=== PATIENT | female | born 1950 | race Caucasian/White ===

== ENCOUNTER 2016-11-24 21:59 | Inpatient (IN) | payer OTHER ==
[~2016-11-24] VITALS: Ht 152.4 cm; Wt 181.0 kg
[~2016-11-24 21:59] MED LIST: ALDACTONE25 MG PO; CALCIUM 500 + D1 TA1 PO; CALCIUM 500 + D1 TA2 PO; CATAPRES0.1 MG PO; COLACE100 M1 PO; COREG12.5 MG PO; IPRATROPIUM BROM3 M1 IH; IRON325 M2 PO; LASIX40 MG PO; LEVAQUIN500 MG IV; LIPITOR10 MG PO; LOVENOX40 MG/0.1 SUBQ; MAG-OX 400400 MG PO; MILK OF MA400 MG/5 M PO; NORCO 5/325 MG1 TAB PO; NORVASC10 MG PO; ONDANSETRON8 M1 PO; POLY VITAMIN PO; PRAVACHOL40 MG PO; PROAIR HFA0.09 MG/Ac IH; REGLAN10 MG PO; ROBITUSSIN PEA PO; ROCEPHIN1 G1 IV; SALT PO; SENOKOT8.6 MG PO; THERAGRAN1 TA2 PO; TYLENOL160 MG/5 M PO; VITAMIN C500 M8 PO; VITAMIN D PO; ZESTRIL20 MG PO; ZINC SULFATE220 M1 PO; ZOFRAN4 M1 PO; ZOLOFT25 MG PO; [UNRECOGNIZED DRUG - OTHER] IV
--- NOTE | 2016-11-24 21:59 | NUR ---
Patient was BIBA for resp distress and taken to bed 03 via gurney per EMS. Patient arrived on CPAP.
--- NOTE | 2016-11-24 21:59 | NUR ---
RT at bedside.
[2016-11-24 22:07] VITALS: BP 167/58
--- NOTE | 2016-11-24 22:07 | NUR ---
PT BIB BY EMS ON CPAP IB RESP DISTRESS PLACED ON VISION BIPAP 12\5 RR 12 FIO2 45 ALARMS ARE ON AND FUNCTIONAL APNEA SET 20 SECONDS PT IN HF ALERT WEARING F\F MASK SIZE LG BIPAP PLUGGED INTO RED OUTLET HHN WILL BE ORDERED Addendum: 11/24/16 at 2320 by Kenyatta Manrique RT GEL PLACED UNDER MASK
--- NOTE | 2016-11-24 22:14 | NUR ---
Dr. Rivera evaluating patient at bedside.
[2016-11-24] MEDS ORDERED: methylPREDNISolone SS 125 MG/2 ML VIAL IVP ONE (22:20)
[2016-11-24] MEDS ORDERED: IPRATROPIUM 0.02% 0.5 MG/2.5 ML NEBU INH ONE (22:20)
[2016-11-24] MEDS ORDERED: ALBUTEROL 0.083% 2.5 MG/3 ML NEBU INH ONE (22:20)
[2016-11-24] MEDS ORDERED: ARTIFICIAL TEA1 EACH OP (22:24)
[2016-11-24] MEDS ORDERED: COZAAR100 MG PO (22:24)
[2016-11-24] MEDS ORDERED: BENGAY GREASELE1 CRE TP (22:24)
--- NOTE | 2016-11-24 22:30 | NUR ---
BIBA C/O SOB, N/V, WHEEZING THROUGHOUT, ALBUTEROL AND ATROVENT WAS GIVEN ENROUTE, AND PUT ON CPAP DENIES N/V/D; SKIN IS PINK/WARM/DRY; AAOX4. HR EVEN AND REGULAR; PT DENIES ANY FEVER, AT THIS TIME; PATIENT STATES PAIN OF 0/10 AT THIS TIME; VSS; PATIENT POSITIONED FOR COMFORT; HOB ELEVATED; BEDRAILS UP X2; BED DOWN. ER MD MADE AWARE OF PT STATUS.
--- NOTE | 2016-11-24 22:30 | NUR ---
XRAY at bedside.
--- NOTE | 2016-11-24 22:33 | NUR ---
LAB at bedside.
--- NOTE | 2016-11-24 23:20 | NUR ---
ABG RESULTS REPORTED TO DR YU
--- NOTE | 2016-11-24 23:29 | NUR ---
PER LAB, TROPONIN IS 1.492. I made this known to Dr. Rivera.
[2016-11-24] MEDS ORDERED: ASPIRIN 81 MG TAB.CHEW PO ONE (23:35)
[2016-11-24] MEDS ORDERED: NITROGLYCERIN 2% 1 GM PKT TP ONE (23:35)
[2016-11-24] MEDS ORDERED: LEVOFLOXACIN 500 MG/D5W PREMIX 100 ML IV ONE (23:35)
--- NOTE | 2016-11-24 23:39 | NUR ---
BIPAP CHECK BS DIMINISHED GEL UNDER MASK DECREASE FIO2 TO 35
--- NOTE | 2016-11-25 01:29 | NUR ---
REC'D PT ON VISION BIPAP SETTING 07/30 RR 12 FIO2 35% PT IS WEARING LARGE FACE MASK WITH FAMILY MEMBER AT BEDSIDE
--- NOTE | 2016-11-25 02:17 | NUR ---
Patient being taken to TELE 112B via [facility] philip/RN.
--- NOTE | 2016-11-25 02:27 | NUR ---
pt moved to room 112b as per dr. carter can be on venti mask at 35% and bipap prn for now
--- NOTE | 2016-11-25 02:30 | NUR ---
Patient will be admitted to care of DR MCLEAN. Admited to TELE. Will go to room 112b. Belongings list completed. Report to joseph hendricks.
--- NOTE | 2016-11-25 02:36 | NUR ---
RECEIVED PT. TOMY NELSON AWAKE AND ALERT.ABLE TO VERBALIZE NEEDS WELL IN FRENCH. WITH VENTRI MASK AT 35% AND 02 SAT OF 96 %. HR AT 82 AND BLOOD PRESSURE 110/50. MORBIDLY OBESE FEMALE WITH SKIN INTACT. ABLE TO MOVE ALL EXTREMITIES. PT. ORIENTED TO CALL LIGHT USE FOR ANY HELP SHE MAY NEED OR IF IN PAIN. ORIENTED X 4. CLEAR SPEECH. SKIN INTACT. ABLE TO FOLLOW COMMANDS AND ABLE TO TURN SELF . DX. OF ACUTE CORONARY SYNDROME, PNA AND RESPIRATORY FAILURE WITH BIPAP PRN ORDER. CARE PLANS FOR THE NIGHT DISCUSSED WITH HER. USE OF PHONE AND RAPID RESPONSE USE EXPLAINED TO PT. SANDRA MONITORING.
--- NOTE | 2016-11-25 02:38 | NUR ---
BIPAP STBY ON 35% VENTURI MASK HR 83 SAO2 95% RR 20 B/S DIMINISHED
[2016-11-25 03:24] VITALS: BP 110/60
[2016-11-25 04:04] VITALS: BP 110/55
--- NOTE | 2016-11-25 06:34 | NUR ---
SLEPT WELL THIS SHIFT. NO FURTHER COMPLAINT OF SOB. WITH VM AT 35 %. AFEBRILE AND 02 SAT AT 96%. ENCOURAGED NOT TO TAKE IT OUT FOR A LONG TIME. PT. HAS TENDENCY TO TAKE OUT VM. TELEMETRY MONITORING. NO COMPLAINTS DONE.
--- NOTE | 2016-11-25 07:30 | NUR ---
RECEIVED REPORT FROM NIGHT NURSE. PT AOX4, RESTING IN HIGH FOWLERS IN BED. PT ON VENTURI MASK. PT DENIES ACUTE DISTRESS, SOB OR CHEST PAIN. MORBID OBESITY, BLE EDEMA NOTED. SAFETY MEASURES ENSURED. CALL LIGHT WITHIN REACH. PLAN OF CARE DISCUSSED WITH PATIENT. PT VERBALIZES UNDERSTANDING.
[2016-11-25 08:00] VITALS: BP 129/53
[2016-11-25] MEDS ORDERED: ACETAMINOPHEN 650 MG/20.3 ML UDC PO PRN (09:10)
[2016-11-25] MEDS ORDERED: HYDROcodone/APAP 5/325 MG 1 TAB TAB PO PRN (09:10)
[2016-11-25] MEDS: NACL 0.9% 1,000 ML IV SCH ×2 (09:50→19:25)
--- NOTE | 2016-11-25 10:28 | NUR ---
CHECK ON PT AND CHANGED O2 FROM VENTI MASK AT 35% TO NC AT 3L
[2016-11-25] MEDS ORDERED: ALBUTEROL SULFATE/IPRATROPIU 3 ML SOL IH SCH (11:00)
[2016-11-25 12:00] VITALS: BP 134/63
--- NOTE | 2016-11-25 12:00 | NUR ---
PT EATING WELL IN HIGH FOWLERS. PT'S SON AT BEDSIDE. DISCUSSED PLAN OF CARE, PT AND SON VERBALIZES UNDERSTANDING. NO S/S OF DISTRESS. SAFETY MEASURES ENSURED. CALL LIGHT WITHIN REACH
[2016-11-25] MEDS: LEVOFLOXACIN 750 MG/D5W PREMIX 150 ML IV SCH (13:49)
--- NOTE | 2016-11-25 13:55 | NUR ---
MEDICATION ADMINISTERED WITH EDUCATION, PT TOLERATED WELL. PT RESTING COMFORTABLY. SAFETY MEASURES ENSURED.
--- NOTE | 2016-11-25 13:55 | NUR ---
DR LUI IN TO SEE PT. ASSISTED WITH PERICARE AND ADLS. NOTED SMALL AMOUNT OF SOFT, BROWN STOOL. PT TOLERATED WELL. NO S/S OF DISTRESS. SAFETY MEASURES ENSURED.
[2016-11-25 16:00] VITALS: BP 147/67
[2016-11-25] MEDS: ISOSORBIDE DINITRATE 20 MG TAB PO SCH (16:32)
--- NOTE | 2016-11-25 16:40 | NUR ---
MEDICATION ADMINISTERED WITH EDUCATION, PT TOLERATED WELL. STRAIGHT CATH TO OBTAIN URINE SAMPLE COMPLETED WITH STERILE TECHNIQUE. PT TOLERATED WELL. PT RESTING COMFORTABLY IN HIGH FOWLERS. NO S/S OF DISTRESS. SAFETY MEASURES ENSURED.
--- NOTE | 2016-11-25 19:30 | NUR ---
CONDITION STABLE, ENDORSED PLAN OF CARE TO VEHICLE ASSEMBLY INSPECTOR RN.
[2016-11-25] MEDS: ALBUTEROL SULFATE/IPRATROPIU 3 ML SOL IH SCH (19:31)
--- NOTE | 2016-11-25 19:31 | NUR ---
RECD. RESTING IN BED, AWAKE, A/OX3, OBESE, RESPIRATION EVEN AND UNLABORED. IV OF NS AT 100 ML/HR INFUSING, LEFT FOREARM G 20. ABLE TO VERBALIZED NEEDS BUT VERY SOFT SPEAKING. ON 02 AT 2 LITERS VIA N/C, O2 SAT -96% ON CONTINUOUS PULSE OX MONITORING. DIMINISHED LUNG SOUNDS ON BILATERAL AUSCULTATION. HOB ELEVATED 40 DEGREES. WITH UNPRODUCTIVE COUGHING NOTED. CLAIMED SOMETIMES WITH WHITE PHLEGM. PLAN OF CARE FOR THE SHIFT DISCUSSED. VERBALIZED UNDERSTANDING. DENIES PAIN 0/10.
--- NOTE | 2016-11-25 19:55 | NUR ---
TROPONIN TRENDING DOWN - FROM O.569 TO 0.318, WILL INFORM MD.
[2016-11-25 20:00] VITALS: BP 146/63
--- NOTE | 2016-11-25 20:00 | NUR ---
Patient's Plan of Care was discussed and reviewed with REEL FED PRINTER: MONIQUE Carter
[2016-11-25] MEDS: ATORVASTATIN 20 MG TAB PO SCH (20:24)
[2016-11-25] MEDS: METOPROLOL 25 MG TAB PO SCH (20:24)
[2016-11-25] MEDS: ENOXAPARIN 100 MG/ML SYR SUBQ SCH (20:33)
--- NOTE | 2016-11-25 20:35 | NUR ---
DUE PO MEDICATIONS GIVEN, TOLERATED WELL.
[2016-11-25] MEDS ORDERED: ENOXAPARIN 30 MG/0.3 ML SYR SUBQ SCH ×2 (21:00)
[2016-11-25] MEDS ORDERED: LEVOFLOXACIN 500 MG/D5W PREMIX 100 ML IV SCH (21:00)
--- NOTE | 2016-11-25 22:00 | NUR ---
SPOKE WITH DR. MCLEAN INFORMED NEW RESULT FOR TROPONIN, 0.318. INQUIRED IF DR. LUI ORDERED MEDS, INFORMED LOVENOX WAS ORDERED AND GIVEN.
[2016-11-26] VITALS: BP 145/67
--- NOTE | 2016-11-26 | NUR ---
SLEEPING COMFORTABLY IN BED.
[2016-11-26] MEDS: ALBUTEROL SULFATE/IPRATROPIU 3 ML SOL IH SCH ×4 (01:32→20:14)
[2016-11-26 04:00] VITALS: BP 150/73
--- NOTE | 2016-11-26 04:00 | NUR ---
O 2 SAT REMAINED 0N 95 -96% LEVEL, NO SOB NOTED.
[2016-11-26] MEDS: NACL 0.9% 1,000 ML IV SCH ×2 (05:25→15:29)
[2016-11-26] MEDS ORDERED: ACETAMINOPHEN 325 MG TAB PO PRN (06:35)
[2016-11-26] MEDS: PANTOPRAZOLE 40 MG TABEC PO SCH (06:43)
--- NOTE | 2016-11-26 07:20 | NUR ---
CONDITION REMAIN STABLE. ENDORSED TO COURT UREÑA FOR CONTINUITY OF CARE.
--- NOTE | 2016-11-26 07:25 | NUR ---
RECEIVED REPORT FROM FILAMENT WOUND PARTS FABRICATOR RN. PT IS SLEEPING, NO S/S OF ACUTE CARDIAC/RESPIRATORY DISTRESS OR DISCOMFORT. SAFETY MEASURES IN PLACE, CALL LIGHT WITHIN REACH. WILL CONTINUE PLAN OF CARE AND CONTINUE TO MONITOR.
--- NOTE | 2016-11-26 07:39 | NUR ---
PATIENT HAS BEEN SCREENED AND CATEGORIZED HIGH NUTRITION RISK. PATIENT WILL BE SEEN WITHIN 1-2 DAYS OF ADMISSION. 11/25/16-11/26/[address]
[2016-11-26 08:00] VITALS: BP 138/78
[2016-11-26] MEDS ORDERED: LOSARTAN POTASSIUM PO SCH (09:00)
[2016-11-26] MEDS ORDERED: LOSARTAN 50 MG TAB PO SCH (09:00)
[2016-11-26] MEDS: METOPROLOL 25 MG TAB PO SCH (09:00)
[2016-11-26] MEDS: MAGNESIUM OXIDE 400 MG TAB PO SCH (09:16)
[2016-11-26] MEDS: ISOSORBIDE DINITRATE 20 MG TAB PO SCH ×3 (09:16→16:37)
[2016-11-26] MEDS: SERTRALINE 50 MG TAB PO SCH (09:16)
[2016-11-26] MEDS: DOCUSATE SODIUM 100 MG GELCAP PO SCH (09:17)
[2016-11-26] MEDS: ASPIRIN 325 MG TAB PO SCH (09:18)
[2016-11-26] MEDS: LOSARTAN 25 MG TAB PO SCH (09:18)
[2016-11-26] MEDS: ENOXAPARIN 100 MG/ML SYR SUBQ SCH ×2 (09:27→20:43)
--- NOTE | 2016-11-26 10:30 | NUR ---
PT TOLERATED AM MEDS WELL. NO S/S OF ACUTE DISTRESS OR DISCOMFORT. CALL LIGHT WITHIN REACH, WILL CONTINUE TO MONITOR.
[2016-11-26 12:00] VITALS: BP 123/61
[2016-11-26] MEDS: LEVOFLOXACIN 750 MG/D5W PREMIX 150 ML IV SCH (13:00)
--- NOTE | 2016-11-26 13:31 | NUR ---
PT EATING LUNCH. IV INFILTRATED, WILL ATTEMPT TO INSERT A NEW IV AFTER PT IS FINISHED EATING LUNCH. NO S/S OF ACUTE DISTRESS OR DISCOMFORT. CALL LIGHT WITHIN REACH, WILL CONTINUE TO MONITOR.
--- NOTE | 2016-11-26 15:49 | NUR ---
PT IS RESTING, CALM, COOPERATIVE. NO S/S OF ACUTE DISTRESS OR DISCOMFORT. CALL LIGHT WITHIN REACH, WILL CONTINUE TO MONITOR.
[2016-11-26 16:00] VITALS: BP 134/60
--- NOTE | 2016-11-26 17:00 | NUR ---
PT IS AWAKE, RESTING. FAMILY AT BEDSIDE. NO S/S OF ACUTE DISTRESS OR DISCOMFORT. CALL LIGHT WITHIN REACH, WILL CONTINUE TO MONITOR.
--- NOTE | 2016-11-26 19:14 | NUR ---
ENDORSED REPORT TO ELEVATOR ERECTOR HELPER RN. NO S/S OF ACUTE DISTRESS OR DISCOMFORT. PT IN STABLE CONDITION.
--- NOTE | 2016-11-26 19:26 | NUR ---
RECEIVED FROM AM RN IN BED SLEEPING. CALL LIGHT WITH IN REACH AT ALL TIMES. MORBIDLY OBESE FEMALE , NO SOB AT THIS TIME. NO RESTLESSNESS. USES CALL LIGHT FOR HELP. TELEMETRY MONITORING. DX. OF ACS, PNA AND RESPIRATORY FAILURE. AFEBRILE.
[2016-11-26 19:28] VITALS: BP 136/78
--- NOTE | 2016-11-26 19:40 | NUR ---
IVF SITE INFILTRATED. DISCONTINUED. TIP INTACT. NEW IVF LINE INSERTED TO RIGHT FOREARM #22. TOLERATED WELL. GOOD BLOOD RETURN.
[2016-11-26] MEDS: ATORVASTATIN 20 MG TAB PO SCH (20:38)
[2016-11-26] MEDS: METOPROLOL 50 MG TAB PO SCH (20:39)
[2016-11-26] MEDS ORDERED: METOPROLOL 50 MG TAB PO SCH (21:00)
[2016-11-27 00:11] VITALS: BP 149/77
--- NOTE | 2016-11-27 00:38 | NUR ---
SLEEPING. PT. TURNED AND CHECKED EVERY 2 HOURS. ABLE TO USE CALL LIGHT FOR HELP. ORIENTED X 4. CLEAR SPEECH. TELEMETRY MONITORING.
[2016-11-27] MEDS: NACL 0.9% 1,000 ML IV SCH ×2 (01:28→05:08)
[2016-11-27] MEDS: ALBUTEROL SULFATE/IPRATROPIU 3 ML SOL IH SCH ×3 (01:43→12:55)
--- NOTE | 2016-11-27 02:20 | NUR ---
PT. WOKE UP AND REQUESTED TO HAVE BEDDINGS CHANGED RT URINATED. KEPT DRY AND CLEAN. ABLE TO USE CALL LIGHT FOR HELP. DENIES ANY PAIN. 02 STA AT 98 %. SLEPT BACK. TELEMETRY MONITORING. ABLE TO VERBALIZE NEEDS WELL.
[2016-11-27 04:00] VITALS: BP 152/71
--- NOTE | 2016-11-27 04:00 | NUR ---
AWAKE AT THIS TIME . PT. PRAYING AND DOING ROSARY. ABLE TO VERBALIZE NEEDS WELL. USES CALL LIGHT FOR HELP. NO SOB NOTED. NO COMPLAINTS DONE . TELEMETRY MONITORING.
[2016-11-27] MEDS: PANTOPRAZOLE 40 MG TABEC PO SCH (05:10)
--- NOTE | 2016-11-27 06:16 | NUR ---
AWAKE AT THIS TIME. AM PERSONAL HYGIENE RENDERED BY CNAS. NO COMPLAINTS DONE. ABLE TO VERBALIZE NEEDS WELL.
--- NOTE | 2016-11-27 07:45 | NUR ---
RECEIVED PT SLEEPING COMFORTABLY IN BED WITH O2 AT 2L/NC. O2 SAT 93-96%. PT EASILY ROUSABLE AND VOICED NO C/O PAIN OR ANY OTHER DISCOMFORT AT THIS TIME. SHIFT ASSESSMENT DONE AND CHARTED. PLAN OF CARE, MEDS,TREATMENTS AND SAFETY DISCUSSED WITH PT AND PT VERBALIZED UNDERSTANDING. WILL CONTINUE TO MONITOR PT. WILL CONTINUE TO MONITOR PT.
[2016-11-27 08:00] VITALS: BP 133/77
[2016-11-27] MEDS: SERTRALINE 50 MG TAB PO SCH (08:30)
[2016-11-27] MEDS: ASPIRIN 325 MG TAB PO SCH (08:30)
[2016-11-27] MEDS: MAGNESIUM OXIDE 400 MG TAB PO SCH (08:31)
[2016-11-27] MEDS: ISOSORBIDE DINITRATE 20 MG TAB PO SCH ×3 (08:31→17:59)
[2016-11-27] MEDS: LOSARTAN 25 MG TAB PO SCH (08:31)
[2016-11-27] MEDS: DOCUSATE SODIUM 100 MG GELCAP PO SCH (08:32)
[2016-11-27] MEDS: METOPROLOL 50 MG TAB PO SCH (08:33)
[2016-11-27] MEDS: ENOXAPARIN 100 MG/ML SYR SUBQ SCH (09:05)
[2016-11-27] MEDS ORDERED: CLOPIDOGREL 75 MG TAB PO SCH (10:00)
--- NOTE | 2016-11-27 11:41 | NUR ---
SS NOTE: PER MARLIN FROM [facility] ([phone]), PT CAN GO TO ROOM 9A ANYTIME UNDER DR. MCLEAN. NIMO MAGDALENO.
[2016-11-27 12:00] VITALS: BP 129/75
[2016-11-27] MEDS ORDERED: LEVAQUIN750 MG PO (12:35)
[2016-11-27] MEDS ORDERED: SODIUM CHLORID IV (12:37)
--- NOTE | 2016-11-27 13:39 | NUR ---
CALL PLACED TO [facility] [phone] AND SPOKE WITH HERI AND SCHEDULED BARIATRIC GURNEY TRANSPORT WITH 5:30 BRAKE SHOE REBUILDER. AT THIS TIME AWAITING CALL FROM [facility] NORBERTO DENNIS FOR AUTHORIZATION NUMBER.
[2016-11-27] MEDS: LEVOFLOXACIN 750 MG/D5W PREMIX 150 ML IV SCH (15:22)
[2016-11-27 16:00] VITALS: BP 114/43
--- NOTE | 2016-11-27 16:55 | NUR ---
REPORT GIVEN TO YOBANI PIERCE OF [facility] BY PHONE.
--- NOTE | 2016-11-27 18:30 | NUR ---
PT TOOK DIET AND FLUIDS WELL. PT ON ROOM AIR AND NO C/O SOB MADE BY PT. PT O2 SAT FLUCTUATING FROM THE 80S TO HIGH 90S. WILL CONTINUE TO MONITOR PT.
--- NOTE | 2016-11-27 18:55 | NUR ---
PT DISCHARGED TO [facility]IA [facility] IN A STABLE CONDITION. TELE BOX REMOVED AND RETURNED TO HUNTING AND FISHING GUIDE. ALL PT'S BELONGINGS SENT WITH PT.
[2016-11-28] MEDS ORDERED: CLOPIDOGREL 75 MG TAB PO SCH (09:00)
--- NOTE | 2016-11-28 10:38 | NUR ---
RECEIVED CALL FROM SONNY THORNTON AT [facility] WITH AUTH# [id number] FOR BARIATRIC GURNEY TRANSPORT FOR PT YESTERDAY TO [facility]. CALLED [facility] [phone] AND SPOKE WITH DON AND PROVIDED HER WITH THE AUTH#.
== END 2016-11-27 18:55 | DRG 871 ==
LOC: MED 21:59 → MTU 23:47
PROVIDERS: ADMIT Family Medicine; ATTEND Family Medicine
PROC: 5A09457 Assistance with Respiratory Ventilation, 24-96 Consecutive Hours, Continuous Positive Airway Pressure (ICD-10-PCS; principal; 2016-11-24)
DX: A41.9 Sepsis, unspecified organism (principal); J18.9 Pneumonia, unspecified organism; J96.00 Acute respiratory failure, unspecified whether with hypoxia or hypercapnia; I21.4 Non-ST elevation (NSTEMI) myocardial infarction; E87.1 Hypo-osmolality and hyponatremia; Z68.45 Body mass index [BMI] 70 or greater, adult; I50.42 Chronic combined systolic (congestive) and diastolic (congestive) heart failure; J44.1 Chronic obstructive pulmonary disease with (acute) exacerbation; J44.0 Chronic obstructive pulmonary disease with (acute) lower respiratory infection; E66.01 Morbid (severe) obesity due to excess calories; M06.9 Rheumatoid arthritis, unspecified; K21.9 Gastro-esophageal reflux disease without esophagitis; E78.5 Hyperlipidemia, unspecified; G14 Postpolio syndrome; I11.0 Hypertensive heart disease with heart failure; K76.0 Fatty (change of) liver, not elsewhere classified; R74.0 Nonspecific elevation of levels of transaminase and lactic acid dehydrogenase [LDH]; Y95 Nosocomial condition; Z88.0 Allergy status to penicillin; Z91.013 Allergy to seafood; Z79.899 Other long term (current) drug therapy; Z90.710 Acquired absence of both cervix and uterus; Z85.42 Personal history of malignant neoplasm of other parts of uterus; Z90.49 Acquired absence of other specified parts of digestive tract; Z74.01 Bed confinement status; Z28.21 Immunization not carried out because of patient refusal

== ENCOUNTER 2017-05-25 12:08 | Inpatient (IN) | payer OTHER ==
[~2017-05-25] VITALS: Ht 165.1 cm; Wt 138.3 kg
[~2017-05-25 12:08] MED LIST changes: +ACET-8386 PO; +ACET650S53 PO; -ALDACTONE25 MG PO; +AMLO10TA PO; +ATOR10TA PO; +CALC-105 PO; +CALC-232 PO; -CALCIUM 500 + D1 TA1 PO; -CALCIUM 500 + D1 TA2 PO; -CATAPRES0.1 MG PO; +CEFT1PDS43 IV; +CHOL400T7 PO; +CLON0.1T42 PO; -COLACE100 M1 PO; -COREG12.5 MG PO; +DEXT1DRO4 OP; +DOCU-299 PO; +FERR-142 PO; +IPRA3AMP IH; -IPRATROPIUM BROM3 M1 IH; -IRON325 M2 PO; -LASIX40 MG PO; -LEVAQUIN500 MG IV; +LEVO750T2 PO; -LIPITOR10 MG PO; +LISI-420 PO; +LOSA100T1 PO; -LOVENOX40 MG/0.1 SUBQ; -MAG-OX 400400 MG PO; +MAGN400T11 PO; +MENT1CRE TP; +METO-460 PO; -MILK OF MA400 MG/5 M PO; -NORCO 5/325 MG1 TAB PO; -NORVASC10 MG PO; +ONDA4TAB PO; -ONDANSETRON8 M1 PO; -POLY VITAMIN PO; -PRAVACHOL40 MG PO; -PROAIR HFA0.09 MG/Ac IH; -REGLAN10 MG PO; -ROBITUSSIN PEA PO; -ROCEPHIN1 G1 IV; +SAL1 PO; -SALT PO; +SENN-73 PO; -SENOKOT8.6 MG PO; +SERT25TA PO; -THERAGRAN1 TA2 PO; -TYLENOL160 MG/5 M PO; -VITAMIN C500 M8 PO; -VITAMIN D PO; -ZESTRIL20 MG PO; -ZINC SULFATE220 M1 PO; -ZOFRAN4 M1 PO; -ZOLOFT25 MG PO; +[UNRECOGNIZED DRUG - CODE] IV; -[UNRECOGNIZED DRUG - OTHER] IV
--- NOTE | 2017-05-25 12:08 | NUR ---
PT BIBA TO BED 4
[2017-05-25 12:10] VITALS: BP 153/70
[2017-05-25] MEDS ORDERED: methylPREDNISolone SS 125 MG/2 ML VIAL IVP ONE (12:20)
[2017-05-25] MEDS ORDERED: ALBUTEROL 0.083% 2.5 MG/3 ML NEBU INH ONE (12:20)
[2017-05-25] MEDS ORDERED: ONDANSETRON 4 MG/2 ML VIAL IVP ONE (12:20)
[2017-05-25] MEDS ORDERED: NACL 0.9% 500 ML IV ONE (12:20)
[2017-05-25] MEDS ORDERED: IPRATROPIUM 0.02% 0.5 MG/2.5 ML NEBU INH ONE (12:20)
--- NOTE | 2017-05-25 12:31 | NUR ---
BROUGHT IN BY [facility] WITH A CHIEF COMPLIANT OF REPEATED N/V X 3 DAYS---DENIES ABDOMINAL PAIN DENIES DIARRHEA/LOOSE STOOLS
[2017-05-25 12:50] LABS: HEMATOCRIT 35.2 % (36-48); HEMOGLOBIN 11.6 g/dL (12.0-16.0); MEAN CORPUSCULAR HEMOGLOBIN 30 pg (27-31); MEAN CORPUSCULAR HGB CONC 33 g/dL (33-37); MEAN CORPUSCULAR VOLUME 90 fL (80-94); PLATELET COUNT (AUTO) 221 K/uL (140-450); RED BLOOD CELL COUNT(AUTO) 3.89 MIL/uL (4.20-5.40); RED CELL DISTRIBUTION WIDTH 13.1 % (11.6-13.7); WHITE BLOOD COUNT (AUTO) 11.1 K/uL (4.8-10.8)
--- NOTE | 2017-05-25 12:50 | NUR ---
X-Ray at bedside.
[2017-05-25 12:56] LABS: PROTHROMBIN TIME 10.9 secs (10.8-13.4)
[2017-05-25 13:03] LABS: ANION GAP 8.3 (8-16); CARBON DIOXIDE 30.4 mmol/L (21-32); CREATININE 0.6 mg/dL (0.6-1.3); POTASSIUM 4.7 mmol/L (3.5-5.1); TOTAL BILIRUBIN 0.8 mg/dL (0.0-1.0)
[2017-05-25 13:04] LABS: LYMPHOCYTES % (MANUAL) 10 % (20-46); MONOCYTES % (MANUAL) 4 % (5-12)
[2017-05-25] MEDS ORDERED: LEVOFLOXACIN 500 MG/D5W PREMIX 100 ML IV ONE ×2 (13:10→15:15)
[2017-05-25] MEDS ORDERED: AZITHROMYCIN 500 MG in DEXTROSE 5% 250 ML IV ONE (13:10)
[2017-05-25 13:11] LABS: LIPASE 57 U/L (73-393)
--- NOTE | 2017-05-25 13:18 | NUR ---
PT PLACED ON JOSEPH BIPAP SETTINGS 12\6 RR 12 FIO2 60% ALARMS ON AND FUNCTIONING PROPERLY AMBU BAG AT SIDE OF BIPAP AND BIPAP IS PLUGGED INTO RED OUTLET, B\S ARE WHEEZING BILATERALLY, PT WEARING LARGE FACE MASK WITH PROTETIC GEL IN PLACE PT IS AWAKE AND ALERT
[2017-05-25] MEDS ORDERED: AZITHROMYCIN 500 MG INJ VIAL IV ONE (13:35)
--- NOTE | 2017-05-25 13:45 | NUR ---
# 16 FR Ortega catheter with ml utilizing sterile technique. Immediate return of ml urine noted. Bedside drainage bag placed below level of bladder. Urine sample collected and sent to lab. Pt tolerated procedure .
--- NOTE | 2017-05-25 13:55 | NUR ---
REPOSITIONED UP ON LESLIE
--- NOTE | 2017-05-25 14:09 | NUR ---
REPORT GIVEN TO ASHLEE YUN ICU---
[2017-05-25 14:20] LABS: APPEARANCE,URINE HAZY (CLEAR); BILIRUBIN,URINE NEGATIVE (NEGATIVE); BLOOD, URINE 3+ (NEGATIVE); COLOR,URINE YELLOW (YELLOW); LEUKOCYTE ESTERASE ,URINE 2+ (NEGATIVE); NITRITE, URINE POSITIVE (NEGATIVE); UGLUCOSE NEGATIVE (NEGATIVE)
--- NOTE | 2017-05-25 14:25 | NUR ---
PATIENT TRANSFERRED TO ICU-1 REMOVED FROM BIPAP TO MASK PLACED ON SUPPLEMENTAL OXYGEN VIA E-TANK AT 3 LP NC SATURATION 96% HR 83 RR 20 TOLERATED TRANSFER WELL WITHOUT ADVERSE REACTIONS NOTED NO PULMONARY DISTRESS NOTED AT THE END OF TRANSFER PATIENT ALSO DENIES SOB LEFT OFF BIPAP TO MASK AT THIS TIME MINING CONSULTANT TO MONITOR Marco A [facility] RCP AND ABNER ATTENDING
[2017-05-25 14:35] LABS: RBC,URINE 20-50 /HPF (0-5); WBC,URINE 80-100 /HPF (0-5)
--- NOTE | 2017-05-25 14:40 | NUR ---
ADMITTED PT FROM ER PER MARVIN. PT IS AWAKE, AAO X 4, ABLE TO MAKE NEEDS KNOWN AND ABLE TO FOLLOW COMMANDS. LEFT HAND PERIPHERAL IV PATENT AND INTACT. ROCHA CATH IN PLACE DRAINING LIGHT EDWARD URINE IN MODERATE AMOUNT. SKIN IS INTACT WITH DISCOLORATION NOTED TO LLE. SKIN WARM TO TOUCH WNL. ON O2 AT 3 LPM/NC. ON AND OFF NON-PRODUCTIVE COUGH NOTED. NO SOB NOTED. ORIENTED TO ROOM, TV, CALL LIGHT AND BED. MADE COMFORTABLE IN BED. CALL LIGHT WITHIN REACH. WILL CONTINUE TO MONITOR PT.
[2017-05-25 14:42] VITALS: BP 138/73
--- NOTE | 2017-05-25 15:00 | NUR ---
DR. MCLEAN IN AND SEEN PT. WILL FOLLOW UP WITH NEW ORDERS. PT COMPLAINED OF CHEST PAIN AFTER COUGHING. DR. MCLEAN MADE AWARE. NO ORDERS MADE.
--- NOTE | 2017-05-25 15:10 | NUR ---
REASSESSED PT'S PAIN. PT VERBALIZED PAIN IS GETTING BETTER, 3/10.
[2017-05-25] MEDS ORDERED: HYDROcodone/APAP 5/325 MG 1 TAB TAB PO PRN (15:15)
[2017-05-25] MEDS ORDERED: ONDANSETRON 4 MG TAB PO PRN (15:15)
[2017-05-25] MEDS ORDERED: MORPHINE SULFATE 2 MG/ML SYR IVP PRN (15:15)
--- NOTE | 2017-05-25 15:15 | NUR ---
FAMILY AT BEDSIDE. UPDATED OF PT'S STATUS. DR. MCLEAN DISCUSSED PT'S PLAN OF CARE WITH FAMILY.
[2017-05-25 16:00] VITALS: BP 157/76
[2017-05-25] MEDS: POTASSIUM CHL 20 MEQ/NACL 0.9% 1,000 ML IV SCH (16:38)
--- NOTE | 2017-05-25 16:40 | NUR ---
DR. BARRIGA IN AND SEEN PT. WILL FOLLOW UP WITH ORDERS.
[2017-05-25 18:00] VITALS: BP 138/68
--- NOTE | 2017-05-25 18:00 | NUR ---
DUPLICATE ORDER OF LEVAQUIN DISCONTINUED. MEDICATION NOT ADMINISTERED BECAUSE PT WAS ALREADY GIVEN AT THE ER.
--- NOTE | 2017-05-25 18:10 | NUR ---
PAGED DR. FREITAS REGARDING FUROSEMIDE IV ORDERED EARLIER BY DR. BARRIGA.
--- NOTE | 2017-05-25 18:30 | NUR ---
DR. FREITAS CALLED BACK. OK TO GIVE 9 PM DOSE OF FUROSEMIDE EARLY.
[2017-05-25] MEDS: FUROSEMIDE 20 MG/2 ML VIAL IVP SCH ×2 (18:44→21:00)
--- NOTE | 2017-05-25 19:25 | NUR ---
REPORT GIVEN TO TEMPLATE CUTTER NURSES FOR CONTINUITY OF CARE. PT IS IN STABLE CONDITION.
--- NOTE | 2017-05-25 19:30 | NUR ---
REPORT RECEIVED FROM COURT BHAGAT. PT IS A&OX4. FOLLOWS COMMANDS WELL. NOTED WITH HEARING IMPAIRMENT. WEARS GLASSES. LEFT WRIST PERIPHERAL IV #22 INTACT AND PATENT WITH NO S/SX OF INFILTRATION OR PHLEBITIS NOTED. PT IS LEFT HANDED AND BILATERAL DEICER REPAIRER ELECTRIC EQUAL. BILATERAL LUNGS SOUNDS DIMINISHED WITH CRACKLES IN THE LEFT LOWER LOBE AUSCULTATED. ON SUPPLEMENTAL O2 VIA NC @3L/MIN. PER MORNING SHIFT NURSE REPORT, PT WAS SUCCESSFULLY WEANED OFF FROM BIPAP. PT DENIES ANY DIFFICULTY OF BREATHING AT THIS TIME. BOWEL SOUNDS HEARD FROM ALL 4 QUADRANTS. ROCHA CATHETER NOTED DRAINING CLEAR YELLOW URINE VIA GRAVITY. PT SEVERELY WEAK TO THE LOWER EXTREMITIES. PT STATED SHE IS NON-AMBULATORY. PT DENIES PAIN OR DISCOMFORT AT THIS TIME. PER MORNING NURSE, THE LASIX WAS GIVEN EARLIER FOR [address] MCLEAN MADE AWARE. WILL NOT ADMINISTER 2100 SCHEDULED LASIX. CALL LIGHT IN REACH AND BED IS AT THE LOWEST POSITION. WILL CONTINUE TO MONITOR.
--- NOTE | 2017-05-25 19:50 | NUR ---
SON AT BED SIDE AT THIS TIME. CHECKING WITH INVENTORY AND ADMISSION PAPERS.
[2017-05-25 20:00] VITALS: BP 137/83
[2017-05-25] MEDS: ATORVASTATIN 20 MG TAB PO SCH (20:35)
[2017-05-25] MEDS: cloNIDine 0.1 MG TAB PO SCH (20:36)
--- NOTE | 2017-05-25 20:58 | NUR ---
PT TOLERATED ALL MEDS WELL. PT DENIES PAIN OR DISCOMFORT. ALL SAFETY PRECAUTIONS IN PLACE. WILL CONTINUE TO MONITOR.
--- NOTE | 2017-05-25 21:04 | NUR ---
2100 SCHEDULED LASIX NOT ADMINISTERED BECAUSE MORNING SHIFT ADMINISTERED IT EARLY AT [address] FREITAS'S ORDER.
--- NOTE | 2017-05-25 21:06 | NUR ---
EARLY LASIX ADMINSITRATION BY MORNING SHIFT NURSE- / FORTINO WAS MADE AWARE AND GAVE AN ORDER TO GIVE IT EARLY. NOT DR. MCLEAN.
[2017-05-25 22:00] VITALS: BP 134/57
[2017-05-25] MEDS: ALBUTEROL SULFATE/IPRATROPIU 3 ML SOL IH PRN (22:05)
--- NOTE | 2017-05-25 22:25 | NUR ---
PT AWAKE AND WATCHING TV AT THIS TIME. DENIES ANY PAIN DISCOMFORT. NO ACUTE DISTRESS NOTED. CALL LIGHT IN REACH AND BED IS KEPT TO THE LOWEST POSITION. WILL CONTINUE TO MONITOR.
[2017-05-26] VITALS (8 sets, daily range): BP systolic 124–159; BP diastolic 58–78
[2017-05-26] MEDS: POTASSIUM CHL 20 MEQ/NACL 0.9% 1,000 ML IV SCH ×2 (01:15→11:15)
--- NOTE | 2017-05-26 02:04 | NUR ---
PT IS ASLEEP AT THIS TIME. NO S/SX OF ACUTE DISTRESS NOTED. FLACC=0. CALL LIGHT IN REACH AND BED IS AT THE LOWEST. WILL CONTINUE TO MONITOR
--- NOTE | 2017-05-26 03:53 | NUR ---
PT AWAKE AT THIS TIME. DENIES ANY PAIN OR DISCOMFORT. NO ACUTE DISTRESS NOTED. CONTINUING WITH CARDIAC MONITORING. IVF INFUSING ORDERED WITH NO S/SX OF INFILTRATION OR PHLEBITIS. CALL LIGHT WITHIN REACH. BED KEPT AT THE LOWEST POSITION. WILL CONTINUE TO MONITOR.
[2017-05-26] MEDS: ACETAMINOPHEN 650 MG/20.3 ML UDC PO PRN (04:22)
--- NOTE | 2017-05-26 04:26 | NUR ---
PT C/O PAIN (HEADACHE)11/02 TYLENOL FOR PAIN GIVEN ORDERED
--- NOTE | 2017-05-26 05:22 | NUR ---
PAIN SAID NO MORE HEADACHE PAIN LEVEL 0/10.
[2017-05-26 05:25] LABS: HEMATOCRIT 35.4 % (36-48); HEMOGLOBIN 11.6 g/dL (12.0-16.0); MEAN CORPUSCULAR HEMOGLOBIN 30 pg (27-31); MEAN CORPUSCULAR HGB CONC 33 g/dL (33-37); MEAN CORPUSCULAR VOLUME 90 fL (80-94); PLATELET COUNT (AUTO) 233 K/uL (140-450); RED BLOOD CELL COUNT(AUTO) 3.91 MIL/uL (4.20-5.40); RED CELL DISTRIBUTION WIDTH 12.9 % (11.6-13.7)
[2017-05-26 05:33] LABS: ANION GAP 10.4 (8-16); CARBON DIOXIDE 30.5 mmol/L (21-32); CREATININE 0.6 mg/dL (0.6-1.3); POTASSIUM 4.9 mmol/L (3.5-5.1)
[2017-05-26 05:35] LABS: EOSINOPHILS % (MANUAL) 0 % (0-4); LYMPHOCYTES % (MANUAL) 4 % (20-46); MONOCYTES % (MANUAL) 0 % (5-12)
--- NOTE | 2017-05-26 05:45 | NUR ---
PT AWAKE AND PROVIDED AM CARE. PT NEEDED MAXIMUM ASSISTANCE WITH ADLS. TOLERATED WELL. DENIES PAIN OR DISCOMFORT. NO ACUTE DISTRESS NOTED. CALL LIGHT IN REACH AND BED KEPT AT THE LOWEST POSITION. WILL CONTINUE TO MONITOR.
--- NOTE | 2017-05-26 07:12 | NUR ---
REPORT GIVEN TO MORNING RN FOR CONTINUITY OF CARE. PT IS STABLE AND NO S/SX OF ACUTE DISTRESS. CALL LIGHT WITHIN REACH AND BED KEPT AT THE LOWEST POSITION.
--- NOTE | 2017-05-26 07:15 | NUR ---
RECEIVED REPORT FROM NIGHT NURSES FOR CONTINUITY OF CARE. PT IS AWAKE, AAO X 4. WATCHING TV AT THIS TIME. INTERMITTENT, NON-PRODUCTIVE COUGH NOTED. LUNGS SOUND CLEAR. PT IS ON O2 3 LPM/NC, O2 SAT 97%. NSR ON MONITOR. PERIPHERAL IV TO LEFT WRIST PATENT AND INTACT, FLOWING ORDERED IV FLUID. ROCHA CATH DRAINING URINE TO GRAVITY DRAINAGE BAG. NO PAIN OR DISCOMFORT AT THIS TIME. NO SIGNS OF SOB OR ACUTE DISTRESS AT THIS TIME. BED IN LOWEST POSITION AND CALL LIGHT WITHIN REACH. WILL CONTINUE TO MONITOR.
[2017-05-26] MEDS: ALBUTEROL SULFATE/IPRATROPIU 3 ML SOL IH PRN ×2 (07:26→16:53)
--- NOTE | 2017-05-26 07:26 | NUR ---
AWAKE AND ALERT RESPONSIVE TO SUPERINTENDENT JOB PATIENT C/O OF SOB AND NASAL DRYNESS ASSESSMENT DONE HHN PRN THERAPY GIVEN AT THIS TIME TOLERATED WELL WITHOUT ADVERSE REACTIONS ENCOURAGED DEEP BREATHING AND COUGH DURING THERAPY STRONG NPC POST HHN THERAPY ADDED HUMIDIFIER JOSEPH RESPIRONICS V60 BIPAP IN ROOM
--- NOTE | 2017-05-26 07:39 | NUR ---
RECEIVED A CALL FROM SON, IRINA, SPOKE WITH HIM AND GAVE UPDATE ABOUT PT'S CONDITION.
[2017-05-26] MEDS: cloNIDine 0.1 MG TAB PO SCH ×2 (08:32→20:21)
[2017-05-26] MEDS: SERTRALINE 50 MG TAB PO SCH (08:32)
[2017-05-26] MEDS: DOCUSATE SODIUM 100 MG GELCAP PO SCH (08:33)
[2017-05-26] MEDS: MAGNESIUM OXIDE 400 MG TAB PO SCH (08:33)
[2017-05-26] MEDS: amLODIPine 5 MG TAB PO SCH (08:34)
[2017-05-26] MEDS: FUROSEMIDE 20 MG/2 ML VIAL IVP SCH ×2 (08:35→20:20)
[2017-05-26] MEDS: ENOXAPARIN 40 MG/0.4 ML SYR SUBQ SCH (08:38)
[2017-05-26] MEDS: LEVOFLOXACIN 750 MG/D5W PREMIX 150 ML IV SCH (08:39)
--- NOTE | 2017-05-26 09:00 | NUR ---
ADMINISTERED MORNING MEDICATIONS. PT TOLERATED WELL. NO SIGNS OF ACUTE DISTRESS NOTED AT THIS TIME. NEEDS WELL ATTENDED. WILL CONTINUE TO MONITOR.
--- NOTE | 2017-05-26 09:56 | NUR ---
DR. MCLEAN CAME IN TO SEE AND EXAMINE PT. WILL FOLLOW UP WITH NEW ORDERS.
--- NOTE | 2017-05-26 10:00 | NUR ---
DR. MCLEAN MADE AWARE THAT SODIUM LEVEL IS 128 AND POTASSIUM LEVEL IS 4.9. NO NEW ORDER AT THIS TIME. PT IS STABLE. WILL CONTINUE TO MONITOR.
[2017-05-26] MEDS ORDERED: PNEUMOCOCCAL VACCINE 23 MCG/0.5 ML VIAL IMVAC SCH (10:20)
--- NOTE | 2017-05-26 10:29 | NUR ---
DR. MCLEAN ORDERED TRANSFER TO TELE. CHARGE NURSE MADE AWARE. WEAVER TIRE CORD MADE AWARE. TELE CHARGE NURSE MADE AWARE. WILL WAIT FOR AVAILABLE BED.
--- NOTE | 2017-05-26 10:31 | NUR ---
PT MADE AWARE OF TRANSFER TO TELE ORDER. PT AGREES TO TRANSFER.
--- NOTE | 2017-05-26 11:55 | NUR ---
PT'S SON, IRINA, AT [facility]. MADE SON AWARE OF PT'S TRANSFER ORDER TO TELE.
--- NOTE | 2017-05-26 12:05 | NUR ---
DR. BARRIGA CAME IN TO SEE AND EXAMINE PT. WILL FOLLOW UP WITH NEW ORDERS.
[2017-05-26] MEDS: guaiFENesin/CODEINE 100/10MG 5 ML UDC PO PRN ×2 (13:06→20:43)
--- NOTE | 2017-05-26 14:00 | NUR ---
GAVE REPORT TO COURT BUENROSTRO, AT TELEMETRY.
--- NOTE | 2017-05-26 14:25 | NUR ---
PT ON UNIT FROM ICU. NO S/S OF ACUTE DISTRESS. PT DENIES PAIN. IV SITE PATENT AND INTACT. ON 3L NC. ROCHA CATHETER PATENT. PT ORIENTED TO ROOM. CALL LIGHT WITHIN REACH. SAFETY MEASURES ENSURED. WILL CONTINUE TO MONITOR.
--- NOTE | 2017-05-26 14:30 | NUR ---
PT TRANSFERRED TO ROOM 111B AT TELEMETRY UNIT. NO SOB OR ACUTE DISTRESS NOTED DURING THE TRANSFER. PT TOLERATED WELL. NO COMPLAINT OF PAIN OR DISCOMFORT AT THIS TIME.
[2017-05-26] MEDS ORDERED: AZITHROMYCIN 500 MG in DEXTROSE 5% 250 ML IV SCH (15:00)
--- NOTE | 2017-05-26 16:15 | NUR ---
PT RESTING IN BED. NO S/S OF ACUTE DISTRESS. PT DENIES PAIN. CALL LIGHT WITHIN REACH. WILL CONTINUE TO MONITOR.
--- NOTE | 2017-05-26 19:06 | NUR ---
ENDORSED PLAN OF CARE TO NIGHT RN. PT REMAINS STABLE.
--- NOTE | 2017-05-26 19:30 | NUR ---
RECEIVED REPORT FROM DAY RN AT BEDSIDE, PATIENT IS AAOX4 ON O2 AT 3L VIA NASAL CANNULA. NO SOB OR SIGN OF DISTRESS AT THIS TIME. PATIENT HAS IV TO LEFT THUMB PATENT AND INTACT. SKIN INTACT WITH BLE DISCOLORATION. PATIENT DENIES PAIN AT THIS TIME. DISCUSSED PLAN OF CARE WITH PATIENT, PATIENT VERBALIZED UNDERSTANDING. CALL LIGHT WITHIN REACH. WILL CONTINUE TO MONITOR
--- NOTE | 2017-05-26 20:00 | NUR ---
PATIENT ACCIDENTALLY DISLODGED IV, NEW IV INSERTED TO RIGHT FOREARM. PATIENT TOLERATED WELL.
[2017-05-26] MEDS: ATORVASTATIN 20 MG TAB PO SCH (20:20)
--- NOTE | 2017-05-26 20:26 | NUR ---
PM MEDS ADMINISTERED, PATIENT TOLERATED WELL, NO SOB OR SIGN OF DISTRESS. PATIENT UP WATCHING TV, CALL LIGHT WITHIN REACH. WILL CONTINUE TO MONITOR.
--- NOTE | 2017-05-26 22:30 | NUR ---
PATIENT RESTING IN BED, NO DISTRESS, WILL CONTINUE TO MONITOR
--- NOTE | 2017-05-26 23:08 | NUR ---
ENDORSED PATIENT TO SENIOR STRATEGY MANAGER NATHALY, PATIENT IN STABLE CONDITION
--- NOTE | 2017-05-26 23:08 | NUR ---
PATIENT IS CURRENTLY SITTING UP IN BED AWAKE HARD OF HEARING HAS HUMIDIFIED OXYGEN AT 3L VIA NASAL CANNULA NO SOB OR RESP DISTRESS NOTED. IV ACCESS TO RT FOREARM CURRENTLY PATENT.PATIENT DENIES ANY PAIN.BOTH LOWER EXTREMITIES WITH DISCOLORATION NOTED.ROCHA CATHETER TO GRAVITY YELLOW COLOR URINE NOTED TO DRAINAGE BAG.NEEDS MET WILL CONTINUE TO MONITOR.CALL LIGHT WITHIN REACH.
--- NOTE | 2017-05-27 00:15 | NUR ---
PATIENT ASSISTED TO TURN PATIENT NO VERY COMPLAINT SO PILLOWS PLACED UNDER HER LEGS AND USED FOR OFFLOADING PATIENT EDUCATED ON THE IMPORTANCE TO TURN AND REPOSITION TO PREVENT SKIN BREAKDOWN.PATIENT VERBALIZES UNDERSTANDING.CALL LIGHT WITHIN REACH.
--- NOTE | 2017-05-27 00:20 | NUR ---
PATIENT WANTS ME TO CHECK HER IV ACCESS SO I FLUSHED HER IV SALINE LOCK WITH 10ML OF NORMAL SALINE AND ITS FLUSHING WELL WITH NO RESISTANCE AND GOOD BLOOD RETURN NOTED. THEN I SECURED IT WITH A JACKLYN BADGE AND SECURED IT WITH PAPER TAPE. PATIENT WANTS TO SLEEP PATIENT WAS SITUATED PILLOW PLACED UNDERNEATH BOTH HER LEGS AND KEPT COMFORTABLE.WILL CONTINUE TO MONITOR.CALL LIGHT WITHIN REACH.
[2017-05-27 01:24] VITALS: BP 155/74
--- NOTE | 2017-05-27 01:34 | NUR ---
PATIENT IS RESTING IN BED AT THIS TIME NO PAIN OR DISCOMFORT NOTED.
--- NOTE | 2017-05-27 03:05 | NUR ---
PATIENT CURRENTLY SLEEPING IN BED AT THIS TIME WILL CONTINUE TO MONITOR.CALL LIGHT WITHIN REACH.
[2017-05-27] MEDS: ACETAMINOPHEN 650 MG/20.3 ML UDC PO PRN (03:35)
[2017-05-27] MEDS: guaiFENesin/CODEINE 100/10MG 5 ML UDC PO PRN ×2 (03:36→21:01)
--- NOTE | 2017-05-27 04:10 | NUR ---
OFFLOADING DONE WITH PILLOWS FOR THE PATIENT.NEEDS MET WILL CONTINUE TO MONITOR.
[2017-05-27 04:14] VITALS: BP 157/67
--- NOTE | 2017-05-27 04:18 | NUR ---
Pool BAY HAS BEEN PAGED TO NOTIFY HIM OF PATIENTS ELEVATED BLOOD PRESSURE.WILL WAIT FOR HIS CALL BACK.
--- NOTE | 2017-05-27 04:21 | NUR ---
MD MCLEAN,TONNY CALLED BACK AND HE WAS INFORMED THAT PATIENT B/P IS HIGHER THAN LAST TIME CURRENTLY AT 157/67 HR 85 INFORMED THAT PATIENT IS NOT COMPLAINING OF ANY DISTRESS OR CHEST PAIN.MD MCLEAN IS ALSO AWARE THAT PATIENT ALREADY HAS AN ORDER FOR CLONIDINE PO BID.MD MCLEAN IS AWARE OF ELEVATED B/P AND NO NEW ORDER GIVEN.MD MCLEAN WAS ALSO INFORMED THAT PATIENT HAS A ROCHA CATHETER AND MD MCLEAN SAID HE WANTS TO KEEP THE ROCHA CATHETER IN PLACE FOR STRICT I&O. GAVE ORDER FOR ROCHA CATHETER FOR THE PURPOSE OF STRICT INTAKE AND OUTPUT.
[2017-05-27 05:57] LABS: HEMATOCRIT 35.6 % (36-48); HEMOGLOBIN 11.8 g/dL (12.0-16.0); MEAN CORPUSCULAR HEMOGLOBIN 30 pg (27-31); MEAN CORPUSCULAR HGB CONC 33 g/dL (33-37); MEAN CORPUSCULAR VOLUME 91 fL (80-94); PLATELET COUNT (AUTO) 290 K/uL (140-450); RED BLOOD CELL COUNT(AUTO) 3.93 MIL/uL (4.20-5.40); RED CELL DISTRIBUTION WIDTH 12.9 % (11.6-13.7); WHITE BLOOD COUNT (AUTO) 12.8 K/uL (4.8-10.8)
[2017-05-27 06:26] LABS: ANION GAP 7.9 (8-16); CARBON DIOXIDE 33.6 mmol/L (21-32); CREATININE 0.6 mg/dL (0.6-1.3); POTASSIUM 4.5 mmol/L (3.5-5.1)
[2017-05-27 07:03] LABS: EOSINOPHILS % (MANUAL) 3 % (0-4); LYMPHOCYTES % (MANUAL) 17 % (20-46); MONOCYTES % (MANUAL) 6 % (5-12)
--- NOTE | 2017-05-27 07:29 | NUR ---
RECEIVED PT IN BED. AWAKE. ALERT ORIENTEDX4. NO SOB NOTED ON 02 AT 3LPM NC. DENIES ANY PAIN OR DISCOMFORT AT THIS TIME. POSITIVE BOWEL SOUNDS NOTED ON FOUR QUADRANTS. PT ON ROCHA CATHETER DRAINING CLEAR YELLOW URINE. PT BEDBOUND. SAFETY PRECAUTION IN PLACE. CALL LIGHT WITHIN REACH.
--- NOTE | 2017-05-27 07:31 | NUR ---
REPORT ENDORSED TO COURT CHRISTIE AT BEDSIDE PATIENT STABLE MD MCLEAN INFORMED OF PATIENTS LOW SODIUM TODAY BEING 127 NO NEW ORDER GIVEN BY .COURT CHRISTIE WILL RESUME CARE.
[2017-05-27 08:00] VITALS: BP 165/72
--- NOTE | 2017-05-27 08:46 | NUR ---
PATIENT HAS BEEN SCREENED AND CATEGORIZED HIGH NUTRITION RISK. PATIENT WILL BE SEEN WITHIN 1-2 DAYS OF ADMISSION. 05/26/17-05/27/[address]
[2017-05-27] MEDS: DOCUSATE SODIUM 100 MG GELCAP PO SCH (08:59)
[2017-05-27] MEDS: ENOXAPARIN 40 MG/0.4 ML SYR SUBQ SCH (08:59)
[2017-05-27] MEDS: cloNIDine 0.1 MG TAB PO SCH ×2 (09:00→20:55)
[2017-05-27] MEDS: amLODIPine 5 MG TAB PO SCH (09:00)
[2017-05-27] MEDS: SERTRALINE 50 MG TAB PO SCH (09:01)
[2017-05-27] MEDS: LEVOFLOXACIN 750 MG/D5W PREMIX 150 ML IV SCH (09:01)
[2017-05-27] MEDS: FUROSEMIDE 20 MG/2 ML VIAL IVP SCH (09:01)
[2017-05-27] MEDS: MAGNESIUM OXIDE 400 MG TAB PO SCH (09:01)
--- NOTE | 2017-05-27 11:48 | NUR ---
PT AWAKE AT THIS TIME, WATCHING TV. NO SOB NOTED. ON O2 AT 3LPM VIA NC. DENIES ANY PAIN OR DISCOMFORT AT THIS TIME. VITAL SIGNS STABLE.
[2017-05-27 12:00] VITALS: BP 138/59
--- NOTE | 2017-05-27 12:37 | NUR ---
DR. BARRIGA CAME TO SEE PT WITH ORDERS MADE AND CARRIED OUT.
[2017-05-27] MEDS ORDERED: NACL 3% 250 ML IV SCH (13:00)
--- NOTE | 2017-05-27 13:42 | NUR ---
CALLED DR. MCLEAN REGARDING PT COMPLAIN OF NOT HAVING BOWEL MOVEMENT FOR 4DAYS AND HAVING SOME GAS PAIN. WITH ORDER MADE TORB AND CARRIED OUT.
--- NOTE | 2017-05-27 13:46 | NUR ---
CALLED PHARMACY TO FOLLOW UP WITH NACL 3%, SPOKE WITH LYUDMILA, AWAITING MED TO BE SENT.
[2017-05-27] MEDS: MAGNESIUM HYDROXIDE 2400 MG/30 ML UDC PO PRN (13:55)
--- NOTE | 2017-05-27 14:38 | NUR ---
05/27/17 RD INITIAL ASSESSMENT COMPLETED PLEASE REFER TO NUTRITION ASSESSMENT UNDER CARE ACTIVITY FOR ESTIMATED NUTRITIONAL NEEDS. 1. CONTINUE MECHANICAL SOFT DIET 2. PROVIDE NUTRITION THERAPY EDUCATION NEEDED 3. ENCOURAGE INCREASED PO INTAKE TO T[place]ERANCE 4. RD TO FOLLOW UP WITHIN 2-3 DAYS; HIGH RISK LISSY [address] RD
--- NOTE | 2017-05-27 15:24 | NUR ---
PT TRIED TO DO BOWEL MOVEMENT BUT INEFFECTIVE. PT VERBALIZED THAT SHE CAN'T STRAIN BUT SHE CAN FEEL IT CLOSE TO COMING OUT. CHECKED PT NO BOWEL MOVEMENT MADE. CALLED DR. MCLEAN, MADE AWARE AND GOT AN ORDER FOR FLEET ENEMAX1.
[2017-05-27] MEDS ORDERED: SODIUM PHOSPHATE 118 ML ENEM RC SCH (15:30)
[2017-05-27 16:00] VITALS: BP 132/62
--- NOTE | 2017-05-27 16:32 | NUR ---
FLEET ENEMA EFFECTIVE. PT WAS ABLE TO PASS FORMED SOLID BOWEL MOVEMENT, DARK BROWN IN COLOR, OF MODERATE AMOUNT. GOOD SERGIO SKIN CARE RENDERED. PT KEPT CLEAN AND DRY.
--- NOTE | 2017-05-27 19:15 | NUR ---
PT KEPT CLEAN,DRY AND COMFORTABLE, NEEDS ATTENDED. ENDORSED TO NEXT SHIFT ON STABLE CONDITION. NO SOB NOTED. DENIES ANY PAIN OR DISCOMFORT NOTED AT THIS TIME. FOR CONTINUITY OF CARE.
--- NOTE | 2017-05-27 19:30 | NUR ---
'RECEIVED FROM AM RN IN BED AWAKE AND ALERT. LEGALLY DEAF. SON AT BEDSIDE AND PT. USES HANDS TO POINT OUT NEEDS. PT. DX. OF PNA. WITH 02 AT 3LPM/NC AND O2 SAT AT 95. CARE PLANS DISCUSSED WITH HER FOR THE NIGHT AND CALL LIGHT WITH IN REACH AT ALL TIMES. AFEBRILE. IVF SITE TO #24 HEPLOCKED. TELEMETRY MONITORING. MORBIDLY OBESE FEMALE. WITH ROCHA CATHETER IN PLACE AND DRAINING WELL WITH YELLOW URINE.
[2017-05-27 20:22] VITALS: BP 142/67
[2017-05-27] MEDS: ATORVASTATIN 20 MG TAB PO SCH (20:56)
[2017-05-28] MEDS: ALBUTEROL SULFATE/IPRATROPIU 3 ML SOL IH PRN ×2 (00:48→20:38)
[2017-05-28 01:48] VITALS: BP 133/70
--- NOTE | 2017-05-28 02:18 | NUR ---
SLEEPING IN AND OUT. STATES THAT SHE IS A LIGHT SLEEPER. PROVIDED BY RESPIRATORY THERAPIST WITH BREATHING TREATMENT EARLIER REQUESTED. WILL MONITOR FOR FURTHER SOB. PT. TOOK OUT HER 02 EARLIER PER RT. ADVISED NOT TO TAKE IT OUT BY RESPIRATORY THERAPIST..
--- NOTE | 2017-05-28 03:57 | NUR ---
SLEEPING . NO RESTLESSNESS. 02 AT 3 LPM/NC. CALL LIGHT BESIDE HER IN BED.
[2017-05-28 04:00] VITALS: BP 141/67
[2017-05-28 06:03] LABS: HEMATOCRIT 35.1 % (36-48); HEMOGLOBIN 11.6 g/dL (12.0-16.0); MEAN CORPUSCULAR HEMOGLOBIN 30 pg (27-31); MEAN CORPUSCULAR HGB CONC 33 g/dL (33-37); MEAN CORPUSCULAR VOLUME 91 fL (80-94); PLATELET COUNT (AUTO) 286 K/uL (140-450); RED BLOOD CELL COUNT(AUTO) 3.88 MIL/uL (4.20-5.40); RED CELL DISTRIBUTION WIDTH 12.9 % (11.6-13.7); WHITE BLOOD COUNT (AUTO) 10.7 K/uL (4.8-10.8)
[2017-05-28 06:19] LABS: CREATININE 0.6 mg/dL (0.6-1.3)
[2017-05-28 06:29] LABS: ANION GAP 7.9 (8-16); CARBON DIOXIDE 32.8 mmol/L (21-32); POTASSIUM 4.7 mmol/L (3.5-5.1)
--- NOTE | 2017-05-28 06:41 | NUR ---
CALLED Saurabh BAY RE: PT'S SODIUM LEVEL OF 124 FROM 127 YESTERDAY. "I WILL SEE HER THIS MORNING" PT. SLEEPING AT THIS TIME. TELEMETRY MONITORING. NO SOB.
[2017-05-28 06:54] LABS: EOSINOPHILS % (MANUAL) 4 % (0-4); LYMPHOCYTES % (MANUAL) 8 % (20-46); MONOCYTES % (MANUAL) 9 % (5-12)
--- NOTE | 2017-05-28 07:28 | NUR ---
RECEIVED PT IN BED. AWAKE, ALERT ORIENTEDX4. NO SOB NOTED. ON O2 AT 3LPM NC. DENIES ANY PAIN OR DISCOMFORT AT THIS TIME. POSITIVE BOWEL SOUNDS NOTED ON FOUR QUADRANTS. PT BEDBOUND. SAFETY PRECAUTION IN PLACE. CALL LIGHT WITHIN REACH.
[2017-05-28 07:55] VITALS: BP 164/80
--- NOTE | 2017-05-28 08:00 | NUR ---
DR. MCLEAN CAME TO SEE PT. AWARE OF LATEST LABS, AND NA. 124.
[2017-05-28] MEDS: LEVOFLOXACIN 750 MG/D5W PREMIX 150 ML IV SCH (08:57)
[2017-05-28] MEDS: MAGNESIUM OXIDE 400 MG TAB PO SCH (08:58)
[2017-05-28] MEDS: amLODIPine 5 MG TAB PO SCH (08:58)
[2017-05-28] MEDS: DOCUSATE SODIUM 100 MG GELCAP PO SCH (08:58)
[2017-05-28] MEDS: SERTRALINE 50 MG TAB PO SCH (08:58)
[2017-05-28] MEDS: FUROSEMIDE 20 MG/2 ML VIAL IVP SCH (08:59)
[2017-05-28] MEDS: cloNIDine 0.1 MG TAB PO SCH ×2 (08:59→21:05)
[2017-05-28] MEDS: ENOXAPARIN 40 MG/0.4 ML SYR SUBQ SCH (09:06)
[2017-05-28 12:00] VITALS: BP 138/69
--- NOTE | 2017-05-28 14:09 | NUR ---
PT AWAKE. IN BED. NO SOB NOTED. DENIES ANY PAIN OR DISCOMFORT AT THIS TIME. NEEDS ATTENDED. GOOD SKIN CARE PROVIDED.
[2017-05-28 16:00] VITALS: BP 157/75
--- NOTE | 2017-05-28 19:25 | NUR ---
PT KEPT CLEAN, DRY, AND COMFORTABLE, NEEDS ATTENDED, NO SOB NOTED. DENIES ANY PAIN OF DISCOMFORT AT THIS TIME. PT ON STABLE CONDITION. ENDORSED TO NEXT SHIFT ON STABLE CONDITION FOR CONTINUITY OF CARE.
--- NOTE | 2017-05-28 19:30 | NUR ---
RECEIVED FROM AM RN IN BED WATCHING TV. SON AT BEDSIDE VISITING. NO SOB. CALL LIGHT WITH IN REACH. AFEBRILE. CARE PLANS FOR THE NIGHT DISCUSSED WITH THEM. PT. IS HARD OF HEARING. ABLE TO VERBALIZE SIMPLE NEEDS. PT. CARE TRANSFERRED TO MEDICAL SURGICAL .
[2017-05-28] MEDS: ACETAMINOPHEN 650 MG/20.3 ML UDC PO PRN (19:40)
[2017-05-28 20:02] VITALS: BP 149/72
[2017-05-28] MEDS: ATORVASTATIN 20 MG TAB PO SCH (21:04)
--- NOTE | 2017-05-28 22:00 | NUR ---
PT. STILL AWAKE AT THIS TIME. WATCHING TV. CALL LIGHT WITH IN REACH. NO SOB. ON BREATHING TREATMENTS THERAPY. MEDICATED WITH TYLENOL FOR COMPLAINT OF HEADACHE EARLIER. ENCOURAGED TO CALL FOR ANY HELP SHE MAY NEED. PILLOW SUPPORT TO PRESSURE AREAS.
[2017-05-29 00:33] VITALS: BP 144/60
--- NOTE | 2017-05-29 01:48 | NUR ---
SLEEPING AT THIS TIME.
[2017-05-29] MEDS: MAGNESIUM HYDROXIDE 2400 MG/30 ML UDC PO PRN (03:16)
--- NOTE | 2017-05-29 03:24 | NUR ---
AWAKE AND REQUESTED MOM . PT. TRYING TO GO BM. TURNED TO SIDE AT THIS TIME. PILLOW SUPPORT TO PRESSURE AREAS. MEDICATED REQUESTED.
[2017-05-29 06:23] LABS: ANION GAP 7.4 (8-16); CARBON DIOXIDE 36.2 mmol/L (21-32); CREATININE 0.5 mg/dL (0.6-1.3); POTASSIUM 4.6 mmol/L (3.5-5.1)
--- NOTE | 2017-05-29 07:10 | NUR ---
RECEIVED BEDSIDE REPORT FROM PROGRAMMER NUMERICAL CONTROL RN. PT AWAKE AND ALERT, NO SIGNS OF ACUTE DISTRESS. BOWEL SOUNDS ACTIVE IN ALL [address] PT BEDBOUND. PT ON OXYGEN 3L NC. SKIN INTACT. PATIENT DENIES PAIN AT THIS TIME. RE-ORIENTED TO HOSPITAL AND TO UNIT, PT VERBALIZES UNDERSTANDING. BED IN LOW POSITION WITH BILATERAL HALF SIDE RAILS UP, CALL LIGHT WITHIN REACH. WILL CONTINUE TO MONITOR.
[2017-05-29 08:00] VITALS: BP 154/80
[2017-05-29] MEDS: ENOXAPARIN 40 MG/0.4 ML SYR SUBQ SCH (08:55)
[2017-05-29] MEDS: LEVOFLOXACIN 750 MG/D5W PREMIX 150 ML IV SCH (08:57)
--- NOTE | 2017-05-29 09:00 | NUR ---
RECEIVED DISCHARGE ORDER FROM DR MCLEAN TO TRANSFER TO [facility]. NOTED, WILL CARRY OUT.
[2017-05-29] MEDS: MAGNESIUM OXIDE 400 MG TAB PO SCH (09:03)
[2017-05-29] MEDS: cloNIDine 0.1 MG TAB PO SCH (09:07)
[2017-05-29] MEDS: DOCUSATE SODIUM 100 MG GELCAP PO SCH (09:08)
[2017-05-29] MEDS: amLODIPine 5 MG TAB PO SCH (09:08)
[2017-05-29] MEDS: SERTRALINE 50 MG TAB PO SCH (09:08)
--- NOTE | 2017-05-29 09:15 | NUR ---
SPOKE WITH PATIENT AND SON REGARDING DISCHARGE ORDER, WILL KEEP UPDATED WITH PATIENT TRANSFER WHEN INFORMATION BECOMES AVAILABLE. PT AND SON VERBALIZED UNDERSTANDING.
[2017-05-29] MEDS: FUROSEMIDE 20 MG/2 ML VIAL IVP SCH (09:19)
--- NOTE | 2017-05-29 10:40 | NUR ---
SPOKE WITH RUBI IN CASE MANAGEMENT. SHE WILL CALL TO ARRANGE FOR TRANSFER BACK TO [facility].
--- NOTE | 2017-05-29 11:28 | NUR ---
PT RESTING COMFORTABLY IN BED, NO SIGNS OF ACUTE DISTRESS. PT SON AT BEDSIDE. PATIENT DENIES PAIN. BED IN LOW POSITION WITH BILATERAL HALF SIDE RAILS UP, CALL LIGHT WITHIN REACH. WILL CONTINUE TO MONITOR.
--- NOTE | 2017-05-29 11:47 | NUR ---
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 05/29/17 1030 MET TODAY WITH SON KAM AND PT REGARDING MD HAS WRITTEN DISCHARGE BACK TO [facility] TODAY. KAM STATED THAT PT HAS BEEN A RESIDENT AT [facility] FOR PAST 5 YEARS AND BOTH AGREE TO TRANSFER TODAY.
--- NOTE | 2017-05-29 12:06 | NUR ---
TOMY ISAAC AT [facility] [phone] PT MAY RETURN TO ROOM 9A. CLINICAL INFORMATION FAXED TO [phone]. CALLED [facility] AND SPOKE WITH HERI AND SET UP [facility] WITH A 1730 UM SPECIALIST TIME. [facility] [phone]. REQUESTED AUTHORIZATION FROM [facility] AND WAITING FOR CALL BACK WITH AUTH#.
--- NOTE | 2017-05-29 14:15 | NUR ---
RECEIVED ORDER TO REMOVE ROCHA FROM DR MCLEAN, NOTED, WILL CARRY OUT.
--- NOTE | 2017-05-29 14:38 | NUR ---
REMOVED ROCHA, PT TOLERATED WELL. WILL CONTINUE TO MONITOR.
[2017-05-29 16:00] VITALS: BP 143/68
--- NOTE | 2017-05-29 16:03 | NUR ---
1500 CALLED SONNY AT [facility] TO REQUEST AUTH FOR [facility] SONNY PROVIDED AUTH#[id number]. CALLED HERI AT [facility] AND PROVIDED HER WITH THE AUTH #.
[2017-05-29] MEDS ORDERED: LEVO750T2 PO (17:02)
--- NOTE | 2017-05-29 18:16 | NUR ---
PT AWAKE AND ALERT, EDUCATED PATIENT ON DISCHARGE INSTRUCTIONS INCLUDING CONTINUATION OF MEDICATIONS AND NEW PRESCRIPTION, RESUMING LIGHT ACTIVITY, SIGNS AND SYMPTOMS OF INFECTION AND WORSENING CONDITION AND FOLLOW UP CARE AT [facility], PATIENT VERBALIZED UNDERSTANDING. CUT OFF WRIST BANDS AND REMOVED IV. TRANSPORT BY TO [facility] TO ROOM 9A. KAUSHIK HUMPHREY WAS SPOKEN TO REGARDING TRANSFER.
== END 2017-05-29 18:12 | disposition home or self-care (01) | DRG 871 ==
LOC: MED 12:08 → MIC 14:54 → MTU 05-26 14:30
PROVIDERS: ADMIT Family Medicine; ATTEND Family Medicine
PROC: 5A09357 Assistance with Respiratory Ventilation, Less than 24 Consecutive Hours, Continuous Positive Airway Pressure (ICD-10-PCS; principal; 2017-05-25)
PROC: 3E0234Z Introduction of Serum, Toxoid and Vaccine into Muscle, Percutaneous Approach (ICD-10-PCS; 2017-05-26)
DX: A41.9 Sepsis, unspecified organism (principal); J96.01 Acute respiratory failure with hypoxia; I50.33 Acute on chronic diastolic (congestive) heart failure; J18.9 Pneumonia, unspecified organism; I11.0 Hypertensive heart disease with heart failure; K75.9 Inflammatory liver disease, unspecified; Z68.43 Body mass index [BMI] 50.0-59.9, adult; J44.0 Chronic obstructive pulmonary disease with (acute) lower respiratory infection; E87.1 Hypo-osmolality and hyponatremia; N39.0 Urinary tract infection, site not specified; J40 Bronchitis, not specified as acute or chronic; E66.01 Morbid (severe) obesity due to excess calories; K21.9 Gastro-esophageal reflux disease without esophagitis; D64.9 Anemia, unspecified; M06.9 Rheumatoid arthritis, unspecified; R74.0 Nonspecific elevation of levels of transaminase and lactic acid dehydrogenase [LDH]; R49.0 Dysphonia; B96.20 Unspecified Escherichia coli [E. coli] as the cause of diseases classified elsewhere; G14 Postpolio syndrome; Z23 Encounter for immunization; Z88.0 Allergy status to penicillin; Z91.013 Allergy to seafood; Z90.49 Acquired absence of other specified parts of digestive tract; Z90.710 Acquired absence of both cervix and uterus; Z85.42 Personal history of malignant neoplasm of other parts of uterus; Z74.01 Bed confinement status
CPT/HCPCS: 36415; 36600; 51702; 71010; 80048; 80053; 81001; 82550; 82553; 82803; 83605; 83690; 83874; 83880; 84484; 85025; 85610; 85730; 87040; 87077; 87081; 87086; 87186; 90732; 93005; 94640; 94761; 96361; 96365; 96375; 99291; J0456; J1650; J1940; J1956; J2405; J2930; J3490; J7030; J7060; J7613; J7620; J7644; Q0092

== ENCOUNTER 2017-07-05 09:06 | Inpatient (IN) | payer OTHER ==
[~2017-07-05] VITALS: Ht 152.4 cm; Wt 128.8 kg
[2017-07-05 09:06] VITALS: BP 135/76
[~2017-07-05 09:06] MED LIST changes: -CALC-105 PO; -CALC-232 PO; -CEFT1PDS43 IV; -CHOL400T7 PO; -DEXT1DRO4 OP; -FERR-142 PO; -LISI-420 PO; -LOSA100T1 PO; -MENT1CRE TP; -METO-460 PO; -SAL1 PO; -[UNRECOGNIZED DRUG - CODE] IV
--- NOTE | 2017-07-05 09:06 | NUR ---
PT BIBA TO BED 2.
--- NOTE | 2017-07-05 09:07 | NUR ---
67F BIBA FROM [facility] C/O SHORTNESS OF BREATH WITH EPIGASTRIC PAIN X 0600 TODAY. HX: HEART FAILURE, HTN, COPD, HYPERLIPIDEMIA, PNA, ANEMIA, HYPONATREMIA, POLIOMYELITIS, , DRY EYE SYNDROME OF BL [place], ATHEROSCLEROTIC HEART DISEASE, GERD, VENTRAL HERNIA , UTI, OSTEOARTHRITIS.DENIES N/V/D; SKIN IS PINK/WARM/DRY; AAOX4 PT CAN'T AMB; LUNGS CLEAR BL; PT DENIES ANY FEVER, CP, SOB, OR COUGH AT THIS TIME; PATIENT STATES PAIN OF 0/10 AT THIS TIME; PATIENT POSITIONED FOR COMFORT; HOB ELEVATED; BEDRAILS UP X2; BED DOWN. ER MADE AWARE OF PT STATUS. Addendum: 07/05/17 at 1120 by MED1 ABRSION WOUND TO ABD & SKIN TEAR R BACK THIGH
[2017-07-05] MEDS ORDERED: ALBUTEROL SULFATE/IPRATROPIU 3 ML SOL IH ONE (09:15)
--- NOTE | 2017-07-05 09:15 | NUR ---
Patient being evaluated by Dr Castaneda at bedside.
--- NOTE | 2017-07-05 09:16 | NUR ---
EKG AT BEDSIDE.
--- NOTE | 2017-07-05 09:17 | NUR ---
X RAY AT BEDSIDE.
--- NOTE | 2017-07-05 09:28 | NUR ---
PER RT; OXIGEN MASK 6L/M; PULSE OX 95% AT THIS TIME.
--- NOTE | 2017-07-05 09:34 | NUR ---
RT AT BEDSIDE FOR BREATHING TREATMENT
[2017-07-05] MEDS ORDERED: FUROSEMIDE 40 MG/4 ML VIAL IVP ONE (09:40)
--- NOTE | 2017-07-05 09:47 | NUR ---
LAB AT BEDSIDE.
--- NOTE | 2017-07-05 09:57 | NUR ---
POST HHN PLACED PT ON 2LPM NC PER DR PEREZ RN AWARE
--- NOTE | 2017-07-05 09:58 | NUR ---
NC 2 L/M AT THIS TIME; PULSE OX 93%
[2017-07-05] MEDS ORDERED: LOSA100T1 PO (10:05)
[2017-07-05] MEDS ORDERED: CEPH250C16 PO (10:05)
[2017-07-05] MEDS ORDERED: ARTOP OP (10:05)
[2017-07-05] MEDS ORDERED: CALC-105 PO (10:05)
[2017-07-05] MEDS ORDERED: ASPI81CT89 PO (10:05)
[2017-07-05] MEDS ORDERED: MULT-2410 PO (10:05)
[2017-07-05] MEDS ORDERED: NITR100C7 PO (10:05)
[2017-07-05] MEDS ORDERED: METO25TE2 PO (10:05)
[2017-07-05] MEDS ORDERED: FERR325E14 PO (10:05)
[2017-07-05] MEDS ORDERED: CRAN425C8 PO (10:05)
[2017-07-05] MEDS ORDERED: IPRA3AMP IH (10:05)
--- NOTE | 2017-07-05 10:10 | NUR ---
SPOKE WITH NURSE LINDSEY AT [facility], PT NO LONGER USING NORCO, ZOFRAN AND ZOLOFT LISTED IN MEDICATION LIST. RECONCILLED MEDICATIONS IN RECORD.
--- NOTE | 2017-07-05 10:14 | NUR ---
PT URENATED 2 TIMES ON DIAPER.
[2017-07-05 10:39] LABS: ANION GAP 9.3 (8-16); CREATININE 0.7 mg/dL (0.6-1.3); POTASSIUM 4.3 mmol/L (3.5-5.1)
[2017-07-05 10:45] LABS: ALBUMIN 3.3 g/dL (3.4-5.0); PROTHROMBIN TIME 10.3 secs (10.8-13.4); TOTAL BILIRUBIN 0.5 mg/dL (0.0-1.0)
--- NOTE | 2017-07-05 10:48 | NUR ---
ESPINOZA CUEVA , SENT URINE SPECIMEN TO LAB. Addendum: 07/05/17 at 1048 by MED1 BM 1 TIMEOsito LUNDBERG.
[2017-07-05 10:49] LABS: HEMATOCRIT 38.8 % (36-48); HEMOGLOBIN 12.8 g/dL (12.0-16.0); MEAN CORPUSCULAR HEMOGLOBIN 30 pg (27-31); MEAN CORPUSCULAR HGB CONC 33 g/dL (33-37); MEAN CORPUSCULAR VOLUME 92 fL (80-94); PLATELET COUNT (AUTO) 182 K/uL (140-450); RED CELL DISTRIBUTION WIDTH 13.3 % (11.6-13.7); WHITE BLOOD COUNT (AUTO) 17.4 K/uL (4.8-10.8)
--- NOTE | 2017-07-05 10:51 | NUR ---
Patient DENIES PAIN. PT appears to be resting comfortably in bed. BP 146/73, P 94,PULSE OX 92% R 21/MIN.WILL CONTINUE TO MONITOR.
[2017-07-05 10:53] LABS: EOSINOPHILS % (MANUAL) 6 % (0-4); LYMPHOCYTES % (MANUAL) 10 % (20-46); MONOCYTES % (MANUAL) 4 % (5-12)
[2017-07-05] MEDS ORDERED: methylPREDNISolone SS 125 MG in WATER STERILE 2 ML IV ONE (10:55)
--- NOTE | 2017-07-05 11:23 | NUR ---
BM1, URENATED 1 Addendum: 07/05/17 at 1230 by [email or web address] WATERY STOOL GREENISH.
[2017-07-05 11:26] LABS: BILIRUBIN,URINE NEGATIVE (NEGATIVE); BLOOD, URINE TRACE-L (NEGATIVE); COLOR,URINE YELLOW (YELLOW); LEUKOCYTE ESTERASE ,URINE 1+ (NEGATIVE); NITRITE, URINE NEGATIVE (NEGATIVE); UGLUCOSE NEGATIVE (NEGATIVE)
--- NOTE | 2017-07-05 11:26 | NUR ---
LAB AT BEDSIDE.
[2017-07-05] MEDS ORDERED: LEVOFLOXACIN 750 MG/D5W PREMIX 150 ML IV ONE (11:35)
[2017-07-05 12:12] LABS: RBC,URINE 0-5 (RARE) /HPF (0-5)
[2017-07-05 12:14] LABS: WBC,URINE 0-5 (RARE) /HPF (0-5)
[2017-07-05 12:17] LABS: APPEARANCE,URINE SLIGHTLY HAZY (CLEAR)
--- NOTE | 2017-07-05 12:34 | NUR ---
Patient will be admitted to care of DR MCLEAN. Admited to MS. Will go to room 118. Belongings list completed. Report to COURT MARKS.
--- NOTE | 2017-07-05 12:50 | NUR ---
# 16 FR Ortega catheter with10 ml utilizing sterile technique. Immediate return of 50 ml urine noted. Bedside drainage bag placed below level of bladder. Urine sample collected and sent to lab. Pt tolerated procedure WELL.
[2017-07-05 13:15] VITALS: BP 142/71
--- NOTE | 2017-07-05 13:15 | NUR ---
RECEIVED PT ON UNIT VIA GURNEY, PT IS A/OX4, WHEELCHAIR BOUND, PT IS O2 3L NC, PT HAS IV ON THE LEFT UPPER ARM, PATIENT HAS ABRASION ON ABDOMEN, ROCHA CATHETER IN PLACE 300ML OF CLEAR YELLOW URINE OUTPUT AT THIS TIME, NO S/S OF RESPIRATORY DISTRESS OR DISCOMFORT NOTED, DISCUSSED PLAN OF CARE WITH PT, PT VERBALIZED UNDERSTANDING, ORIENTED PT TO ROOM, SAFETY/FALL PRECAUTIONS ARE IN PLACE, CALL LIGHT IS WITHIN REACH, WILL CONTINUE TO MONITOR.
[2017-07-05] MEDS ORDERED: MORPHINE SULFATE 4 MG/ML SYR IVP PRN (13:55)
[2017-07-05] MEDS: NACL 0.9% 500 ML IV SCH ×2 (14:13→21:04)
--- NOTE | 2017-07-05 15:44 | NUR ---
CALLED DR. MCLEAN, LET HIM KNOW THE PATIENT'S LACTIC ACID IS 2.6. PER DR. MCLEAN ORDER LEVAQUIN 500MG, IV DAILY.
--- NOTE | 2017-07-05 15:51 | NUR ---
pt very dry unable to produce sputum at this time cup left at bedside rn aware
[2017-07-05 16:00] VITALS: BP 154/66
--- NOTE | 2017-07-05 19:30 | NUR ---
ENDORSED PT TO GUN SYNCHRONIZER NURSE FOR CONTINUITY OF CARE, PT STABLE AT THIS TIME.
--- NOTE | 2017-07-05 19:31 | NUR ---
RECEIVED REPORT FROM AM NURSE. PT IS AWAKE, ALERT AND ORIENTED X4. NO SIGNS OF ACUTE DISTRESS NOTED. SKIN COLOR APPROPRIATE TO ETHNICITY, SKIN TEMP WARM TO TOUCH DENIES ANY PAIN AT THIS TIME. RESPIRATIONS EVEN AND UNLABORED. BOWEL SOUNDS ACTIVE ON ALL FOUR QUADRANTS. IV ACCESS IS INTACT, PATENT AND ASYMPTOMATIC. PLAN OF CARE DISCUSSED, PT VERBALIZED UNDERSTANDING. BED IN LOW POSITION, BILATERAL HALF SIDE RAILS UP, CALL LIGHT WITHIN REACH, WILL CONTINUE TO MONITOR.
[2017-07-05 20:00] VITALS: BP 141/67
--- NOTE | 2017-07-05 20:17 | NUR ---
PT UNABLE TO PRODUCE SPUTUM FOR SPECIMEN COLLECTION.
[2017-07-05] MEDS: NITROFURANTOIN 100 MG CAP PO SCH (20:41)
[2017-07-05] MEDS: FAMOTIDINE 20 MG TAB PO SCH (20:41)
[2017-07-05] MEDS: cloNIDine 0.1 MG TAB PO SCH (20:41)
[2017-07-05] MEDS: ACETAMINOPHEN 325 MG TAB PO PRN (20:42)
[2017-07-05] MEDS: metroNIDAZOLE 500 MG TAB PO SCH (20:46)
[2017-07-06] VITALS: BP 133/67
--- NOTE | 2017-07-06 01:04 | NUR ---
PT IS SLEEPING, EASY TO AROUSE. ON O2 2L NC. BED IN LOW POSITION, BILATERAL HALF SIDE RAILS UP, CALL LIGHT WITHIN REACH, WILL CONTINUE TO MONITOR.
[2017-07-06 04:00] VITALS: BP 153/73
[2017-07-06] MEDS: NACL 0.9% 500 ML IV SCH ×3 (04:13→17:54)
[2017-07-06] MEDS: ENOXAPARIN 40 MG/0.4 ML SYR SUBQ SCH (05:26)
[2017-07-06] MEDS: metroNIDAZOLE 500 MG TAB PO SCH ×3 (05:36→20:20)
[2017-07-06 06:00] LABS: HEMATOCRIT 36.2 % (36-48); HEMOGLOBIN 11.8 g/dL (12.0-16.0); MEAN CORPUSCULAR HEMOGLOBIN 30 pg (27-31); MEAN CORPUSCULAR HGB CONC 33 g/dL (33-37); MEAN CORPUSCULAR VOLUME 92 fL (80-94); PLATELET COUNT (AUTO) 202 K/uL (140-450); RED BLOOD CELL COUNT(AUTO) 3.94 MIL/uL (4.20-5.40); RED CELL DISTRIBUTION WIDTH 13.3 % (11.6-13.7); WHITE BLOOD COUNT (AUTO) 9.1 K/uL (4.8-10.8)
[2017-07-06 06:21] LABS: ALBUMIN 2.9 g/dL (3.4-5.0); ANION GAP 7.9 (8-16); CARBON DIOXIDE 31.4 mmol/L (21-32); CREATININE 0.5 mg/dL (0.6-1.3); POTASSIUM 4.3 mmol/L (3.5-5.1); TOTAL BILIRUBIN 0.4 mg/dL (0.0-1.0)
[2017-07-06 06:40] LABS: EOSINOPHILS % (MANUAL) 1 % (0-4); LYMPHOCYTES % (MANUAL) 3 % (20-46); MONOCYTES % (MANUAL) 1 % (5-12)
--- NOTE | 2017-07-06 07:00 | NUR ---
RECEIVED ENDORSEMENT FROM BAG SHOP WORKER NURSE. PATIENT IS STABLE, RESPIRATION IS EVEN, UNLABOR. SKIN DRY AND WARM TO THE TOUCH. CALL LIGHT WITHIN REACH. WILL CONTINUE TO MONITOR
--- NOTE | 2017-07-06 07:04 | NUR ---
PATIENT HAS BEEN SCREENED AND CATEGORIZED HIGH NUTRITION RISK. PATIENT WILL BE SEEN WITHIN 1-2 DAYS OF ADMISSION. 07/06/17-07/07/17 MELISSA SHIELDS MS, RDN
--- NOTE | 2017-07-06 07:19 | NUR ---
ENDORSED PT TO AM NURSE FOR CONTINUITY OF CARE. PT IN STABLE CONDITION.
[2017-07-06 08:00] VITALS: BP 135/74
--- NOTE | 2017-07-06 08:00 | NUR ---
PATIENT AWAKE, ALERT, ORIENTED X4. PUPILS EQUAL, REACTIVE TO LIGHT. RESPIRATION IS EVEN, LUNGS SOUND CLEAR THROUGHOUT. CARDIAC S1, S2 PRESENT. BOWEL SOUNDS ACTIVE 4 QUADRANTS. SKIN INTACT. IV 24G ON LEFT UPPER ARM WITH NS @ 70ML/HR, INTACT AND PATENT. ROCHA IS IN PLACED. PATIENT HAS NO COMPLAIN OF PAIN AT THIS TIME. CALL LIGHT WITHIN REACH. WILL CONTINUE TO MONITOR
[2017-07-06] MEDS: METOPROLOL SUCCINATE 50 MG TABER PO SCH (09:03)
[2017-07-06] MEDS: NITROFURANTOIN 100 MG CAP PO SCH ×2 (09:03→20:20)
[2017-07-06] MEDS: cloNIDine 0.1 MG TAB PO SCH ×2 (09:04→20:22)
[2017-07-06] MEDS: MAGNESIUM OXIDE 400 MG TAB PO SCH (09:04)
[2017-07-06] MEDS: FAMOTIDINE 20 MG TAB PO SCH ×2 (09:04→20:22)
[2017-07-06] MEDS: ACETAMINOPHEN 325 MG TAB PO PRN ×2 (09:12→21:48)
--- NOTE | 2017-07-06 09:30 | NUR ---
MD IS AT BEDSIDE, MADE AWARE OF HER DIARRHEA EPISODES. PATIENT IS STABLE. CALL LIGHT WITHIN REACH. WILL CONTINUE TO MONITOR
[2017-07-06] MEDS ORDERED: HYDRAGUARD CREAM TP PRN (11:55)
[2017-07-06] MEDS ORDERED: LEVOFLOXACIN 500 MG/D5W PREMIX 100 ML IV SCH (12:00)
--- NOTE | 2017-07-06 12:23 | NUR ---
SKIN TEAR WAS NOTED ON RIGHT POSTERIOR THIGH. PICTURE TAKEN, SKIN REDNESS AND DRYNESS ON THE INNER THIGHS AND GLUTEAL FOLD. TEGADERM WAS APPLIED TO THE SKIN TEAR AREA. HYDROGUARD APPLIED TO THE INNER THIGH AND BUTTOCK. PATIENT TOLERATED WELL. PATIENT SAT UP INTO POSITION FOR LUNCH. WILL CONTINUE TO MONITOR.
--- NOTE | 2017-07-06 12:30 | NUR ---
PATIENT IS SITTING UP EATING LUNCH. NO DISTRESS NOTED. NO COMPLAIN OF PAIN AT THIS TIME. ANTIBIOTIC WAS GIVEN. CALL LIGHT WITHIN REACH. WILL CONTINUE TO MONITOR.
--- NOTE | 2017-07-06 14:10 | NUR ---
PATIENT IS AWAKE, ALERT. PATIENT IS STABLE, NO DISTRESS NOTED. RESPIRATION IS EVEN, UNLABOR. NO COMPLAIN OF PAIN AT THIS TIME. CALL LIGHT WITHIN REACH. WILL CONTINUE TO MONITOR
[2017-07-06 16:00] VITALS: BP 136/63
--- NOTE | 2017-07-06 16:14 | NUR ---
PATIENT IS AWAKE, ALERT, NO DISTRESS NOTED. RESPIRATION IS EVEN, UNLABOR. CALL LIGHT WITHIN REACH. WILL CONTINUE TO MONITOR
--- NOTE | 2017-07-06 18:04 | NUR ---
PATIENT IS SITTING ON BED EATING DINNER. PATIENT IS STABLE, NO DISTRESS NOTED. RESPIRATION IS EVEN, UNLABOR. NO COMPLAIN OF PAIN AT THIS TIME. NEW IVF WAS HUNG. IV INTACT, PATENT. CALL LIGHT WITHIN REACH. WILL CONTINUE TO MONITOR
--- NOTE | 2017-07-06 19:25 | NUR ---
ENDORSEMENT GIVEN TO STORE RECEIVER NURSE. PATIENT IS STABLE, NO DISTRESS NOTED.
--- NOTE | 2017-07-06 19:26 | NUR ---
PATIENT REPORT RECEIVED FROM MORNING NURSE AT BEDSIDE. PATIENT IS AWAKE, ALERT AND ORIENTED. NO SIGNS AND SYMPTOMS OF DISTRESS NOTED. NO COMPLAINTS OF PAIN AT THIS TIME. PATIENT IS ON O2 2L VIA NC. ROCHA CATHETER IS IN PLACE. IV SITE NOTED ON LEFT UPPER ARM. BED IN LOWEST POSITION, SIDE RAILS UP AND CALL LIGHT WITHIN REACH. WILL CONTINUE TO MONITOR.
--- NOTE | 2017-07-06 22:00 | NUR ---
CHECKED ON PATIENT. PATIENT IS AWAKE, ALERT AND ORIENTED. RESTING COMFORTABLY IN BED READING A BOOK. NO SIGNS AND SYMPTOMS OF DISTRESS NOTED. NO COMPLAINTS OF PAIN AT THIS TIME. BED IN LOWEST POSITION, SIDE RAILS UP AND CALL LIGHT WITHIN REACH. WILL CONTINUE TO MONITOR.
[2017-07-07] MEDS: NACL 0.9% 500 ML IV SCH ×2 (01:30→08:46)
--- NOTE | 2017-07-07 02:04 | NUR ---
CHECKED ON PATIENT. PATIENT IS ASLEEP. NO SIGNS AND SYMPTOMS OF DISTRESS NOTED. BREATHING EVEN AND UNLABORED. BED IN LOWEST POSITION, SIDE RAILS UP AND CALL LIGHT WITHIN REACH. WILL CONTINUE TO MONITOR.
[2017-07-07 04:00] VITALS: BP 134/58
--- NOTE | 2017-07-07 04:00 | NUR ---
CHECKED ON PATIENT. PATIENT IS ASLEEP. NO SIGNS AND SYMPTOMS OF DISTRESS NOTED. BED IN LOWEST POSITION, SIDE RAILS UP AND CALL LIGHT WITHIN REACH.
[2017-07-07] MEDS: metroNIDAZOLE 500 MG TAB PO SCH (05:21)
[2017-07-07] MEDS: ENOXAPARIN 40 MG/0.4 ML SYR SUBQ SCH (05:27)
--- NOTE | 2017-07-07 07:06 | NUR ---
PATIENT REPORT GIVEN TO MORNING NURSE. PATIENT IS IN STABLE CONDITION.
--- NOTE | 2017-07-07 07:07 | NUR ---
ENDORSEMENT RECEIVED FROM CLINICAL RESEARCH TECHNICIAN NURSES. PATIENT IS STABLE. RESPIRATION IS EVEN, UNLABOR. SKIN DRY AND WARM TO THE TOUCH. CALL LIGHT WITHIN REACH. WILL CONTINUE TO MONITOR.
--- NOTE | 2017-07-07 08:00 | NUR ---
PATIENT IS AWAKE, ALERT, ORIENTED X 4. PUPILS EQUAL REACTIVE TO LIGHT. RESPIRATION EVEN, LUNGS SOUND CLEAR THROUGHOUT. CARDIAC WTIH S1, S2 PRESENT. BOWEL SOUNDS ACTIVE ALL 4 QUADRANTS, NO DIARRHEA NOTED SINCE THE DAY BEFORE YESTERDAY. SMALL SKIN TEAR ON THE RIGHT THIGH, SKIN OTHERWISE INTACT, DRY AND WARM TO THE TOUCH. IV 24G ON LEFT UPPER ARM WITH NS @ 70 ML/HR, INTACT AND PATENT. PATIENT COMPLAINS OF HEADACHE, MED WILL BE GIVE PER ORDER. ROCHA IS IN PLACED, DRAINING. CALL LIGHT WITHIN REACH. WILL CONTINUE TO MONITOR.
[2017-07-07] MEDS: NITROFURANTOIN 100 MG CAP PO SCH ×2 (09:00→21:46)
[2017-07-07] MEDS: cloNIDine 0.1 MG TAB PO SCH ×2 (09:01→23:43)
[2017-07-07] MEDS: FAMOTIDINE 20 MG TAB PO SCH ×2 (09:02→21:46)
[2017-07-07] MEDS: METOPROLOL SUCCINATE 50 MG TABER PO SCH (09:03)
[2017-07-07] MEDS: MAGNESIUM OXIDE 400 MG TAB PO SCH (09:03)
[2017-07-07] MEDS: ACETAMINOPHEN 325 MG TAB PO PRN (09:17)
[2017-07-07] MEDS: ONDANSETRON 4 MG/2 ML VIAL IVP PRN ×2 (09:50→15:37)
--- NOTE | 2017-07-07 09:50 | NUR ---
PATIENT VOMITED AROUND 200 ML, NO MEDICATION PIECES OR BLOOD WERE SEEN. VS TAKEN 155/60, 84, 95% 2 L VIA NC, 20 RR. REASSESSMENT WAS DONE. ZOFRAN WILL BE GIVEN PER ORDER. PATIENT IS STABLE AT THIS TIME. CALL LIGHT WITHIN REACH. FAMILY AT BEDSIDE. WILL CONTINUE TO MONITOR
--- NOTE | 2017-07-07 10:50 | NUR ---
PT NOW DENIES NAUSEA, NO FURTHER VOMITING, STATES HEADACHE HAS IMPROVED, RESP EVEN UNLABORED ON 2L NC, RESTING QUIETLY WATCHING TV WITH SON AT BEDSIDE, NO IMMEDIATE NEEDS VOICED AT THIS TIME, WILL CONTINUE TO MONITOR.
--- NOTE | 2017-07-07 11:00 | NUR ---
ROCHA WAS REMOVED. URINE 600ML IN THE BAG, CLEAR, STRAW COLOR. SERGIO CARE WAS GIVEN. PATIENT TOLERATED WELL. CALL LIGHT WITHIN REACH. WILL CONTINUE TO MONITOR.
--- NOTE | 2017-07-07 11:05 | NUR ---
07/07/17 RD INITIAL ASSESSMENT COMPLETED PLEASE REFER TO NUTRITION ASSESSMENT UNDER CARE ACTIVITY FOR ESTIMATED NUTRITIONAL NEEDS. RD RECOMMENDATIONS: 1. CONTINUE CARDIAC DIET MEDICALLY APPROPRIATE. -NOTE PT PO INTAKE IS CURRENTLY MEETING 100% OF ESTIMATED KCAL AND PROTEIN. 2. RD WILL F/U 3-5 DAYS; MODERATE RISK. ANTOINE BARBOZA, RD
[2017-07-07 12:00] VITALS: BP 134/68
[2017-07-07] MEDS ORDERED: FUROSEMIDE 20 MG/2 ML VIAL IVP SCH (12:37)
--- NOTE | 2017-07-07 12:50 | NUR ---
CALLED AND TALKED TO REGARDING CXR RESULT, AND PATIENT'S CURRENT CONDITION. NEW ORDERS WERE PUT IN. WILL CALL MD BACK AND FOLLOW UP AFTER 2 HOURS
--- NOTE | 2017-07-07 15:00 | NUR ---
CALLED AND GAVE UPDATE ON PATIENT'S CURRENT CONDITION. VS TAKEN 148/68, 87, 24, 95% 2L NC, 97.7. CONTINUE WITH THE DISCHARGE PLAN Addendum: 07/07/17 at 1532 by Thea Banerjee RN DR MCLEAN NOTIFIED WITH PATIENTS CONDITION. RESPIRATION UNLABOR, EVEN. DENIED PAIN, PATIENT VOIDING AFTER ROCHA DISCONTINUED. OK BY DR MCLEAN TO TRANSFER BACK TO [facility].
--- NOTE | 2017-07-07 15:10 | NUR ---
CALLED AND GAVE REPORT TO HELLEN AT [facility].
--- NOTE | 2017-07-07 15:25 | NUR ---
PATIENT HAD ANOTHER EMESIS EPISODE, COMPLAINED OF ABDOMINAL PAIN. DR. MCLEAN WAS NOTIFIED. DISCHARGE PLAN IS CANCELLED. NEW ORDERS WERE PUT IN. PATIENT IS STABLE AT THIS TIME. WILL GIVE ZOFRAN AND PAIN MED PER ORDER. PLAN DISCUSSED WITH THE PATIENT. PATIENT AGREED WITH THE PLAN.
--- NOTE | 2017-07-07 15:27 | NUR ---
HOLD DISCHARGE FOR TODAY PER DR MCLEAN AND PLACE THE TRANSPORT [facility] WILL CALL MD AWARE.
[2017-07-07] MEDS ORDERED: MORPHINE SULFATE 4 MG/ML SYR IVP PRN (15:35)
[2017-07-07 16:00] VITALS: BP 131/54
[2017-07-07] MEDS ORDERED: LEVOFLOXACIN 500 MG/D5W PREMIX 100 ML IV SCH (17:00)
--- NOTE | 2017-07-07 17:13 | NUR ---
PT HAD 3 MORE EPISODES OF VOMITING, NON BLOODY CLEAR FOAM/MUCOUS EMESIS, DR MCLEAN CALLED TO NOTIFY, NEW ORDER FOR CBC, CMP AND LIPASE AND KUB OBTAINED.
[2017-07-07 17:54] LABS: HEMOGLOBIN 12.6 g/dL (12.0-16.0); MEAN CORPUSCULAR HEMOGLOBIN 30 pg (27-31); MEAN CORPUSCULAR HGB CONC 33 g/dL (33-37); MEAN CORPUSCULAR VOLUME 91 fL (80-94); PLATELET COUNT (AUTO) 199 K/uL (140-450); RED BLOOD CELL COUNT(AUTO) 4.16 MIL/uL (4.20-5.40); RED CELL DISTRIBUTION WIDTH 13.2 % (11.6-13.7); WHITE BLOOD COUNT (AUTO) 16.4 K/uL (4.8-10.8)
[2017-07-07 18:03] LABS: ALBUMIN 3.1 g/dL (3.4-5.0); ANION GAP 11.6 (8-16); CARBON DIOXIDE 31.4 mmol/L (21-32); CREATININE 0.7 mg/dL (0.6-1.3); TOTAL BILIRUBIN 0.6 mg/dL (0.0-1.0)
[2017-07-07 18:17] LABS: LYMPHOCYTES % (MANUAL) 6 % (20-46); METAMYELOCYTES % 1 % (0-0); MONOCYTES % (MANUAL) 1 % (5-12); PROMYELOCYTES % 1 % (0-0)
--- NOTE | 2017-07-07 18:37 | NUR ---
PATIENT HAD ANOTHER EMESIS EPISODE. RESPIRATION EVEN, UNLABOR. AIR ROUTE CONTROLLER AT BEDSIDE. WILL NOTIFY DR. MCLEAN ONCE RESULT AVAILABLE.
--- NOTE | 2017-07-07 19:29 | NUR ---
ENDORSEMENT GIVEN TO SHADOWGRAPH OPERATOR NURSE. PATIENT IS STABLE AT THIS TIME, NO DISTRESS NOTED.
--- NOTE | 2017-07-07 19:30 | NUR ---
RECEIVED PT IN STABLE CONDITION FROM AM NURSE . PT IS ON O22L/NC. LUNG SOUNDS DIMINISHED. ON MED SURG. AWAKE,ALERT AND ORIENTED X4. WITH LT EAR NIKOLAI. HAS HEARING AID. SHE REMOVED AND PUT ON THE CONTAINER. HL ON THE LT UPPER ARM #24. CLEAR AND PATENT. STILL WITH SLIGHT NAUSEA. BUT TOLERATING WITH NO MEDICATION. ON BEDREST DUE TO GENERAL WEAKNESS. INCONTINENT . NEED FREQUENT ROUNDS. PLAN OF CARE DISCUSSED AND VERBALIZED UNDERSTANDING. BED ON LOW POSITION, CALL LIGHT PLACED WITHIN EASY REACH. WILL CONTINUE TO MONITOR.
--- NOTE | 2017-07-07 19:39 | NUR ---
PAGED DR. MCLEAN FOR PT HAS SOB EVEN WITH O22L/NC. ALSO WITH ELEVATED LIPASE . ABLE TO TALKED TO HIM . MADE AWARE WITH ORDERS.
[2017-07-07] MEDS ORDERED: ALBUTEROL SULFATE/IPRATROPIU 3 ML SOL IH PRN (19:40)
[2017-07-07] MEDS ORDERED: ALBUTEROL SULFATE/IPRATROPIU 3 ML SOL IH ONE (19:54)
--- NOTE | 2017-07-07 20:10 | NUR ---
WENT WITH PT TO CT DEPT ON O2 2L/NC AND TELE MONITOR BY BED FOR CT ABDOMEN /PELVIS WITHOUT CONTRAST .
--- NOTE | 2017-07-07 20:45 | NUR ---
BACK FROM DT DEPT. PT IN STABLE CONDITION. WILL FOLLOW UP RESULT OF DT.
[2017-07-07 21:00] VITALS: BP 116/47
--- NOTE | 2017-07-07 21:45 | NUR ---
PT IS STABLE O2 SAT 0N 3L/NC 95%. NO DISTRESS NOTED.
--- NOTE | 2017-07-07 22:09 | NUR ---
PAGED DR. MCLEAN FOR RESULT OF CT ABDOMEN /PELVIS. MADE AWARE WITH NO NEW ORDER MADE. WILL CONTINUE TO MONITOR PT.
--- NOTE | 2017-07-07 22:54 | NUR ---
MADE ROUNDS. PT IS ASLEEP. NO ACUTE RESPIRATORY DISTRESS NOTED. WILL CONTINUE TO MONITOR.
[2017-07-07 23:40] VITALS: BP 143/77
[2017-07-08] MEDS: ALBUTEROL SULFATE/IPRATROPIU 3 ML SOL IH SCH ×4 (00:49→19:09)
[2017-07-08] MEDS: ONDANSETRON 4 MG/2 ML VIAL IVP PRN ×2 (03:05→17:38)
--- NOTE | 2017-07-08 03:05 | NUR ---
PT AWAKE, VOMITED @ 50ML CLEAR LIQUIDS. MEDICATED WITH ZOFRAN IV ORDERED. WILL CONTINUE TO MONITOR.
[2017-07-08 03:45] VITALS: BP 139/77
[2017-07-08 06:23] LABS: HEMATOCRIT 35.7 % (36-48); HEMOGLOBIN 11.8 g/dL (12.0-16.0); MEAN CORPUSCULAR HEMOGLOBIN 30 pg (27-31); MEAN CORPUSCULAR HGB CONC 33 g/dL (33-37); MEAN CORPUSCULAR VOLUME 92 fL (80-94); PLATELET COUNT (AUTO) 162 K/uL (140-450); RED BLOOD CELL COUNT(AUTO) 3.89 MIL/uL (4.20-5.40); RED CELL DISTRIBUTION WIDTH 13.2 % (11.6-13.7); WHITE BLOOD COUNT (AUTO) 22.5 K/uL (4.8-10.8)
[2017-07-08] MEDS ORDERED: DEXT 5% / NACL 0.9% 500 ML IV SCH (06:40)
[2017-07-08 06:41] LABS: ALBUMIN 2.9 g/dL (3.4-5.0); ANION GAP 13.8 (8-16); CARBON DIOXIDE 30.9 mmol/L (21-32); CREATININE 0.7 mg/dL (0.6-1.3); POTASSIUM 3.7 mmol/L (3.5-5.1); TOTAL BILIRUBIN 0.6 mg/dL (0.0-1.0)
[2017-07-08 06:55] LABS: LYMPHOCYTES % (MANUAL) 7 % (20-46); MONOCYTES % (MANUAL) 5 % (5-12)
[2017-07-08 07:09] LABS: MAGNESIUM 1.6 mg/dL (1.8-2.4); PHOSPHORUS 4.1 mg/dL (2.5-4.9)
--- NOTE | 2017-07-08 07:20 | NUR ---
ENDORSED PT IN STABLE CONDITION TO AM NURSE.
--- NOTE | 2017-07-08 07:21 | NUR ---
PATIENT SITTING IN BED WITH BREAKFAST TRAY IN FRONT. IN STABLE CONDITION, NO DISTRESS NOTED. RESPIRATIONS EVEN, ON 3L VIA NC WITH HUMIDIFIER WITH 02 SATS AT 93-96%. AAOX4, CALM, COOPERATIVE, SKIN COLOR APPROPRIATE TO ETHNICITY, WARM TO TOUCH. SKIN IS INTACT. LUNGS ARE CTA ON ALL LOBES WITH DIMINISHED LUNG SOUNDS. IV IS PATENT, INTACT, AND INFUSING WITH IVF PER ORDERS. PATIENT REPORTS HAVE VOMITX1 DURING QUALITY ASSURANCE MANAGER, DENIES ANY NAUSEA/VOMITING THIS MORNING. PLAN OF CARE REVIEWED WITH PATIENT. PATIENT VERBALIZED UNDERSTANDING. SAFETY MEASURES IN PLACE, CALL LIGHT WITHIN REACH, FALL PREVENTIONS IN PLACE PER PROTOCOL. WILL CONTINUE TO MONITOR.
[2017-07-08] MEDS: DEXT 5% /NACL 0.9% 1,000 ML IV SCH ×2 (07:44→22:02)
[2017-07-08] MEDS: METOPROLOL SUCCINATE 50 MG TABER PO SCH (09:29)
[2017-07-08] MEDS: MAGNESIUM OXIDE 400 MG TAB PO SCH (09:29)
[2017-07-08] MEDS: NITROFURANTOIN 100 MG CAP PO SCH ×2 (09:29→20:30)
[2017-07-08] MEDS: cloNIDine 0.1 MG TAB PO SCH ×2 (09:29→20:30)
[2017-07-08] MEDS: FAMOTIDINE 20 MG TAB PO SCH ×2 (09:30→20:29)
--- NOTE | 2017-07-08 09:50 | NUR ---
PATIENT SITTING IN BED WATCHING TV. NO DISTRESS NOTED. RESPIRATIONS EVEN, UNLABORED, ON O2 3L/MIN WITH HUMIDIFIER WITH O2 SAT AT 94%. DENIES ANY PAIN AT THIS TIME. MEDICATIONS DUE GIVEN. IV IS INTACT, AND INFUSING. SAFETY MEASURES IN PLACE, CALL LIGHT WITHIN REACH. WILL CONTINUE TO MONITOR.
--- NOTE | 2017-07-08 11:50 | NUR ---
PATIENT SITTING IN BED. NO DISTRESS NOTED. HELPED PATIENT MOVE UP IN BED PER PATIENT REQUEST. PATIENT REPORTS FEELING MORE COMFORTABLE AFTER REPOSITIONING. DENIES ANY PAIN AT THIS TIME. WILL CONTINUE TO MONITOR.
[2017-07-08 12:00] VITALS: BP 132/56
--- NOTE | 2017-07-08 15:00 | NUR ---
PATIENT COMPLAINTS OF PAIN ON LEFT UPPER CHEST IV SITE. IV SITE REMOVED WITH MINIMAL BLOOD AND LUMEN COMPLETELY INTACT. NEW IV STARTED ON RIGHT UPPER ARM 22G. IVF CONNECTED AND INFUSING PER MD ORDERS. SAFETY MEASURES IN PLACE, CARL LIGHT WITHIN REACH. WILL CONTINUE TO MONITOR.
[2017-07-08 16:00] VITALS: BP 101/53
[2017-07-08] MEDS: LEVOFLOXACIN 250 MG/D5 PREMIX 50 ML IV SCH (17:39)
--- NOTE | 2017-07-08 17:47 | NUR ---
PATIENT SITTING IN BED COMPLAINTS OF NAUSEA AND VOMIT X1. MEDICATED WITH ZOFRAN PER ORDERS. DENIES ANY PAIN AT THIS TIME. ANTIBIOTIC MEDICATION VIA IVPB GIVEN. SAFETY MEASURES IN PLACE, CALL LIGHT WITHIN REACH. WILL CONTINUE TO MONITOR.
--- NOTE | 2017-07-08 18:30 | NUR ---
PATIENT SITTING IN BED WATCHING TV. NO DISTRESS NOTED. DENIES ANY PAIN. REPORTS ZOFRAN EFFECTIVE FOR THE NAUSEA/VOMITING EPISODE SHE HAD A WHILE AGO. SAFETY MEASURES IN PLACE, CALL LIGHT WITHIN REACH. WILL CONTINUE TO MONITOR.
--- NOTE | 2017-07-08 19:33 | NUR ---
GAVE REPORT TO 911 EMERGENCY DISPATCHER NURSE FOR CONTINUITY OF CARE. PATIENT IN STABLE CONDITION.
--- NOTE | 2017-07-08 19:34 | NUR ---
RECEIVED REPORT FROM AM NURSE. PT RESTING IN BED IN HIGH [place]UR[place]O'S, AOX4, BEDBOUND, UNABLE TO AMBULATE, PT MUMBLES AND SOFT-SPOKEN WITH DIFFICULTY AT HEARING, ABLE TO VERBALIZE NEEDS. LEAD ELECTRICIAN IN PLACE. PT DENIES CHEST PAIN, SOB OR S/S OF ACUTE DISTRESS. SPO2 96% AT 3L HUMIDIFIED O2 NC, RR 22, PT DENIES SOB, JUST RECEIVED BREATHING TX. SCDs IN PLACE. IV ACCESS ASYMPTOMATIC, PATENT AND INTACT. IVF INFUSING WELL. DISCUSSED AND REVIEWED PLAN OF CARE WITH PT. PT VERBALIZED UNDERSTANDING. ALL NEEDS MET. SAFETY MEASURES ENSURED. CALL LIGHT WITHIN REACH. WILL CONTINUE TO MONITOR.
[2017-07-08 20:00] VITALS: BP 138/43
--- NOTE | 2017-07-08 20:40 | NUR ---
ADMINISTERED DUE MEDICATIONS WITH EDUCATION. PT VERBALIZED UNDERSTANDING, ABLE TO TOLERATE MEDS WELL. PT INCONTINENT IN URINE, PT CLEANED AND CHANGED, PT TURNED AND REPOSITIONED WITH AUTOMOTIVE TIRE TECHNICIAN, PT TOLERATED WELL. ALL NEEDS MET. IVF INFUSING WELL. SAFETY MEASURES ENSURED. CALL LIGHT WITHIN REACH. WILL CONTINUE TO MONITOR.
[2017-07-09] VITALS: BP 131/67
--- NOTE | 2017-07-09 00:08 | NUR ---
PT SLEEPING COMFORTABLY, AROUSABLE TO NAME, NO S/S OF ACUTE DISTRESS. SPO2 99% AT 3L HUMIDIFIED O2 NC, RR 22 EVEN AND UNLABORED AT BASELINE. PT REFUSED TO TURN AND REPOSITION DESPITE EDUCATION, STATED THAT "NO, I SLEEP SITTING UP." PT IS CLEAN AND DRY. ALL NEEDS MET. IVF INFUSING WELL. SAFETY MEASURES ENSURED. CALL LIGHT WITHIN REACH. WILL CONTINUE TO MONITOR.
[2017-07-09] MEDS: ALBUTEROL SULFATE/IPRATROPIU 3 ML SOL IH SCH ×4 (01:00→19:10)
--- NOTE | 2017-07-09 03:45 | NUR ---
ASSISTED PT TO USE BEDPAN. PT INSISTED ON LAYING FLAT TO HER RIGHT SIDE WHILE ON THE BEDPAN, REFUSED TO SIT ON THE BEDPAN IN H[place]S. PT INSISTED ON BEARING DOWN TO HAVE BM DESPITE EDUCATION. SPO2 96% AT 3L HUMIDIFIED O2 NC, RR 20 EVEN AND UNLABORED, WILL CONTINUE TO MONITOR.
[2017-07-09 04:00] VITALS: BP 130/52
--- NOTE | 2017-07-09 04:05 | NUR ---
PT HAD ONE LARGE SOLID BM. PT CLEANED AND SERGIO CARE PERFORMED, PT TURNED AND REPOSITIONED, ABLE TO TOLERATED PROCEDURE. PT ASSISTED BACK TO HIGH MURILLO'S, SPO2 88% AT 3L HUMIDIFIED O2 NC, RR 28 EVEN AND MODERATELY LABORED. O2 INCREASED TO 7L MOMENTARILY, SPO2 94%. NOTIFIED RT FOR PRN BREATHING TX.
[2017-07-09 06:09] LABS: HEMATOCRIT 35.9 % (36-48); HEMOGLOBIN 11.8 g/dL (12.0-16.0); MEAN CORPUSCULAR HEMOGLOBIN 31 pg (27-31); MEAN CORPUSCULAR HGB CONC 33 g/dL (33-37); MEAN CORPUSCULAR VOLUME 93 fL (80-94); PLATELET COUNT (AUTO) 183 K/uL (140-450); RED BLOOD CELL COUNT(AUTO) 3.87 MIL/uL (4.20-5.40); RED CELL DISTRIBUTION WIDTH 13.5 % (11.6-13.7)
[2017-07-09 06:44] LABS: ALBUMIN 2.6 g/dL (3.4-5.0); ANION GAP 9.3 (8-16); CARBON DIOXIDE 33.2 mmol/L (21-32); CREATININE 0.6 mg/dL (0.6-1.3); POTASSIUM 3.5 mmol/L (3.5-5.1); TOTAL BILIRUBIN 0.6 mg/dL (0.0-1.0)
[2017-07-09 07:09] LABS: EOSINOPHILS % (MANUAL) 4 % (0-4); LYMPHOCYTES % (MANUAL) 6 % (20-46); MONOCYTES % (MANUAL) 2 % (5-12)
--- NOTE | 2017-07-09 07:15 | NUR ---
ENDORSED PLAN OF CARE TO AM NURSE. CONDITION STABLE.
--- NOTE | 2017-07-09 07:30 | NUR ---
RECEIVED PT AAOX4. NO SOB NOTED. NO C/O PAIN AT THIS TIME. IV TO LT UPPER ARM PATENT AND INTACT. CHEST, DIMINISHED AIR ENTRY TO THE BASES, 2-3 LITERS PER OXYGEN VIA NASAL CANNULA. ABDOMEN SOFT, BOWEL SOUNDS PRESENT. WILL REPOSITION PT EVERY 2 HRS. INSTRUCTED PT TO CALL FOR ASSISTANCE, CALL LIGHT WITHIN REACH. PT VERBALIZED UNDERSTANDING.
--- NOTE | 2017-07-09 07:41 | NUR ---
DECREASED FIO2 TO 2L N/C POST HHN SPO2 99
--- NOTE | 2017-07-09 07:42 | NUR ---
PT UNABLE TO PRODUCE SPUTUM AT THIS TIME
[2017-07-09 08:00] VITALS: BP 124/46
[2017-07-09] MEDS: METOPROLOL SUCCINATE 50 MG TABER PO SCH (10:27)
[2017-07-09] MEDS: MAGNESIUM OXIDE 400 MG TAB PO SCH (10:27)
[2017-07-09] MEDS: cloNIDine 0.1 MG TAB PO SCH ×2 (10:28→20:23)
[2017-07-09] MEDS: FAMOTIDINE 20 MG TAB PO SCH ×2 (10:28→20:24)
[2017-07-09] MEDS: NITROFURANTOIN 100 MG CAP PO SCH ×2 (10:29→20:24)
--- NOTE | 2017-07-09 11:00 | NUR ---
LAB CALLED THE SPUTUM SPECIMEN WAS CONTAMINATED. PT MADE AWARE THAT SPUTUM NEED TO BE RECOLLECTED. SPUTUM CUP AT THE BEDSIDE. PT VERBALIZED UNDERSTANDING.
[2017-07-09 12:00] VITALS: BP 111/44
[2017-07-09] MEDS: DEXT 5% /NACL 0.9% 1,000 ML IV SCH (14:54)
[2017-07-09 16:00] VITALS: BP 136/61
[2017-07-09] MEDS: LEVOFLOXACIN 250 MG/D5 PREMIX 50 ML IV SCH (17:25)
--- NOTE | 2017-07-09 19:00 | NUR ---
PT AWAKE, WATCHING TV. NO SOB NOTED. NO COMPLAINTS MADE. WILL ENDORSE TO NEXT SHIFT NURSE FOR CONTINUITY OF CARE.
--- NOTE | 2017-07-09 19:16 | NUR ---
SPUTUM CUP LEFT A BEDSIDE AND INSTRUCTED PATIENT WHEN SHE COUGHS UOP ANY SPUTUM TO SPIT INTO CUP, THEN CALL THE NURSE OR RESPIRATORY
--- NOTE | 2017-07-09 19:20 | NUR ---
RECEIVED REPORT FROM DAY RN. PATIENT RESTING IN BED, NO S/S OF DISTRESS NOTED, RESPIRATION EVEN AND UNLABORED, ON O2 NC 3L HUMIDIFIED. IV PATENT AND INTACT, INFUSING D5NS AT 70ML/HR. RT IS AT THE BEDSIDE, WILL GIVE BREATHING TREATMENT. CALL LIGHT WITHIN REACH, SAFETY MEASURE ENSURED, WILL CONTINUE TO MONITOR.
[2017-07-09 20:00] VITALS: BP 145/65
--- NOTE | 2017-07-09 20:28 | NUR ---
DUE MEDICATION GIVEN, PATIENT TOLERATED WELL, NO S/S OF DISTRESS NOTED, WILL CONTINUE TO MONITOR.
[2017-07-09] MEDS: ACETAMINOPHEN 325 MG TAB PO PRN (21:44)
--- NOTE | 2017-07-09 21:56 | NUR ---
SPUTUM COLLECTED IN CUP AND DELIVERED TO LAB
[2017-07-09] MEDS ORDERED: LEVOFLOXACIN 250 MG/D5 PREMIX 50 ML IV SCH (22:40)
--- NOTE | 2017-07-09 22:45 | NUR ---
DR. MONTES CAME AND EXAMINED THE PATIENT AT THE BEDSIDE. NEW ORDER RECEIVED AND WILL CARRY OUT.
--- NOTE | 2017-07-09 23:40 | NUR ---
PATIENT IS INCONTINENT. INFORMED DR. MONTES, RECEIVED ORDER OF COLLECTING URINE THROUGH STRAIGHT CATHETER. ORDER NOTED AND WILL CARRY OUT.
[2017-07-09 23:55] LABS: APPEARANCE,URINE CLEAR (CLEAR); BILIRUBIN,URINE NEGATIVE (NEGATIVE); BLOOD, URINE TRACE-L (NEGATIVE); COLOR,URINE YELLOW (YELLOW); LEUKOCYTE ESTERASE ,URINE NEGATIVE (NEGATIVE); NITRITE, URINE NEGATIVE (NEGATIVE); UGLUCOSE NEGATIVE (NEGATIVE)
[2017-07-10] VITALS: BP 120/61
--- NOTE | 2017-07-10 00:05 | NUR ---
URINE COLLECTED, PATIENT TOLERATED WELL, WILL SEND SPECIMEN TO THE LAB.
[2017-07-10 00:06] LABS: RBC,URINE 0-5 (RARE) /HPF (0-5); WBC,URINE 0-5 (RARE) /HPF (0-5)
[2017-07-10] MEDS: ALBUTEROL SULFATE/IPRATROPIU 3 ML SOL IH SCH ×4 (00:51→19:04)
[2017-07-10] MEDS ORDERED: CLINDAMYCIN 900 MG/6 ML VIAL IV ONE (02:13)
--- NOTE | 2017-07-10 02:37 | NUR ---
PATIENT IS SLEEPING AT THIS TIME, NO S/S OF DISTRESS NOTED, RESPIRATION EVEN AND UNLABORED, CALL LIGHT WITHIN REACH, SAFETY MEASURE ENSURED, WILL CONTINUE TO MONITOR.
[2017-07-10] MEDS: DEXT 5% /NACL 0.9% 1,000 ML IV SCH (02:38)
[2017-07-10 04:00] VITALS: BP 152/70
[2017-07-10] MEDS: CLINDAMYCIN 900 MG in DEXTROSE 5% 100 ML IV SCH ×3 (05:27→22:09)
--- NOTE | 2017-07-10 05:36 | NUR ---
DUE MEDICATION CLEOCIN IVP STARTED, PATIENT TOLERATED WELL. NO S/S OF DISTRESS NOTED, CALL LIGHT WITHIN REACH, SAFETY MEASURE ENSURED, WILL CONTINUE TO MONITOR.
[2017-07-10 06:35] LABS: HEMOGLOBIN 11.4 g/dL (12.0-16.0); MEAN CORPUSCULAR HEMOGLOBIN 31 pg (27-31); MEAN CORPUSCULAR HGB CONC 34 g/dL (33-37); MEAN CORPUSCULAR VOLUME 92 fL (80-94); PLATELET COUNT (AUTO) 188 K/uL (140-450); RED CELL DISTRIBUTION WIDTH 13.4 % (11.6-13.7); WHITE BLOOD COUNT (AUTO) 15.4 K/uL (4.8-10.8)
[2017-07-10 07:00] LABS: ALBUMIN 2.3 g/dL (3.4-5.0); ANION GAP 7.8 (8-16); CARBON DIOXIDE 31.7 mmol/L (21-32); CREATININE 0.6 mg/dL (0.6-1.3); POTASSIUM 3.5 mmol/L (3.5-5.1); TOTAL BILIRUBIN 0.9 mg/dL (0.0-1.0)
--- NOTE | 2017-07-10 07:35 | NUR ---
ENDORSED PLAN OF CARE TO DAY COURT LEROY, PATIENT IS IN STABLE CONDITION, NO S/S OF DISTRESS NOTED.
--- NOTE | 2017-07-10 07:36 | NUR ---
RECEIVED REPORT FROM RADIO JOURNALIST NURSE PEGGY AT BEDSIDE FOR CONTINUITY OF CARE. PT IS AWAKE AND ORIENTED. INTRODUCED SELF AND UPDATED BOARD. PT IS ON O2 VIA NC 2L. O2 SAT 94%. NO SOB, RESPIRATORY DISTRESS NOTED. SHUTTLE PREPARATION SUPERVISOR AT BEDSIDE. APPLIANCE ADJUSTER DELIVERED BREAKFAST TRAY CLEAR LIQUID DIET. PT IS SITTING UP IN BED EATING BREAKFAST. NO COMPLAINTS AT THIS TIME. WILL CONTINUE TO MONITOR.
[2017-07-10 08:00] VITALS: BP 152/63
[2017-07-10 08:59] LABS: EOSINOPHILS % (MANUAL) 3 % (0-4); LYMPHOCYTES % (MANUAL) 5 % (20-46); MONOCYTES % (MANUAL) 2 % (5-12)
[2017-07-10] MEDS: MAGNESIUM OXIDE 400 MG TAB PO SCH (09:09)
[2017-07-10] MEDS: FAMOTIDINE 20 MG TAB PO SCH ×2 (09:09→21:22)
[2017-07-10] MEDS: cloNIDine 0.1 MG TAB PO SCH ×2 (09:10→21:24)
[2017-07-10] MEDS: METOPROLOL SUCCINATE 50 MG TABER PO SCH (09:10)
[2017-07-10] MEDS: POTASSIUM CHL 20MEQ/D5-NS 1,000 ML IV SCH ×2 (09:11→21:23)
[2017-07-10 12:00] VITALS: BP 142/68
--- NOTE | 2017-07-10 12:05 | NUR ---
REPOSITIONED PT IN BED WITH BRICK OFFBEARER. PULLED UP IN SITTING POSITION. PT IS EATING LUNCH TRAY MECHANICAL SOFT DIET NOW. INFORMED PT THAT NEW SPUTUM CULTURE MUST BE OBTAINED AGAIN. PT STATED SHE HAS NO COUGH OR SPUTUM RIGHT NOW. WILL TRY AFTER LUNCH TODAY. PT HAS NO COMPLAINTS AT THIS TIME. NO SIGNS OF RESPIRATORY DISTRESS. WILL CONTINUE TO MONITOR.
[2017-07-10 16:00] VITALS: BP 137/67
--- NOTE | 2017-07-10 17:00 | NUR ---
PT STATED SHE DID NOT WANT TO WEAR NC. STATED SHE DOES NOT USE OXYGEN AT HOME. REMOVED NC. O2 SAT AT ROOM AIR 95%. NO SIGNS OF RESPIRATORY DISTRESS. PT HAS NO COMPLAINTS AT THIS TIME WILL CONTINUE TO MONITOR.
--- NOTE | 2017-07-10 19:29 | NUR ---
ENDORSED PT TO HOT CELL TECHNICIAN NURSE MONIQUE AT BEDSIDE FOR CONTINUITY OF CARE. PT IN STABLE CONDITION.
--- NOTE | 2017-07-10 19:30 | NUR ---
RECD. RESTING IN BED, AWAKE, A/OX3, OBESE. RESPIRATION EVEN AND UNLABORED, OFF 02 CANNULA, 02 SAT - 94%. ON D5NS +20 MEQ KCL AT 70 ML/HR, LEFT FOREARM G24, IV INFILTRATED, STOPPED AT THIS TIME, WILL FIND NEW IV LINE. ON BILATERAL LEG SEQUENTIALS. CALL LIGHT IN REACH. SAFETY MEASURES ENFORCE. PLAN OF CARE FOR THE SHIFT DISCUSSED. VERBALIZED UNDERSTANDING. DENIES PAIN 0/10.
--- NOTE | 2017-07-10 19:35 | NUR ---
Patient's Plan of Care was discussed and reviewed with PRODUCTION LINE OPERATOR: MONIQUE WAY
[2017-07-10 20:00] VITALS: BP 146/60
[2017-07-10] MEDS ORDERED: LEVOFLOXACIN 250 MG/D5 PREMIX 50 ML IV SCH (21:00)
[2017-07-10] MEDS ORDERED: LEVOFLOXACIN 750 MG/D5W PREMIX 150 ML IV SCH (21:00)
--- NOTE | 2017-07-10 21:15 | NUR ---
DR. MONTES CAME AND CHECKED PATIENT, WILL FOLLOW UP FOR ANY NEW ORDERS.
--- NOTE | 2017-07-10 21:30 | NUR ---
NEW IV LINE INSERTED BY CHARGE NURSE JOE AT THE RIGHT FOREARM G 22.
[2017-07-11] VITALS: BP 142/73
[2017-07-11] MEDS: ALBUTEROL SULFATE/IPRATROPIU 3 ML SOL IH SCH ×4 (01:00→19:28)
[2017-07-11] MEDS: cloNIDine 0.1 MG TAB PO SCH (01:49)
[2017-07-11 04:00] VITALS: BP 148/71
[2017-07-11] MEDS: CLINDAMYCIN 900 MG in DEXTROSE 5% 100 ML IV SCH ×2 (05:32→12:38)
[2017-07-11 06:15] LABS: HEMATOCRIT 31.2 % (36-48); HEMOGLOBIN 10.2 g/dL (12.0-16.0); MEAN CORPUSCULAR HEMOGLOBIN 30 pg (27-31); MEAN CORPUSCULAR HGB CONC 33 g/dL (33-37); MEAN CORPUSCULAR VOLUME 92 fL (80-94); PLATELET COUNT (AUTO) 180 K/uL (140-450); RED BLOOD CELL COUNT(AUTO) 3.39 MIL/uL (4.20-5.40); RED CELL DISTRIBUTION WIDTH 13.1 % (11.6-13.7); WHITE BLOOD COUNT (AUTO) 5.7 K/uL (4.8-10.8)
[2017-07-11 06:34] LABS: ALBUMIN 2.1 g/dL (3.4-5.0); ANION GAP 6.6 (8-16); CARBON DIOXIDE 34.2 mmol/L (21-32); CREATININE 0.6 mg/dL (0.6-1.3); POTASSIUM 3.8 mmol/L (3.5-5.1); TOTAL BILIRUBIN 0.4 mg/dL (0.0-1.0)
[2017-07-11 06:43] LABS: EOSINOPHILS % (MANUAL) 13 % (0-4); LYMPHOCYTES % (MANUAL) 15 % (20-46); MONOCYTES % (MANUAL) 6 % (5-12)
--- NOTE | 2017-07-11 07:25 | NUR ---
RECEIVED REPORT FROM NIGHT NURSE AT PT BEDSIDE. PATIENT RESTING IN BED. AWAKE AND ALERT. FOLLOWS COMMANDS. ON O2 2L NC. PATIENT ON BEDREST. IV SITE PATENT AND INTACT. CALL LIGHT WITHIN REACH.
[2017-07-11 08:00] VITALS: BP 152/81
--- NOTE | 2017-07-11 08:00 | NUR ---
RECEIVED REPORT FROM CHARGE NURSE JOE, PT STABLE NO DISTRESS NOTED, WILL BE PICKED UP BY AMBULANCE TO TRANSFER TO [facility]. CALL LIGHT WITHIN REACH, WILL CONTINUE TO MONITOR. Addendum: 07/11/17 at 2110 by Miriam Josue RN WRONG TIME
[2017-07-11] MEDS: MAGNESIUM OXIDE 400 MG TAB PO SCH (08:20)
[2017-07-11] MEDS: FAMOTIDINE 20 MG TAB PO SCH (08:20)
[2017-07-11] MEDS: METOPROLOL SUCCINATE 50 MG TABER PO SCH (09:00)
[2017-07-11] MEDS: POTASSIUM CHL 20MEQ/D5-NS 1,000 ML IV SCH (11:41)
[2017-07-11 12:00] VITALS: BP 156/71
--- NOTE | 2017-07-11 12:20 | NUR ---
PATIENT RESTING IN BED, TOLERATED PO LUNCH. PATIENT ASSISTED IN CHANGING OF POSITIONS Q2H. DENIES DISCOMFORT. ALL NEEDS MET.
--- NOTE | 2017-07-11 15:04 | NUR ---
1400 CALLED [facility] AND SET UP BARIATRIC GURNEY TRANSPORT WITH O2 WITH [facility] AND PICKUP TIME WILL BE 7 PM FOR PT TO RETURN TO [facility] TO ROOM 9A. 1500 SPOKE WITH SONNY AT [facility] AND RECEIVED AUTH# [id number] FOR [facility]. CALLED [place] [phone] AND PROVIDED SHEILA WITH AUTH #.
[2017-07-11 16:00] VITALS: BP 128/75
--- NOTE | 2017-07-11 18:40 | NUR ---
REPORT CALLED TO MELISSA REGALADO TO COURT CISNEROS FOR TRANSFER. PATIENT AND SON IRINA IN AGREEMENT. AWAITING [facility]. EXPECTED TIME 1899.
--- NOTE | 2017-07-11 19:40 | NUR ---
ENDORSED PLAN OF CARE TO COURT DIAZ. NO S/S OF ACUTE DISTRESS NOTED. RT AT BEDSIDE.
[2017-07-11 20:00] VITALS: BP 145/72
--- NOTE | 2017-07-11 20:00 | NUR ---
RECEIVED REPORT FROM CHARGE NURSE JOE, PT STABLE NO DISTRESS NOTED, WILL BE PICKED UP BY AMBULANCE TO TRANSFER TO [facility]. CALL LIGHT WITHIN REACH, WILL CONTINUE TO MONITOR.
[2017-07-11] MEDS: ACETAMINOPHEN 325 MG TAB PO PRN (20:20)
--- NOTE | 2017-07-11 21:10 | NUR ---
PT PICKED UP BY TO TRANSFER TO [facility], PT STABLE NO DISTRESS NOTED. WRIST BAND TAKEN OFF, PLUMBING FOREMAN TAKEN OFF.
== END 2017-07-11 21:15 | disposition home or self-care (01) | DRG 871 ==
LOC: MED 09:06 → MTU 12:51
PROVIDERS: ADMIT Family Medicine; ATTEND Family Medicine
DX: A41.9 Sepsis, unspecified organism (principal); J96.01 Acute respiratory failure with hypoxia; J69.0 Pneumonitis due to inhalation of food and vomit; E87.1 Hypo-osmolality and hyponatremia; N39.0 Urinary tract infection, site not specified; Z68.43 Body mass index [BMI] 50.0-59.9, adult; K52.9 Noninfective gastroenteritis and colitis, unspecified; J44.9 Chronic obstructive pulmonary disease, unspecified; R74.0 Nonspecific elevation of levels of transaminase and lactic acid dehydrogenase [LDH]; D64.9 Anemia, unspecified; G14 Postpolio syndrome; I11.0 Hypertensive heart disease with heart failure; I50.9 Heart failure, unspecified; E78.5 Hyperlipidemia, unspecified; R74.8 Abnormal levels of other serum enzymes; B96.20 Unspecified Escherichia coli [E. coli] as the cause of diseases classified elsewhere; F44.4 Conversion disorder with motor symptom or deficit; R32 Unspecified urinary incontinence; K21.9 Gastro-esophageal reflux disease without esophagitis; E66.01 Morbid (severe) obesity due to excess calories; Z77.22 Contact with and (suspected) exposure to environmental tobacco smoke (acute) (chronic); Z88.0 Allergy status to penicillin; Z91.013 Allergy to seafood; Z87.440 Personal history of urinary (tract) infections; Z85.42 Personal history of malignant neoplasm of other parts of uterus; Z90.710 Acquired absence of both cervix and uterus; Z90.49 Acquired absence of other specified parts of digestive tract; I25.2 Old myocardial infarction
CPT/HCPCS: 36415; 36600; 71010; 74000; 80053; 81001; 82803; 83605; 83690; 83735; 83880; 84100; 84484; 85025; 85610; 85730; 87040; 87081; 87086; 87205; 89220; 93005; 94640; 96374; 96375; 99285; C1758; J1650; J1940; J1956; J2270; J2405; J2930; J3490; J7030; J7042; J7060; J7620; Q0092

== ENCOUNTER 2017-11-28 09:02 | Inpatient (IN) | payer OTHER ==
[~2017-11-28] VITALS: Ht 160 cm; Wt 144.2 kg
[2017-11-28 09:02] VITALS: BP 162/84
[~2017-11-28 09:02] MED LIST changes: -ACET-8386 PO; +ARTOP OP; +ASPI81CT89 PO; +CALC-105 PO; +CEPH250C16 PO; +CRAN425C8 PO; +FERR325E14 PO; -LEVO750T2 PO; +LOSA100T1 PO; +METO25TE2 PO; +MULT-2410 PO; +NITR100C7 PO; -ONDA4TAB PO; -SERT25TA PO
--- NOTE | 2017-11-28 09:06 | NUR ---
RT ARRIVED TO PUT PT ON BIPAP
--- NOTE | 2017-11-28 09:06 | NUR ---
PATIENT PRESENTS TO ED BY AMBULANCE WITH SOB. PT GIVEN ALBUTEROL AND ATROVENT NEBN TX EN ROUTE TO ED . PT. DENIES N/V/D; SKIN IS PINK/WARM/DRY; AAOX4; LUNGS DIMINSEHD BILATERAL; HR EVEN AND REGULAR; LUNG, SOB, OR COUGH AT THIS TIME; PATIENT STATES PAIN OF 0/10 AT THIS TIME; VSS; PATIENT POSITIONED FOR COMFORT; HOB ELEVATED; BEDRAILS UP X2; BED DOWN. ER MD MADE AWARE OF PT STATUS.
[2017-11-28] MEDS ORDERED: CAPTOPRIL 12.5 MG TAB PO ONE (09:20)
[2017-11-28] MEDS ORDERED: methylPREDNISolone SS 125 MG/2 ML VIAL IVP ONE (09:20)
[2017-11-28] MEDS ORDERED: FUROSEMIDE 100 MG/10 ML VIAL IVP ONE (09:20)
[2017-11-28] MEDS ORDERED: NITROGLYCERIN 2% 1 GM PKT TP ONE (09:20)
[2017-11-28] MEDS ORDERED: ACET-2619 PO (09:28)
[2017-11-28] MEDS ORDERED: VITD1000 PO (09:28)
[2017-11-28] MEDS ORDERED: TRAM50TA1 PO (09:28)
[2017-11-28] MEDS ORDERED: MAG355OR2 PO (09:28)
[2017-11-28] MEDS ORDERED: FAMO-90 PO (09:28)
[2017-11-28] MEDS ORDERED: MYCC TP (09:28)
[2017-11-28] MEDS ORDERED: SAL1 PO (09:28)
--- NOTE | 2017-11-28 09:30 | NUR ---
XRAY AT BEDSIDE
--- NOTE | 2017-11-28 09:33 | NUR ---
PLACED PT ON BIPAP SEE NPPV NOTES FOR SETTINGS AND VITALS. SO FAR PT IS HARRIS BIPAP WELL. WILL CONT TO MONITOR PT.
[2017-11-28] MEDS ORDERED: ALBUTEROL SULFATE/IPRATROPIU 3 ML SOL IH ONE (10:00)
--- NOTE | 2017-11-28 10:10 | NUR ---
# 16 FR Ortega catheter with ml utilizing sterile technique. Immediate return of ml urine noted. Bedside drainage bag placed below level of bladder. Urine sample collected and sent to lab. Pt tolerated procedure . Addendum: 11/28/17 at 1036 by Mentis TechnologyJoe Son called for update on mothers condition, confirmed pt's stability and will come to visit her in the ER.
[2017-11-28 10:32] LABS: ALBUMIN 2.9 g/dL (3.4-5.0); ANION GAP 6.3 (8-16); CARBON DIOXIDE 33.4 mmol/L (21-32); CREATININE 0.5 mg/dL (0.6-1.3); POTASSIUM 4.7 mmol/L (3.5-5.1); TOTAL BILIRUBIN 0.4 mg/dL (0.0-1.0)
[2017-11-28 10:33] LABS: BASOPHILS % (AUTO) 0.4 % (0.0-2.0); EOSINOPHILS # (AUTO) 0.2 K/uL (0-0.4); EOSINOPHILS % (AUTO) 4.4 % (0.0-4.0); HEMATOCRIT 35.6 % (36-48); HEMOGLOBIN 11.6 g/dL (12.0-16.0); LYMPHOCYTES # (AUTO) 0.8 K/uL (2.5-16.5); LYMPHOCYTES % (AUTO) 13.7 % (20.5-51.1); MEAN CORPUSCULAR HEMOGLOBIN 28 pg (27-31); MEAN CORPUSCULAR HGB CONC 33 g/dL (33-37); MEAN CORPUSCULAR VOLUME 84.8 fL (80-94); MONOCYTES # (AUTO) 0.3 K/uL (0.8-1.0); NEUTROPHILS # (AUTO) 4.1 K/uL (1.8-7.7); NEUTROPHILS % (AUTO) 75.5 % (42.2-75.2); PLATELET COUNT (AUTO) 217 K/uL (140-450); RED CELL DISTRIBUTION WIDTH 15.1 % (11.6-13.7); WHITE BLOOD COUNT (AUTO) 5.5 K/uL (4.8-10.8)
[2017-11-28 10:44] LABS: PROTHROMBIN TIME 11.5 secs (10.8-13.4)
--- NOTE | 2017-11-28 10:46 | NUR ---
crtical lab received, sodium @ 120 , Dr Valenzuela informed, no orders received.
--- NOTE | 2017-11-28 10:47 | NUR ---
Pt's BP 133/49, pt denies any sob or dizziness. Dr Valenzuela informed, noordesr received. Ortega cath draining.
[2017-11-28] MEDS ORDERED: ALBUTEROL 0.083% 2.5 MG/3 ML NEBU IH PRN (11:20)
[2017-11-28] MEDS ORDERED: ONDANSETRON 4 MG/2 ML VIAL IVP PRN (11:20)
[2017-11-28 11:51] LABS: APPEARANCE,URINE HAZY (CLEAR); BILIRUBIN,URINE NEGATIVE (NEGATIVE); BLOOD, URINE 1+ (NEGATIVE); COLOR,URINE YELLOW (YELLOW); LEUKOCYTE ESTERASE ,URINE 1+ (NEGATIVE); NITRITE, URINE NEGATIVE (NEGATIVE); PH,URINE 6.5 (5.0-9.0); UGLUCOSE NEGATIVE (NEGATIVE)
[2017-11-28 12:30] VITALS: BP 118/97
--- NOTE | 2017-11-28 12:30 | NUR ---
PATIENT WAS TRANSFERRED FROM ER IN [facility]. REPORT WAS GIVEN AT BEDSIDE. TIERCE FILLER WAS PLACED. PATIENT IS AWAKE, ALERT. RESPIRATION EVEN, UNLABOR ON 4L NC. SKIN DRY AND WARM. IV PATENT AND INTACT. ROCHA DRAINING WELL. VS IS STABLE. MRSA IS SWABBED. DENIED PAIN, SOB AT THIS TIME. PLAN OF CARE WAS DISCUSSED WITH PATIENT. PATIENT WAS ORIENTED TO ROOM, STAFF, AND CALL LIGHT. BED AT LOW POSITION, HOB ELEVATED, SIDE RAILS UP. CALL LIGHT WITHIN REACH. FAMILY AT BEDSIDE
[2017-11-28 12:34] LABS: RBC,URINE 0-5 (RARE) /HPF (0-5)
[2017-11-28 12:35] LABS: WBC,URINE 80-100 /HPF (0-5)
--- NOTE | 2017-11-28 12:46 | NUR ---
pt transfreerd to room 108B with lunch stable upon transfer
[2017-11-28] MEDS: IPRATROPIUM 0.02% 0.5 MG/2.5 ML NEBU IH SCH ×2 (13:46→18:51)
[2017-11-28] MEDS: ALBUTEROL 0.083% 2.5 MG/3 ML NEBU IH SCH ×2 (13:46→18:51)
--- NOTE | 2017-11-28 15:00 | NUR ---
DR. PRADO WAS MADE AWARE OF NA 129, AND REDNESS UNDERNEATH ABDOMINAL FOLD. ADVISED TO CONTINUE TO MONITOR, PATIENT WILL BE SEEN LATER
[2017-11-28 16:00] VITALS: BP 130/86
--- NOTE | 2017-11-28 16:00 | NUR ---
PATIENT AWAKE, ALERT. RESPIRATION EVEN, UNLABOR ON 4L NC. DENIED PAIN, SOB AT THIS TIME. NO DISTRESS NOTED. CALL LIGHT WITHIN REACH. FAMILY AT BEDSIDE
[2017-11-28 18:26] LABS: CREATINE KINASE MB 0.4 ng/mL (0-3.6)
--- NOTE | 2017-11-28 18:28 | NUR ---
PATIENT AWAKE, ALERT. RESPIRATION EVEN, UNLABOR ON 4L NC. IV PATENT AND INTACT. NO DISTRESS NOTED AT THIS TIME. INTER-DRY IS PLACED ON ABDOMINAL FOLD. FAMILY AT BEDSIDE. CALL LIGHT WITHIN REACH
--- NOTE | 2017-11-28 19:19 | NUR ---
ENDORSEMENT GIVEN TO THE SECURITY THREAT ANALYST NURSE. PATIENT IS STABLE AT THIS TIME
--- NOTE | 2017-11-28 19:21 | NUR ---
RECEIVED REPORT FROM DAY RN. PT RESTING IN BED. AAOX4. NO S/S OF ACUTE DISTRESS. PT DENIES PAIN. IV SITE PATENT AND INTACT. ON O2 4L NC. CALL LIGHT WITHIN REACH. SAFETY MEASURES ENSURED. WILL CONTINUE TO MONITOR.
[2017-11-28] MEDS: cloNIDine 0.1 MG TAB PO SCH (20:57)
[2017-11-28 21:31] VITALS: BP 171/65
[2017-11-28] MEDS ORDERED: BENZONATATE 100 MG CAPLF PO PRN (21:40)
[2017-11-29] VITALS: BP 146/80
--- NOTE | 2017-11-29 | NUR ---
PT SLEEPING IN BED. NO S/S OF ACUTE DISTRESS. CALL LIGHT WITHIN REACH. SAFETY MEASURES ENSURED. WILL CONTINUE TO MONITOR.
[2017-11-29] MEDS: IPRATROPIUM 0.02% 0.5 MG/2.5 ML NEBU IH SCH ×4 (00:26→19:10)
[2017-11-29] MEDS: ALBUTEROL 0.083% 2.5 MG/3 ML NEBU IH SCH ×4 (00:26→19:07)
--- NOTE | 2017-11-29 03:22 | NUR ---
PT SLEEPING IN BED. NO S/S OF ACUTE DISTRESS. CALL LIGHT WITHIN REACH. SAFETY MEASURES ENSURED. WILL CONTINUE TO MONITOR.
[2017-11-29] MEDS: ACETAMINOPHEN 325 MG TAB PO PRN ×2 (03:50→20:10)
[2017-11-29 04:00] VITALS: BP 155/96
[2017-11-29 06:46] LABS: HEMOGLOBIN 12.5 g/dL (12.0-16.0)
[2017-11-29 06:49] LABS: MEAN CORPUSCULAR HEMOGLOBIN 28 pg (27-31); MEAN CORPUSCULAR HGB CONC 33 g/dL (33-37); MEAN CORPUSCULAR VOLUME 85.1 fL (80-94); PLATELET COUNT (AUTO) 257 K/uL (140-450); RED BLOOD CELL COUNT(AUTO) 4.46 MIL/uL (4.20-5.40); RED CELL DISTRIBUTION WIDTH 15.3 % (11.6-13.7); WHITE BLOOD COUNT (AUTO) 6.8 K/uL (4.8-10.8)
--- NOTE | 2017-11-29 07:14 | NUR ---
ENDORSED PLAN OF CARE TO NIGHT RN. PT STABLE.
--- NOTE | 2017-11-29 07:30 | NUR ---
ENDORSEMENT RECEIVED FROM EXCHANGE OPERATOR NURSE. PATIENT IS AWAKE, ALERT. RESPIRATION EVEN, UNLABOR ON 4L NC. SKIN DRY AND WARM. IV PATENT AND INTACT. VS IS STABLE. DENIED PAIN, SOB AT THIS TIME. PLAN OF CARE WAS DISCUSSED WITH PATIENT. BED AT LOW POSITION, HOB ELEVATED. CALL LIGHT WITHIN REACH
[2017-11-29 08:00] VITALS: BP 147/69
[2017-11-29] MEDS: ATORVASTATIN 20 MG TAB PO SCH (09:01)
[2017-11-29] MEDS: amLODIPine 5 MG TAB PO SCH (09:02)
[2017-11-29] MEDS: cloNIDine 0.1 MG TAB PO SCH ×2 (09:02→20:10)
[2017-11-29] MEDS: ASPIRIN 81 MG TAB.CHEW PO SCH (09:02)
[2017-11-29] MEDS: ENOXAPARIN 40 MG/0.4 ML SYR SUBQ SCH (09:08)
[2017-11-29 09:29] LABS: LYMPHOCYTES % (MANUAL) 5 % (20-46); MONOCYTES % (MANUAL) 2 % (5-12)
--- NOTE | 2017-11-29 10:20 | NUR ---
PATIENT HAS BEEN SCREENED AND CATEGORIZED HIGH NUTRITION RISK. PATIENT WILL BE SEEN WITHIN 1-2 DAYS OF ADMISSION. 11/29/17 - 11/30/[address]
[2017-11-29] MEDS ORDERED: LEVOFLOXACIN 250 MG TAB PO SCH (10:49)
[2017-11-29 11:00] LABS: ANION GAP 16.9 (8-16); CARBON DIOXIDE 28.9 mmol/L (21-32); CREATININE 0.7 mg/dL (0.6-1.3); POTASSIUM 4.8 mmol/L (3.5-5.1)
[2017-11-29 12:00] VITALS: BP 149/60
--- NOTE | 2017-11-29 12:31 | NUR ---
PATIENT AWAKE, ALERT, EATING LUNCH. RESPIRATION EVEN, UNLABOR ON 4L NC. DENIED PAIN, SOB AT THIS TIME. VS IS STABLE. CALL LIGHT WITHIN REACH
[2017-11-29 12:43] LABS: CREATINE KINASE MB 0.5 ng/mL (0-3.6)
[2017-11-29 16:00] VITALS: BP 135/45
--- NOTE | 2017-11-29 16:24 | NUR ---
PATIENT AWAKE, ALERT. RESPIRATION EVEN, UNLABOR ON 2L NC. DENIED PAIN, SOB AT THIS TIME. NO DISTRESS NOTED. ROCHA DRAINING WELL. CALL LIGHT WITHIN REACH
--- NOTE | 2017-11-29 18:10 | NUR ---
PATIENT AWAKE, ALERT. RESPIRATION EVEN, UNLABOR ON 2L NC. IV PATENT AND INTACT. URINE WAS COLLECTED PER ORDER. NO DISTRESS NOTED AT THIS TIME. CALL LIGHT WITHIN REACH
--- NOTE | 2017-11-29 19:31 | NUR ---
ENDORSEMENT GIVEN TO THE COMMUNITY DEVELOPMENT SPECIALIST NURSE. PATIENT IS STABLE AT THIS TIME
--- NOTE | 2017-11-29 19:35 | NUR ---
RECEIVED REPORT FROM DAY SHIFT RN, PATIENT RESTING IN BED, RESPIRATION EVEN AND UNLABORED, ON NC 2L. NO S/S OF DISTRESS NOTED. ROCHA CATHETER IN PLACE, DRAINING URINE BY GRAVITY. PLAN OF CARE DISCUSSED, PATIENT VERBALIZED UNDERSTANDING. CALL LIGHT WITHIN REACH, SAFETY MEASURE ENSURED, WILL CONTINUE TO MONITOR.
[2017-11-29 19:45] VITALS: BP 143/49
--- NOTE | 2017-11-29 20:12 | NUR ---
DUE MEDICATION GIVEN, PATIENT TOLERATED WELL. NO S/S OF DISTRESS NOTED, WILL CONTINUE TO MONITOR.
--- NOTE | 2017-11-29 20:30 | NUR ---
PATIENT ASKED FOR TYLENOL BECAUSE OF HEADACHE. UPON ASSESSMENT, PAIN LEVEL 3/10. TYLENOL GIVEN ORDERED. WILL CONTINUE TO MONITOR.
--- NOTE | 2017-11-29 22:40 | NUR ---
PATIENT IS SLEEPING, NO S/S OF DISTRESS NOTED, RESPIRATION EVEN AND UNLABORED, ON NC 2L. CALL LIGHT WITHIN REACH, SAFETY MEASURE ENSURED, WILL CONTINUE TO MONITOR.
[2017-11-30] VITALS: BP 138/61
--- NOTE | 2017-11-30 00:37 | NUR ---
VITAL SIGNS STABLE, NO S/S OF DISTRESS NOTED, RESPIRATION EVEN AND UNLABORED, ON NC 2L. CALL LIGHT WITHIN REACH, SAFETY MEASURE ENSURED, WILL CONTINUE TO MONITOR.
[2017-11-30] MEDS: IPRATROPIUM 0.02% 0.5 MG/2.5 ML NEBU IH SCH ×4 (01:00→19:04)
[2017-11-30] MEDS: ALBUTEROL 0.083% 2.5 MG/3 ML NEBU IH SCH ×4 (01:00→19:05)
[2017-11-30] MEDS: NACL 0.9% 1,000 ML IV SCH ×2 (01:00→10:42)
--- NOTE | 2017-11-30 02:38 | NUR ---
PATIENT IS SLEEPING, NO S/S OF DISTRESS NOTED, RESPIRATION EVEN AND UNLABORED, ON NC 2L. CALL LIGHT WITHIN REACH, SAFETY MEASURE ENSURED, WILL CONTINUE TO MONITOR.
[2017-11-30 04:00] VITALS: BP 151/51
[2017-11-30] MEDS: ACETAMINOPHEN 325 MG TAB PO PRN ×2 (04:46→20:45)
--- NOTE | 2017-11-30 04:46 | NUR ---
PATIENT ASKED FOR TYLENOL BECAUSE OF HEADACHE. UPON ASSESSMENT, PAIN LEVEL 3/10. TYLENOL GIVEN ORDERED. WILL CONTINUE TO MONITOR.
--- NOTE | 2017-11-30 06:09 | NUR ---
PATIENT IS SLEEPING, RESPIRATION EVEN AND UNLABORED, CALL LIGHT WITHIN REACH, SAFETY MEASURE ENSURED, WILL CONTINUE TO MONITOR.
--- NOTE | 2017-11-30 07:09 | NUR ---
Patient's Plan of Care was discussed and reviewed with GRAPHIC COORDINATOR: Blaine GODINEZ
--- NOTE | 2017-11-30 07:09 | NUR ---
ASSUMED CONTINUITY OF CARE. NO SIGNS AND SYMPTOMS OF ACUTE DISTRESS NOTED. INITIAL ASSESSMENT DONE. KEEP COMFORTABLE ON BED. EXPLAINED DIAGNOSIS, PLAN OF CARE, PAIN MANAGEMENT TEACHING, USE OF CALL LIGHT/BED/TV/BATHROOM. VERBALIZED UNDERSTANDING. FALL PRECAUTION APPLIED. CALL LIGHT WITHIN REACH.
--- NOTE | 2017-11-30 07:09 | NUR ---
ENDORSED PLAN OF CARE TO DAY SHIFT RN, PATIENT IS IN STABLE CONDITION.
[2017-11-30 07:21] LABS: BASOPHILS % (AUTO) 0.2 % (0.0-2.0); EOSINOPHILS # (AUTO) 0.1 K/uL (0-0.4); EOSINOPHILS % (AUTO) 2.7 % (0.0-4.0); HEMATOCRIT 34.6 % (36-48); HEMOGLOBIN 11.3 g/dL (12.0-16.0); LYMPHOCYTES # (AUTO) 0.9 K/uL (2.5-16.5); LYMPHOCYTES % (AUTO) 16.7 % (20.5-51.1); MEAN CORPUSCULAR HEMOGLOBIN 28 pg (27-31); MEAN CORPUSCULAR HGB CONC 33 g/dL (33-37); MEAN CORPUSCULAR VOLUME 85.4 fL (80-94); MONOCYTES # (AUTO) 0.4 K/uL (0.8-1.0); NEUTROPHILS # (AUTO) 4.1 K/uL (1.8-7.7); NEUTROPHILS % (AUTO) 72.4 % (42.2-75.2); PLATELET COUNT (AUTO) 232 K/uL (140-450); RED BLOOD CELL COUNT(AUTO) 4.05 MIL/uL (4.20-5.40); RED CELL DISTRIBUTION WIDTH 15.8 % (11.6-13.7); WHITE BLOOD COUNT (AUTO) 5.6 K/uL (4.8-10.8)
--- NOTE | 2017-11-30 07:22 | NUR ---
ASSESSED PT FOR 0700 HHN TX. PATIENT APPEARS COMFORTABLE WITH NO RESPIRATORY DISTRESS WHEN ENTERED ROOM. SPO2 92% ON 2L/M VIA NASAL CANNULA. HEART RATE 85. RR 20. B/S: DIMINISHED BILATERALLY IN THE UPPER AND LOWER LOBES PRE AND POST TX. PT TOLERATED HHN TX WELL OF ALBUTEROL/ATROVENT. PT STATES NO COUGH AT THIS TIME OR SOB. WILL CONTINUE TO MONITOR.
[2017-11-30 07:37] LABS: ANION GAP 9.1 (8-16); CARBON DIOXIDE 34.7 mmol/L (21-32); CREATININE 0.5 mg/dL (0.6-1.3); POTASSIUM 4.8 mmol/L (3.5-5.1)
[2017-11-30 08:00] VITALS: BP 141/56
[2017-11-30] MEDS: LEVOFLOXACIN 250 MG TAB PO SCH (08:34)
[2017-11-30] MEDS: cloNIDine 0.1 MG TAB PO SCH ×2 (08:34→20:53)
[2017-11-30] MEDS: amLODIPine 5 MG TAB PO SCH (08:34)
[2017-11-30] MEDS: ENOXAPARIN 40 MG/0.4 ML SYR SUBQ SCH (08:36)
[2017-11-30] MEDS: ASPIRIN 81 MG TAB.CHEW PO SCH (08:37)
[2017-11-30] MEDS: ATORVASTATIN 20 MG TAB PO SCH (08:38)
--- NOTE | 2017-11-30 09:08 | NUR ---
DM MEDINA, REVIEWED PT. CHART. WILL CHECK FOR ORDERS LATER.
--- NOTE | 2017-11-30 10:34 | NUR ---
11/30/17 RD INITIAL ASSESSMENT COMPLETED PLEASE REFER TO NUTRITION ASSESSMENT UNDER CARE ACTIVITY FOR ESTIMATED NUTRITIONAL NEEDS. RD RECOMMENDATIONS: 1. CONTINUE ON CARDIAC DIET TOLERATED. 2. CONSULT RDN PRN. 3. RD WILL F/U 3-5 DAYS; MODERATE RISK. MELISSA SHIELDS MS, RDN
[2017-11-30 12:00] VITALS: BP 146/57
[2017-11-30 16:00] VITALS: BP 143/56
[2017-11-30 16:21] LABS: ANION GAP 7.8 (8-16); CARBON DIOXIDE 37.2 mmol/L (21-32); CREATININE 0.6 mg/dL (0.6-1.3)
--- NOTE | 2017-11-30 19:21 | NUR ---
BEDSIDE REPORT GIVEN TO CORKY SMITH. IVF INFUSING WELL. IN STABLE CONDITION.
--- NOTE | 2017-11-30 19:22 | NUR ---
RECEIVED REPORT FROM DAY SHIFT, PT IS A/OX4, ON 2L O2 VIA NASAL CANNULA. PT HAS 22G TO RIGHT FOREARM. PT IS ON BEDREST, SKIN IS INTACT. UPDATED BOARD. VITAL SIGNS WITHIN NORMAL LIMITS. PT IN STABLE CONDITION, NO SIGNS OF DISTRESS NOTED. BED IN LOWEST POSITION, CALL LIGHT WITHIN REACH. WILL CONTINUE TO MONITOR.
--- NOTE | 2017-11-30 19:45 | NUR ---
PT C/O SKIN IRRITATION IN HER THIGHS RELATED TO MOISTURE. WILL PUT STANDARD ORDER FOR Z-GUARD.
[2017-11-30 20:00] VITALS: BP 143/57
[2017-11-30] MEDS: Z-GUARD PASTE TP SCH (20:45)
--- NOTE | 2017-11-30 20:55 | NUR ---
ADMINISTERED SCHEDULED MEDICATIONS, PT TOLERATED WELL. PT IN STABLE CONDITION, NO SIGNS OF DISTRESS NOTED. BED IN LOWEST POSITION, CALL LIGHT WITHIN REACH. WILL CONTINUE TO MONITOR.
[2017-12-01] VITALS (7 sets, daily range): BP systolic 135–149; BP diastolic 52–70
--- NOTE | 2017-12-01 | NUR ---
VITAL SIGNS WITHIN NORMAL LIMITS. PT IN STABLE CONDITION, NO SIGNS OF DISTRESS NOTED. BED IN LOWEST POSITION, CALL LIGHT WITHIN REACH. WILL CONTINUE TO MONITOR.
--- NOTE | 2017-12-01 00:10 | NUR ---
PATIENT STATED SHE DOES NOT NEED TO BE ON BIPAP WHEN ASKED TO PUT ON. PT IS COMFORTABLE WITH NO SIGNS OF RESPIRATORY DISTRESS SAO2 94% ON 2LPM VIA NASAL CANNULA. HEART RATE 71, RR 20, B/S DIMINISHED BILATERALLY
[2017-12-01] MEDS: IPRATROPIUM 0.02% 0.5 MG/2.5 ML NEBU IH SCH ×4 (00:14→18:44)
[2017-12-01] MEDS: ALBUTEROL 0.083% 2.5 MG/3 ML NEBU IH SCH ×4 (00:14→18:44)
--- NOTE | 2017-12-01 04:00 | NUR ---
VITAL SIGNS WITHIN NORMAL LIMITS. PT IN STABLE CONDITION, NO SIGNS OF DISTRESS NOTED. BED IN LOWEST POSITION, CALL LIGHT WITHIN REACH. WILL CONTINUE TO MONITOR.
[2017-12-01] MEDS: ACETAMINOPHEN 325 MG TAB PO PRN ×2 (04:30→18:44)
--- NOTE | 2017-12-01 04:30 | NUR ---
PT C/O MILD 3/10 HEADACHE. MEDICATED WITH TYLENOL, PT TOLERATED WELL.
--- NOTE | 2017-12-01 07:18 | NUR ---
ENDORSED PT TO DAY SHIFT NURSE FOR CONTINUITY OF CARE. PT IN STABLE CONDITION.
--- NOTE | 2017-12-01 07:19 | NUR ---
RECEIVED REPORT FROM ASSURANCE SENIOR NURSE. PATIENT SITTING IN BED WATCHING TV. NO DISTRESS NOTED. DENIES ANY PAIN AT THIS TIME. RESPIRATIONS EVEN, UNLABORED, ON O2 2L/MIN VIA NC. AAOX4, CALM, COOPERATIVE, SKIN COLOR APPROPRIATE TO ETHNICITY, WARM TO TOUCH. SKIN IS INTACT. IV SITE INTACT, PATENT, AND INFUSING IVF PER ORDERS. ABDOMEN SOFT, MORBIDLY OBESE. LUNGS CTA ON ALL LOBES. ROCHA CATHETER IN PLACE DRAINING CLEAR, YELLOW URINE. REVIEWED PLAN OF CARE WITH PATIENT. PATIENT VERBALIZED UNDERSTANDING. SAFETY MEASURES IN PLACE, FALL PREVENTIONS IN PLACE, CALL LIGHT WITHIN REACH. WILL CONTINUE TO MONITOR.
[2017-12-01 07:49] LABS: BASOPHILS % (AUTO) 0.4 % (0.0-2.0); EOSINOPHILS # (AUTO) 0.5 K/uL (0-0.4); EOSINOPHILS % (AUTO) 11.2 % (0.0-4.0); HEMATOCRIT 35.4 % (36-48); HEMOGLOBIN 11.5 g/dL (12.0-16.0); LYMPHOCYTES # (AUTO) 0.6 K/uL (2.5-16.5); LYMPHOCYTES % (AUTO) 13.6 % (20.5-51.1); MEAN CORPUSCULAR HEMOGLOBIN 28 pg (27-31); MEAN CORPUSCULAR HGB CONC 33 g/dL (33-37); MEAN CORPUSCULAR VOLUME 86.1 fL (80-94); MONOCYTES # (AUTO) 0.4 K/uL (0.8-1.0); MONOCYTES % (AUTO) 7.8 % (1.7-9.3); NEUTROPHILS # (AUTO) 3.1 K/uL (1.8-7.7); PLATELET COUNT (AUTO) 221 K/uL (140-450); RED BLOOD CELL COUNT(AUTO) 4.12 MIL/uL (4.20-5.40); RED CELL DISTRIBUTION WIDTH 15.6 % (11.6-13.7); WHITE BLOOD COUNT (AUTO) 4.7 K/uL (4.8-10.8)
--- NOTE | 2017-12-01 07:50 | NUR ---
COMPLETED HHN TX WITH NO ADVERSE EFFECTS OR RESPIRATORY DISTRESS. B/S ARE DIMINISHED BILATERALLY PRE AND POST TX. PT APPEARS COMFORTABLE ON 2L/M VIA NASAL CANNULA SPO2 IS 94% AND NO SOB SEEN.
[2017-12-01 08:11] LABS: ANION GAP 8.5 (8-16); CARBON DIOXIDE 36.1 mmol/L (21-32); CREATININE 0.5 mg/dL (0.6-1.3); POTASSIUM 4.6 mmol/L (3.5-5.1)
[2017-12-01] MEDS: ENOXAPARIN 40 MG/0.4 ML SYR SUBQ SCH (09:10)
[2017-12-01] MEDS: Z-GUARD PASTE TP SCH ×2 (09:11→21:12)
[2017-12-01] MEDS: ASPIRIN 81 MG TAB.CHEW PO SCH (09:18)
[2017-12-01] MEDS: amLODIPine 5 MG TAB PO SCH (09:18)
[2017-12-01] MEDS: LEVOFLOXACIN 250 MG TAB PO SCH (09:18)
[2017-12-01] MEDS: cloNIDine 0.1 MG TAB PO SCH ×2 (09:18→21:00)
[2017-12-01] MEDS: ATORVASTATIN 20 MG TAB PO SCH (09:19)
--- NOTE | 2017-12-01 09:25 | NUR ---
PATIENT SITTING IN BED TALKING WITH FAMILY MEMBERS AT BEDSIDE. NO DISTRESS NOTED. DENIES ANY PAIN AT THIS TIME. SCHEDULED MEDICATIONS DUE GIVEN. SAFETY MEASURES IN PLACE, CALL LIGHT WITHIN REACH. WILL CONTINUE TO MONITOR.
[2017-12-01] MEDS ORDERED: LEVO250T2 PO (10:12)
[2017-12-01] MEDS ORDERED: BENZ100C6 PO (10:12)
--- NOTE | 2017-12-01 11:30 | NUR ---
PATIENT SITTING IN BED TALKING WITH SON AT BEDSIDE. NO DISTRESS NOTED. DENIES ANY PAIN AT THIS TIME. RESPIRATIONS EVEN, UNLABORED, ON O2 2L/MIN VIA NC WITH O2 SAT AT 94%. SAFETY MEASURES IN PLACE, CALL LIGHT WITHIN REACH. WILL CONTINUE TO MONITOR.
[2017-12-01] MEDS: NACL 0.9% 1,000 ML IV SCH (12:15)
--- NOTE | 2017-12-01 12:47 | NUR ---
Social Service Note: I faxed patient's clinical information to Carrol Ibarra .
--- NOTE | 2017-12-01 12:48 | NUR ---
CALLED [facility] AND SPOKE WITH GENIE-SOIL CONSERVATION AIDE NURSE, STATED THAT PT CAN GO TO ROOM 9-A AFTER 3PM TODAY. SET UP TRANSPORTATION WITH [facility] ([facility]), SPOKE WITH SHEILA, PROVIDED PT'S INSURANCE BUT PT'S TRANSPORTATION WAS PLACED ON "WILL CALL" UNTIL WE CAN GET [facility] AUTHORIZATION FOR TRANSPORT. LEFT A VOICEMAIL MESSAGE TO [facility] DIRECTOR OF STUDENT LIFE, AWAITING FOR CALL BACK.
--- NOTE | 2017-12-01 13:13 | NUR ---
PATIENT SITTING IN BED WITH LUNCH TRAY IN FRONT. NO DISTRESS NOTED. DENIES ANY PAIN. SAFETY MEASURES IN PLACE, CALL LIGHT WITHIN REACH. WILL CONTINUE TO MONITOR.
--- NOTE | 2017-12-01 13:40 | NUR ---
ASSISTED PATIENT ON BEDPAN, CLEANING, AND REPOSITIONING. SAFETY MEASURES IN PLACE, CALL LIGHT WITHIN REACH. WILL CONTINUE TO MONITOR.
--- NOTE | 2017-12-01 15:30 | NUR ---
LEFT A MESSAGE AGAIN TO [facility] NOR[facility]ERT[facility] CENTENO REGARDING THE TRANSPORT AUTHORIZATION THAT [facility] ASKED FOR, STILL WAITING FOR CALL BACK. SPOKE WITH TIRE RETREADER BALDEMAR AND SUGGESTED TO CALL [facility] AGAIN AND TELL THEM THAT OUR OWN ROBOTICS ENGINEER WILL PROVIDE THEM THE AUTHORIZATION TOMORROW. SHEILA FROM [facility] STATED IT WILL BE HOSPITAL PAY IN CASE THEY ARE NOT ABLE TO GET THE [facility] AUTH FOR TRANSPORT. PT WILL BE PICKED UP TONIGHT AT 10 PM VIA BARIATRIC BED AND WITH OXYGEN. NOTIFIED NURSE AMELIA AT [facility] REGARDING THE PT'S STRATEGIC PARTNERSHIP REPRESENTATIVE TIME AND STATED IT IS OKAY TO SEND THE PT THERE THAT LATE. SANDRO-COURT ASSIGNED MADE AWARE.
--- NOTE | 2017-12-01 15:50 | NUR ---
PATIENT SITTING IN BED WORKING ON CROSSWORD PUZZLES. NO DISTRESS NOTED. DENIES ANY PAIN. SAFETY MEASURES IN PLACE, CALL LIGHT WITHIN REACH. WILL CONTINUE TO MONITOR.
--- NOTE | 2017-12-01 18:00 | NUR ---
CALLED [facility] REGALAD[facility] AND GAVE REPORT TO STAN CISNEROS REGARDING PATIENT'S TRANSFER LATER TONIGHT AROUND 2200 BY [facility]. ANSWERED ALL OF AMELIA'S QUESTIONS AND AMELIA VERBALIZED COMPLETE UNDERSTANDING. PROVIDED DISCHARGE INSTRUCTIONS TO PATIENT IN PREFERRED LANGUAGE OF GREENLANDIC, FOLLOW-UP VISITS WITH MD, NEW/CHANGED MEDICATIONS REGIMEN, DIET REGIMEN, AND DISEASE PROCESS/MANAGEMENT OF BRONCHITIS. ANSWERED ALL OF PATIENT'S QUESTIONS REGARDING TRANSFER. PATIENT VERBALIZED COMPLETE UNDERSTANDING. WILL CONTINUE TO MONITOR.
--- NOTE | 2017-12-01 19:20 | NUR ---
GAVE REPORT TO PUNCHER AND FASTENER NURSE FOR CONTINUITY OF CARE. PATIENT IN STABLE CONDITION.
--- NOTE | 2017-12-01 19:21 | NUR ---
RECEIVED REPORT FROM DAYSWAFT NURSE AT BEDSIDE. PT AWAKE AOX4. NO S/S OF DISTRESS. PT ON 2L NC. NO SOB.NO S/S OF DISTRESS. IV LINE NOTED RAC. BED LOWERED CALL LIGHT WITHIN REACH WILL CONTINUE TO MONITOR.
--- NOTE | 2017-12-01 21:14 | NUR ---
HELD CLONIDINE BECAUSE DIASTOLIC BLOOD PRESSURE IS LOW AND PT WILL NOT BE HERE TO BE MONITORED/REASSESSED. PT IS SCHEDULED TO LEAVE HOSPITAL AT 22:00.
--- NOTE | 2017-12-01 22:01 | NUR ---
[facility]SPORTER[facility] PICKED UP PT. IV, ROCHA CATHETER, ARMBANDS, AND TELE MONITOR WERE REMOVED FROM PT. PT WAS CHANGED INTO AN ORANGE GOWN. IV CATHETER WAS INTACT. PT VITAL SIGNS WNL.PT TRANSFERRED BY 5 PEOPLE, FROM BED TO [facility] USING A SLIDING SHEET PROVIDED BY TRANSPORTERS. PT LEFT UNIT IN STABLE CONDITION.
--- NOTE | 2017-12-02 10:08 | NUR ---
CM NOTE PER [facility] RAPHAEL PH# [phone], FOR [facility] AUTH# [id number]. I GAVE THE AUTHORIZATION NUMBER TO HERI OF [facility] PH# [phone].
== END 2017-12-01 22:01 | DRG 291 ==
LOC: MED 09:02 → MTU 11:21
PROVIDERS: ADMIT Internal Medicine; ATTEND Internal Medicine
PROC: 5A09357 Assistance with Respiratory Ventilation, Less than 24 Consecutive Hours, Continuous Positive Airway Pressure (ICD-10-PCS; principal; 2017-11-28)
DX: I11.0 Hypertensive heart disease with heart failure (principal); J96.22 Acute and chronic respiratory failure with hypercapnia; R65.10 Systemic inflammatory response syndrome (SIRS) of non-infectious origin without acute organ dysfunction; E87.1 Hypo-osmolality and hyponatremia; J44.0 Chronic obstructive pulmonary disease with (acute) lower respiratory infection; E66.01 Morbid (severe) obesity due to excess calories; J44.1 Chronic obstructive pulmonary disease with (acute) exacerbation; N39.0 Urinary tract infection, site not specified; Z68.43 Body mass index [BMI] 50.0-59.9, adult; K21.9 Gastro-esophageal reflux disease without esophagitis; E78.5 Hyperlipidemia, unspecified; I25.10 Atherosclerotic heart disease of native coronary artery without angina pectoris; M06.9 Rheumatoid arthritis, unspecified; I50.33 Acute on chronic diastolic (congestive) heart failure; J20.9 Acute bronchitis, unspecified; Z88.2 Allergy status to sulfonamides; Z88.0 Allergy status to penicillin; Z91.013 Allergy to seafood; Z79.899 Other long term (current) drug therapy; Z85.42 Personal history of malignant neoplasm of other parts of uterus; I25.2 Old myocardial infarction; Z90.49 Acquired absence of other specified parts of digestive tract; Z90.710 Acquired absence of both cervix and uterus; Z86.12 Personal history of poliomyelitis; Z87.01 Personal history of pneumonia (recurrent); Z83.3 Family history of diabetes mellitus; Z82.49 Family history of ischemic heart disease and other diseases of the circulatory system; Z82.61 Family history of arthritis; Z84.1 Family history of disorders of kidney and ureter
CPT/HCPCS: 36415; 36600; 71045; 80048; 80053; 81001; 82533; 82550; 82553; 82803; 83735; 83880; 83930; 83935; 84300; 84443; 84484; 84550; 85025; 85379; 85610; 85730; 87081; 87086; 93005; 94640; J1650; J1940; J1956; J2930; J7030; J7613; J7620; J7644; Q0092

== ENCOUNTER 2017-12-24 17:04 | Inpatient (IN) | payer OTHER ==
[~2017-12-24] VITALS: Ht 167.6 cm; Wt 147.6 kg
[2017-12-24 17:00] VITALS: BP 144/70
[~2017-12-24 17:04] MED LIST changes: +ACET-2619 PO; +BENZ100C6 PO; -CEPH250C16 PO; -CLON0.1T42 PO; +FAMO-90 PO; +LEVO250T2 PO; -LOSA100T1 PO; +MAG355OR2 PO; -MAGN400T11 PO; -METO25TE2 PO; +MYCC TP; -NITR100C7 PO; +SAL1 PO; +TRAM50TA1 PO; +VITD1000 PO
[2017-12-24 17:05] VITALS: BP 144/70
[2017-12-24] MEDS ORDERED: ALBUTEROL SULFATE/IPRATROPIU 3 ML SOL IH ONE ×2 (17:05)
--- NOTE | 2017-12-24 17:10 | NUR ---
PATIENT BIBA FOR DIFFICULTY BREATHING FROM [facility]. PATIENT ON BIPAP MACHINE. SKIN IS PINK/WARM/DRY; AAOX4 UNABLE TO AMBULATE; LUNG SOUNDS DIMINISHED IN LOWER LOBES; HR EVEN AND REGULAR; NO SIGNS FEVER; PATIENT STATES PAIN OF 5/10 AT THIS TIME; PATIENT POSITIONED FOR COMFORT; HOB ELEVATED; BEDRAILS UP X2; BED DOWN. ER MD MADE AWARE OF PT STATUS.
[2017-12-24] MEDS ORDERED: MAGN500T24 PO (17:19)
[2017-12-24] MEDS ORDERED: BENZ-196 PO (17:19)
[2017-12-24] MEDS ORDERED: CLON0.1T42 PO (17:19)
[2017-12-24] MEDS ORDERED: METO25TA PO (17:19)
[2017-12-24] MEDS ORDERED: VITD1000 PO (17:19)
--- NOTE | 2017-12-24 17:22 | NUR ---
ABG REPORTED TO DR BENNETT FIO2 DECREASED TO 40
[2017-12-24] MEDS ORDERED: methylPREDNISolone SS 125 MG in WATER STERILE 2 ML IV ONE (18:20)
[2017-12-24] MEDS ORDERED: LEVOFLOXACIN 750 MG/D5W PREMIX 150 ML IV ONE (18:20)
[2017-12-24 18:28] LABS: BASOPHILS % (AUTO) 0.1 % (0.0-2.0); EOSINOPHILS # (AUTO) 0.4 K/uL (0-0.4); EOSINOPHILS % (AUTO) 6.5 % (0.0-4.0); HEMATOCRIT 34.6 % (36-48); HEMOGLOBIN 11.1 g/dL (12.0-16.0); LYMPHOCYTES # (AUTO) 0.3 K/uL (2.5-16.5); LYMPHOCYTES % (AUTO) 4.8 % (20.5-51.1); MEAN CORPUSCULAR HEMOGLOBIN 28 pg (27-31); MEAN CORPUSCULAR HGB CONC 32 g/dL (33-37); MEAN CORPUSCULAR VOLUME 85.6 fL (80-94); MONOCYTES # (AUTO) 0.3 K/uL (0.8-1.0); MONOCYTES % (AUTO) 4.3 % (1.7-9.3); NEUTROPHILS # (AUTO) 5.5 K/uL (1.8-7.7); NEUTROPHILS % (AUTO) 84.3 % (42.2-75.2); PLATELET COUNT (AUTO) 225 K/uL (140-450); RED BLOOD CELL COUNT(AUTO) 4.05 MIL/uL (4.20-5.40); RED CELL DISTRIBUTION WIDTH 16.1 % (11.6-13.7); WHITE BLOOD COUNT (AUTO) 6.6 K/uL (4.8-10.8)
[2017-12-24 18:38] LABS: ANION GAP 7.1 (8-16); CARBON DIOXIDE 33.4 mmol/L (21-32); CREATININE 0.7 mg/dL (0.6-1.3)
[2017-12-24] MEDS ORDERED: methylPREDNISolone SS 125 MG/2 ML VIAL ONE (18:38)
[2017-12-24 18:39] LABS: PROTHROMBIN TIME 11.2 secs (10.8-13.4)
[2017-12-24 18:40] LABS: POTASSIUM 5.5 mmol/L (3.5-5.1)
[2017-12-24 18:44] LABS: ALBUMIN 3.1 g/dL (3.4-5.0); TOTAL BILIRUBIN 0.4 mg/dL (0.0-1.0)
[2017-12-24 19:02] LABS: APPEARANCE,URINE HAZY (CLEAR); BILIRUBIN,URINE NEGATIVE (NEGATIVE); BLOOD, URINE 1+ (NEGATIVE); COLOR,URINE YELLOW (YELLOW); LEUKOCYTE ESTERASE ,URINE NEGATIVE (NEGATIVE); NITRITE, URINE NEGATIVE (NEGATIVE); PH,URINE 5.5 (5.0-9.0); UGLUCOSE NEGATIVE (NEGATIVE)
[2017-12-24 19:12] LABS: MAGNESIUM 2.4 mg/dL (1.8-2.4)
--- NOTE | 2017-12-24 19:15 | NUR ---
RECEIVED REPORT FROM AM NURSE. PT RESTING IN BED, SPO2 94% ON BIPAP, RR 26, PT DENIES SOB AT THIS TIME. ALL NEEDS MET.
[2017-12-24 19:27] LABS: RBC,URINE 20-50 /HPF (0-5); WBC,URINE 0-5 (RARE) /HPF (0-5)
--- NOTE | 2017-12-24 20:20 | NUR ---
RECEIVED PT FROM [facility] ER NURSE VIA MARVIN MOONEY RELATIVE AT BED SIDE HELPING TO GIVE INFORMATION TO ADMIT . PT MORBID OBESITY ON BIPAP 07/30 RATE 14 FIO2 40 % RESP THERAPY BAKARI AT BD SIDE 02 SAT 95 % ON TELEMETRY JUNCTIONAL REDNESS ON RT SIDE OF CHST AND RT BUTTOCK , AND SMALL FISSURA OPEN WOUND PT IS ;ORIENTED TO THE FLOOR CALL LIGHT WITHIN REACH MRSA NARES PROTOCOL DONE AND SENT TO LAB
--- NOTE | 2017-12-24 20:23 | NUR ---
Patient will be admitted to care of [facility]. Admited to TELE. Will go to room 118. Belongings list completed. Report to COURT CISNEROS AT BEDSIDE.
--- NOTE | 2017-12-24 20:30 | NUR ---
TRASPORTED TO 118 WITH CASIE YUN
[2017-12-24 20:45] VITALS: BP 134/60
[2017-12-24] MEDS ORDERED: POTASSIUM CHL 20 MEQ/NACL 0.9% 1,000 ML IV SCH (22:20)
--- NOTE | 2017-12-24 22:20 | NUR ---
DR MCLEAN GIVE ORDER TO FOLLOW
[2017-12-24] MEDS ORDERED: cefTRIAXone 1,000 MG VIAL ONE (23:28)
[2017-12-25] VITALS (12 sets, daily range): BP systolic 0–160; BP diastolic 0–78
--- NOTE | 2017-12-25 | NUR ---
PT REPOSITIONED ON TELEMETRY SR NOT SOB NOTED PT WANTS BIPAP OFF RT
--- NOTE | 2017-12-25 00:01 | NUR ---
CALL TO 108 BECAUSE PT WANTS THE BIPAP OFF.PT LOOK OK, NO SOB NOTED, PLACED PT ON NASAL CANNULA 4L, PT SAT 96%
[2017-12-25] MEDS ORDERED: IPRATROPIUM 0.02% 0.5 MG/2.5 ML NEBU INH SCH (01:00)
[2017-12-25] MEDS: MILD SOAP AND WATER TP SCH ×2 (01:00→13:00)
[2017-12-25] MEDS: NACL 0.9% IRR 250 ML BOTTLE IR SCH ×2 (01:00→13:00)
--- NOTE | 2017-12-25 02:00 | NUR ---
PT SLEEPING WELL NOT SOB NOTED ON NASAL CANULA 4 LTS 02 94% PT HAS HX COPOD REMAIN STABLE AAT THIS TIME, ON TELEMETRY SR
--- NOTE | 2017-12-25 04:00 | NUR ---
SPONGE BATH GIVEN LINEN CHANGED REPOSITIONED PT ON SHALLOW BREATHING LABORED 02 SAT 94% RESP THERAPY IS HERE ASSISTING THE PT O;N NC 4 LTS,PT ON TELEMETRY SR
[2017-12-25] MEDS: ALBUTEROL SULFATE/IPRATROPIU 3 ML SOL IH PRN ×3 (05:10→19:20)
[2017-12-25] MEDS ORDERED: NON ADHERENT DRESSING TP PRN (05:35)
--- NOTE | 2017-12-25 06:00 | NUR ---
RESP THERAPY IS HERE AT BED SIDE GIVEN BREATHING TX PT ON TELE SR ON NC 4 LTS REPOSITIONED, PT ON TELE SR
--- NOTE | 2017-12-25 06:30 | NUR ---
PT ON BIPAP RESP THERAPY AT BED SIDE
[2017-12-25 06:51] LABS: HEMATOCRIT 35.3 % (36-48); HEMOGLOBIN 11.3 g/dL (12.0-16.0); MEAN CORPUSCULAR HEMOGLOBIN 28 pg (27-31); MEAN CORPUSCULAR HGB CONC 32 g/dL (33-37); MEAN CORPUSCULAR VOLUME 86.1 fL (80-94); PLATELET COUNT (AUTO) 223 K/uL (140-450); RED BLOOD CELL COUNT(AUTO) 4.09 MIL/uL (4.20-5.40); RED CELL DISTRIBUTION WIDTH 16.1 % (11.6-13.7); WHITE BLOOD COUNT (AUTO) 6.3 K/uL (4.8-10.8)
[2017-12-25 07:03] LABS: ANION GAP 10.8 (8-16); CARBON DIOXIDE 30.7 mmol/L (21-32); CREATININE 0.7 mg/dL (0.6-1.3)
[2017-12-25 07:12] LABS: POTASSIUM 6.5 mmol/L (3.5-5.1)
--- NOTE | 2017-12-25 07:20 | NUR ---
PATIENT IS SLEEPING. PATIENT IS ON BIPAP O2SAT AT 91%. CONTINUOUS O2SAT IN PLACE. PROJECT ASSOCIATE IN PLACE. STOPPED THE POTASSIUM INFUSION D/T CRITICAL K OF 6.5 . DOCTOR NOTIFIED, CHANGES IN ORDER IN PLACE. IV ON R UPPER CHEST 18 G. IV IS CLEAN, DRY AND INTACT. NOW ON SALINE LOCK. R SIDE AUXILLARY REDNESS, +2 PITTING EDEMA, DISCOLORATION ON BLE. RT BUTTOCKS SMALL OPEN WOUND COVERED. PATIENT IS NON AMBULATORY D/T POST POLIO. FALL RISK. CONTACT PRECAUTIONS IN PLACE FOR MRSA. ROCHA IS IN PLACE. BED IN LOW POSITION. CALL LIGHT WITHIN REACH. WILL CONTINUE TO MONITOR THE PATIENT.
[2017-12-25 07:27] LABS: LYMPHOCYTES % (MANUAL) 4 % (20-46); MONOCYTES % (MANUAL) 2 % (5-12)
[2017-12-25] MEDS ORDERED: SODIUM POLYSTYRENE 15 GM/60 ML UDBTL PO SCH (08:00)
--- NOTE | 2017-12-25 08:08 | NUR ---
CHART REVIEWED PER [facility]ITER[facility]
--- NOTE | 2017-12-25 08:49 | NUR ---
PATIENT HAS BEEN SCREENED AND CATEGORIZED HIGH NUTRITION RISK. PATIENT WILL BE SEEN WITHIN 1-2 DAYS OF ADMISSION. 12/25/17 12/26/[address]
[2017-12-25] MEDS: ENOXAPARIN 40 MG/0.4 ML SYR SUBQ SCH (08:57)
[2017-12-25] MEDS ORDERED: MAGNESIUM OXIDE PO SCH (09:00)
[2017-12-25] MEDS: cloNIDine 0.1 MG TAB PO SCH ×2 (09:11→21:20)
[2017-12-25] MEDS: FAMOTIDINE 20 MG TAB PO SCH ×2 (09:12→21:21)
[2017-12-25] MEDS: METOPROLOL 25 MG TAB PO SCH (09:12)
[2017-12-25] MEDS: DOCUSATE SODIUM 100 MG GELCAP PO SCH (09:12)
[2017-12-25] MEDS: amLODIPine 5 MG TAB PO SCH (09:12)
[2017-12-25] MEDS: MULTIVITAMIN 1 TAB PO SCH (09:12)
--- NOTE | 2017-12-25 09:13 | NUR ---
PATIENT IS AWAKE, ALERT AND ORIENTEDX4. ADMINISTERED MORNING MEDS. PATIENT TOLERATED WELL. NO COMPLAINTS AT THIS TIME. TURNED AND REPOSITIONED THE PATIENT. FAMILY AT BEDSIDE HELPING WITH CARE. WILL CONTINUE TO MONITOR THE PATIENT. RT AND STUDENT NURSE FEEDING PATIENT AT BEDSIDE.
--- NOTE | 2017-12-25 10:11 | NUR ---
AWAKE AND ALERT GOOD CHEST RISE ULTRASOUND PROCEDURE IN PROGRESS
--- NOTE | 2017-12-25 11:00 | NUR ---
PATIENT TURNED WITH RADIO EQUIPMENT REPAIRER. BIPAP IN PLACE. NO SIGNS OF RESP DISTRESS. NO COMPLAINTS AT THIS TIME. BED IN LOW POSITION, CALL LIGHT WITHIN REACH.
[2017-12-25 11:42] LABS: ANION GAP 8.4 (8-16); CARBON DIOXIDE 33.5 mmol/L (21-32); CREATININE 0.8 mg/dL (0.6-1.3)
[2017-12-25 11:48] LABS: POTASSIUM 5.9 mmol/L (3.5-5.1)
--- NOTE | 2017-12-25 13:00 | NUR ---
CLEANED R BUTTOCKS PRESSURE WOUND WITH NS AND MILD SOAP, THERE WAS MINIMAL SEROSANGUINEOUS DRAINAGE. . CHANGED DRESSED. PATIENT TOLERATED WELL.
--- NOTE | 2017-12-25 14:17 | NUR ---
AWAKE AND ALERT NO EVIDENCE OF SOB NOTED BREATH SOUNDS DIMINISHED BILATERAL WITH GOOD CHEST RISE
--- NOTE | 2017-12-25 14:59 | NUR ---
12/25/17 RD INITIAL ASSESSMENT COMPLETED PLEASE REFER TO NUTRITION ASSESSMENT UNDER CARE ACTIVITY FOR ESTIMATED NUTRITIONAL NEEDS. 1.CONTINUE MECHANICALLY SOFT DIET TOLERATED 2.RECOMMEND 2GM NA DIET 3.PROVIDE CARDIAC NUTRITION EDUCATION 4.RD TO FOLLOW-UP 2-3 DAYS, HIGH RISK DON HUERTA, [place]
--- NOTE | 2017-12-25 15:00 | NUR ---
PATIENT HAS NO COMPLAINTS AT THIS TIME. NO SIGNS OF RESP DISTRESS ON BIPAP. FAMILY AT BEDSIDE. WILL CONTINUE TO MONITOR THE PATIENT.
--- NOTE | 2017-12-25 17:00 | NUR ---
PER AUTOMATIC SPREADER OPERATOR PATIENT WILL NOT FIT IN CT SCANNER. CALLED DR JOHAN DR GAS MASK ASSEMBLER, AND HE SAID OK TO DO V/Q SCAN TO RULE OUT PE.
--- NOTE | 2017-12-25 18:08 | NUR ---
AWAKE AND ALERT TOLERATING BIPAP TO MASK WELL NO ADVERSE REACTIONS NOTED GOOD CHEST RISE NO PRN THERAPY GIVEN AT THIS TIME [employer] TO ENDORSE TO NOC SHIFT
[2017-12-25] MEDS: LEVOFLOXACIN 500 MG/D5W PREMIX 100 ML IV SCH (18:25)
--- NOTE | 2017-12-25 18:30 | NUR ---
ADMINISTERED MEDS. IV IS CLEAN, DRY AND INTACT. PATIENT TOLERATING WELL. NO COMPLAINTS AT THIS TIME. SON AT BEDSIDE. WILL CONTINUE TO MONITOR THE PATIENT.
--- NOTE | 2017-12-25 19:10 | NUR ---
GAVE BEDSIDE REPORT TO GRADUATE INTERNSHIP NURSE. PATIENT IS IN STABLE CONDITION. V/Q SCAN WILL LET AMELIA KNOW IF IT CAN BE DONE D/T PROBLEMS WITH WEIGHT.
--- NOTE | 2017-12-25 19:15 | NUR ---
RECEIVED PT FROM SUSAN RN PT AA0X4 BEDBOUN, IV TKO ON LEFT AC INFUSING WELL ON BIPAP NOT RESP DISTRESS, ON TELEMETRY SR PT REPOSITIONED ROCHA CATH DRAINING WELL YELLOW URINE, INITIAL ASSESSMENT DONE
--- NOTE | 2017-12-25 19:30 | NUR ---
PT WANTS THE BOPAP OFF AND PLACED IN OXIMIZER, , SHE TOLD ME THAT SHES TIRED OF USING THE BIPAP MASK.PLASED PT ON OXIMIZER 5L AND SAT 92%
[2017-12-25] MEDS: ATORVASTATIN 20 MG TAB PO SCH (21:21)
--- NOTE | 2017-12-25 21:54 | NUR ---
DENISE CRAIG IS HERE AND EXPLAIN THE OVERWEIGHT OF THE PT TO HAVE THE V/Q IN THIS HOSPITAL . DR PRADO WILL BE NOTIFY THAT [employer] CAN COME TO DO THE V/Q TO THIS HOSPITAL
--- NOTE | 2017-12-25 21:55 | NUR ---
DR PRADO WAS INFORMED ABOUT THE ORDER OF NUCLEAR MEDICINE V/Q TEST HE SAID THEY CAN TAKEN IT IN THE MORNING
--- NOTE | 2017-12-25 22:00 | NUR ---
PT ON CLOSE MONITORING RESP THERAPY ASSISTING PT ON 0XIMIZER, NOT DISTRESS NOTED ON TELMETRY SR
[2017-12-26] VITALS: BP 148/70
--- NOTE | 2017-12-26 | NUR ---
PT SLEEPING V 02 SAT 93% ON TELEMETRY SR REPOSITIONED NOT DISTRESS NOTED
[2017-12-26] MEDS: MILD SOAP AND WATER TP SCH ×2 (01:04→13:54)
[2017-12-26] MEDS: NACL 0.9% IRR 250 ML BOTTLE IR SCH ×2 (01:04→13:54)
--- NOTE | 2017-12-26 01:08 | NUR ---
PT COMPLAIN THAT CANT SLEEP, AND I WENT TO PLACED HER IN BIPAP, BUT PT REFUSED BIPAP, SHE WANTS TYLENOL, RN NOTIFIED
[2017-12-26] MEDS: ACETAMINOPHEN 325 MG TAB PO PRN ×3 (01:15→20:39)
--- NOTE | 2017-12-26 02:30 | NUR ---
PT SLEEPING WELL NOT SIGNS OF PAIN NOTED ON TELEMETRY SR ON OXIMIZER 5 LTS NOT DISTRESS NOTED
[2017-12-26 04:00] VITALS: BP 159/62
--- NOTE | 2017-12-26 05:23 | NUR ---
SPONGE BATH GIVEN LINEN CHANGED REPOSITIONED ROCHA CATH DRAINING WELL YELLOW URINE ON TELMETRY SR
[2017-12-26 06:09] LABS: BASOPHILS % (AUTO) 0.1 % (0.0-2.0); HEMATOCRIT 34.8 % (36-48); HEMOGLOBIN 11.1 g/dL (12.0-16.0); LYMPHOCYTES # (AUTO) 0.4 K/uL (2.5-16.5); LYMPHOCYTES % (AUTO) 6.2 % (20.5-51.1); MEAN CORPUSCULAR HEMOGLOBIN 27 pg (27-31); MEAN CORPUSCULAR HGB CONC 32 g/dL (33-37); MEAN CORPUSCULAR VOLUME 85.1 fL (80-94); MONOCYTES # (AUTO) 0.5 K/uL (0.8-1.0); MONOCYTES % (AUTO) 7.8 % (1.7-9.3); NEUTROPHILS # (AUTO) 5.3 K/uL (1.8-7.7); NEUTROPHILS % (AUTO) 85.9 % (42.2-75.2); PLATELET COUNT (AUTO) 286 K/uL (140-450); RED BLOOD CELL COUNT(AUTO) 4.09 MIL/uL (4.20-5.40); RED CELL DISTRIBUTION WIDTH 16.2 % (11.6-13.7); WHITE BLOOD COUNT (AUTO) 6.2 K/uL (4.8-10.8)
[2017-12-26 06:14] LABS: ALBUMIN 3.3 g/dL (3.4-5.0); ANION GAP 9.5 (8-16); CARBON DIOXIDE 34.6 mmol/L (21-32); CREATININE 0.7 mg/dL (0.6-1.3); POTASSIUM 5.1 mmol/L (3.5-5.1); TOTAL BILIRUBIN 0.3 mg/dL (0.0-1.0)
--- NOTE | 2017-12-26 06:31 | NUR ---
PT RESTING ON BED NOT DISTRESS NO;KRISSY O;N O;HARPREET 5 LTS ON TELEMETRY SR PT HAS BEEN REPOSITIONED Q2H
--- NOTE | 2017-12-26 07:24 | NUR ---
DR MCLEAN WAS NOTIFY PT OVERWEIGHT TO HAVE A PROBLEM TO HAVE THE V/Q IN THIS HOSPITAL AND RADIOLOGIST TECH WILL ARRANGE TO HAVE THE [employer] TO COME TO THE HOSPITAL TO DO THE V/Q
--- NOTE | 2017-12-26 07:45 | NUR ---
REPORT RECEIVED FROM ORACLE WMS CONSULTANT. PT IN STABLE CONDITION. ARM BAND IN PLACE. BED LOCKED AND IN LOW POSITION. CALL PALM WITHIN REACH. WILL CONTINUE TO MONITOR.
--- NOTE | 2017-12-26 08:00 | NUR ---
BED BATH GIVEN WITH PERICARE AND LINEN CHANGE. PT TOLERATED WELL. PT IN STABLE CONDITION AND VS WITHIN NORMAL LIMITS. PT AGREES TO USING OXIMIZER DURING MEALS AND BIPAP REST OF THE TIME. BED LOCKED AND IN LOW POSITION. CALL PALM WITHIN REACH. WILL CONTINUE TO MONITOR. Addendum: 12/26/17 at 0915 by Young Clifford RN WOUND CARE COMPLETED.
--- NOTE | 2017-12-26 08:01 | NUR ---
ASSESSED PATIENT. ENTERED ROOM AND PATIENT WAS ON 8L/M OXIMIZER FIO2 64% AND SPO2 92. PATIENT WAS TACHYPNEIC AND HAD LABORED BREATHING. ADVISED PATIENT THAT SHE NEEDED TO GO ONE THE BIPAP BUT SHE REFUSED SEVERAL TIMES. WOUND CARE NURSE ADVISED PATIENT THAT SHE NEEDS TO BE MOVED AND CLEANED SO SHE WILL NEED FURTHER ASSISTANCE TO BREATHE. PATIENT AGREED TO GO ON BIPAP DURING CLEANING AND WOUND CARE. BREAKFAST CAME AND PLACED PATIENT BACK ON OXIMIZER BUT ADVISED THAT SHE WILL NEED BIPAP AFTER BREAKFAST TO ASSIST WITH WORK OF BREATHING.
--- NOTE | 2017-12-26 08:30 | NUR ---
AM ASSESSMENT COMPLETE. AM MEDS GIVEN. PT TOLERATED WELL. PT IN STABLE CONDITION AND VS WITHIN NORMAL LIMITS. BED LOCKED IN LOW POSITION. CALL PALM WITHIN REACH. WILL CONTINUE TO MONITOR. Addendum: 12/26/17 at 0937 by Young Clifford RN INTERDRY CLOTH ADMINISTERED.
[2017-12-26] MEDS ORDERED: Z-GUARD PASTE TP PRN (08:35)
[2017-12-26] MEDS: DOCUSATE SODIUM 100 MG GELCAP PO SCH (08:42)
[2017-12-26] MEDS: FAMOTIDINE 20 MG TAB PO SCH ×2 (08:43→20:43)
[2017-12-26] MEDS: amLODIPine 5 MG TAB PO SCH (08:43)
[2017-12-26] MEDS: MULTIVITAMIN 1 TAB PO SCH (08:44)
[2017-12-26] MEDS: METOPROLOL 25 MG TAB PO SCH (08:44)
[2017-12-26] MEDS: cloNIDine 0.1 MG TAB PO SCH ×2 (08:44→20:40)
[2017-12-26] MEDS: ENOXAPARIN 40 MG/0.4 ML SYR SUBQ SCH (08:49)
[2017-12-26] MEDS ORDERED: INTERDRY CLOTH TP PRN (08:50)
--- NOTE | 2017-12-26 08:50 | NUR ---
WOUND CARE EVALUATION NOTES: REASON FOR EVALUATION: RIGHT BUTTOCK OPEN WOUND SKIN ASSESSMENT DONE WITH PRIMARY RN WITH RT STAND BY ON THIS 67 Y/O FEMALE PATIENT [facility] TO [facility], WITH INITIAL DIAGNOSIS OF SOB AND COUGH. PAST MEDICAL HISTORY INCLUDE COPD, ASTHMA, HTN, HLD, GERD, POST-POLIO SYNDROME AND MORBID OBESITY. ALL ABOVE INFORMATION WAS OBTAINED FROM THE ADMISSION H&P. LABS ARE WBC 6.2, H/H 11.1/34.8, GLUCOSE 116, ALBUMIN 3.3. PATIENT IS AWAKE WHEN TOUCHED. SKIN WARM TO TOUCH, THICKENED TOENAILS, BLE +1 EDEMA, NO HAIR GROWTH AND BILATERAL PEDAL PULSES PRESENT. ROCHA CATHETER PATENT AND YELLOW COLORED URINE IN MODERATE AMOUNT. LBM X1 DURING ASSESSMENT. PLAN OF CARE AND PRESSURE PREVENTIVE MEASURES DISCUSSED WITH PT AND PRIMARY NURSE. PT EYES OPEN, WITH BIPAP UNABLE TO VERBALIZE UNDERSTANDING. WILL REINFORCE TEACHING. PRIMARY RN NOTIFY DURING ASSESSMENT SMALL AMOUNT CLEAR FLUIDS DRAINAGE FROM LEFT EAR. PT. IS [place] TO BILATERAL EARS. CLARIFICATION: RIGHT BUTTOCK NO PRESSURE ULCER INJURY NOTICE. RIGHT BUTTOCK INCONTINENT ASSOCIATE DERMATITIS SLIMLINE SHAPE WITH MULTIPLE SMALL EROSIONS. INTEGUMENTARY: -LEFT LATERAL BREAST ERYTHEMA, SKIN INTACT. -R/L UNDER BREASTS AND ABDOMINAL FOLDS MOIST, SKIN INTACT -RIGHT BUTTOCK INCONTINENT ASSOCIATE DERMATITIS SLIMLINE SHAPE WITH MULTIPLE SMALL EROSIONS, LENGTH OF WOUND SHAPE 4CM, AREA MOIST, NO ODOR, SERGIO-WOUND SKIN INTACT. RECOMMENDATIONS: -CLEANSE RIGHT BUTTOCK WITH SOAP AND WATER, PAT DRY, APPLY Z-GUARD BID WC AND COVER WITH FORM DRESSING -APPLY INTER DRY CLOTH TO UNDER BREASTS AND ABDOMINAL FOLDS CHANGE Q7 DAYS AND PRN IF SOILING -TURN AND REPOSITION PATIENT Q2H -ASSESS AND MONITOR SKIN CONDITION DURING POSITION CHANGE, PLEASE PAY ATTENTION TO RIGHT BUTTOCKS -OFFLOAD BILATERAL HEELS BY PLACING PILLOWS UNDER CALVES AT ALL TIMES, UNLESS OTHERWISE CONTRAINDICATED -PRESSURE REDISTRIBUTION SURFACE THERAPY COMORBIDITIES RELATED TO SKIN BREAKS: -MORBID OBESITY -LIMITED OF MOBILITY -RESPIRATORY DESATURATION. WITH OXYMIZER O2. -HOB ELEVATED THE MAJORITY OF THE DAY FOR MEDICAL CONDITION RECOMMENDATIONS DISCUSSED WITH PRIMARY RN WILL FOLLOW UP PATIENT Q 7 -10 DAYS AND PRN. PLEASE CONTACT WOUND CARE NURSE FOR ANY QUESTION OR CHANGES IN WOUND CONDITION
[2017-12-26] MEDS ORDERED: INTERDRY CLOTH TP SCH (09:00)
[2017-12-26 09:25] VITALS: BP 153/93
--- NOTE | 2017-12-26 09:57 | NUR ---
PLACED BACK ON BIPAP.
[2017-12-26 12:00] VITALS: BP 146/52
[2017-12-26] MEDS: Z-GUARD PASTE TP SCH (13:00)
--- NOTE | 2017-12-26 13:07 | NUR ---
ASSESSED PATIENT. PATIENT WAS PLACED ON OXIMIZER AT 8L/M TO EAT LUNCH AND HAS REMAINED ON IT WITH NO SHORTNESS OF BREATH. PATIENT IS SITTING HIGH FOWLERS, SPO2 96 AND PATIENT STATES AND APPEARS COMFORTABLE.
--- NOTE | 2017-12-26 13:50 | NUR ---
PATIENT COMPLAINED OF HEADACHE, AND REQUESTED TYLENOL. MED WAS GIVEN PER ORDER. PRIMARY NURSE TSAR WAS INFORMED.
--- NOTE | 2017-12-26 14:46 | NUR ---
PT SLEEPING AND IN STABLE CONDITION. BED LOCKED AND IN LOW POSITION. CALL PALM WITHIN REACH. WILL CONTINUE TO MONITOR.
[2017-12-26 16:00] VITALS: BP 122/56
[2017-12-26] MEDS: ALBUTEROL SULFATE/IPRATROPIU 3 ML SOL IH PRN (17:37)
--- NOTE | 2017-12-26 17:42 | NUR ---
ASSESSED PATIENT. STATED THAT SHE FELT SOB. SPO2 95. FOUND PATIENT ON 15L/M OXIMIZER. PLACED PATIENT BACK ONTO BIPAP, SECURED NOSE STRIP. GAVE TX INLINE. POST TX, SPO2 100. PATIENT APPEARED COMFORTABLE POST TX. WILL CONTINUE TO MONITOR.
[2017-12-26] MEDS: LEVOFLOXACIN 500 MG/D5W PREMIX 100 ML IV SCH (18:14)
--- NOTE | 2017-12-26 19:37 | NUR ---
REPORT GIVEN TO NIGHT NURSE AT BEDSIDE. PT IN STABLE CONDITION.
--- NOTE | 2017-12-26 19:38 | NUR ---
RECEIVED PT FROM MERARY RN PT IS AAOX4 ON OXYMIZER 5 LTS ;BEDBOUND PT MORBID OBESITY LABORED BREATHING SHALLOW RESPIRATION, IV ON LEFT AC INFUSING WELL TKO, HL ON RT UPPER CHEST PATENT, ROCHA CATH DRAINING WELL YELLOW URINE INITIAL ASSESSMENT DONE
[2017-12-26 20:00] VITALS: BP 144/47
[2017-12-26] MEDS: ATORVASTATIN 20 MG TAB PO SCH (20:43)
--- NOTE | 2017-12-26 22:00 | NUR ---
PT REPOSITIONED Q2H NOT DISTRESS NOTED PT WATCHING TV ON TELEMETRY SR
[2017-12-27] VITALS (7 sets, daily range): BP systolic 131–164; BP diastolic 53–69
--- NOTE | 2017-12-27 00:07 | NUR ---
AFTER PAIN MEDIC GIVEN PT RESTING WELL AND RESP THERAPY WAS CALLED BECAUSE PT WANT THE BIPAP N;;OT RESP DISTRESS NOTED
[2017-12-27] MEDS: MILD SOAP AND WATER TP SCH ×2 (01:37→13:32)
[2017-12-27] MEDS: Z-GUARD PASTE TP SCH ×2 (01:37→13:32)
[2017-12-27] MEDS: NACL 0.9% IRR 250 ML BOTTLE IR SCH ×2 (01:37→13:31)
--- NOTE | 2017-12-27 04:00 | NUR ---
PT HAS BEEN MONITORING CLOSE ON BIPAP RESP THERAPY AT BED SIDE ASSISTING THE PT REPOSITIONED Q2H NOT DISTRESS NOTED
--- NOTE | 2017-12-27 05:24 | NUR ---
SPONGE BATH GIVEN LINEN CHANGED ON TELEMETRY SR GETTING SLEEP
[2017-12-27 06:25] LABS: ANION GAP 8.3 (8-16); CREATININE 0.6 mg/dL (0.6-1.3); POTASSIUM 5.3 mmol/L (3.5-5.1)
--- NOTE | 2017-12-27 06:30 | NUR ---
RESP THERAPY ALREADY ASSIST THE PT AND NOW PT IS ON OXYMIZER 6 LTS ANDO2 SAT 95%, ON TELEMETRY SR
[2017-12-27] MEDS: ALBUTEROL SULFATE/IPRATROPIU 3 ML SOL IH PRN ×2 (07:25→11:59)
--- NOTE | 2017-12-27 07:59 | NUR ---
REPORT RECEIVED FROM NIGHT NURSE AT BEDSIDE. PT AWAKE, SITTING UP IN BED ABOUT TO HAVE BREAKFAST. OXIMIZER RUNNING AT 10L. BED LOCKED IN LOW POSITION. CALL PALM WITHIN REACH. ARMBAND IN PLACE. WILL CONTINUE TO MONITOR.
[2017-12-27] MEDS: DOCUSATE SODIUM 100 MG GELCAP PO SCH (08:31)
[2017-12-27] MEDS: amLODIPine 5 MG TAB PO SCH (08:31)
[2017-12-27] MEDS: FAMOTIDINE 20 MG TAB PO SCH ×2 (08:32→20:20)
[2017-12-27] MEDS: cloNIDine 0.1 MG TAB PO SCH ×3 (08:32→21:50)
[2017-12-27] MEDS: MULTIVITAMIN 1 TAB PO SCH (08:32)
[2017-12-27] MEDS: METOPROLOL 25 MG TAB PO SCH (08:32)
[2017-12-27] MEDS: ACETAMINOPHEN 325 MG TAB PO PRN ×2 (08:33→20:26)
[2017-12-27] MEDS: ENOXAPARIN 40 MG/0.4 ML SYR SUBQ SCH (08:36)
--- NOTE | 2017-12-27 08:37 | NUR ---
NON-ADMIN DOCUMENTED FOR DUONEB FROM 3 DAYS AGO 12/24/2017.
--- NOTE | 2017-12-27 10:31 | NUR ---
AM MEDS GIVEN. PT TOLERATED WELL. REPOSITION PT HIGHER UP IN BED. PT SITTING UP. AWAKE ALERT AND ORIENTED. SON AT BEDSIDE. OXIMIZER IN PLACE. BED LOCKED IN LOW POSITION. CALL PALM WITHIN REACH. WILL CONTINUE TO MONITOR.
--- NOTE | 2017-12-27 11:30 | NUR ---
PT PLACED ON BIPAP FROM OXYMIZER, BED BATH GIVEN, PERICARE DONE, LINEN AND GOWN CHANGED, WOUND CARE DONE, INTER DRY REAPPLIED TO SKIN FOLDS, PT HARRIS WELL.
--- NOTE | 2017-12-27 13:30 | NUR ---
REVIEWED OXYGEN STATUS WITH DR SUNSHINE FREITAS MD DECREASED SUPPLEMENTAL OXYGEN VIA NC TO 3 LPM NEW ORDER ESTEFANY DELANEY/SCARLETT NOTIFIED
--- NOTE | 2017-12-27 13:34 | NUR ---
DR FREITAS (PULMONOLOGY) TO BEDSIDE FOR EVAL, DECREASE O2 VIA OXYMIZER TO KEEP O2SAT BETWEEN 88-90 TO LOWER CO2 LEVEL PER DR FREITAS, RT CALLED FOR DR FREITAS.
--- NOTE | 2017-12-27 16:08 | NUR ---
PT PLACED ON BIPAP 12/5 R 14 FIO2 40%. PT WAS COMPLAINING THAT SHE WAS HAVING DIFFICULTY BREATHING. PT WAS TACHYPNEIC AND WOB WAS INCREASED. PT TOLERATING BIPAP WELL AT THIS TIME. WILL CONTINUE TO MONITOR.
[2017-12-27] MEDS: LEVOFLOXACIN 500 MG/D5W PREMIX 100 ML IV SCH (17:37)
--- NOTE | 2017-12-27 18:00 | NUR ---
PT SITTING UP IN BED. PT STATES PAIN WITH ROCHA. ROCHA ASSESSED AND REPOSITIONED. PT STATED THERE WAS NO LONGER PAIN. CLEANED THE PT. NEW CHUCKS PLACED. PT NOT IN ACUTE DISTRESS. CALL PALM WITHIN REACH. WILL CONTINUE TO MONITOR.
[2017-12-27] MEDS: NACL 0.9% 1,000 ML IV SCH (19:00)
--- NOTE | 2017-12-27 19:36 | NUR ---
REPORT GIVEN TO NIGHT NURSE. PT IN STABLE CONDITION.
--- NOTE | 2017-12-27 19:37 | NUR ---
RECEIVED REPORT FROM DAY SHIFT NURSE AT BEDSIDE FOR CONTINUITY OF CARE. PT IS AWAKE AAOX4. PT IV IS NOTED LAC 20G TKO. NO S/S OF DISTRESS. NO SOB PT IS ON OXIMIZER 4L. NO PAIN NOTED AT THIS TIME. IV LINE NOTED LAC 20G TKO. BED LOWERED CALL LIGHT WITHIN REACH WILL CONTINUE TO MONITOR.
[2017-12-27] MEDS: ATORVASTATIN 20 MG TAB PO SCH (20:20)
[2017-12-27] MEDS: APIXABAN 2.5 MG TAB PO SCH (21:33)
--- NOTE | 2017-12-27 22:28 | NUR ---
PT IS RESTING AND AWAKE SHE IS ON BIPAP FOR THE NIGHT AND SHE IS WATCHING TV. WILL CONTINUE TO MONITOR.
--- NOTE | 2017-12-27 23:08 | NUR ---
BIPAP CHECK DONE. PT TOLERATING BIPAP WELL. ALARMS ON AND AUDIBLE. CONTINUOUS PULSE OX ON AND FUNCTIONING. CONT PULSE OX ALARMS ON AND AUDIBLE. PROTECTIVE SKIN GEL IN PLACE. NO REDNESS NOTED. NO DISTRESS NOTED AT THIS TIME. WILL CONTINUE TO MONITOR.
[2017-12-28] VITALS (14 sets, daily range): BP systolic 99–168; BP diastolic 48–113
--- NOTE | 2017-12-28 02:06 | NUR ---
PT IS SLEEPING. NO SOB. NO S/S OF DISTRESS. WILL CONTINUE TO MONITOR. ON BIPAP.
[2017-12-28] MEDS: MILD SOAP AND WATER TP SCH ×2 (02:30→13:30)
[2017-12-28] MEDS: Z-GUARD PASTE TP SCH ×2 (02:30→13:30)
[2017-12-28] MEDS: NACL 0.9% IRR 250 ML BOTTLE IR SCH ×2 (02:30→13:30)
[2017-12-28] MEDS: ACETAMINOPHEN 325 MG TAB PO PRN ×2 (04:29→20:33)
--- NOTE | 2017-12-28 05:40 | NUR ---
PATIENTS FIO2 INCREASED TO 60% FIO2 ON BIPAP BECAUSE PATIENT SATURATION WAS DECREASING AND PATIENT WAS HAVING DIFFICULTY BREATHING. PATIENT SATURATION IMPROVED AND PATIENT WAS STABLE AT THIS TIME NO SHORTNESS OF BREATH.
--- NOTE | 2017-12-28 06:04 | NUR ---
SPOKE TO DR MCLEAN. SUGGESTED ABG'S. ORDERED ABG'S. PAGED DR. FREITAS. RT IS AWARE OF ORDERED ABG'S STAT.
[2017-12-28 06:57] LABS: ANION GAP 6.1 (8-16); CARBON DIOXIDE 35.8 mmol/L (21-32); CREATININE 0.5 mg/dL (0.6-1.3); POTASSIUM 4.9 mmol/L (3.5-5.1)
--- NOTE | 2017-12-28 07:02 | NUR ---
RCV'D PT ON BIPAP WITH SETTINGS /,RATE 14 FIO2 60%. PT IS IRRITABLE. BIPAP IS CONNECTED TO RED OUTLET. ALARMS ARE FUNCTIONING. AMBU BAG AT BEDSIDE. ABG DONE WITH NO INCIDENT AND RESULTS GIVEN TO COURT BUENROSTRO. DECREASED FIO2 TO 40% RN AWARE. AND PER RN NO CHANGE IN ORDERS PER DR MCLEAN AFTER RESULTS. WILL CONTINUE TO MONITOR.
--- NOTE | 2017-12-28 07:25 | NUR ---
GAVE REPORT TO DAY SHIFT NURSE AT BEDSIDE FOR CONTINUITY OF CARE.
--- NOTE | 2017-12-28 07:30 | NUR ---
RECEIVED PT AWAKE, ON BIPAP WITH O2 SATS BETWEEN 90-91%. PT AAOX4. IV TO LT HAND PATENT AND INTACT. CHEST, DIMINISHED AIR ENTRY TO THE BASES. ABDOMEN LARGE BUT SOFT. WITH ROCHA CATHETER DRAINING SMALL AMOUNTS OF CLEAR URINE. INSTRUCTED PT TO CALL FOR ASSISTANCE, CALL LIGHT WITHIN REACH, PT VERBALIZED UNDERSTANDING.
--- NOTE | 2017-12-28 08:00 | NUR ---
PT CALLING FOR BREAKFAST AND WANTS TO GET OFF BIPAP. PT ALREADY SATING ON 77%-84% ON BIPAP AND IS SHORT OF BREATH. SPOKE WITH RESPIRATORY THERAPIST CLAY TO HELP REASSESS PT. PT CONTINUES TO DESAT TO 70% WITH BIPAP ON. PAGED DR. MCLEAN, NEW ORDERS GIVEN. SPOKE WITH PT REGARDING POSSIBLE INTUBATION AND STATED SHE IS OKAY. CALLED MELISSA REGALADO TO GET PT'S SON CONTACT NUMBER. RT IS CALLING DR. FREITAS TO UPDATE WITH PT'S STATUS AND RELAY THE ABG RESULTS.
[2017-12-28] MEDS ORDERED: methylPREDNISolone SS 40 MG/ML VIAL IVP SCH (08:11)
--- NOTE | 2017-12-28 08:30 | NUR ---
PT IS TRANSFERRED TO ICU ROOM #[address] FREITAS AND DR. MCLEAN AT THE BEDSIDE. DR. MCLEAN WERE ABLE TO CONTACT PT'S SON IRINA FOR UPDATE OF PT'S STATUS. REPORT GIVEN TO AMBER-BODY WELDER AT THE BEDSIDE.
--- NOTE | 2017-12-28 08:44 | NUR ---
TRANSFERRED IN FROM TELE THIS 67 YR. OLD FEMALE PER BED ACCPD. BY TELE NURSES AND RT DUE TO POOR ABG RESULTS AND POSSIBLE INTUBATION. PT IS AWAKE AND ALERT. HARD OF HEARING. ON BIPAP. IV NS @ LT FA G 24 ANGIO. VERY POSITIONAL. FC INTACT AND PATENT. C/O FEELING SCARED. REASSURED. POSSIBLE INTUBATION EXPLAINED TO PT. DR. MCLEAN AT BEDSIDE. SPOKE TO PT'S SON IRINA RE: PT'S CONDITION. DR. MCLEAN AWARE OF NEED FOR BETTER IV ACCESS. PLACED ON CAARDIAC MONITOR. IN SR WITHOUT ECTOPICS.
--- NOTE | 2017-12-28 08:45 | NUR ---
LUNGS DIMINISHED BILATERALLY. HOB ELEVATED.
--- NOTE | 2017-12-28 08:51 | NUR ---
MOVED PT FROM MST TO ICU WITH HELP OF RN DOT AND ALUMINUM SHINGLE ROOFER. CHANGED BIPAP SETTINGS TO 14/8 RATE OF 16 FIO2 30% I TIME 0.[address] FREITAS AWARE OF CHANGES AND AGREES. DR FREITAS AND DR MCLEAN AT BEDSIDE. PER DR FREITAS REPEAT ABG IN ONE HOUR @ 1000. BIPAP IS CONNECTED TO RED OUTLET ALARMS ARE FUNCTIONING.AMBU BAG AT BEDSIDE. WILL CONTINUE TO MONITOR.
[2017-12-28] MEDS: cloNIDine 0.1 MG TAB PO SCH ×2 (09:00→20:19)
[2017-12-28] MEDS: DOCUSATE SODIUM 100 MG GELCAP PO SCH (09:00)
[2017-12-28] MEDS: MULTIVITAMIN 1 TAB PO SCH (09:00)
--- NOTE | 2017-12-28 09:00 | NUR ---
C/O FEELING COLD. WARM BLANKETS APPLIED. DR. FREITAS HERE TO SEE AND EXAMINE PT. WILL HOLD OFF INTUBATION FOR NOW.
--- NOTE | 2017-12-28 09:08 | NUR ---
REPORT GIVEN TO KHUSHBOO YUN. FOR CONTINUITY OF CARE
--- NOTE | 2017-12-28 09:21 | NUR ---
INCREASED FIO2 TO 40% RN AWARE AND DR CHANGE AWARE.
--- NOTE | 2017-12-28 10:19 | NUR ---
RT AT BEDSIDE FOR ABG.
--- NOTE | 2017-12-28 10:41 | NUR ---
ABG DONE WITH NO INCIDENT. PAGED DR FREITAS. WAITING FOR CALL BACK. COURT FELDER AWARE OF RESULTS. WILL PAGE DR FREITAS AGAIN. Addendum: 12/28/17 at 1049 by Isamar Knox RT DECREASED FIO2 TO 35%
--- NOTE | 2017-12-28 10:45 | NUR ---
RD CAME TO SEE PT FOR TUBE FEEDING RECOMMENDATIONS. FIBER SOURCE HN 1.2 CARL START 25 ML / HR, INCREASE BY 10 ML Q6H UNTIL GOAL OF 55ML/HR MET. 100 ML H20 FLUSH Q6H
--- NOTE | 2017-12-28 10:48 | NUR ---
TALKED TO DR FREITAS. PER DR HERRERA SETTINGS SAME.
--- NOTE | 2017-12-28 11:37 | NUR ---
DR. VALENCIA EVALUATED PT IN CASE PT NEEDS A CENTRAL LINE PLACEMENT.
--- NOTE | 2017-12-28 11:44 | NUR ---
SONIRINA, AT BEDSIDE. IRINA IS ALSO POINT OF CONTACT.
[2017-12-28] MEDS: amLODIPine 5 MG TAB PO SCH (13:38)
[2017-12-28] MEDS: METOPROLOL 25 MG TAB PO SCH (13:38)
[2017-12-28] MEDS: APIXABAN 2.5 MG TAB PO SCH ×3 (13:39→21:55)
--- NOTE | 2017-12-28 13:40 | NUR ---
RT CAME TO REMOVE BIPAP FROM PT SO SHE CAN EAT LUNCH. PT CURRENTLY EATING WITH FAMILY AT BEDSIDE. ON 2L OXIMIZER- SP02 90%
--- NOTE | 2017-12-28 13:44 | NUR ---
PT IS OFF BIPAP TO EAT PER DR MCLEAN. PT ON 2 L OXIMIZER SPO2 IS 88-92. NO DISTRESS NOTED. WILL CONTINUE TO MONITOR.
[2017-12-28] MEDS: methylPREDNISolone SS 40 MG/ML VIAL IVP SCH ×2 (13:47→20:19)
--- NOTE | 2017-12-28 13:50 | NUR ---
P.T. NOTES RECEIVED P.T. EVAL ORDER WHEN PATIENT WAS IN MST; TRANSFERRED TO ICU, WILL AWAIT NEW P.T. EVAL ORDER WHEN APPROPRIATE.
--- NOTE | 2017-12-28 14:00 | NUR ---
PT ATE 3/4 OF PEANUT BUTTER AND JELLY SANDWICH, 1/2 CUP OF DECAF COFFEE. BIPAP PUT BACK ON AFTER LUNCH
--- NOTE | 2017-12-28 14:45 | NUR ---
LEFT UPPER ARM 22G IV PLACED.
--- NOTE | 2017-12-28 15:01 | NUR ---
12/28/17 RD FOLLOW UP COMPLETED PLEASE REFER TO NUTRITION PROGRESS NOTE UNDER CARE ACTIVITY FOR ESTIMATED NUTRITION NEEDS. RD RECOMMENDATIONS: 1.CONTINUE 2 GM NA DIET MEDICALLY APPROPRIATE. -NOTE PT IS EATING FAIRLY WITH INCONSISTENT PO INTAKE (35-70%). 2. RD WILL F/U 3-5 DAYS; MODERATE RISK. ANTOINE BARBOZA, RD
--- NOTE | 2017-12-28 16:09 | NUR ---
PT TOLERATING WELL. FAMILY AT BEDSIDE. NO DISTRESS NOTED. WILL CONTINUE TO MONITOR.
--- NOTE | 2017-12-28 16:59 | NUR ---
PT HAS RESTED MOST OF THE DAY. SHE IS A&0X4. BED IN LOWEST POSITION, HOB ELEVATED, CALL LIGHT WITHIN REACH, BED LOCK AND ALARM ON. ALL ALARMS CHECKED.
--- NOTE | 2017-12-28 17:37 | NUR ---
PT OFF BIPAP TO EAT. PT ON 3 L OXIMIZER. SPO2 90%. NO DISTRESS NOTED. RN AT BEDSIDE.
[2017-12-28] MEDS: LEVOFLOXACIN 500 MG/D5W PREMIX 100 ML IV SCH (19:23)
--- NOTE | 2017-12-28 19:30 | NUR ---
RECEIVED REPORT FROM DAY SHIFT RN. NO ACUTE DISTRESS. WILL CONTINUE TO MONITOR.
--- NOTE | 2017-12-28 19:45 | NUR ---
PT AAOX3, WATCHING TELEVISION; FOLLOWING COMMANDS. ILIAMNA. PT CURRENTLY ON OXYMYZER TOLERATING, NO S/S OF RESPIRATORY DISTRESS. DIMINISHED BREATH SOUNDS NOTED. PT NSR TRACE EDEMA NOTED. ABD SOFT NON DISTENDED; OBESE. F/C DRAINING CLEAR YELLOW. PT TURNING SIDE TO SIDE WITH ASSIST. IVF RUNNING INTO L UPPER ARM PIV. NO OTHER S/S OF ACUTE DISTRESS NOTED. WILL CONTINUE TO OBSERVE.
[2017-12-28] MEDS: ATORVASTATIN 20 MG TAB PO SCH (20:19)
[2017-12-28] MEDS: FAMOTIDINE 20 MG/2 ML VIAL IVP SCH (20:19)
--- NOTE | 2017-12-28 21:55 | NUR ---
JUAN ANTONIO GIVEN; BULK FOLDER HAD TO FIND MED @ [facility].
[2017-12-28] MEDS: ALBUTEROL SULFATE/IPRATROPIU 3 ML SOL IH PRN (21:56)
--- NOTE | 2017-12-28 22:30 | NUR ---
FAMILY CALLED; SPOKE WITH SON IRINA. UPDATED FAMILY ABOUT MOTHERS STATUS. NO ACUTE DISTRESS NOTED. WILL CONTINUE TO OBSERVE.
[2017-12-29] VITALS (23 sets, daily range): BP systolic 120–173; BP diastolic 41–79
--- NOTE | 2017-12-29 00:30 | NUR ---
PT INSTRUCTED TO BREATH WITH BIPAP; RT @ BEDSIDE. WILL CONTINUE TO OBSERVE.
[2017-12-29] MEDS: MILD SOAP AND WATER TP SCH ×2 (01:00→12:37)
[2017-12-29] MEDS: NACL 0.9% IRR 250 ML BOTTLE IR SCH ×2 (01:00→12:37)
[2017-12-29] MEDS: Z-GUARD PASTE TP SCH ×2 (01:00→12:37)
--- NOTE | 2017-12-29 04:00 | NUR ---
AM CARE DONE. PT BATHED, REPOSITIONED. WILL CONTINUE TO OBSERVE.
[2017-12-29] MEDS: methylPREDNISolone SS 40 MG/ML VIAL IVP SCH ×3 (05:00→20:59)
[2017-12-29 05:41] LABS: BASOPHILS % (AUTO) 0.1 % (0.0-2.0); EOSINOPHILS % (AUTO) 0.1 % (0.0-4.0); HEMATOCRIT 34.8 % (36-48); LYMPHOCYTES # (AUTO) 0.2 K/uL (2.5-16.5); LYMPHOCYTES % (AUTO) 6.7 % (20.5-51.1); MEAN CORPUSCULAR HEMOGLOBIN 27 pg (27-31); MEAN CORPUSCULAR HGB CONC 32 g/dL (33-37); MEAN CORPUSCULAR VOLUME 85.7 fL (80-94); MONOCYTES % (AUTO) 1.7 % (1.7-9.3); NEUTROPHILS # (AUTO) 2.5 K/uL (1.8-7.7); NEUTROPHILS % (AUTO) 91.4 % (42.2-75.2); PLATELET COUNT (AUTO) 168 K/uL (140-450); RED BLOOD CELL COUNT(AUTO) 4.06 MIL/uL (4.20-5.40); RED CELL DISTRIBUTION WIDTH 15.6 % (11.6-13.7); WHITE BLOOD COUNT (AUTO) 2.7 K/uL (4.8-10.8)
--- NOTE | 2017-12-29 06:15 | NUR ---
PT AWAKE WATCHING TELEVISION. DENIES PAIN @ THIS TIME. WILL CONTINUE TO OBSERVE.
[2017-12-29 06:24] LABS: ALBUMIN 2.7 g/dL (3.4-5.0); CREATININE 0.4 mg/dL (0.6-1.3); TOTAL BILIRUBIN 0.4 mg/dL (0.0-1.0)
[2017-12-29] MEDS: NACL 0.9% 1,000 ML IV SCH ×2 (06:28→16:10)
--- NOTE | 2017-12-29 07:27 | NUR ---
RECEIVED REPORT FROM NIGHT RN. PT IS AWAKE ON BIPAP. PT IS ON BIPAP. PT HAS A ROCHA WITH CLEAR YELLOW URINE IN DRAINAGE BAG. PT IS ABLE TO MOVE UPPER EXTREMITIES. PT'S LUNGS ARE CLEAR BILATERALLY. S1S2 PRESENT. PT'S BOWEL SOUNDS ARE PRESENT IN ALL 4 QUADRANTS. PT DENIES ALL PAIN. PT HAS 1 UPPER LEFT ARM 22 PAULINA IV RUNNING NS 60ML/HR. PT'S BED IS IN LOWEST POSITION, WITH HOB ELEVATED 45 DEG. PT'S CALL LIGHT IS WITHIN REACH AND LOCKED. WILL CLOSELY MONITOR.
--- NOTE | 2017-12-29 07:27 | NUR ---
REPORT GIVEN TO DAY NURSE KHUSHBOO. POC UPDATED NO ACUTE DISTRESS NOTED
--- NOTE | 2017-12-29 07:37 | NUR ---
RECEIVED PT ON BIPAP 14/8 R 16 AND FIO2 50%. FIO2 TITRATED TO 35% SPO2 REMAINS AT 93%. BIPAP ALARMS ARE ON AND FUNCTIONING. PROTECTA GEL PLACED UNDER MASK FOR SKIN PROTECTION. PT IS AWAKE AND ALERT. PT TOLERATING BIPAP WELL. WILL CONTINUE TO MONITOR.
--- NOTE | 2017-12-29 07:47 | NUR ---
PT TAKEN OFF OF BIPAP TO EAT AND PLACED ON 3L OXYMIZER SPO2 90% AT THIS TIME. NURSE IS BEDSIDE. WILL CONTINUE TO MONITOR.
--- NOTE | 2017-12-29 08:10 | NUR ---
DR. MCLEAN CAME TO SEE PT, AT BEDSIDE. RECEIVED ORDERS.
[2017-12-29] MEDS: FAMOTIDINE 20 MG/2 ML VIAL IVP SCH ×2 (08:45→21:00)
[2017-12-29] MEDS: amLODIPine 5 MG TAB PO SCH (08:53)
[2017-12-29] MEDS: cloNIDine 0.1 MG TAB PO SCH ×3 (08:53→21:02)
[2017-12-29] MEDS: MULTIVITAMIN 1 TAB PO SCH (08:54)
[2017-12-29] MEDS: DOCUSATE SODIUM 100 MG GELCAP PO SCH (08:54)
[2017-12-29] MEDS: METOPROLOL 25 MG TAB PO SCH (08:55)
[2017-12-29] MEDS: APIXABAN 2.5 MG TAB PO SCH ×2 (08:57→21:00)
--- NOTE | 2017-12-29 10:00 | NUR ---
PT PLACED BACK ON BIPAP DUE TO SOB. PT PLACED ON 08/04, R16, FIO2 30%. SPO2 92%. PT IS TOLERATING BIPAP SETTINGS WELL. FAMILY IS BEDSIDE.
--- NOTE | 2017-12-29 11:05 | NUR ---
PT TAKEN OFF OF BIPAP PLACED ON 3L OXYMIZER. PT NOT SOB AT THIS TIME WILL CONTINUE TO MONITOR.
--- NOTE | 2017-12-29 11:15 | NUR ---
SON AT BEDSIDE.
--- NOTE | 2017-12-29 12:15 | NUR ---
BACK ON BIPAP.
--- NOTE | 2017-12-29 12:15 | NUR ---
PT PLACED BACK ON BIPAP FOR SOB. BIPAP ALARMS ON AND FUNCTIONING. WILL CONTINUE TO MONITOR.
--- NOTE | 2017-12-29 12:57 | NUR ---
OFF BIPAP, WITH FAMILY AT BEDSIDE
--- NOTE | 2017-12-29 14:01 | NUR ---
PLACED BACK ON BIPAP FOR SOB. FAMILY MEMBER STILL AT BEDSIDE.
--- NOTE | 2017-12-29 16:36 | NUR ---
PTS FAMILY AT BEDSIDE, PT ON BIPAP. PT DENIES ALL PAIN. BED IN LOWEST POSITION, LOCK AND ALARM ON. CALL LIGHT WITHIN REACH
--- NOTE | 2017-12-29 17:07 | NUR ---
PT REMAINS ON BIPAP AT THIS TIME 08/04, R16, FIO2 30%. PT REMAINS TACHYPNEIC AT THIS TIME. PROTECTA GEL REMAINS UNDER MASK. BIPAP ALARMS REMAIN ON AND FUNCTIONING. PT IS AWAKE AND ALERT.
--- NOTE | 2017-12-29 17:15 | NUR ---
PT IS OFF BIPAP, EATING DINNER. FAMILY CAME TO SEE PT.
--- NOTE | 2017-12-29 17:32 | NUR ---
PT TAKEN OFF OF BIPAP AT THIS TIME TO EAT. PT PLACED ON 3L OXYMIZER SPO2 91%. FAMILY IS BEDSIDE. PT NOT IN RESPIRATORY DISTRESS AT THIS TIME.
--- NOTE | 2017-12-29 17:47 | NUR ---
SECOND DRESSING CHANGE AND BED BATH. SKIN ON BOTTOM IS SORE AND OPEN. DRESSINGS CHANGED AND DRY. ROCHA CATHETER CARE COMPLETED.
[2017-12-29] MEDS: LEVOFLOXACIN 500 MG/D5W PREMIX 100 ML IV SCH (17:53)
--- NOTE | 2017-12-29 19:14 | NUR ---
GAVE REPORT TO NIGHT RN, FOR CONTINUATION OF CARE.
--- NOTE | 2017-12-29 19:15 | NUR ---
RECEIVED PATIENT ON BED WITH HOB ELEVATED TO 30 DEGREE, AWAKE, ALERT AND ORIENTED BUT HARD OF HEARING; MOVES LIMBS FREELY.VENTILATING ON 3 LITERS 02/OXYMIZER. CARDIACSCOPE SHOWS ON SINUS RHYTHM WITH OCCASIONAL PAC'S HR 77/MIN. COMMENCING ON IVF NORMAL SALINE AT 60 ML/HR VIA G 22 ON RIGHT ARM; PATENT AND INTACT.
[2017-12-29] MEDS ORDERED: APIXABAN 2.5 MG TAB PO SCH (21:00)
--- NOTE | 2017-12-29 21:00 | NUR ---
ABLE TO SWALLOW HER ORAL MEDICATION.
[2017-12-29] MEDS: ATORVASTATIN 20 MG TAB PO SCH (21:01)
--- NOTE | 2017-12-29 21:05 | NUR ---
COMPLAINED OF HEADACHE; MEDICATED WITH TYLENOL TABS; ABLE TO REST AND SLEEP THEREAFTER.
[2017-12-29] MEDS: ACETAMINOPHEN 325 MG TAB PO PRN (21:06)
--- NOTE | 2017-12-29 21:30 | NUR ---
TURNED AND REPOSITIONED PATIENT.
[2017-12-30] VITALS (16 sets, daily range): BP systolic 102–177; BP diastolic 32–118
[2017-12-30] MEDS ORDERED: cefTRIAXone 500 MG VIAL ONE (01:12)
[2017-12-30] MEDS: NACL 0.9% 1,000 ML IV SCH ×2 (01:25→08:25)
[2017-12-30] MEDS: MILD SOAP AND WATER TP SCH ×2 (03:30→13:31)
[2017-12-30] MEDS: Z-GUARD PASTE TP SCH ×2 (03:30→13:31)
[2017-12-30] MEDS: NACL 0.9% IRR 250 ML BOTTLE IR SCH ×2 (03:30→13:30)
--- NOTE | 2017-12-30 04:00 | NUR ---
REFUSED MORNING BED BATH; PREFERS TO SLEEP AT THIS TIME.
[2017-12-30] MEDS: methylPREDNISolone SS 40 MG/ML VIAL IVP SCH ×2 (05:59→13:30)
[2017-12-30 06:25] LABS: ANION GAP 7.1 (8-16); CREATININE 0.5 mg/dL (0.6-1.3); POTASSIUM 4.4 mmol/L (3.5-5.1)
[2017-12-30 06:28] LABS: CARBON DIOXIDE 40.3 mmol/L (21-32)
--- NOTE | 2017-12-30 06:45 | NUR ---
SEEN AND EXAMINED BY DR. MCLEAN;UPDATED ON PATIENT'S LATEST MEDICAL CONDITION, NO NEW ORDER MADE.
--- NOTE | 2017-12-30 07:21 | NUR ---
RECEIVED REPORT FROM CRUSHER OPERATOR RN FOR CONTINUITY OF CARE. PATIENT IS AAOX4, ABLE TO MAKE NEEDS KNOWN AND FOLLOWS SIMPLE COMMANDS. SKIN IS WARM AND DRY, NOT INTACT, SHE HAS DRESSING TO RIGHT BUTTOCKS, DRESSING IS CLEAN AND DRY. SHE IS ON BIPAP, SETTINGS IS 14/8, RATE 16, FIO2 30%. BREATHING IS UNLABORED AND EVEN. SR ON MONITOR, CAP REFILL LESS THAN 3 SECS. PATIENT HAS IV SITE TO LEFT UPPER ARM 22 GAUGE, ASYMPTOMATIC, PATENT AND INTACT. PATIENT HAS A ROCHA CATHETER IN PLACE TO YELLOW URINE. HOB IS 30 DEGREES IN LOW POSITION, CALL LIGHT IS WITHIN REACH, NO SIGNS OF DISTRESS NOTED AT THIS TIME. WILL CONTINUE TO MONITOR.
--- NOTE | 2017-12-30 07:30 | NUR ---
ENDORSED TO AM SHIFT COURT PURVIS FOR CONTINUITY OF CARE.
--- NOTE | 2017-12-30 07:52 | NUR ---
RCV'D PT ON BIPAP WITH CHARTED SETTINGS. PT IS AWAKE AND ALERT. TOLERATING BIPAP WELL. NO SOB OR DISTRESS NOTED. BIPAP IS CONNECTED TO RED OUTLET. ALARMS ARE AUDIBLE. WILL CONTINUE TO MONITOR.
--- NOTE | 2017-12-30 08:05 | NUR ---
PT OFF BIPAP TO EAT. PT ON 3 L OXIMIZER. NO DISTRESS NOTED. WILL CONTINUE TO MONITOR.
--- NOTE | 2017-12-30 08:09 | NUR ---
PROVIDED PATIENT WITH BREAKFAST TRAY, SHE IS ON NASAL OXYIMIZER, NO SIGNS OF DISTRESS AT THIS TIME. WILL CONTINUE TO MONITOR
[2017-12-30] MEDS: METOPROLOL 25 MG TAB PO SCH (08:27)
[2017-12-30] MEDS: DOCUSATE SODIUM 100 MG GELCAP PO SCH (08:27)
[2017-12-30] MEDS: MULTIVITAMIN 1 TAB PO SCH (08:27)
[2017-12-30] MEDS ORDERED: amLODIPine 5 MG TAB PO SCH (09:00)
[2017-12-30] MEDS: FAMOTIDINE 20 MG/2 ML VIAL IVP SCH (09:00)
[2017-12-30] MEDS: APIXABAN 2.5 MG TAB PO SCH (09:59)
--- NOTE | 2017-12-30 10:56 | NUR ---
PATIENT OBSERVED WATCHING TV, NO SIGNS OF DISTRESS NOTED. WILL CONTINUE TO MONITOR
--- NOTE | 2017-12-30 12:13 | NUR ---
PT IS STILL OFF BIPAP AND WANTS TO KEEP OFF IT TILL DR FREITAS COMES. NO SOB OR DISTRESS NOTED. SPO2 96%. PT IS AWAKE AND ALERT. WILL CONTINUE TO MONITOR.
--- NOTE | 2017-12-30 13:43 | NUR ---
BIPAP BACK ON BIPAP.
[2017-12-30] MEDS ORDERED: PROBIOTIC SCREEN 1 EA MISC MC PRN (13:55)
--- NOTE | 2017-12-30 14:01 | NUR ---
FAMILY AT BEDSIDE, UPDATED ON PATIENT CONDITION, EDUCATED ON MEDICATIONS AND ABGS. PATIENT IS IN NO DISTRESS AT THIS TIME.
--- NOTE | 2017-12-30 14:18 | NUR ---
PT OFF BIPAP PER HER REQUEST. FAMILY AT BEDSIDE. NO DISTRESS NOTED. RN AWARE. WILL CONTINUE TO MONITOR.
[2017-12-30] MEDS: ACETAMINOPHEN 325 MG TAB PO PRN (15:56)
--- NOTE | 2017-12-30 16:11 | NUR ---
PT PLACED ON BIPAP WITH PROTECTA PLACED UNDER MASK. BIPAP ALARMS ON AND FUNCTIONING. SCARLETT JOE MADE AWARE.
--- NOTE | 2017-12-30 16:11 | NUR ---
Social Service Note: Per Michelle from [facility] , patient has been accepted and may go to ICU 1 at [facility], brick picker time 6, # for report , COURT Monique made aware.
--- NOTE | 2017-12-30 16:15 | NUR ---
PT ON BIPAP WITH SAME SETTINGS. WILL CONTINUE TO MONITOR.
--- NOTE | 2017-12-30 17:27 | NUR ---
PT OFF BIPAP TO EAT. ON 2 L OXIMIZER SPO2 95%. WILL CONTINUE TO MONITOR.
--- NOTE | 2017-12-30 17:31 | NUR ---
REPORT GIVEN TO NEWRY PRODUCTION OPERATOR FOR CONTINUITY OF CARE. PATIENT PRESENTS NO SIGNS OF DISTRESS AT THIS TIME. SHE IS PREPARED FOR DISCHARGE TO [facility].
[2017-12-30] MEDS: LEVOFLOXACIN 500 MG/D5W PREMIX 100 ML IV SCH (18:52)
--- NOTE | 2017-12-30 19:09 | NUR ---
ENDORSED CONTINUITY OF CARE TO OUTSIDE UPHOLSTERER RN, PATIENT PRESENTS NO SIGNS OF DISTRESS AT THIS TIME.
--- NOTE | 2017-12-30 19:50 | NUR ---
DISCHARGE TO [facility] VIA [facility].
[2017-12-31] MEDS ORDERED: LACTOBACILLUS RHAMNOSUS GG 1 EACH CAP PO SCH (09:00)
== END 2017-12-30 19:50 | DRG 193 ==
LOC: MED 17:04 → MTU 19:51 → MIC 12-28 09:02
PROVIDERS: ADMIT Family Medicine; ATTEND Family Medicine
PROC: 5A09457 Assistance with Respiratory Ventilation, 24-96 Consecutive Hours, Continuous Positive Airway Pressure (ICD-10-PCS; principal; 2017-12-24)
PROC: 5A09357 Assistance with Respiratory Ventilation, Less than 24 Consecutive Hours, Continuous Positive Airway Pressure (ICD-10-PCS; 2017-12-28)
PROC: 5A09357 Assistance with Respiratory Ventilation, Less than 24 Consecutive Hours, Continuous Positive Airway Pressure (ICD-10-PCS; 2017-12-29)
PROC: 5A09357 Assistance with Respiratory Ventilation, Less than 24 Consecutive Hours, Continuous Positive Airway Pressure (ICD-10-PCS; 2017-12-30)
DX: J18.1 Lobar pneumonia, unspecified organism (principal); J96.21 Acute and chronic respiratory failure with hypoxia; I26.99 Other pulmonary embolism without acute cor pulmonale; J96.22 Acute and chronic respiratory failure with hypercapnia; E87.1 Hypo-osmolality and hyponatremia; Z68.42 Body mass index [BMI] 45.0-49.9, adult; J44.0 Chronic obstructive pulmonary disease with (acute) lower respiratory infection; E66.2 Morbid (severe) obesity with alveolar hypoventilation; I25.2 Old myocardial infarction; I11.0 Hypertensive heart disease with heart failure; I50.9 Heart failure, unspecified; E87.5 Hyperkalemia; M19.90 Unspecified osteoarthritis, unspecified site; E78.5 Hyperlipidemia, unspecified; J45.909 Unspecified asthma, uncomplicated; K21.9 Gastro-esophageal reflux disease without esophagitis; D64.9 Anemia, unspecified; Z79.01 Long term (current) use of anticoagulants; Z86.12 Personal history of poliomyelitis; Z90.49 Acquired absence of other specified parts of digestive tract; Z90.710 Acquired absence of both cervix and uterus; Z99.81 Dependence on supplemental oxygen; Z88.0 Allergy status to penicillin; Z88.2 Allergy status to sulfonamides; Z91.013 Allergy to seafood; Z79.899 Other long term (current) drug therapy; Z79.82 Long term (current) use of aspirin
CPT/HCPCS: 36415; 36600; 71045; 78582; 80048; 80053; 81001; 82803; 83605; 83690; 83735; 83880; 84484; 85025; 85379; 85610; 85730; 86886; 86900; 86901; 87040; 87081; 87086; 93005; 93970; 94640; 94660; 96374; 99291; 99292; C1758; J0696; J1650; J1956; J2920; J2930; J3490; J7030; J7060; J7620; Q0092

== ENCOUNTER 2018-09-18 11:41 | Emergency (ER) | payer OTHER ==
[~2018-09-18] VITALS: Ht 160 cm; Wt 171.5 kg
[~2018-09-18 11:41] MED LIST changes: -ACET650S53 PO; +ALBU3SOL83 IH; +BENZ-196 PO; -BENZ100C6 PO; +CLON0.1T42 PO; -IPRA3AMP IH; +MAGN500T24 PO; +METO25TA PO; -SAL1 PO; +SODI100076 PO
[2018-09-18 11:42] VITALS: BP 193/85
[2018-09-18 19:46] VITALS: BP 150/66
== END 2018-09-18 19:46 | disposition home or self-care (01) ==
LOC: MED 11:41
DX: S09.90XA Unspecified injury of head, initial encounter (principal); H60.92 Unspecified otitis externa, left ear; E78.5 Hyperlipidemia, unspecified; J44.9 Chronic obstructive pulmonary disease, unspecified; J44.0 Chronic obstructive pulmonary disease with (acute) lower respiratory infection; I50.9 Heart failure, unspecified; K21.9 Gastro-esophageal reflux disease without esophagitis; I11.0 Hypertensive heart disease with heart failure; Z79.82 Long term (current) use of aspirin; Z79.899 Other long term (current) drug therapy; Z85.9 Personal history of malignant neoplasm, unspecified; Z88.0 Allergy status to penicillin; Z88.2 Allergy status to sulfonamides; W22.8XXA Striking against or struck by other objects, initial encounter; Y93.89 Activity, other specified; Y92.89 Other specified places as the place of occurrence of the external cause; Y99.8 Other external cause status
CPT/HCPCS: 99283

== ENCOUNTER 2018-10-06 12:51 | Inpatient (IN) | payer OTHER ==
[~2018-10-06] VITALS: Ht 157.5 cm; Wt 139.7 kg
[~2018-10-06 12:51] MED LIST changes: +ASPI-1718 PO; -ASPI81CT89 PO
[2018-10-06 12:59] VITALS: BP 159/62
--- NOTE | 2018-10-06 13:19 | NUR ---
PATIENT PRESENTS TO ED WITH BROUGHT IN BY EMS FROM [facility]; PMD REPORTED PT SODIUM 125 LOW REEVALUATION---- PT STATES CHRONIC URINE INCONTINENCE POLYURIA; DENIES PAIN UPON VOIDING ALERT ORIENTED TO NAME PLACE TIME EVENT DENIES N/V/D; SKIN IS PINK/WARM/DRY; AAOX4 ; ; HR EVEN AND REGULAR; PT DENIES ANY FEVER, CP, SOB, OR COUGH AT THIS TIME; PATIENT STATES PAIN OF 8/10 AT THIS TIME; VSS; PATIENT POSITIONED FOR COMFORT; HOB ELEVATED; BEDRAILS UP X2; BED DOWN. ER MD MADE AWARE OF PT STATUS.
[2018-10-06] MEDS ORDERED: RANI150C PO (13:29)
[2018-10-06] MEDS ORDERED: PRON INH (13:29)
[2018-10-06] MEDS ORDERED: APIX2.5 PO (13:29)
[2018-10-06 13:37] LABS: BASOPHILS % (AUTO) 0.5 % (0.0-2.0); EOSINOPHILS # (AUTO) 0.4 K/uL (0-0.4); EOSINOPHILS % (AUTO) 6.8 % (0.0-4.0); HEMATOCRIT 35.4 % (36-48); HEMOGLOBIN 11.8 g/dL (12.0-16.0); LYMPHOCYTES # (AUTO) 0.9 K/uL (2.5-16.5); LYMPHOCYTES % (AUTO) 14.7 % (20.5-51.1); MEAN CORPUSCULAR HEMOGLOBIN 29 pg (27-31); MEAN CORPUSCULAR HGB CONC 33 g/dL (33-37); MEAN CORPUSCULAR VOLUME 86.2 fL (80-94); MONOCYTES # (AUTO) 0.3 K/uL (0.8-1.0); MONOCYTES % (AUTO) 4.4 % (1.7-9.3); NEUTROPHILS # (AUTO) 4.6 K/uL (1.8-7.7); NEUTROPHILS % (AUTO) 73.6 % (42.2-75.2); PLATELET COUNT (AUTO) 213 K/uL (140-450); RED CELL DISTRIBUTION WIDTH 13.9 % (11.6-13.7); WHITE BLOOD COUNT (AUTO) 6.3 K/uL (4.8-10.8)
[2018-10-06 13:57] LABS: ALBUMIN 3.5 g/dL (3.4-5.0); CARBON DIOXIDE 29.4 mmol/L (21-32); CREATININE 0.7 mg/dL (0.6-1.3); POTASSIUM 4.4 mmol/L (3.5-5.1); TOTAL BILIRUBIN 0.5 mg/dL (0.0-1.0)
--- NOTE | 2018-10-06 14:05 | NUR ---
ASSITED PATIENT IN REPOSITIONING, PATIENT AOX4 AND NOW SITTING UP, CLEAR SPEECH, OFFERED WATER.
[2018-10-06] MEDS ORDERED: ONDANSETRON 4 MG/2 ML VIAL IVP PRN (14:45)
[2018-10-06] MEDS ORDERED: HYDROcodone/APAP 7.5/325 MG 1 TAB PO PRN (14:45)
--- NOTE | 2018-10-06 15:12 | NUR ---
PICTURES COMPLETED OF PT'S WOUND TO RIGHT GLUTEAL----LOG ROLLED
--- NOTE | 2018-10-06 15:17 | NUR ---
PT TAKEN TO TELE FLOOR BY COURT FRANCO AND EMT KYMBERLY
[2018-10-06 15:38] LABS: CHOL/HDL RATIO 2.6 (1-4.5); FREE T4 (FREE THYROXINE) 1.3 ng/dL (0.76-1.46); MAGNESIUM 1.8 mg/dL (1.8-2.4); PHOSPHORUS 4.2 mg/dL (2.5-4.9); THYROID STIMULATING HORMONE 2.4 uIU/mL (0.34-3.74)
--- NOTE | 2018-10-06 15:42 | NUR ---
Pt transferred to Tele via [facility] ROOM 111-A REPORT GIVEN TO VIKAS YUN
[2018-10-06 16:00] VITALS: BP 146/62
[2018-10-06] MEDS ORDERED: ALBUTEROL SULFATE/IPRATROPIU 3 ML SOL IH PRN (16:10)
[2018-10-06] MEDS ORDERED: SODIUM CHLORIDE 1 GM TAB PO SCH (16:22)
--- NOTE | 2018-10-06 16:30 | NUR ---
RECEIVED BEDSIDE REPORT FROM ER NURSE SALVADOR. PATIENT AAOX4. PATIENT ON ROOM AIR, NO DISTRESS NOTED. PATIENT UNABLE TO AMBULATE AND INCONTINENT OF URINE. PATIENT ON STANDARD PRECAUTIONS AND ON TELE MONITOR. NO IV IN PLACE. OPEN WOUND ON R BUTTOCK OPEN TO AIR. FALL RISK PROTOCOL IN PLACE. BED IN LOW POSITION, CALL LIGHT WITHIN REACH. WILL CONTINUE TO MONITOR.
--- NOTE | 2018-10-06 16:50 | NUR ---
ULTRA SOUND PROCEDURE IN PROGRESS GLUE SPECIALTY SUPERVISOR TO ATTEMPT INCENTIVE SPIROMETRY THERAPY AT A LATER TIME
--- NOTE | 2018-10-06 18:00 | NUR ---
PATIENT EATING DINNER. SON AT BEDSIDE. NO DISTRESS NOTED, ON ROOM AIR. WILL CONTINUE TO MONITOR.
[2018-10-06] MEDS: ACETAMINOPHEN 325 MG TAB PO PRN (19:02)
--- NOTE | 2018-10-06 19:20 | NUR ---
GAVE BEDSIDE REPORT TO ELECTRONIC EQUIPMENT REPAIRMEN NURSE. PATIENT ENDORSED IN STABLE CONDITION.
[2018-10-06] MEDS: ALBUTEROL SULFATE/IPRATROPIU 3 ML SOL IH SCH (19:22)
--- NOTE | 2018-10-06 19:30 | NUR ---
RECEIVED BEDSIDE REPORT FROM COURT SIMON, PATIENT IN BED, ON RA, NO IV IN PLACE, V/S TAKEN, FAMILY AT BEDSIDE, QUESTIONS ANSWERED, NOTED RIGHT SKIN TEAR ON BUTTOCK. WILL GIVE DUE MEDICATIONS.
[2018-10-06 20:00] VITALS: BP_SYST 138; BP_SYST 151; BP_DIAS 47; BP_DIAS 64
[2018-10-06 20:43] LABS: PROTHROMBIN TIME 10.3 secs (10.8-13.4)
[2018-10-06] MEDS: POLYVINYL ALCOHOL 1.4% OP 15 ML SOL OP SCH (21:00)
[2018-10-06] MEDS: DOCUSATE SODIUM 100 MG GELCAP PO SCH (21:19)
[2018-10-06] MEDS: ATORVASTATIN 20 MG TAB PO SCH (21:19)
[2018-10-06] MEDS: cloNIDine 0.1 MG TAB PO SCH (21:19)
[2018-10-06] MEDS: FAMOTIDINE 20 MG TAB PO SCH (21:19)
[2018-10-06] MEDS: SODIUM CHLORIDE 1 GM TAB PO SCH (21:20)
[2018-10-06] MEDS: guaiFENesin/CODEINE 100/10MG 5 ML UDC PO PRN (21:20)
[2018-10-06] MEDS: APIXABAN 2.5 MG TAB PO SCH (21:26)
--- NOTE | 2018-10-06 22:00 | NUR ---
DUE MEDICATIONS GIVEN REASSESSED FOR CLONIDINE BP 138/47 HR 68.
[2018-10-06] MEDS ORDERED: NACL 0.9% 1,000 ML IV SCH (22:10)
[2018-10-07] VITALS: BP 147/58
[2018-10-07] MEDS ORDERED: HYDRAGUARD CREAM TP ONE
--- NOTE | 2018-10-07 00:30 | NUR ---
CHARGE NURSE AMELIA STARTED IV IN UPPER ARM 24 G INFUSING NS AT 50 AND 22 [address] SL.
--- NOTE | 2018-10-07 02:00 | NUR ---
CHANGED PATIENT REPOSITIONED FOR COMFORT, NO BM NOTED.
[2018-10-07 04:00] VITALS: BP 137/66
--- NOTE | 2018-10-07 06:25 | NUR ---
V/S TAKEN, REPOSITIONED PATIENT FOR COMFORT, NO BM NOTED, REAPPLIED DRESSING. CLEANSED WITH NS. WILL CONTINUE TO MONITOR.
[2018-10-07 06:43] LABS: BASOPHILS % (AUTO) 0.5 % (0.0-2.0); EOSINOPHILS # (AUTO) 0.5 K/uL (0-0.4); EOSINOPHILS % (AUTO) 10.8 % (0.0-4.0); HEMATOCRIT 33.3 % (36-48); HEMOGLOBIN 10.9 g/dL (12.0-16.0); LYMPHOCYTES # (AUTO) 0.9 K/uL (2.5-16.5); LYMPHOCYTES % (AUTO) 17.6 % (20.5-51.1); MEAN CORPUSCULAR HEMOGLOBIN 29 pg (27-31); MEAN CORPUSCULAR HGB CONC 33 g/dL (33-37); MEAN CORPUSCULAR VOLUME 87.4 fL (80-94); MONOCYTES # (AUTO) 0.3 K/uL (0.8-1.0); MONOCYTES % (AUTO) 5.4 % (1.7-9.3); NEUTROPHILS # (AUTO) 3.3 K/uL (1.8-7.7); NEUTROPHILS % (AUTO) 65.7 % (42.2-75.2); PLATELET COUNT (AUTO) 194 K/uL (140-450); RED BLOOD CELL COUNT(AUTO) 3.81 MIL/uL (4.20-5.40); RED CELL DISTRIBUTION WIDTH 13.7 % (11.6-13.7); WHITE BLOOD COUNT (AUTO) 5.1 K/uL (4.8-10.8)
[2018-10-07 06:44] LABS: ANION GAP 8.3 (8-16); CARBON DIOXIDE 32.8 mmol/L (21-32); CREATININE 0.6 mg/dL (0.6-1.3); POTASSIUM 4.1 mmol/L (3.5-5.1)
[2018-10-07 06:54] LABS: MAGNESIUM 1.8 mg/dL (1.8-2.4)
[2018-10-07] MEDS: ALBUTEROL SULFATE/IPRATROPIU 3 ML SOL IH SCH ×3 (07:00→19:26)
--- NOTE | 2018-10-07 07:31 | NUR ---
ENDORSED PATIENT TO DAY SHIFT NURSE, PATIENT STABLE.
--- NOTE | 2018-10-07 07:32 | NUR ---
REPORT RECEIVED FROM BUSINESS ADMINISTRATION TEACHER NURSE, PT SITTING UP RESTING IN NAD, RESP EVNE UNLABORED ON RA WITH OCCASIONAL COUGHS, SKIN WARM DRY COLOR WNL, POC REVIEWED, ALL SAFETY MEASURES IN PALACE, WILL CONTINUE TO MONITOR.
--- NOTE | 2018-10-07 07:52 | NUR ---
PATIENT HAS BEEN SCREENED AND CATEGORIZED HIGH NUTRITION RISK. PATIENT WILL BE SEEN WITHIN 1-2 DAYS OF ADMISSION. 10/07/18-10/08/[address]
[2018-10-07 08:00] VITALS: BP 166/78
[2018-10-07] MEDS: amLODIPine 5 MG TAB PO SCH (08:35)
[2018-10-07] MEDS: DOCUSATE SODIUM 100 MG GELCAP PO SCH ×2 (08:35→20:11)
[2018-10-07] MEDS: cloNIDine 0.1 MG TAB PO SCH ×2 (08:36→20:12)
[2018-10-07] MEDS: FAMOTIDINE 20 MG TAB PO SCH ×2 (08:36→20:11)
[2018-10-07] MEDS: APIXABAN 2.5 MG TAB PO SCH ×2 (08:41→20:17)
[2018-10-07] MEDS: METOPROLOL 25 MG TAB PO SCH (08:41)
[2018-10-07] MEDS: ACETAMINOPHEN 325 MG TAB PO PRN ×2 (08:43→18:12)
[2018-10-07] MEDS: SODIUM CHLORIDE 1 GM TAB PO SCH ×3 (08:43→17:59)
--- NOTE | 2018-10-07 08:54 | NUR ---
AM MEDS GIVEN, PT HARRIS PILLS WELL.
[2018-10-07] MEDS: POLYVINYL ALCOHOL 1.4% OP 15 ML SOL OP SCH ×2 (09:00→20:26)
--- NOTE | 2018-10-07 09:24 | NUR ---
SMALL BM X1, BED BATH GIVEN, PERICARE DONE, LINEN AND GOWN CHANGED PT HARRIS WELL, PT'S SON AT BEDSIDE.
--- NOTE | 2018-10-07 10:45 | NUR ---
PT RETURNED BACK FROM CT.
[2018-10-07] MEDS: guaiFENesin/CODEINE 100/10MG 5 ML UDC PO PRN ×2 (11:14→20:11)
[2018-10-07 12:00] VITALS: BP 132/71
--- NOTE | 2018-10-07 12:10 | NUR ---
VITALS TAKEN, PT DENIES PAIN NOW, AND COUGH SUBSIDED AFTER MED, PT NOW SITTING UP TO EAT LUNCH, SON AT BEDSIDE.
--- NOTE | 2018-10-07 12:29 | NUR ---
DR DIOR AT BEDSIDE, IVF STOPPED PER ORDER.
--- NOTE | 2018-10-07 13:59 | NUR ---
10/07/18 RD INITIAL ASSESSMENT COMPLETED PLEASE REFER TO NUTRITION ASSESSMENT UNDER CARE ACTIVITY FOR ESTIMATED NUTRITIONAL NEEDS. 1. RECOMMEND CARDIAC DIET 2. DIETITIAN ATTEMPTED HEART HEALTHY NUTRITION THERAPY 3. RD TO FOLLOW-UP 5-7 DAYS, LOW RISK DON HUERTA RD
--- NOTE | 2018-10-07 15:09 | NUR ---
Business Administrator Note: Per Bernadette from [facility] , patient is on a 7 day bed hold and is self responsible with medical decisions. 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
--- NOTE | 2018-10-07 15:48 | NUR ---
PT VOIDED IN URINAL, URINE SENT TO LAB.
[2018-10-07 16:00] VITALS: BP 132/59
[2018-10-07 16:16] LABS: APPEARANCE,URINE HAZY (CLEAR); BILIRUBIN,URINE NEGATIVE (NEGATIVE); BLOOD, URINE 1+ (NEGATIVE); COLOR,URINE YELLOW (YELLOW); LEUKOCYTE ESTERASE ,URINE 3+ (NEGATIVE); NITRITE, URINE NEGATIVE (NEGATIVE); PH,URINE 6.5 (5.0-9.0); UGLUCOSE NEGATIVE (NEGATIVE)
[2018-10-07 16:20] LABS: RBC,URINE 3-10 (FEW) /HPF (0-5); WBC,URINE TOO MANY TO COUNT /HPF (0-5)
--- NOTE | 2018-10-07 18:14 | NUR ---
PT C/O BAKC PAIN, TYLENOL GIVEN
--- NOTE | 2018-10-07 19:25 | NUR ---
REPORT GIVEN TO TECHNICIAN ANATOMIC PATHOLOGY NURSE, PT INSTABLE CONDITION.
--- NOTE | 2018-10-07 19:30 | NUR ---
RECEIVED REPORT FROM DAYSHIFT NURSE AT BEDSIDE FOR CONTINUITY OF CARE. PT AAOX4. PT IV NOTED TINY 22G SALINE LOCK. NO SOB NO S/S OF DISTRESS ON RA. BED LOWERED CALL LIGHT WITHIN REACH WILL CONTINUE TO MONITOR.
[2018-10-07 20:00] VITALS: BP 160/55
[2018-10-07] MEDS: ATORVASTATIN 20 MG TAB PO SCH (20:13)
[2018-10-08] VITALS: BP 152/54
[2018-10-08] MEDS: ACETAMINOPHEN 325 MG TAB PO PRN ×3 (00:03→20:19)
[2018-10-08 04:00] VITALS: BP 158/73
[2018-10-08] MEDS: guaiFENesin/CODEINE 100/10MG 5 ML UDC PO PRN ×3 (05:30→20:29)
[2018-10-08] MEDS: ALBUTEROL SULFATE/IPRATROPIU 3 ML SOL IH SCH ×3 (07:07→19:28)
[2018-10-08 07:08] LABS: BASOPHILS % (AUTO) 0.3 % (0.0-2.0); EOSINOPHILS # (AUTO) 0.6 K/uL (0-0.4); EOSINOPHILS % (AUTO) 11.1 % (0.0-4.0); HEMATOCRIT 34.9 % (36-48); HEMOGLOBIN 11.5 g/dL (12.0-16.0); LYMPHOCYTES # (AUTO) 0.9 K/uL (2.5-16.5); LYMPHOCYTES % (AUTO) 17.6 % (20.5-51.1); MEAN CORPUSCULAR HEMOGLOBIN 29 pg (27-31); MEAN CORPUSCULAR HGB CONC 33 g/dL (33-37); MEAN CORPUSCULAR VOLUME 87.7 fL (80-94); MONOCYTES # (AUTO) 0.3 K/uL (0.8-1.0); MONOCYTES % (AUTO) 5.2 % (1.7-9.3); NEUTROPHILS # (AUTO) 3.5 K/uL (1.8-7.7); NEUTROPHILS % (AUTO) 65.8 % (42.2-75.2); PLATELET COUNT (AUTO) 192 K/uL (140-450); RED BLOOD CELL COUNT(AUTO) 3.99 MIL/uL (4.20-5.40); RED CELL DISTRIBUTION WIDTH 13.9 % (11.6-13.7); WHITE BLOOD COUNT (AUTO) 5.3 K/uL (4.8-10.8)
[2018-10-08 07:13] LABS: ANION GAP 8.2 (8-16); CARBON DIOXIDE 31.2 mmol/L (21-32); CREATININE 0.5 mg/dL (0.6-1.3); POTASSIUM 4.4 mmol/L (3.5-5.1)
[2018-10-08 07:20] LABS: MAGNESIUM 1.9 mg/dL (1.8-2.4); PHOSPHORUS 3.6 mg/dL (2.5-4.9)
--- NOTE | 2018-10-08 07:29 | NUR ---
ENDORSED REPORT TO DAYSHIFT NURSE AT BEDSIDE FOR CONTINUITY OF CARE.
--- NOTE | 2018-10-08 07:30 | NUR ---
RECEIVED BEDSIDE REPORT FROM CAR CHASER NURSE. PATIENT IS AWAKE, ALERT AND ORIENTEDX4. NO SIGNS OF DISTRESS ON RA. SKIN HAS R BUTTOCKS PRESSURE ULCER, DRESSING IS CLEAN, DRY AND INTACT. BEDBOUND. PATIENT HAS WEAKNESS AND OBESE. PATIENT INCONTINENT. FALL RISK PROTOCOL IN PLACE. IV ON TINY 22G SL. CLEAN, DRY AND INTACT. ALLERGY BAND IN PLACE. BED IN LOW POSITION. CALL LIGHT WITHIN REACH. WILL CONTINUE TO MONITOR THE PATIENT.
[2018-10-08 08:00] VITALS: BP 140/51
[2018-10-08] MEDS: APIXABAN 2.5 MG TAB PO SCH ×2 (09:33→20:28)
[2018-10-08] MEDS: DOCUSATE SODIUM 100 MG GELCAP PO SCH ×2 (09:33→20:20)
[2018-10-08] MEDS: cloNIDine 0.1 MG TAB PO SCH ×2 (09:34→20:20)
[2018-10-08] MEDS: FAMOTIDINE 20 MG TAB PO SCH ×2 (09:34→20:19)
[2018-10-08] MEDS: amLODIPine 5 MG TAB PO SCH (09:35)
[2018-10-08] MEDS: METOPROLOL 25 MG TAB PO SCH (09:38)
[2018-10-08] MEDS: POLYVINYL ALCOHOL 1.4% OP 15 ML SOL OP SCH ×2 (09:38→20:33)
[2018-10-08] MEDS: SODIUM CHLORIDE 1 GM TAB PO SCH ×3 (09:39→16:41)
--- NOTE | 2018-10-08 09:49 | NUR ---
ADMINISTERED MEDS. PATIENT TOLERATED WELL. WILL CONTINUE TO MONITOR THE PATIENT
[2018-10-08] MEDS ORDERED: SODIUM CHLORIDE 1 GM TAB PO SCH (10:00)
--- NOTE | 2018-10-08 10:09 | NUR ---
ADMINISTERED EXTRA SALT TAB ORDERED BY DR DIOR. PATIENT TOLERATED WELL. WILL CONTINUE TO MONITOR
[2018-10-08 12:00] VITALS: BP 131/42
--- NOTE | 2018-10-08 12:00 | NUR ---
WOUND CARE DONE WITH WOUND CARE NURSE. PATIENT TOLERATED WELL.
--- NOTE | 2018-10-08 12:08 | NUR ---
WOUND CARE EVALUATION NOTES: REASON FOR EVALUATION: RIGHT BUTTOCK OPEN WOUND SKIN ASSESSMENT DONE WITH PRIMARY RN ON THIS 68 Y/O FEMALE PATIENT FROM [facility] TO [facility], WITH INITIAL DIAGNOSIS OF HYPONATREMIA. PAST MEDICAL HISTORY INCLUDE COPD, ASTHMA, HTN, HLD, GERD, POST-POLIO SYNDROME AND MORBID OBESITY. ALL ABOVE INFORMATION WAS OBTAINED FROM THE ADMISSION H&P. PATIENT IS AAX4 WITH SENECA TO RIGHT EAR,SKIN WARM TO TOUCH, THICKENED TOENAILS, BLE +1 EDEMA, NO HAIR GROWTH AND BILATERAL PEDAL PULSES PRESENT. INCONTINENT OF BOWEL AND BLADDER. PLAN OF CARE AND PRESSURE PREVENTIVE MEASURES DISCUSSED WITH PT AND PRIMARY NURSE. PT. VERBALIZES UNDERSTANDING. CLARIFICATION: RIGHT BUTTOCK PRESSURE ULCER INJURY FROM FRICTION AND MOISTURE. NO A SKIN TEAR. INTEGUMENTARY: -RIGHT BUTTOCK PRESSURE ULCER INJURY STAGE 2, WITH MULTIPLE PARTIAL THICKNESS SKIN LOSS ON THE OLD HEALED SCAR, LARGEST MEASURED 3X1X0.1CM TOWARD RIGHT ISCHIUM AND SMALLEST 1X1X0.1 TO RIGHT BUTTOCK RECOMMENDATIONS: -NO TAPE TO SKIN PER PT. -CLEANSE RIGHT BUTTOCK WITH NS, PAT DRY, APPLY Z-GUARD BID WC AND COVER WITH FORM DRESSING -TURN AND REPOSITION PATIENT Q2H -ASSESS AND MONITOR SKIN CONDITION DURING POSITION CHANGE, PLEASE PAY ATTENTION TO RIGHT BUTTOCKS -OFFLOAD BILATERAL HEELS BY PLACING PILLOWS UNDER CALVES AT ALL TIMES, UNLESS OTHERWISE CONTRAINDICATED -PRESSURE REDISTRIBUTION SURFACE THERAPY -PLEASE FOLLOW RD RECOMMENDATIONS COMORBIDITIES RELATED TO SKIN BREAKS: -MORBID OBESITY, LIMITED OF MOBILITY, INCONTINENT OR BOWEL AND BLADDER RECOMMENDATIONS DISCUSSED WITH PRIMARY RN WILL FOLLOW UP PATIENT Q 7 -10 DAYS AND PRN. PLEASE CONTACT WOUND CARE NURSE FOR ANY QUESTION OR CHANGES IN WOUND CONDITION
--- NOTE | 2018-10-08 14:06 | NUR ---
ADMINISTERED PRN COUGH MED AND SHWETHA SALT TAB. PATIENT TOLERATED WELL BUT COMPLAINS OF SALT TABLET BEING NASTY. NO SIGNS OF DISTRESS. WILL CONTINUE TO MONITOR THE PATIENT
--- NOTE | 2018-10-08 15:11 | NUR ---
PATIENT SITTING IN BED WATCHING TV. NO COMPLAINTS AT THIS TIME. WILL CONTINUE TO MONITOR THE PATIENT
[2018-10-08 16:00] VITALS: BP 149/56
--- NOTE | 2018-10-08 16:08 | NUR ---
RD RECOMMENDATIONS FOR PRESSURE ULCER 1. VITAMIN C 250 MG BID 2. MULTIVITAMIN QD 3. ENSURE QD 4. REGULAR DIET
--- NOTE | 2018-10-08 16:42 | NUR ---
ADMINISTERED [facility] MEDS ORDERED. PATIENT TOLERATED WELL. WILL CONTINUE TO MONITOR THE PATIENT
--- NOTE | 2018-10-08 18:31 | NUR ---
PATIENT DOES NOT LIKE HER DINNER, ORDERED HER A SANDWICH AND SOUP.
--- NOTE | 2018-10-08 19:16 | NUR ---
GAVE BEDSIDE REPORT TO DRILLER AND REAMER NURSE. PATIENT ENDORSED IN STABLE CONDITION
--- NOTE | 2018-10-08 19:17 | NUR ---
RECD. RESTING IN BED, AWAKE, A/OX4, OBESE.WATCHING TV. RESPIRATION EVEN AND UNLABORED. IV SALINE LOCK AT THE RIGHT UPPER ARM G22, PATENT AND INTACT. SAFETY MEASURES ENFORCED. PLAN OF CARE FOR THE SHIFT DISCUSSED. VERBALIZED UNDERSTANDING. DENIES PAIN 0/10.
[2018-10-08 20:00] VITALS: BP 153/50
--- NOTE | 2018-10-08 20:00 | NUR ---
Patient's Plan of Care was discussed and reviewed with SCREEN PRINT OPERATOR: MONIQUE WAY LVN.
[2018-10-08] MEDS: ATORVASTATIN 20 MG TAB PO SCH (20:21)
--- NOTE | 2018-10-08 20:28 | NUR ---
DUE PO MEDICATIONS AND SNACK FOR THE NIGHT GIVEN.
[2018-10-09] VITALS: BP 137/58
[2018-10-09] MEDS: FOAM DRESSING TP SCH ×2 (01:00→14:11)
[2018-10-09] MEDS: Z-GUARD PASTE TP SCH ×2 (01:00→14:11)
[2018-10-09] MEDS: guaiFENesin/CODEINE 100/10MG 5 ML UDC PO PRN ×2 (03:02→09:40)
[2018-10-09] MEDS: ACETAMINOPHEN 325 MG TAB PO PRN (03:02)
--- NOTE | 2018-10-09 03:02 | NUR ---
WITH BOUTS OF PRODUCTIVE COUGHING, MEDICATED WITH ROBITUSSIN ORDERED.
[2018-10-09 04:00] VITALS: BP 153/58
--- NOTE | 2018-10-09 04:02 | NUR ---
NO COUGHING NOTED. SLEEPING IN BED COMFORTABLY.
[2018-10-09 06:32] LABS: MAGNESIUM 1.9 mg/dL (1.8-2.4); PHOSPHORUS 4.2 mg/dL (2.5-4.9)
[2018-10-09 06:35] LABS: BASOPHILS % (AUTO) 0.2 % (0.0-2.0); EOSINOPHILS # (AUTO) 0.7 K/uL (0-0.4); HEMATOCRIT 34.2 % (36-48); HEMOGLOBIN 11.2 g/dL (12.0-16.0); LYMPHOCYTES % (AUTO) 18.4 % (20.5-51.1); MEAN CORPUSCULAR HEMOGLOBIN 29 pg (27-31); MEAN CORPUSCULAR HGB CONC 33 g/dL (33-37); MEAN CORPUSCULAR VOLUME 88.5 fL (80-94); MONOCYTES # (AUTO) 0.3 K/uL (0.8-1.0); MONOCYTES % (AUTO) 5.4 % (1.7-9.3); NEUTROPHILS # (AUTO) 3.3 K/uL (1.8-7.7); PLATELET COUNT (AUTO) 207 K/uL (140-450); RED BLOOD CELL COUNT(AUTO) 3.86 MIL/uL (4.20-5.40); RED CELL DISTRIBUTION WIDTH 14.2 % (11.6-13.7); WHITE BLOOD COUNT (AUTO) 5.3 K/uL (4.8-10.8)
[2018-10-09 06:46] LABS: ANION GAP 9.9 (8-16); CARBON DIOXIDE 29.5 mmol/L (21-32); CREATININE 0.6 mg/dL (0.6-1.3); POTASSIUM 4.4 mmol/L (3.5-5.1)
--- NOTE | 2018-10-09 07:30 | NUR ---
ENDORSED TO AM NURSE FOR CONTINUITY OF CARE.
--- NOTE | 2018-10-09 07:51 | NUR ---
AWAKE AND ALERT VERBALLY RESPONSIVE NO SOB NOTED PATIENT WITH BREAKFAST TRAY AT THIS TIME FLOOR STEWARD/STEWARDESS TO ATTEMPT HHN THERAPY AT A LATER TIME
[2018-10-09 08:00] VITALS: BP 150/45
--- NOTE | 2018-10-09 08:00 | NUR ---
PATIENT WAS AWAKE, ALERT, EATING BREAKFAST COMFORTABLY. RESPIRATION EVEN, UNLABOR ON ROOM AIR. SKIN DRY AND WARM. IV PATENT AND INTACT. DENIED PAIN, SOB AT THIS TIME. PLAN OF CARE WAS DISCUSSED WITH PATIENT. BED AT LOW POSITION, SIDE RAILS UP. CALL LIGHT WITHIN REACH
[2018-10-09] MEDS: ALBUTEROL SULFATE/IPRATROPIU 3 ML SOL IH SCH ×2 (08:40→14:08)
[2018-10-09] MEDS: POLYVINYL ALCOHOL 1.4% OP 15 ML SOL OP SCH (09:40)
[2018-10-09] MEDS: SODIUM CHLORIDE 1 GM TAB PO SCH ×2 (09:40→13:52)
[2018-10-09] MEDS: amLODIPine 5 MG TAB PO SCH (09:40)
[2018-10-09] MEDS: DOCUSATE SODIUM 100 MG GELCAP PO SCH (09:41)
[2018-10-09] MEDS: FAMOTIDINE 20 MG TAB PO SCH (09:41)
[2018-10-09] MEDS: cloNIDine 0.1 MG TAB PO SCH (09:41)
[2018-10-09] MEDS: METOPROLOL 25 MG TAB PO SCH (09:42)
[2018-10-09] MEDS: APIXABAN 2.5 MG TAB PO SCH (09:45)
--- NOTE | 2018-10-09 10:30 | NUR ---
PATIENT WAS AWAKE, ALERT, WATCHING TV COMFORTABLY. RESPIRATION EVEN, UNLABOR ON ROOM AIR. NO DISTRESS NOTED AT THIS TIME
--- NOTE | 2018-10-09 10:30 | NUR ---
Faxed face sheet to [facility] fax # . Pt has secondary [facility] and needs transport authorization to go back to [facility].
[2018-10-09 11:10] VITALS: BP 149/63
--- NOTE | 2018-10-09 11:46 | NUR ---
CM NOTE RECEIVED ORDER TO DC BACK TO [facility]. FAXED ORDER TO DC BACK TO [facility] AND CLINICAL PACKET TO [facility]. PER MARLIN OF [facility], PATIENT CAN GO TO [address] MCLE[address]. PATIENT HAS SECONDARY [facility]. PER SONNY OF IE, FOR [facility], AUTH# [id number]. PER KARON OF [facility] PH# [phone] PATIENT WILL BE PICKED UP AT 1500 TIME TODAY GOING TO [facility]. CHARGE NURSE ANNIE MAGDALENO.
--- NOTE | 2018-10-09 11:48 | NUR ---
PATIENT WAS AWAKE, ALERT. RESPIRATION EVEN, UNLABOR ON ROOM AIR. WOUND PICTURE WAS TAKEN. WOUND DRESSING WAS CHANGED PER ORDER. PATIENT TOLERATED WELL. CALL LIGHT WITHIN REACH
--- NOTE | 2018-10-09 14:00 | NUR ---
CALLED AND GAVE REPORT TO CHARISMA YUN AT [facility]. CALLED BUT UNABLE TO LEAVE VOICEMAIL FOR PATIENT'S SON IRINA RAMIREZ, WILL TRY AGAIN.
--- NOTE | 2018-10-09 14:30 | NUR ---
DISCHARGE INSTRUCTION WAS GIVEN AND EXPLAINED TO THE PATIENT. PATIENT VERBALIZED UNDERSTANDING. IV WAS REMOVED, CATHETER INTACT, NO ACTIVE BLEEDING SEEN.
--- NOTE | 2018-10-09 15:40 | NUR ---
REPORT WAS GIVEN TO EMT AT BEDSIDE. ID BAND WAS REMOVED. ALL BELONGINGS WERE TAKEN WITH THE EMT. PATIENT IS STABLE AT THIS TIME
== END 2018-10-09 15:40 | DRG 640 ==
LOC: MED 12:51 → MTU 14:45
PROVIDERS: ADMIT Family Medicine; ATTEND Family Medicine
DX: E87.1 Hypo-osmolality and hyponatremia (principal); L89.153 Pressure ulcer of sacral region, stage 3; Z68.43 Body mass index [BMI] 50.0-59.9, adult; E66.2 Morbid (severe) obesity with alveolar hypoventilation; J98.11 Atelectasis; I13.10 Hypertensive heart and chronic kidney disease without heart failure, with stage 1 through stage 4 chronic kidney disease, or unspecified chronic kidney disease; D64.9 Anemia, unspecified; E78.5 Hyperlipidemia, unspecified; J44.9 Chronic obstructive pulmonary disease, unspecified; I50.9 Heart failure, unspecified; I25.10 Atherosclerotic heart disease of native coronary artery without angina pectoris; K21.9 Gastro-esophageal reflux disease without esophagitis; R59.0 Localized enlarged lymph nodes; M19.90 Unspecified osteoarthritis, unspecified site; K59.00 Constipation, unspecified; N18.9 Chronic kidney disease, unspecified; Z71.3 Dietary counseling and surveillance; Z88.2 Allergy status to sulfonamides; Z88.0 Allergy status to penicillin; Z91.013 Allergy to seafood; Z79.899 Other long term (current) drug therapy; I25.2 Old myocardial infarction; Z86.711 Personal history of pulmonary embolism; Z79.01 Long term (current) use of anticoagulants; Z90.49 Acquired absence of other specified parts of digestive tract; Z90.710 Acquired absence of both cervix and uterus; Z83.3 Family history of diabetes mellitus; Z84.1 Family history of disorders of kidney and ureter; Z82.49 Family history of ischemic heart disease and other diseases of the circulatory system; Z82.61 Family history of arthritis; Z85.528 Personal history of other malignant neoplasm of kidney; Z86.12 Personal history of poliomyelitis; J45.998 Other asthma
CPT/HCPCS: 36415; 71045; 71250; 76641; 76770; 80048; 80053; 81001; 82140; 82150; 83036; 83690; 83735; 83880; 83930; 84100; 84300; 84439; 84443; 84484; 85025; 85610; 85730; 87081; 87086; 87186; 93005; 94640; 99285; J7030; J7620; Q0092

== ENCOUNTER 2019-09-09 11:10 | Inpatient (IN) | payer OTHER ==
[~2019-09-09] VITALS: Ht 175.3 cm; Wt 139.9 kg
[~2019-09-09 11:10] MED LIST changes: -ALBU3SOL83 IH; +APIX2.5 PO; -ARTOP OP; -ASPI-1718 PO; -BENZ-196 PO; -CALC-105 PO; -CRAN425C8 PO; -DOCU-299 PO; -FAMO-90 PO; -FERR325E14 PO; -LEVO250T2 PO; -MAG355OR2 PO; -MAGN500T24 PO; -MYCC TP; +POLY15SO74 OP; +PRON INH; +RANI150C PO; -SENN-73 PO; -SODI100076 PO; -TRAM50TA1 PO
[2019-09-09 11:16] VITALS: BP 117/58
--- NOTE | 2019-09-09 11:26 | NUR ---
69/F BIBA BLS FROM [facility] FOR CC OF ABNORMAL LABS (NA+ OF 121). NO SEIZURES. PT STATES 5/10 GENERALIZED BODY ACHES WITHOUT BEING ABLE TO VERBALIZE DURATION. AOX3. FULL CLEAR SPEECH. PT OBESE. NOTED WITH MOIST COUGH. 94% RA.
--- NOTE | 2019-09-09 12:19 | NUR ---
DR GODINEZ EVALUATING PT AT BEDSIDE
[2019-09-09] MEDS ORDERED: NACL 0.9% 1,000 ML IV SCH ×2 (12:32→13:59)
[2019-09-09 12:39] LABS: BASOPHILS % (AUTO) 0.8 % (0.0-2.0); EOSINOPHILS # (AUTO) 0.4 K/uL (0-0.4); HEMATOCRIT 33.8 % (36-48); HEMOGLOBIN 11.3 g/dL (12.0-16.0); LYMPHOCYTES # (AUTO) 0.8 K/uL (2.5-16.5); LYMPHOCYTES % (AUTO) 14.2 % (20.5-51.1); MEAN CORPUSCULAR HEMOGLOBIN 29 pg (27-31); MEAN CORPUSCULAR HGB CONC 33 g/dL (33-37); MEAN CORPUSCULAR VOLUME 88.3 fL (80-94); MONOCYTES # (AUTO) 0.4 K/uL (0.8-1.0); MONOCYTES % (AUTO) 7.6 % (1.7-9.3); NEUTROPHILS % (AUTO) 70.4 % (42.2-75.2); PLATELET COUNT (AUTO) 219 K/uL (140-450); RED BLOOD CELL COUNT(AUTO) 3.83 MIL/uL (4.20-5.40); RED CELL DISTRIBUTION WIDTH 13.9 % (11.6-13.7); WHITE BLOOD COUNT (AUTO) 5.7 K/uL (4.8-10.8)
--- NOTE | 2019-09-09 12:43 | NUR ---
XRAY AT BEDSIDE
[2019-09-09 13:27] LABS: ANION GAP 12.6 (8-16); CARBON DIOXIDE 26.9 mmol/L (21-32); CREATININE 0.5 mg/dL (0.6-1.3); POTASSIUM 4.5 mmol/L (3.5-5.1); TOTAL BILIRUBIN 0.4 mg/dL (0.0-1.0)
[2019-09-09 13:48] LABS: APPEARANCE,URINE CLEAR (CLEAR); BILIRUBIN,URINE NEGATIVE (NEGATIVE); BLOOD, URINE 1+ (NEGATIVE); COLOR,URINE YELLOW (YELLOW); LEUKOCYTE ESTERASE ,URINE 2+ (NEGATIVE); NITRITE, URINE POSITIVE (NEGATIVE); UGLUCOSE NEGATIVE (NEGATIVE)
[2019-09-09] MEDS ORDERED: LEVOFLOXACIN 750 MG/D5W PREMIX 150 ML IV ONE (13:55)
[2019-09-09 13:57] LABS: WBC,URINE 80-100 /HPF (0-5)
[2019-09-09] MEDS ORDERED: ONDANSETRON 4 MG/2 ML VIAL IM/IVP PRN (14:00)
[2019-09-09] MEDS ORDERED: DOCUSATE SODIUM 100 MG GELCAP PO PRN (14:00)
[2019-09-09] MEDS ORDERED: MORPHINE SULFATE 2 MG/ML SYR IVP PRN (14:00)
[2019-09-09 14:46] LABS: PROTHROMBIN TIME 10.4 secs (10.8-13.4)
[2019-09-09 14:55] LABS: MAGNESIUM 1.7 mg/dL (1.8-2.4); THYROID STIMULATING HORMONE 1.48 uIU/mL (0.34-3.74)
[2019-09-09] MEDS ORDERED: ALBUTEROL SULFATE/IPRATROPIU 3 ML SOL IH PRN (15:00)
--- NOTE | 2019-09-09 15:05 | NUR ---
PT SITTING UP IN BED, VS STABLE ON BEDSIDE MONITOR, ALERT AND ORIENTED.
--- NOTE | 2019-09-09 17:10 | NUR ---
UNABLE TO TURN PT IN BED TO VIEW BACK/SACROCOCCYX AREA TO CHECK FOR WOUNDS DUE TO PT WEIGHT AND SIZE CONSTRAINTS OF [facility].
--- NOTE | 2019-09-09 17:20 | NUR ---
Patient will be admitted to care of DR MCLEAN. Admited to TELE. Will go to room 123B. Belongings list completed. Report to JACOBO YUN.
--- NOTE | 2019-09-09 17:25 | NUR ---
RECEIVED PT FROM ER NURSE BERNA. PT IS AAOX4, NON-AMBULATORY. PT W/ REPRODUCTIVE COUGH. PT SKIN INACT BUT HAS INCONTINENT DERMATITIS. PT INCONTINENT. ON 1.5L O2 VIA NC SATING 94%. IV ON THE LEFT HAND 22G INFUSING 60ML NS PER HR. DISCUSSED POC WITH PT AND PT VERBALIZED UNDERSTANDING. MRSA NARES SWAB TAKEN AND SENT TO LAB. ALL NEEDS CURRENTLY MET. WILL CONTINUE TO ROUND FREQUENTLY ON PT. BED IN LOW POSITION, CALL LIGHT WITHIN REACH.
[2019-09-09] MEDS ORDERED: SENN-73 PO ×2 (17:44)
[2019-09-09] MEDS ORDERED: CALC500C17 PO (17:44)
[2019-09-09] MEDS ORDERED: SENNA 8.6 MG TAB PO PRN ×2 (17:45→17:50)
[2019-09-09] MEDS ORDERED: CALCIUM CARBONATE 500 MG TAB.CHEW PO PRN (17:45)
[2019-09-09] MEDS: ALBUTEROL SULFATE/IPRATROPIU 3 ML SOL IH SCH (18:45)
--- NOTE | 2019-09-09 19:30 | NUR ---
RECEIVED BEDSIDE REPORT FROM DAY SHIFT NURSE. FAMILY AT BEDSIDE. NO SOB NOTED. PT HAVE INCONTINENT DERMATITIS, OTHER THAN THAT, SKIN IS INTACT. IV SITE ON LH, 22G, PATENT, INTACT, AND ASYMPTOMATIC. POC REVIEWED AND DISCUSS WITH PT, VERBALIZED UNDERSTANDING. ALL SAFETY MEASUREMENT ARE MET. BED IN LOW POSITION, CALL LIGHT WITHIN REACH.
--- NOTE | 2019-09-09 19:50 | NUR ---
ENDORSED PT TO AIR VALVE REPAIRER FOR CONTINUITY OF CARE. PT IN STABLE CONDITION AT THIS TIME.
[2019-09-09 20:00] VITALS: BP 148/56
[2019-09-09] MEDS: POLYVINYL ALCOHOL 1.4% OP 15 ML SOL OP SCH (20:39)
[2019-09-09] MEDS: SENNA 8.6 MG TAB PO SCH (20:39)
[2019-09-09] MEDS: ATORVASTATIN 20 MG TAB PO SCH (20:40)
[2019-09-09] MEDS: cloNIDine 0.1 MG TAB PO SCH (20:40)
[2019-09-09] MEDS: FAMOTIDINE 20 MG TAB PO SCH (20:41)
--- NOTE | 2019-09-09 20:42 | NUR ---
GIVEN ARTIFICIAL TEAR, CLONIDINE, ELIQUIS, LIPITOR, PEPCID, AND SENNA MD ORDERED. PT TOLERATED WELL.
[2019-09-09] MEDS: APIXABAN 2.5 MG TAB PO SCH (20:46)
[2019-09-09] MEDS ORDERED: NON-FORMULARY ITEM (Ranitidine HCl (Ranitidine Hcl) 1 CAP) PO SCH (21:00)
[2019-09-09 22:45] LABS: CREATININE 0.6 mg/dL (0.6-1.3)
[2019-09-09] MEDS: HYDROcodone/APAP 5/325 MG 1 TAB TAB PO PRN (23:19)
--- NOTE | 2019-09-09 23:19 | NUR ---
PT C/O 6/ HEADACHE, GIVEN NORCO MD ORDERED. PT TOLERATED WELL. WILL CONTINUE TO MONITOR.
[2019-09-09 23:37] LABS: ANION GAP 15.4 (8-16); POTASSIUM 4.4 mmol/L (3.5-5.1)
[2019-09-10] VITALS: BP 162/48
[2019-09-10] MEDS ORDERED: FUROSEMIDE 40 MG/4 ML VIAL IVP SCH ×2 (01:40→04:00)
--- NOTE | 2019-09-10 02:00 | NUR ---
DR. ZAMORA CALLED AND ORDERED STOP IVF, NS, LASIX 40MG IVP, 3% NS FOR 5HR, AND ROCHA CATHETER. TORB
--- NOTE | 2019-09-10 02:10 | NUR ---
STOP IV FLUID.
--- NOTE | 2019-09-10 02:30 | NUR ---
INSERTED ROCHA CATHETER, YELLOW URINE NOTED. PT TOLERATED WELL.
--- NOTE | 2019-09-10 03:00 | NUR ---
GIVEN LASIX MD ORDERED. PT TOLERATED WELL.
[2019-09-10] MEDS ORDERED: NACL 3% 500 ML IV ONE (03:30)
[2019-09-10 04:00] VITALS: BP 161/57
--- NOTE | 2019-09-10 04:00 | NUR ---
3% NS GIVEN MD ORDERED. VS CHECKED, WITHIN PT'S BASELINE. WILL CONTINUE TO MONITOR. BED IN LOW POSITION, CALL LIGHT WITHIN REACH.
--- NOTE | 2019-09-10 04:39 | NUR ---
PER RN. PT WAS TAKEN OFF CPAP AND NOW IS ON RA. PT APPEARS IN NO DISTRESS. WILL CONT TO MONITOR
--- NOTE | 2019-09-10 06:09 | NUR ---
PT SLEEPING IN BED. NO ACUTE DISTRESS NOTED.
--- NOTE | 2019-09-10 06:55 | NUR ---
PT IN STABLE CONDITION, WILL ENDORSE TO DAY SHIFT NURSE FOR CONTINUOUS CARE.
--- NOTE | 2019-09-10 07:15 | NUR ---
RECEIVED PT FROM ORNAMENTAL BRICK INSTALLER NURSE FOR CONTINUITY OF CARE. PT IN STABLE CONDITION. RESPIRATIONS EVEN AND UNLABORED. IV INTACT AND PATENT. SAFETY MEASURES IN PLACE. BED IN LOW POSITION. BED ALARM ON. CALL LIGHT AT BEDSIDE. WILL CONTINUE TO MONITOR.
[2019-09-10 07:23] LABS: BASOPHILS # (AUTO) 0.1 K/uL (0.00-0.22); BASOPHILS % (AUTO) 1.3 % (0.0-2.0); EOSINOPHILS # (AUTO) 0.4 K/uL (0-0.4); EOSINOPHILS % (AUTO) 8.8 % (0.0-4.0); HEMATOCRIT 31.7 % (36-48); HEMOGLOBIN 10.8 g/dL (12.0-16.0); LYMPHOCYTES # (AUTO) 0.8 K/uL (2.5-16.5); LYMPHOCYTES % (AUTO) 18.9 % (20.5-51.1); MEAN CORPUSCULAR HEMOGLOBIN 30 pg (27-31); MEAN CORPUSCULAR HGB CONC 34 g/dL (33-37); MEAN CORPUSCULAR VOLUME 88.5 fL (80-94); MONOCYTES # (AUTO) 0.3 K/uL (0.8-1.0); MONOCYTES % (AUTO) 6.9 % (1.7-9.3); NEUTROPHILS # (AUTO) 2.7 K/uL (1.8-7.7); NEUTROPHILS % (AUTO) 64.1 % (42.2-75.2); PLATELET COUNT (AUTO) 198 K/uL (140-450); RED BLOOD CELL COUNT(AUTO) 3.58 MIL/uL (4.20-5.40); WHITE BLOOD COUNT (AUTO) 4.1 K/uL (4.8-10.8)
[2019-09-10] MEDS: ALBUTEROL SULFATE/IPRATROPIU 3 ML SOL IH SCH ×3 (07:59→19:30)
[2019-09-10 08:00] VITALS: BP 125/50
[2019-09-10 08:07] LABS: MAGNESIUM 1.6 mg/dL (1.8-2.4); PHOSPHORUS 3.7 mg/dL (2.5-4.9)
[2019-09-10 08:31] LABS: ANION GAP 13.8 (8-16); CARBON DIOXIDE 25.4 mmol/L (21-32); POTASSIUM 4.2 mmol/L (3.5-5.1)
[2019-09-10 08:32] LABS: CREATININE 0.6 mg/dL (0.6-1.3)
[2019-09-10] MEDS: cloNIDine 0.1 MG TAB PO SCH ×2 (09:00→22:38)
[2019-09-10] MEDS: METOPROLOL 25 MG TAB PO SCH (09:00)
[2019-09-10] MEDS: amLODIPine 5 MG TAB PO SCH (09:00)
--- NOTE | 2019-09-10 09:10 | NUR ---
PATIENT HAS BEEN SCREENED AND CATEGORIZED MODERATE NUTRITION RISK. PATIENT WILL BE SEEN WITHIN 3-5 DAYS OF ADMISSION. 09/12/19 09/14/[address]
--- NOTE | 2019-09-10 09:30 | NUR ---
PT C/O UNABLE TO CATCH BREATH. SATURATION 95%. PERFORMED GUIDED BREATHING. SKIN COLOR NORMAL TO ETHNICITY. PT STABLE. PT BREATHING NORMAL AT THIS TIME RESP WILL CONTINUE TO MONITOR.
[2019-09-10 09:37] LABS: CHOL/HDL RATIO 2.6 (1-4.5)
--- NOTE | 2019-09-10 10:20 | NUR ---
AMANDA KENYON STAT LAB AT THIS TIME.
[2019-09-10] MEDS: FAMOTIDINE 20 MG TAB PO SCH ×2 (10:37→22:37)
[2019-09-10] MEDS: CHOLECALCIFEROL 1,000 IU TAB PO SCH (10:37)
[2019-09-10] MEDS: POLYVINYL ALCOHOL 1.4% OP 15 ML SOL OP SCH ×2 (10:37→22:35)
[2019-09-10] MEDS: MULTIVITAMIN 1 TAB PO SCH (10:38)
[2019-09-10] MEDS: APIXABAN 2.5 MG TAB PO SCH ×2 (11:00→22:36)
[2019-09-10 12:00] VITALS: BP 144/55
--- NOTE | 2019-09-10 12:00 | NUR ---
CHANGED AND CLEANED PT AT THIS TIME. PT TOLERATED WELL. RESPIRATIONS EVEN AND UNLABORED. BED IN LOW POSITION. BED ALARM ON. CALL LIGHT AT BEDSIDE. WILL CONTINUE TO MONITOR.
[2019-09-10] MEDS: HYDROcodone/APAP 5/325 MG 1 TAB TAB PO PRN ×2 (12:16→23:06)
[2019-09-10] MEDS ORDERED: MAG SULF 2000 MG/WATER PREMIX 50 ML IV SCH (13:00)
--- NOTE | 2019-09-10 14:10 | NUR ---
NEW IV PLACED AT THIS TIME. 22G RIGHT FOREARM. PT TOLERATED WELL.
--- NOTE | 2019-09-10 15:05 | NUR ---
DR. CARIDAD Haynes-MAXINE FOR SACRAL AREA.
[2019-09-10] MEDS ORDERED: [UNRECOGNIZED DRUG - OTHER] IV SCH (15:30)
[2019-09-10 16:00] VITALS: BP 153/54
[2019-09-10] MEDS ORDERED: Z-GUARD PASTE TP ONE (16:25)
[2019-09-10] MEDS ORDERED: Z-GUARD PASTE TP PRN (16:45)
[2019-09-10 17:20] LABS: ANION GAP 12.5 (8-16); CARBON DIOXIDE 26.3 mmol/L (21-32); CREATININE 0.6 mg/dL (0.6-1.3); POTASSIUM 3.8 mmol/L (3.5-5.1)
[2019-09-10] MEDS: SODIUM CHLORIDE 1 GM TAB PO SCH (17:20)
[2019-09-10] MEDS: LEVOFLOXACIN 750 MG/D5W PREMIX 150 ML IV SCH (17:21)
--- NOTE | 2019-09-10 17:46 | NUR ---
PT REQUESTING SOUP ONLY FOR DINNER. CALLED [facility] FOR SOUP ORDER. PT GIVEN CHICKEN NOODLE SOUP AND OFFERED A SECOND PT DECLINED. RESPIRATIONS EVEN AND UNLABORED. BED IN LOW POSITION. BED ALARM ON. CALL LIGHT AT BEDSIDE. WILL CONTINUE TO MONITOR.
--- NOTE | 2019-09-10 19:15 | NUR ---
GAVE REPORT TO SUPERVISOR SANDBLASTER NURSE FOR CONTINUITY OF CARE. PT IN STABLE CONDITION.
[2019-09-10 20:00] VITALS: BP 162/58
[2019-09-10] MEDS: SENNA 8.6 MG TAB PO SCH (22:37)
[2019-09-10] MEDS: ATORVASTATIN 20 MG TAB PO SCH (22:37)
--- NOTE | 2019-09-10 23:25 | NUR ---
PT PLACED ON CPAP OF 6 CM AT 25% FIO2. SAT 99%. WILL CONT TO MONITOR
[2019-09-11] MEDS ORDERED: NACL 3% 500 ML IV ONE (00:45)
[2019-09-11] MEDS ORDERED: NACL 3% 500 ML IV SCH (00:45)
--- NOTE | 2019-09-11 00:54 | NUR ---
hypertonic solution started.
--- NOTE | 2019-09-11 03:41 | NUR ---
PT REQUESTED TO BE OFF CPAP AT 3:30. PT IS NOW OFF CPAP AND REFUSED TO BE OFF OF IT FOR THE REST OF THE NIGHT. PT IS AWAKE AND ALERT. COURT DU NOTIFIED. WILL CONT TO MONITOR
--- NOTE | 2019-09-11 03:42 | NUR ---
PT IS NOW ON 2 LNC
[2019-09-11 04:00] VITALS: BP 145/70
[2019-09-11 06:04] LABS: BASOPHILS % (AUTO) 0.4 % (0.0-2.0); EOSINOPHILS # (AUTO) 0.4 K/uL (0-0.4); HEMATOCRIT 31.4 % (36-48); HEMOGLOBIN 10.3 g/dL (12.0-16.0); LYMPHOCYTES # (AUTO) 0.6 K/uL (2.5-16.5); LYMPHOCYTES % (AUTO) 12.7 % (20.5-51.1); MEAN CORPUSCULAR HEMOGLOBIN 29 pg (27-31); MEAN CORPUSCULAR HGB CONC 33 g/dL (33-37); MEAN CORPUSCULAR VOLUME 88.5 fL (80-94); MONOCYTES # (AUTO) 0.3 K/uL (0.8-1.0); MONOCYTES % (AUTO) 6.4 % (1.7-9.3); NEUTROPHILS # (AUTO) 3.7 K/uL (1.8-7.7); NEUTROPHILS % (AUTO) 73.5 % (42.2-75.2); PLATELET COUNT (AUTO) 195 K/uL (140-450); RED BLOOD CELL COUNT(AUTO) 3.55 MIL/uL (4.20-5.40); RED CELL DISTRIBUTION WIDTH 14.2 % (11.6-13.7)
[2019-09-11 06:28] LABS: ANION GAP 12.3 (8-16); CREATININE 0.6 mg/dL (0.6-1.3); POTASSIUM 4.3 mmol/L (3.5-5.1)
[2019-09-11 06:33] LABS: MAGNESIUM 1.9 mg/dL (1.8-2.4)
--- NOTE | 2019-09-11 07:12 | NUR ---
RECEIVED PATIENT FROM HARDWARE INSTALLATION COORDINATOR NURSEANA LAURA. PATIENT IS AAOX4. RESPIRATIONS EVEN AND UNLABORED, 3L O2 VIA NC. BREATHING TREATMENT SCHEDULED. PATIENT HAS NON-PRODUCTIVE COUGH. VISIBLE CHEST RISE NOTED. ON TELE MONITORING. ABDOMEN SOFT AND NONTENDER. BOWEL SOUNDS ACTIVE X4 QUADS. SKIN WARM AND DRY. PERINEAL RASH NOTED. IV IN THE RIGHT FOREARM G22, SALINE LOCK. PATENT AND INTACT. PATIENT IS BEDBOUND. PATIENT ON STANDARD PRECAUTION. BED IN LOW POSITION. CALL LIGHT IS WITHIN REACH. WILL CONTINUE TO MONITOR
[2019-09-11] MEDS: ALBUTEROL SULFATE/IPRATROPIU 3 ML SOL IH SCH ×3 (07:48→19:40)
[2019-09-11 08:00] VITALS: BP 107/50
[2019-09-11] MEDS: POLYVINYL ALCOHOL 1.4% OP 15 ML SOL OP SCH ×2 (08:49→21:16)
[2019-09-11] MEDS: SODIUM CHLORIDE 1 GM TAB PO SCH ×3 (08:50→17:17)
[2019-09-11] MEDS: CHOLECALCIFEROL 1,000 IU TAB PO SCH (08:50)
[2019-09-11] MEDS: FAMOTIDINE 20 MG TAB PO SCH ×2 (08:50→21:10)
[2019-09-11] MEDS: MULTIVITAMIN 1 TAB PO SCH (08:50)
--- NOTE | 2019-09-11 08:50 | NUR ---
GIVEN MORNING MEDICATIONS PO. EXPLAINED TO PATIENT INDICATIONS AND SIDE EFFECTS. PATIENT VERBALIZED UNDERSTANDING. HOLD BP MEDS: METOPROLOL, CLONIDINE, AND AMLODIPINE BECAUSE PT BP IS 107/51.. BED IN LOW POSITION. CALL LIGHT IS WITHIN REACH. WILL CONTINUE TO MONITOR
[2019-09-11] MEDS: APIXABAN 2.5 MG TAB PO SCH ×2 (08:57→21:15)
[2019-09-11] MEDS: cloNIDine 0.1 MG TAB PO SCH ×2 (09:00→21:12)
[2019-09-11] MEDS: METOPROLOL 25 MG TAB PO SCH (09:00)
[2019-09-11] MEDS: amLODIPine 5 MG TAB PO SCH (09:00)
--- NOTE | 2019-09-11 09:00 | NUR ---
GIVEN TYLENOL FOR 5/10 ALL OVER BODY PAIN. EXPLAINED TO PATIENT INDICATION. PATIENT VERBALIZED UNDERSTANDING. WILL CONTINUE TO MONITOR
[2019-09-11] MEDS: ACETAMINOPHEN 325 MG TAB PO PRN (09:03)
--- NOTE | 2019-09-11 10:23 | NUR ---
SON, IRINA HUMPHREY, AT BEDSIDE. PATIENT DENIES ANY PAIN. WILL CONTINUE TO MONITOR. ON 3L O2 VIA NC
[2019-09-11] MEDS ORDERED: Z-GUARD PASTE TP PRN (10:25)
[2019-09-11 12:00] VITALS: BP 127/53
--- NOTE | 2019-09-11 12:05 | NUR ---
PATIENT IS EATING LUNCH AT THIS TIME. NO SIGNS OF DISTRESS NOTED. WILL CONTINUE TO MONITOR
[2019-09-11] MEDS: HYDROcodone/APAP 5/325 MG 1 TAB TAB PO PRN ×2 (12:59→23:59)
--- NOTE | 2019-09-11 12:59 | NUR ---
GIVEN NORCO FOR PAIN 7/10 BODY ACHES. EXPLAINED TO PATIENT INDICATION. PATIENT VERBALIZED UNDERSTANDING. WILL REASSESS
--- NOTE | 2019-09-11 13:01 | NUR ---
APPLIED Z-GUARD IN THE PERINEAL AREA. APPLIED INTERDRY UNDER BREAST AND UNDER ABDOMINAL FOLDS.
[2019-09-11] MEDS: Z-GUARD PASTE TP SCH (13:04)
--- NOTE | 2019-09-11 13:05 | NUR ---
GIVEN SALT TABLET AND Z-GUARD IN THE PERINEAL AREA. EXPLAINED TO PATIENT INDICATIONS. PATIENT VERBALIZED UNDERSTANDING. BED IN LOW. HOB AT 45 DEGREES, CALL LIGHT IS WITHIN REACH. WILL CONTINUE TO MONITOR
--- NOTE | 2019-09-11 13:07 | NUR ---
Cryptographer Note: Basic Screen: Yes Name: DILLON VICTORIA Home Relationship: SON Pre-Admission Living Arrangements: SNF Prior ADL Needs Assistance Current Home Health Name/Tel: N/A Current DME/02 Name/Tel: [facility], [facility]CHA[employer] Current Hospice Name/Tel: N/A Current Dialysis Name/Tel: N/A Healthcare Decision Maker: Next of Kin Other: SON - DILLON VICTORIA Advance Directive No Physician Orders for Life Sustaining Treatment Form No Patient/Family Have Educational Needs No Discipline: Case Mgt/Social Svcs Tentative Discharge Plan/Destination: SNF/ECF Will require assistance post discharge: No Referred to Compliance Reviewer: No Tentative Discharge Plan Summary: Patient is a 69-year-old female admitted for hypnatremia and UTI. Patient has PMHX of COPD, pulmonary embolism, HTN, chronic kidney disease, and HLD. Patient was admitted from [facility]. SW contacted Bernadette from [facility] [phone]. Per Bernadette, patient is penitentiary and is on a bed hold. Bernadette reported that there is no advanced directive on file and that patient's healthcare decision maker is Dillon Victoria [phone]. Bernadette stated patient needs assistance with all ADLs and is non-ambulatory. Patient is alert/oriented at baseline. Tentative discharge plan is to return to [facility]. No further needs identified. Signature: KETTY Zimmerman Date: Sep 11, 2019 Time: 13:06
--- NOTE | 2019-09-11 13:20 | NUR ---
SCREEN FOR LOW CEE SCALE AT RISK, CONTINUE TO FOLLOW PRESSURE ULCER PREVENTION INTERVENTIONS. IAD TO RIGHT AND LEFT BUTTOCKS Z-GUARD ORDERED AND KEEP AREA DRY AND CLEAN -TURN AND REPOSITION PATIENT Q 2H -ASSESS AND MONITOR SKIN CONDITION DURING POSITION CHANGE -OFFLOAD BILATERAL HEELS BY PLACING PILLOWS UNDER CALVES AT ALL TIMES, UNLESS OTHERWISE CONTRAINDICATED -PRESSURE REDISTRIBUTION BY PLACING PILLOWS AND OFFLOADING SACRALCOCCYX -KEEP SKIN CLEAN AND DRY AT ALL TIMES. -APPLY Z GUARD TO BUTTOCKS AND PERINEUM AREA BID AND PRN IF SOILING
--- NOTE | 2019-09-11 13:26 | NUR ---
PATIENT IS GETTING BREATHING TREATMENT AT THIS TIME
--- NOTE | 2019-09-11 14:07 | NUR ---
PATIENT IS SLEEPING AT THIS TIME. NO SIGNS OF DISTRESS NOTED AT THIS TIME. ON 3L O2 VIA NC. WILL CONTINUE TO MONITOR.
[2019-09-11] MEDS: LEVOFLOXACIN 750 MG/D5W PREMIX 150 ML IV SCH (15:07)
--- NOTE | 2019-09-11 15:07 | NUR ---
GIVEN LEVAQUIN VIA IVPB. EXPLAINED TO PATIENT MED. PATIENT VERBALIZED UNDERSTANDING. WILL CONTINUE TO MONITOR. BED IN LOW. HOB 45 DEGREES. CALL LIGHT IS WITHIN REACH.
[2019-09-11 16:00] VITALS: BP 144/48
--- NOTE | 2019-09-11 17:17 | NUR ---
GIVEN SALT TAB. EXPLAINED TO PATIENT MEDICATION. PATIENT VERBALIZED UNDERSTANDING. BED IN LOW POSITION. CALL LIGHT WITHIN REACH. HOB 45 DEGREES
--- NOTE | 2019-09-11 18:31 | NUR ---
PATIENT IS EATING DINNER AT THIS TIME. NO SIGNS OF DISTRESS NOTED. BED IN LOW. CALL LIGHT IS WITHIN REACH. WILL CONTINUE TO MONITOR
--- NOTE | 2019-09-11 19:23 | NUR ---
ENDORSED PATIENT TO FOOD PRODUCTION WORKER NURSE. PATIENT IS IN STABLE CONDITION
--- NOTE | 2019-09-11 19:30 | NUR ---
RECEIVED BEDSIDE REPORT FROM AM SHIFT RN FOR PT'S CONTINUITY OF CARE. PT IS AAOX4, IS ON 3L O2 NC, ON CHILDREN COUNSELOR, HAS RIGHT FA 22G, WOUND BED IN THE HALLWAY, EXPLAINED TO PT THE ESTIMATE CLERK ROUTINE, PT VERBALIZED UNDERSTANDING. SAFETY MEASURES IN PLACE, PT MADE COMFORTABLE. WILL MONITOR PT THROUGHOUT SHIFT.
--- NOTE | 2019-09-11 19:49 | NUR ---
RECEIVED PT ON 2L NC WITH SP02 OF 97% AND WHEEZE BREATH SOUNDS. NO RESPIRATORY DISTRESS NOTED AT THIS TIME; HR 90, RR 20. HHN TX GIVEN ORDERED WITH NO ADVERSE REACTION. WILL CONTINUE TO MONITOR PT
[2019-09-11 20:00] VITALS: BP 147/48
[2019-09-11] MEDS: SENNA 8.6 MG TAB PO SCH (21:10)
[2019-09-11] MEDS: ATORVASTATIN 20 MG TAB PO SCH (21:11)
--- NOTE | 2019-09-11 21:15 | NUR ---
ADMINISTERED SCHEDULED MEDICATIONS ORDERED. PT TOLERATED THEM WELL. WILL TRANSFER PT TO THE WOUND BED SOON HELP ARE AVAILABLE.
--- NOTE | 2019-09-11 22:30 | NUR ---
TRANSFERRED PT TO THE OTHER BED, PT TOLERATED IT POORLY. MADE PT COMFORTABLE. IV ON RIGHT FA INFILTRATED. WILL START NEW IV LINE.
--- NOTE | 2019-09-11 23:00 | NUR ---
NEW IV LINE STARTED ON LEFT FA 22G. SALINE LOCK AT THIS TIME. PT TOLERATED IT WELL. MADE PT COMFORTABLE. PT'S NEEDS MET AT THIS TIME.
--- NOTE | 2019-09-11 23:59 | NUR ---
VS CHECKED AND CHARTED. PT C/O GEN PAIN, ADMINISTERED PRN PO PAIN MEDICATION ORDERED. PT TOLERATED IT WELL. PT ON CPAP HS. WILL CONTINUE TO MONITOR PT.
[2019-09-12] VITALS: BP 153/57
[2019-09-12] MEDS: Z-GUARD PASTE TP SCH ×2 (01:30→12:03)
--- NOTE | 2019-09-12 02:08 | NUR ---
PT LYING DOWN ASLEEP WITH NO SIGNS OF DISTRESS. WILL CONTINUE TO MONITOR PT.
[2019-09-12 04:00] VITALS: BP 157/73
--- NOTE | 2019-09-12 04:30 | NUR ---
PT LYING DOWN ASLEEP WITH CPAP ON, WITH NO SIGNS OF DISTRESS. WILL CONTINUE TO MONITOR PT.
--- NOTE | 2019-09-12 05:30 | NUR ---
PT'S LINENS CHANGED. PT TOLERATED IT WELL. PT REQUESTED FOR CPAP TO BE OFF. PT BACK ON 3L O2 VIA NC. PT MADE COMFORTABLE.
--- NOTE | 2019-09-12 06:09 | NUR ---
PT COMFORTABLE AT THIS TIME, WITH NO SIGNS OF DISTRESS. WILL ENDORSE TO AM SHIFT RN FOR PT'S CONTINUITY OF CARE.
[2019-09-12] MEDS: ALBUTEROL SULFATE/IPRATROPIU 3 ML SOL IH SCH ×3 (06:37→19:43)
--- NOTE | 2019-09-12 07:25 | NUR ---
RECEIVED REPORT FROM TISSUE SPECIALIST NURSE. PATIENT SITTING DOWN IN BED WATCHING TV. NO DISTRESS NOTED. DENIES ANY PAIN. AAOX3, CALM, COOPERATIVE, SKIN COLOR APPROPRIATE TO ETHNICITY, WARM TO TOUCH. SKIN COLOR APPROPRIATE TO ETHNICITY, WARM TO TOUCH. HAS PERIANAL RED RASHES, ZGAURD APPLIED BY NIGHT RN. RESPIRATIONS EVEN, UNLABORED, ON O2 3L/MIN VIA NC. IV SITE INTACT, PATENT, AND ON SALINE LOCK. ABDOMEN SOFT, MORBIDLY OBESE. REVIEWED PLAN OF CARE WITH PATIENT. PATIENT VERBALIZED UNDERSTANDING. SAFETY MEASURES IN PLACE, CALL LIGHT WITHIN REACH. WILL CONTINUE TO MONITOR.
[2019-09-12 08:00] VITALS: BP 154/66
[2019-09-12 08:11] LABS: BASOPHILS % (AUTO) 0.4 % (0.0-2.0); EOSINOPHILS # (AUTO) 0.9 K/uL (0-0.4); EOSINOPHILS % (AUTO) 12.2 % (0.0-4.0); HEMATOCRIT 31.5 % (36-48); HEMOGLOBIN 10.4 g/dL (12.0-16.0); LYMPHOCYTES # (AUTO) 0.8 K/uL (2.5-16.5); LYMPHOCYTES % (AUTO) 11.2 % (20.5-51.1); MEAN CORPUSCULAR HEMOGLOBIN 30 pg (27-31); MEAN CORPUSCULAR HGB CONC 33 g/dL (33-37); MEAN CORPUSCULAR VOLUME 89.9 fL (80-94); MONOCYTES # (AUTO) 0.4 K/uL (0.8-1.0); MONOCYTES % (AUTO) 5.8 % (1.7-9.3); NEUTROPHILS # (AUTO) 5.2 K/uL (1.8-7.7); NEUTROPHILS % (AUTO) 70.4 % (42.2-75.2); PLATELET COUNT (AUTO) 203 K/uL (140-450); RED BLOOD CELL COUNT(AUTO) 3.51 MIL/uL (4.20-5.40); RED CELL DISTRIBUTION WIDTH 14.3 % (11.6-13.7); WHITE BLOOD COUNT (AUTO) 7.4 K/uL (4.8-10.8)
[2019-09-12] MEDS: cloNIDine 0.1 MG TAB PO SCH ×2 (09:19→20:44)
[2019-09-12] MEDS: POLYVINYL ALCOHOL 1.4% OP 15 ML SOL OP SCH ×2 (09:19→20:46)
[2019-09-12] MEDS: FAMOTIDINE 20 MG TAB PO SCH ×2 (09:19→20:45)
[2019-09-12] MEDS: METOPROLOL 25 MG TAB PO SCH (09:20)
[2019-09-12] MEDS: CHOLECALCIFEROL 1,000 IU TAB PO SCH (09:20)
[2019-09-12] MEDS: amLODIPine 5 MG TAB PO SCH (09:20)
[2019-09-12] MEDS: LACTOBACILLUS RHAMNOSUS GG 1 EACH CAP PO SCH (09:20)
[2019-09-12] MEDS: MULTIVITAMIN 1 TAB PO SCH (09:20)
[2019-09-12] MEDS: SODIUM CHLORIDE 1 GM TAB PO SCH ×3 (09:21→16:58)
[2019-09-12] MEDS: APIXABAN 2.5 MG TAB PO SCH ×2 (09:21→20:48)
[2019-09-12 09:26] LABS: ANION GAP 14.3 (8-16); CARBON DIOXIDE 24.2 mmol/L (21-32); CREATININE 0.6 mg/dL (0.6-1.3); POTASSIUM 4.5 mmol/L (3.5-5.1)
--- NOTE | 2019-09-12 09:27 | NUR ---
PATIENT SITTING DOWN IN BED WATCHING TV. NO DISTRESS NOTED. DENIES ANY PAIN. SCHEDULED MEDICATIONS DUE GIVEN. WILL CONTINUE TO MONITOR.
[2019-09-12] MEDS: ACETAMINOPHEN 325 MG TAB PO PRN (09:39)
--- NOTE | 2019-09-12 09:40 | NUR ---
PATIENT REFUSED BED BATH AND REPOSITIONING AT THIS TIME. SAYS SHE WANTS TO SLEEP AND WILL DO IT LATER. WILL CHECK FOLLOW-UP LATER.
--- NOTE | 2019-09-12 09:41 | NUR ---
PATIENT COMPLAINS OF MILD GENERALIZED PAIN, TYLENOL GIVEN AT THIS TIME. WILL CONTINUE TO MONITOR.
--- NOTE | 2019-09-12 11:26 | NUR ---
ASKED PATIENT AGAIN FOR A BEDBATH AND REPOSITIONING, HOWEVER, PATIENT CONTINUES TO REFUSE AT THIS TIME. SAYS SHE IS STILL PRAYING AND WANTS TO GET MORE SLEEP. WILL TRY AGAIN LATER.
[2019-09-12 12:00] VITALS: BP 109/55
[2019-09-12 16:00] VITALS: BP 147/52
[2019-09-12] MEDS: LEVOFLOXACIN 750 MG/D5W PREMIX 150 ML IV SCH (16:53)
[2019-09-12] MEDS: guaiFENesin 20 MG/ML UDC PO PRN (16:58)
--- NOTE | 2019-09-12 17:06 | NUR ---
PATIENT OLD IV SITE INFILTRATED. REMOVED IV SITE WITH MINIMAL BLOOD AND LUMEN COMPLETELY INTACT. NEW IV LINE STARTED ON RIGHT UPPER CHEST ON SECOND ATTEMPT. PATIENT TOLERATED WELL. SCHEDULED MEDICATIONS DUE GIVEN. WILL CONTINUE TO MONITOR.
--- NOTE | 2019-09-12 19:19 | NUR ---
GAVE REPORT TO MACHINING ASSOCIATE NURSE FOR CONTINUITY OF CARE. PATIENT IN STABLE CONDITION.
--- NOTE | 2019-09-12 19:20 | NUR ---
RECEIVED PATIENT IN STABLE CONDITION FROM AM SHIFT NURSE FOR CONTINUITY OF CARE. RESPIRATIONS EVEN, UNLABORED. SKIN WARM, DRY TO TOUCH. IV SITE 24G TO RIGHT UPPER CHEST CLEAN/DRY/PATENT, INFUSING WELL. NO S/SX ACUTE DISTRESS NOTED. CALL LIGHT WITHIN REACH. WILL CONTINUE TO MONITOR.
--- NOTE | 2019-09-12 19:49 | NUR ---
RECEIVED PT ON 2L NC WITH SP02 OF 98% AND EXP. WHEEZING BREATH SOUNDS. NO RESPIRATORY DISTRESS NOTED AT THIS TIME; HR 73, RR 20. HHN TX GIVEN ORDERED WITH NO ADVERSE REACTION. WILL CONTINUE TO MONITOR PT
[2019-09-12 20:00] VITALS: BP 145/55
[2019-09-12] MEDS: ATORVASTATIN 20 MG TAB PO SCH (20:44)
[2019-09-12] MEDS: SENNA 8.6 MG TAB PO SCH (20:45)
[2019-09-12] MEDS: HYDROcodone/APAP 5/325 MG 1 TAB TAB PO PRN (20:51)
--- NOTE | 2019-09-12 20:51 | NUR ---
PATIENT C/O 3/10 ACHING PAIN. MEDICATED ORDERED. REPOSITIONED FOR COMFORT. CALL LIGHT WITHIN REACH. WILL CONTINUE TO MONITOR.
--- NOTE | 2019-09-12 21:51 | NUR ---
PATIENT ASLEEP. NO C/O PAIN. IN STABLE CONDITION. NO S/SX ACUTE DISTRESS. CALL LIGHT WITHIN REACH. WILL CONTINUE TO MONITOR.
--- NOTE | 2019-09-12 22:00 | NUR ---
REPOSITIONED FOR COMFORT AFTER PT WAS CLEANED AND KEPT DRY. NO BM NOTED. ROCHA CATHETER IN PLACED.
--- NOTE | 2019-09-12 23:33 | NUR ---
PT CALLED AND SAID SHE IS READY FOR THE CPAP. CALL RT AIXA AND CAME.
[2019-09-13] VITALS: BP 105/70
[2019-09-13] MEDS: Z-GUARD PASTE TP SCH ×2 (01:40→13:37)
--- NOTE | 2019-09-13 01:44 | NUR ---
CPAP IN PLACE. PATIENT ASLEEP. NO S/SX ACUTE DISTRESS. CALL LIGHT WITHIN REACH. WILL CONTINUE TO MONITOR.
[2019-09-13] MEDS: guaiFENesin 20 MG/ML UDC PO PRN ×2 (03:41→10:04)
--- NOTE | 2019-09-13 03:41 | NUR ---
PATIENT C/O COUGH. MEDICATED ORDERED. CALL LIGHT WITHIN REACH. WILL CONTINUE TO MONITOR.
[2019-09-13 04:00] VITALS: BP 143/58
--- NOTE | 2019-09-13 04:30 | NUR ---
PT REQUESTED TO OFF FROM CPAP TO 2L NC WITH SP02 OF 99% AT THIS TIME. NO RESPIRATORY DISTRESS NOTED AT THIS TIME WILL CONTINUE TO MONITOR PT.
--- NOTE | 2019-09-13 04:30 | NUR ---
PT WANTS TO BE OUT OF THE C PAP. RT CAME AND PUT HER BACK TO O2 3 L NC WITH HUMIDIFIER.
--- NOTE | 2019-09-13 04:32 | NUR ---
AWAKE AND IN STABLE CONDITION. PATIENT VERBALIZED RELIEF FROM COUGH AT THIS TIME. NO S/SX ACUTE DISTRESS. NO C/O PAIN. CALL LIGHT WITHIN REACH. WILL CONTINUE TO MONITOR.
--- NOTE | 2019-09-13 06:34 | NUR ---
PATIENT CONTINUES IN STABLE CONDITION. NO C/O PAIN. NO S/SX ACUTE DISTRESS. ALL NEEDS ATTENDED TO. CALL LIGHT WITHIN REACH. WILL CONTINUE TO MONITOR.
--- NOTE | 2019-09-13 06:42 | NUR ---
CALLED LAB TO FOLLOW UP RESULT OF URINE OSMOLALITY AND URINE NA,RANDOM . THEY WILL CHECK ON IT,
[2019-09-13] MEDS: ALBUTEROL SULFATE/IPRATROPIU 3 ML SOL IH SCH ×2 (06:44→13:31)
--- NOTE | 2019-09-13 07:18 | NUR ---
ENDORSED PATIENT TO AM SHIFT IN STABLE CONDITION FOR CONTINUITY OF CARE.
[2019-09-13 07:29] LABS: BASOPHILS % (AUTO) 0.4 % (0.0-2.0); HEMATOCRIT 30.9 % (36-48); HEMOGLOBIN 10.2 g/dL (12.0-16.0); LYMPHOCYTES # (AUTO) 0.8 K/uL (2.5-16.5); MEAN CORPUSCULAR HEMOGLOBIN 30 pg (27-31); MEAN CORPUSCULAR HGB CONC 33 g/dL (33-37); MEAN CORPUSCULAR VOLUME 89.3 fL (80-94); MONOCYTES # (AUTO) 0.3 K/uL (0.8-1.0); MONOCYTES % (AUTO) 5.4 % (1.7-9.3); NEUTROPHILS # (AUTO) 3.8 K/uL (1.8-7.7); PLATELET COUNT (AUTO) 178 K/uL (140-450); RED BLOOD CELL COUNT(AUTO) 3.46 MIL/uL (4.20-5.40); RED CELL DISTRIBUTION WIDTH 14.2 % (11.6-13.7); WHITE BLOOD COUNT (AUTO) 5.9 K/uL (4.8-10.8)
--- NOTE | 2019-09-13 07:33 | NUR ---
SHIFT REPORT RECEIVED FROM VOLUNTEER PATIENT REPRESENTATIVE NURSE .PT IS IN BED. AWAKE AND ALERT AND RESPONDING. NO COMPLAINS OF PAIN AT THIS TIME. CALL LIGHT IN REACH.
[2019-09-13 07:47] LABS: ANION GAP 9.8 (8-16); CARBON DIOXIDE 29.3 mmol/L (21-32); CREATININE 0.5 mg/dL (0.6-1.3); POTASSIUM 5.1 mmol/L (3.5-5.1)
[2019-09-13 07:51] LABS: MAGNESIUM 1.6 mg/dL (1.8-2.4); PHOSPHORUS 3.9 mg/dL (2.5-4.9)
[2019-09-13 07:56] LABS: LYMPHOCYTES % (AUTO) 12.8 % (20.5-51.1); NEUTROPHILS % (AUTO) 64.4 % (42.2-75.2)
[2019-09-13 08:00] VITALS: BP 152/86
[2019-09-13] MEDS: LACTOBACILLUS RHAMNOSUS GG 1 EACH CAP PO SCH (08:40)
[2019-09-13] MEDS: ACETAMINOPHEN 325 MG TAB PO PRN (08:40)
[2019-09-13] MEDS: CHOLECALCIFEROL 1,000 IU TAB PO SCH (08:41)
[2019-09-13] MEDS: cloNIDine 0.1 MG TAB PO SCH (08:41)
[2019-09-13] MEDS: FAMOTIDINE 20 MG TAB PO SCH (08:41)
[2019-09-13] MEDS: amLODIPine 5 MG TAB PO SCH (08:41)
[2019-09-13] MEDS: SODIUM CHLORIDE 1 GM TAB PO SCH ×2 (08:42→13:36)
[2019-09-13] MEDS: MULTIVITAMIN 1 TAB PO SCH (08:42)
[2019-09-13] MEDS: POLYVINYL ALCOHOL 1.4% OP 15 ML SOL OP SCH (08:43)
[2019-09-13] MEDS: METOPROLOL 25 MG TAB PO SCH (08:43)
[2019-09-13] MEDS: APIXABAN 2.5 MG TAB PO SCH (08:45)
--- NOTE | 2019-09-13 09:30 | NUR ---
PT IS IN BED IN STABLE CONDITION. NO DISTRESS NOTED. CALL LIGHT IN REACH.
--- NOTE | 2019-09-13 11:30 | NUR ---
PT IS IN BED IN STABLE CONDITION. NO DISTRESS NOTED. FAMILY BY BEDSIDE. CALL LIGHT IN REACH.
[2019-09-13 12:00] VITALS: BP 149/50
[2019-09-13] MEDS ORDERED: LEVO750T2 PO (12:16)
[2019-09-13] MEDS ORDERED: ASCO1CAP75 PO (12:19)
[2019-09-13] MEDS ORDERED: MAG SULF 2000 MG/WATER PREMIX 50 ML IV SCH (12:30)
--- NOTE | 2019-09-13 14:41 | NUR ---
CALLED [facility], PER EVA CHARGE NURSE, PT'S ROOM 9-A WILL BE AVAILABLE AFTER 3:30 PM TODAY. SET UP TRANSPORTATION THRU [facility], PER WAITY, THEY NEED [facility] FOR BARIATRIC TRANSPORT. CALLED ORAL CALDWELL CM MANAGER PET TEL# [phone], NO ANSWER, VOICEMAIL MESSAGE LEFT. AWAITING FOR CALL BACK. AMILCAR-COURT ASSIGNED MADE AWARE.
--- NOTE | 2019-09-13 15:00 | NUR ---
PT IS IN BED IN STABLE CONDITION. NO DISTRESS NOTED. CALL LIGHT IN REACH.
[2019-09-13 16:00] VITALS: BP 141/60
--- NOTE | 2019-09-13 16:30 | NUR ---
ORAL ASSISTANT PROFESSOR OF ECONOMICS IT APPLICATION ADMINISTRATOR FROM [facility] CALLED BACK FOR TRANSPORTATION AUTH [id number]. CALLED [facility] FOR BLS TRANSPORT ([facility]), ETA FOR PICK WILL AFTER 5 PM PER TE FROM [facility]. AMILCAR-COURT ASSIGNED MADE AWARE.
--- NOTE | 2019-09-13 17:10 | NUR ---
PCS FORM FAXED TO [facility], CONFIRMATION ATTACHED TO PT'S CHART.
--- NOTE | 2019-09-13 17:30 | NUR ---
PT WAS DISCHARGED TODAY. [facility] CALLED AND REPORT GIVEN TO COURT KASPER. PT WILL BE IN ROOM 9A UNDER DR MCLEAN. DISCHARGE INSTRUCTIONS GIVEN TO PATIENT.PATIENT SIGNED DISCHARGE INSTRUCTIONS. IV LINE REMOVED. NO ACTIVE BLEEDING NOTED. PATIENTS PERINEAL AREA NOTED WITH REDNESS. Z GUARD APPLIED. SKIN IS IN TACT. NO COMPLAINS OF PAIN. PT WAS STABLE AT DISCHARGE. PT WAS TRANSPORTED TO [facility] BY [facility] VIA [facility] ON O2 3L NC.
== END 2019-09-13 17:30 | DRG 644 ==
LOC: MED 11:10 → MTU 14:07
PROVIDERS: ADMIT Family Medicine; ATTEND Family Medicine
PROC: 5A09357 Assistance with Respiratory Ventilation, Less than 24 Consecutive Hours, Continuous Positive Airway Pressure (ICD-10-PCS; principal; 2019-09-09)
PROC: 5A09357 Assistance with Respiratory Ventilation, Less than 24 Consecutive Hours, Continuous Positive Airway Pressure (ICD-10-PCS; 2019-09-10)
PROC: 5A09357 Assistance with Respiratory Ventilation, Less than 24 Consecutive Hours, Continuous Positive Airway Pressure (ICD-10-PCS; 2019-09-11)
PROC: 5A09357 Assistance with Respiratory Ventilation, Less than 24 Consecutive Hours, Continuous Positive Airway Pressure (ICD-10-PCS; 2019-09-12)
PROC: 5A09357 Assistance with Respiratory Ventilation, Less than 24 Consecutive Hours, Continuous Positive Airway Pressure (ICD-10-PCS; 2019-09-13)
DX: E22.2 Syndrome of inappropriate secretion of antidiuretic hormone (principal); J98.11 Atelectasis; N39.0 Urinary tract infection, site not specified; E44.0 Moderate protein-calorie malnutrition; Z68.42 Body mass index [BMI] 45.0-49.9, adult; I13.0 Hypertensive heart and chronic kidney disease with heart failure and stage 1 through stage 4 chronic kidney disease, or unspecified chronic kidney disease; E66.01 Morbid (severe) obesity due to excess calories; J44.9 Chronic obstructive pulmonary disease, unspecified; D64.9 Anemia, unspecified; E78.5 Hyperlipidemia, unspecified; K21.9 Gastro-esophageal reflux disease without esophagitis; M06.9 Rheumatoid arthritis, unspecified; N18.9 Chronic kidney disease, unspecified; I50.9 Heart failure, unspecified; G47.33 Obstructive sleep apnea (adult) (pediatric); E83.42 Hypomagnesemia; K59.00 Constipation, unspecified; Z86.711 Personal history of pulmonary embolism; Z88.0 Allergy status to penicillin; Z88.2 Allergy status to sulfonamides; Z91.013 Allergy to seafood; Z79.01 Long term (current) use of anticoagulants; Z79.899 Other long term (current) drug therapy; I25.2 Old myocardial infarction; Z90.49 Acquired absence of other specified parts of digestive tract; Z83.3 Family history of diabetes mellitus; Z82.49 Family history of ischemic heart disease and other diseases of the circulatory system
CPT/HCPCS: 36415; 71045; 80048; 80053; 81001; 82150; 82550; 83036; 83605; 83690; 83735; 83880; 84100; 84295; 84436; 84443; 84484; 85025; 85610; 85730; 87040; 87081; 87086; 87186; 87804; 94640; 94660; 96360; 96366; 99285; C9399; J1940; J1956; J3475; J3490; J7030; J7620; Q0092

== ENCOUNTER 2019-12-11 21:11 | Inpatient (IN) | payer OTHER, SELFPAY ==
[~2019-12-11] VITALS: Ht 154.9 cm; Wt 139.3 kg
[~2019-12-11 21:11] MED LIST changes: +ASCO1CAP75 PO; +CALC500C17 PO; +LEVO750T2 PO; +SENN-73 PO
[2019-12-11 21:14] VITALS: BP 149/78
--- NOTE | 2019-12-11 21:14 | NUR ---
PT BIBA TO BED 10.
[2019-12-11 21:15] VITALS: BP 119/62
--- NOTE | 2019-12-11 21:15 | NUR ---
DR. LAZO AT BEDSIDE.
--- NOTE | 2019-12-11 21:15 | NUR ---
RT AT BEDSIDE.
[2019-12-11 21:22] VITALS: BP 119/62
[2019-12-11] MEDS ORDERED: IPRATROPIUM 0.02% 0.5 MG/2.5 ML NEBU INH ONE (21:25)
[2019-12-11] MEDS ORDERED: methylPREDNISolone SS 125 MG/2 ML VIAL IVP ONE (21:25)
[2019-12-11] MEDS ORDERED: ALBUTEROL 0.083% 2.5 MG/3 ML NEBU INH ONE ×2 (21:25→22:05)
--- NOTE | 2019-12-11 22:54 | NUR ---
69 YO FEMALE BIBA FOR CO OF SOB. PT HAS HX OF COPD. LUNG SOUNDS ARE DIMINISHED BILATERAL THROUGHOUT.
--- NOTE | 2019-12-11 22:57 | NUR ---
AT BEDSIDE DOING US IV INSERTION
--- NOTE | 2019-12-11 22:58 | NUR ---
UA OBTAINED VIA IN AND OUT CATH
[2019-12-11] MEDS ORDERED: FUROSEMIDE 20 MG/2 ML VIAL IVP ONE (23:15)
[2019-12-11 23:34] LABS: BASOPHILS # (AUTO) 0.1 K/uL (0.00-0.22); EOSINOPHILS # (AUTO) 0.5 K/uL (0-0.4); EOSINOPHILS % (AUTO) 7.6 % (0.0-4.0); HEMATOCRIT 30.4 % (36-48); HEMOGLOBIN 9.7 g/dL (12.0-16.0); LYMPHOCYTES # (AUTO) 0.9 K/uL (2.5-16.5); LYMPHOCYTES % (AUTO) 12.4 % (20.5-51.1); MEAN CORPUSCULAR HEMOGLOBIN 28 pg (27-31); MEAN CORPUSCULAR HGB CONC 32 g/dL (33-37); MEAN CORPUSCULAR VOLUME 87.9 fL (80-94); MONOCYTES # (AUTO) 0.3 K/uL (0.8-1.0); NEUTROPHILS # (AUTO) 5.3 K/uL (1.8-7.7); PLATELET COUNT (AUTO) 228 K/uL (140-450); RED BLOOD CELL COUNT(AUTO) 3.46 MIL/uL (4.20-5.40); RED CELL DISTRIBUTION WIDTH 17.3 % (11.6-13.7); WHITE BLOOD COUNT (AUTO) 7.1 K/uL (4.8-10.8)
[2019-12-11 23:35] LABS: APPEARANCE,URINE HAZY (CLEAR); BILIRUBIN,URINE NEGATIVE (NEGATIVE); BLOOD, URINE 3+ (NEGATIVE); COLOR,URINE DARK YELLOW (YELLOW); LEUKOCYTE ESTERASE ,URINE 2+ (NEGATIVE); NITRITE, URINE POSITIVE (NEGATIVE); UGLUCOSE NEGATIVE (NEGATIVE)
[2019-12-11 23:49] LABS: ALBUMIN 2.9 g/dL (3.4-5.0); ANION GAP 6.8 (8-16); CARBON DIOXIDE 32.8 mmol/L (21-32); CREATININE 0.6 mg/dL (0.6-1.3); POTASSIUM 4.6 mmol/L (3.5-5.1); TOTAL BILIRUBIN 0.3 mg/dL (0.0-1.0)
[2019-12-11 23:49] LABS: RBC,URINE 20-50 /HPF (0-5); WBC,URINE 60-80 /HPF (0-5)
[2019-12-12] VITALS (7 sets, daily range): BP systolic 110–152; BP diastolic 45–75
[2019-12-12 00:09] LABS: PROTHROMBIN TIME 10.6 secs (10.8-13.4)
[2019-12-12] MEDS ORDERED: CEFEPIME 1,000 MG in DEXTROSE 5% 50 ML IV ONE (00:15)
--- NOTE | 2019-12-12 00:18 | NUR ---
PT SLEEPING IN BED. EASILY AROUSEABLE. VSS. BOTH SIDE RAILS UP FOR SAFETY. WILL CONTINUE TO MONITOR.
[2019-12-12] MEDS: NACL 0.9% 1,000 ML IV SCH (01:09)
[2019-12-12] MEDS ORDERED: HYDROcodone/APAP 5/325 MG 1 TAB TAB PO PRN (01:10)
[2019-12-12] MEDS ORDERED: ONDANSETRON 4 MG/2 ML VIAL IM/IVP PRN (01:10)
[2019-12-12] MEDS ORDERED: DOCUSATE SODIUM 100 MG GELCAP PO PRN (01:10)
[2019-12-12] MEDS ORDERED: AZITHROMYCIN 500 MG in DEXTROSE 5% 250 ML IV SCH (01:10)
[2019-12-12] MEDS ORDERED: ALBUTEROL HFA MDI 90 MCG/ACTUATION 8 GM INH PRN (01:10)
[2019-12-12] MEDS ORDERED: MORPHINE SULFATE 2 MG/ML SYR IVP PRN (01:10)
[2019-12-12] MEDS ORDERED: CEFEPIME 1,000 MG VIAL ONE (01:23)
--- NOTE | 2019-12-12 02:00 | NUR ---
RECEIVED PT. FROM ER PER MARVIN AWAKE AND ALERT. ABLE TO VERBALIZE NEEDS WELL IN ICELANDIC. ROM X 4. MORBIDLY OBESE FEMALE. DX. OF RESPIRATORY FAILURE CHF, COPD AND UTI. PRESENTLY ON BIPAP. HX. OF SACRAL WOUND AND PER PT. IT IS NOW FRESH SCAB. REFUSED FOR NOW TO BE PHOTOGRAPHED. "I AM TIRED" WILL TAKE PICTURE IN A.M. CHARGE NURSE AWARE. IVF SITE TO [facility]#20 . R/O COVID 19 AT THIS TIME. RESPIRATORY THERAPIST IN HERE TO ATTEND TO PT. ORIENTED TO CALL LIGHT USE FOR ANY HELP SHE MAY NEED AND USE OF CALL LIGHT . PT. A/O X 4. CLEAR SPEECH. TELEMETRY MONITORING. NSR IN MONITOR. AFEBRILE.
[2019-12-12] MEDS ORDERED: HYDR-5122 PO (02:02)
[2019-12-12 02:03] LABS: MAGNESIUM 1.9 mg/dL (1.8-2.4); THYROID STIMULATING HORMONE 4.5 uIU/mL (0.34-3.74)
--- NOTE | 2019-12-12 02:20 | NUR ---
Patient will be admitted to care of dr foss. Admited to [facility]. Will go to room 117. Belongings list completed. Report to joseph hendricks.
[2019-12-12] MEDS ORDERED: AZITHROMYCIN 500 MG INJ VIAL IV ONE (02:24)
--- NOTE | 2019-12-12 02:59 | NUR ---
0230 TRANSFERRED PATIENT ON BIPAP TO ROOM 117 FROM ER. POX PLACED ON PATIENT
[2019-12-12] MEDS ORDERED: CALCIUM CARBONATE 500 MG TAB.CHEW PO PRN (03:00)
[2019-12-12] MEDS ORDERED: SENNA 8.6 MG TAB PO PRN (03:00)
--- NOTE | 2019-12-12 04:00 | NUR ---
RESIDENT MD BARRETO IN HERE TO INTERVIEW PT. NOTED PT. REFUSES TO ANSWER MOST OF TIMES. PREFERS TO SLEEP. "TIRED AND SLEEPY" CALL LIGHT WITH IN REACH.
--- NOTE | 2019-12-12 06:48 | NUR ---
PT. AM HYGIEN DONE. REFUSED TO HAVE ROCHA CATHETER ADVICED BY RESIDENT MD FOR HER COMFORT. STATED"NO, I ONLY URINATE A LITTLE." EXPLAINED THAT SHE IS ON LASIX A DIURETIC MEDICATION. STILL REFUSED. RESIDENT MD AWARE OF IT. PT. AT THIS TIME WANTS TO TAKE OUT BIPAP. ENCOURAGED TO WAIT A LITTLE WHILE BECAUSE I WILL CALL RESPIRATORY THERAPIST AND INFORM THEM ABOUT IT. CALLED RT UNIT AND INFORM RT RE: PT'S WANTING 02 PER NC.
--- NOTE | 2019-12-12 06:52 | NUR ---
PT.'S CALLED AND ASKING ABOUT . INFORMED HIM ABOUT HOW SHE WANTS TO BE ON 02 PER N/C . NO COMPLAINTS. PT. AT THIS TIME AWAKE AND WATCHING TV. NO FURTHER COMPLAINTS. WILL ENDORSE TO AM RN FOR CONTINUITY OF CARE.
--- NOTE | 2019-12-12 07:15 | NUR ---
RECEIVED PT. FROM BINDER STRIPPER MACHINE NURSEBREANA. PT. IS AWAKE AND IN BED. PT. IS ON BIPAP MACHINE WITH O2 STAT OF 97%. IV ON THE RIGHT ARM WITH NS RUNNING AT 20ML/HR. NO SIGNS OF DISTRESS NOTED. FALL PRECAUTIONS INITIATED. REVIEWED PLAN OF CARE. PT. VERBALIZES NO PAIN. CALL LIGHT WITHIN REACH. WILL CONTINUE TO MONITOR.
[2019-12-12 07:16] LABS: BASOPHILS # (AUTO) 0.1 K/uL (0.00-0.22); BASOPHILS % (AUTO) 1.5 % (0.0-2.0); EOSINOPHILS % (AUTO) 0.1 % (0.0-4.0); HEMATOCRIT 30.7 % (36-48); HEMOGLOBIN 9.8 g/dL (12.0-16.0); LYMPHOCYTES # (AUTO) 0.2 K/uL (2.5-16.5); LYMPHOCYTES % (AUTO) 2.8 % (20.5-51.1); MEAN CORPUSCULAR HEMOGLOBIN 28 pg (27-31); MEAN CORPUSCULAR HGB CONC 32 g/dL (33-37); MEAN CORPUSCULAR VOLUME 88.4 fL (80-94); MONOCYTES # (AUTO) 0.1 K/uL (0.8-1.0); MONOCYTES % (AUTO) 1.1 % (1.7-9.3); NEUTROPHILS # (AUTO) 6.5 K/uL (1.8-7.7); NEUTROPHILS % (AUTO) 94.5 % (42.2-75.2); PLATELET COUNT (AUTO) 245 K/uL (140-450); RED BLOOD CELL COUNT(AUTO) 3.47 MIL/uL (4.20-5.40); WHITE BLOOD COUNT (AUTO) 6.9 K/uL (4.8-10.8)
[2019-12-12 07:35] LABS: CHOL/HDL RATIO 2.3 (1-4.5)
[2019-12-12 07:44] LABS: ANION GAP 8.9 (8-16); CREATININE 0.6 mg/dL (0.6-1.3); POTASSIUM 4.9 mmol/L (3.5-5.1)
--- NOTE | 2019-12-12 07:52 | NUR ---
RECV'D PT AT 0600. PT REQU TO BE REMOVED FROM BIPAP WHILE AWAKE. PLACED PT ON 4L NC AT 0735 SAT 94%. NO RESPIRATORY DISTRESS NOTED. ADVISED PT IF SHE WANTS TO FALL ASLEEP TO NOTIFY NURSE TO CALL TO BE PLACED BACK ON BIPAP DURING SLEEP. MDI PRN NOT INDICATED.
--- NOTE | 2019-12-12 08:00 | NUR ---
PT. REMOVED FROM BIPAP MACHINE AND IS ON O2 3L/MIN VIA NC. SIGNS OF LABORED BREATHING AND USE OF ACCESSORY MUSCLE IS SEEN BUT PT. DOES NOT COMPLAIN OF SOB. O2 STAT OF 93%. WILL CONTINUE TO MONITOR.
[2019-12-12] MEDS ORDERED: ENOXAPARIN 40 MG/0.4 ML SYR SUBQ SCH (09:00)
[2019-12-12] MEDS ORDERED: FUROSEMIDE 20 MG/2 ML VIAL IVP SCH ×2 (09:00→13:00)
[2019-12-12] MEDS: cloNIDine 0.1 MG TAB PO SCH ×2 (09:17→20:37)
[2019-12-12] MEDS: POLYVINYL ALCOHOL 1.4% OP 15 ML SOL BOTH EYES SCH ×2 (09:17→21:02)
[2019-12-12] MEDS: METOPROLOL 25 MG TAB PO SCH (09:18)
[2019-12-12] MEDS: FAMOTIDINE 20 MG TAB PO SCH ×2 (09:18→20:31)
[2019-12-12] MEDS: amLODIPine 5 MG TAB PO SCH (09:18)
[2019-12-12] MEDS: ZINC SULF 220 MG CAP PO SCH (09:19)
[2019-12-12] MEDS: CHOLECALCIFEROL 1,000 IU TAB PO SCH (09:19)
[2019-12-12] MEDS: MULTIVITAMIN 1 TAB PO SCH (09:19)
[2019-12-12] MEDS: ASCORBIC ACID 500 MG TAB PO SCH (09:19)
[2019-12-12] MEDS: APIXABAN 2.5 MG TAB PO SCH ×2 (09:20→20:29)
--- NOTE | 2019-12-12 09:20 | NUR ---
V/S TAKEN WITH BP 142/45, HR 75, RR 20, O2 STAT OF 97% AND VERBALIZES NO PAIN. MORNING MEDICATIONS GIVEN. NO SIGNS OF DISTRESS NOTED. WILL CONTINUE TO MONITOR.
--- NOTE | 2019-12-12 13:00 | NUR ---
MEDICATIONS GIVEN. BP 148/73, HR 75. NO SIGNS OF DISTRESS NOTED. PT. IS TURNED. WILL CONTINUE TO MONITOR.
--- NOTE | 2019-12-12 14:16 | NUR ---
DISCHARGE PLANNING: THIS IS A 69 Y/O FEMALE PATIENT FROM [facility] WHO WAS BROUGHT IN DUE TO WORSENING SOB. PAST MEDICAL HISTORY INCLUDE KIDNEY CA, HLD, CHF, COPD AND HTN. INITIAL DIAGNOSIS OF ACUTE HYPERCAPNIC RESP FAILURE, CHF. CURRENT LABS INCLUDE WBC 6.9, H/H 9.8/30.7, NA/K 128/4.9, BUN/CREA 13/0.6, C REACTIVE PROTEIN 6.0. BLOOD, URINE CS PENDING. ON ROCEPHIN. CXR SHOWED MODERATE PULMONARY EDEMA WITH CARDIOMEGALY SUGGESTING CHF. CARDIO, PULMO, NEPHRO AND ID CONSULTS IN PLACE. DC PLAN PENDING ON PATIENT'S RESPONSE TO TREATMENT.
[2019-12-12] MEDS ORDERED: FUROSEMIDE 100 MG/10 ML VIAL IV STA (16:57)
--- NOTE | 2019-12-12 17:00 | NUR ---
PT. IS CLEANED AND OPEN WOUND CLEANED AND ADVANCED MANUFACTURING VICE PRESIDENT. INSERTED ROCHA CATHETER 16F, NO SIGNS OF DISTRESS NOTED. WILL CONTINUE TO MONITOR
[2019-12-12] MEDS ORDERED: FUROSEMIDE 100 MG/10 ML VIAL ONE (17:36)
--- NOTE | 2019-12-12 17:45 | NUR ---
ADMINISTED AFTERNOON MEDICATIONS. BP 150/75, HR 86. NO SIGNS OF DISTRESS NOTED. WILL CONTINUE TO MONITOR.
--- NOTE | 2019-12-12 19:30 | NUR ---
ENDORSED PT. TO RPG DEVELOPER NURSE FOR CONTINUITY OF CARE
--- NOTE | 2019-12-12 19:35 | NUR ---
RECEIVED FROM AM RN IN BED SLEEPING AT THIS TIME WITH 02 AT 3LPM/NC. ROCHA CATHETER IN PLACE AND DRAINING WELL WITH YELLOW URINE. CALL LIGHT WITH IN REACH. WILL CONTINUE CARE FOR HARP MAKER. ABLE TO VERBALIZE NEEDS WELL IN BHUTANESE. NO RESTLESSNESS NOTED .
[2019-12-12] MEDS: ATORVASTATIN 20 MG TAB PO SCH (20:30)
[2019-12-12] MEDS: SENNA 8.6 MG TAB PO SCH (20:31)
[2019-12-12] MEDS: FUROSEMIDE 20 MG/2 ML VIAL IVP SCH (20:36)
--- NOTE | 2019-12-12 22:30 | NUR ---
PT. IS WATCHING TV. NO COMPLAINTS. ABLE TO USE CALL LIGHT FOR HELP. STATED SHE FEELS BETTER NOW. ROCHA CATHETER DRAINING WELL WITH YELLOW CLEAR URINE. NS AT 20 ML/H. IVF SITE INTACT AND NO INFILTRATION.
[2019-12-13] VITALS: BP 135/64
--- NOTE | 2019-12-13 | NUR ---
ON BIPAP. SLEEPING NOW. NO RESTLESSNESS NOTED.
[2019-12-13] MEDS: NACL 0.9% 1,000 ML IV SCH (01:09)
--- NOTE | 2019-12-13 02:00 | NUR ---
AWAKE AND REQUESTED TO TAKE OFF BIPAP AND CHANGE IT TO 02 PER N/C. PLACED ON 3 LPM/NC BY RESPIRATORY THERAPIST. NO FURTHER COMPLAINTS DONE.
--- NOTE | 2019-12-13 03:22 | NUR ---
SLEPT WELL. NO COMPLAINTS DONE.
[2019-12-13 04:00] VITALS: BP 136/56
[2019-12-13] MEDS ORDERED: methylPREDNISolone SS 125 MG/2 ML VIAL IVP SCH (05:00)
[2019-12-13] MEDS: FUROSEMIDE 20 MG/2 ML VIAL IVP SCH (05:00)
--- NOTE | 2019-12-13 05:00 | NUR ---
CHECKED ON PT. SITTING ON TOP OF BED WATCHING TV. NO RESTLESSNESS NOTED. CALL LIGHT WITH IN REACH AND ABLE TO USE IT FOR HELP .
[2019-12-13] MEDS ORDERED: FUROSEMIDE 40 MG/4 ML VIAL IVP ONE (06:09)
[2019-12-13] MEDS: ACETAMINOPHEN 325 MG TAB PO PRN (06:24)
--- NOTE | 2019-12-13 06:25 | NUR ---
PT. REQUESTED FOR TYLENOL RT "GENERALIZED PAIN" . PT. ABLE TO VERBALIZE WELL WITH ME . QUARRY EQUIPMENT OPERATOR INHERE TO COLLECT BLOOD SPECIMEN. STILL COUGHING INTERMITTENTLY. AFEBRILE.
--- NOTE | 2019-12-13 07:00 | NUR ---
RECEIVED PT. FROM PRODUCE SHIPPER NURSEBREANA. PT. IS AWAKE AND IN BED. PT. IS ON BIPAP MACHINE WITH O2 STAT OF 97%. IV ON THE RIGHT ARM WITH NS RUNNING AT 20ML/HR. NO SIGNS OF DISTRESS NOTED. PT. IS ABLE TO VERBALIZE NEEDS, AAOX4. FALL PRECAUTIONS AND WOUND PRECAUTION IN PLACE. REVIEWED PLAN OF CARE. PT. VERBALIZES NO PAIN. CALL LIGHT WITHIN REACH. WILL CONTINUE TO MONITOR.
--- NOTE | 2019-12-13 07:13 | NUR ---
ENDORSED TO AM RN FOR CONTINUITY OF CARE. AWAKE AND ALERT.
[2019-12-13 07:32] LABS: ALBUMIN 2.8 g/dL (3.4-5.0); CREATININE 0.6 mg/dL (0.6-1.3); TOTAL BILIRUBIN 0.3 mg/dL (0.0-1.0)
[2019-12-13 07:35] LABS: BASOPHILS % (AUTO) 0.2 % (0.0-2.0); EOSINOPHILS % (AUTO) 0.1 % (0.0-4.0); HEMATOCRIT 29.3 % (36-48); HEMOGLOBIN 9.4 g/dL (12.0-16.0); LYMPHOCYTES # (AUTO) 0.6 K/uL (2.5-16.5); MEAN CORPUSCULAR HEMOGLOBIN 28 pg (27-31); MEAN CORPUSCULAR HGB CONC 32 g/dL (33-37); MONOCYTES # (AUTO) 0.4 K/uL (0.8-1.0); MONOCYTES % (AUTO) 6.1 % (1.7-9.3); NEUTROPHILS # (AUTO) 6.1 K/uL (1.8-7.7); NEUTROPHILS % (AUTO) 85.6 % (42.2-75.2); PLATELET COUNT (AUTO) 249 K/uL (140-450); RED BLOOD CELL COUNT(AUTO) 3.37 MIL/uL (4.20-5.40); RED CELL DISTRIBUTION WIDTH 16.8 % (11.6-13.7); WHITE BLOOD COUNT (AUTO) 7.2 K/uL (4.8-10.8)
[2019-12-13 08:00] VITALS: BP 133/65
--- NOTE | 2019-12-13 09:16 | NUR ---
RECEIVED CALL FROM LAB ABOUT CRITICAL LABS OF POSITIVE OF MRSA OF THE NARES. REPORTED TO DR. AGUSTINA MD WILL PLACE ORDERS. WILL CONTINUE TO MONITOR.
[2019-12-13] MEDS ORDERED: Z-GUARD PASTE TP ONE (10:24)
--- NOTE | 2019-12-13 10:30 | NUR ---
MORNING MEDICATIONS GIVEN. NO SIGNS OF DISTRESS NOTED. BP 133/65, HR 73, O2 STAT OF 95%, TEMP 97.4F, RR 22 AND PT. VERBALIZES NO PAIN. PT. IS CLEANED AND CHANGED. OPEN WOUND OF RIGHT BUTTOCK CLEANED AND REINFORCED WITH OPTIFOAM DRESSING. WILL CONTINUE TO MONITOR.
[2019-12-13] MEDS: POLYVINYL ALCOHOL 1.4% OP 15 ML SOL BOTH EYES SCH ×2 (11:17→21:46)
[2019-12-13] MEDS: cloNIDine 0.1 MG TAB PO SCH ×2 (11:18→21:42)
[2019-12-13] MEDS: METOPROLOL 25 MG TAB PO SCH (11:18)
[2019-12-13] MEDS: amLODIPine 5 MG TAB PO SCH (11:18)
[2019-12-13] MEDS: ASCORBIC ACID 500 MG TAB PO SCH (11:19)
[2019-12-13] MEDS: FAMOTIDINE 20 MG TAB PO SCH ×2 (11:19→21:39)
[2019-12-13] MEDS: CHOLECALCIFEROL 1,000 IU TAB PO SCH (11:19)
[2019-12-13] MEDS: ZINC SULF 220 MG CAP PO SCH (11:19)
[2019-12-13] MEDS: MULTIVITAMIN 1 TAB PO SCH (11:19)
[2019-12-13] MEDS: MUPIROCIN CA NASAL 2% 1GM TUBE NS SCH (11:20)
[2019-12-13] MEDS: CHLORHEXADINE GLUC 2% CLOTH TP SCH (11:20)
[2019-12-13] MEDS: APIXABAN 2.5 MG TAB PO SCH ×2 (11:24→21:46)
[2019-12-13 12:00] VITALS: BP 134/72
--- NOTE | 2019-12-13 12:00 | NUR ---
V/S TAKEN WITH BP 134/72, HR 76, O2 STAT OF 97%, RR OF 22, TEMP 97.7, AND COMPLAINS OF NO PAIN. LUNCH TRAY HANDED OUT. WILL CONTINUE TO MONITOR.
--- NOTE | 2019-12-13 13:31 | NUR ---
RECEIVED CALL FROM LAB, PT. TEST FOR COVID-19 IS NEGATIVE. REPORTED TO DR. BERRIOS AND NO NEW ORDERS OBTAINED. WILL REMOVE DROPLET PRECAUTION AND INITIATE CONTACT PRECAUTION FOR POSITIVE OF MRSA OF NARES. WILL CONTINUE TO MONITOR.
--- NOTE | 2019-12-13 14:50 | NUR ---
AFTERNOON MEDICATIONS GIVEN. BP 136/76, HR 85. NO SIGNS OF DISTRESS NOTED. PT. IS CHANGED AND TURNED. WILL CONTINUE TO MONITOR.
[2019-12-13] MEDS: FUROSEMIDE 40 MG/4 ML VIAL IVP SCH (15:09)
[2019-12-13 16:00] VITALS: BP 112/65
--- NOTE | 2019-12-13 19:00 | NUR ---
ENDORSED PT. TO APPOINTMENT SETTER NURSE FOR CONTINUITY OF CARE.
--- NOTE | 2019-12-13 19:01 | NUR ---
RECEIVED BEDSIDE SHIFT REPORT FROM DAYSHIFT NURSE FOR CONTINUITY OF CARE. PATIENT AWAKE IN BED NO SIGNS OF DISTRESS NOTED. TELE MONITOR ATTACHED CALL LIGHT WITHIN REACH SAFETY MEASURES IN PLACE
[2019-12-13 20:00] VITALS: BP 133/59
[2019-12-13] MEDS: NYSTATIN POW 100 MU/GM 15 GM BTL TP SCH (21:00)
[2019-12-13] MEDS: SENNA 8.6 MG TAB PO SCH (21:45)
[2019-12-13] MEDS: ATORVASTATIN 20 MG TAB PO SCH (21:45)
--- NOTE | 2019-12-13 21:46 | NUR ---
ADMINISTERED 2100 MEDICATIONS. PT TOLERATED WELL. NO SIGNS OF DISTRESS NOTED. TELE MONITOR ATTACHED CALL LIGHT WITHIN REACH
--- NOTE | 2019-12-13 23:12 | NUR ---
CATAPRESS REASSESSED. BP: 134/59 PULSE RATE 66. NO SIGNS OF DISTRESS NOTED. PATIENT AWAKE IN BED. TELE MONITOR ATTACHED
--- NOTE | 2019-12-13 23:40 | NUR ---
PT REQUESTED TO HAVE RT CONTACTED TO PLACE BIPAP. RT NOTIFIED OF PATIENTS REQUEST
[2019-12-14] VITALS: BP 135/61
--- NOTE | 2019-12-14 02:20 | NUR ---
ROUNDING. PT RESTING IN BED NO SIGNS OF DISTRESS NOTED. SPO2 AT 98% WITH BIPAP ATTACHED
[2019-12-14 04:00] VITALS: BP 153/69
--- NOTE | 2019-12-14 04:15 | NUR ---
OBTAINED 0400 VITALS AND OBTAINED PICTURE OF WOUND. PT TOLERATED WELL NO SIGNS OF DISTRESS NOTED
[2019-12-14] MEDS ORDERED: methylPREDNISolone SS 40 MG/ML VIAL IVP SCH (05:00)
--- NOTE | 2019-12-14 07:14 | NUR ---
ENDORSED PATIENT TO DAYSHIFT NURSE AT BEDSIDE FOR CONTINUITY OF CARE. NO SIGNS OF DISTRESS NOTED. PT IN STABLE CONDITION WITH MONITORS ATTACHED AND CALL LIGHT WITHIN REACH
--- NOTE | 2019-12-14 07:15 | NUR ---
RECEIVED PATIENT FROM TOWER SWITCH OPERATOR NURSE FOR CONTINUITY OF CARE. PATIENT IS AAOX4. GUYANESE SPEAKING. NO SIGNS OF DISTRESS NOTED. RESPIRATIONS EVEN AND UNLABORED, 3L O2 VIA NC. VISIBLE CHEST RISE NOTED. ON TELE MONITORING. ABDOMEN SOFT AND NONTENDER. SKIN WARM AND DRY. RIGHT BUTTOCK WOUND WITH DRESSING THAT IS INTACT AND NO DRAINAGE. IV SITE RIGHT ARM GAUGE 20, RUNNING NS AT 20 ML/HR. IV IS FLUSHING WELL. NO SIGNS OF INFILTRATION. PATIENT IS BEDBOUND. ROCHA CATHETER IN PLACE. CLEAR, YELLOW URINE NOTED. FALL PRECAUTION IN PLACE. ON A STRICT I&O WITH 1.5L FLUID RESTRICTION. CONTACT ISOLATION FOR MRSA NARES. BED IN LOW POSITION. CALL LIGHT IS WITHIN REACH. WILL CONTINUE TO MONITOR.
[2019-12-14 07:22] LABS: BASOPHILS % (AUTO) 0.4 % (0.0-2.0); EOSINOPHILS # (AUTO) 0.4 K/uL (0-0.4); EOSINOPHILS % (AUTO) 5.2 % (0.0-4.0); HEMATOCRIT 30.9 % (36-48); HEMOGLOBIN 9.7 g/dL (12.0-16.0); LYMPHOCYTES # (AUTO) 0.9 K/uL (2.5-16.5); MEAN CORPUSCULAR HEMOGLOBIN 28 pg (27-31); MEAN CORPUSCULAR HGB CONC 32 g/dL (33-37); MEAN CORPUSCULAR VOLUME 88.2 fL (80-94); MONOCYTES # (AUTO) 0.3 K/uL (0.8-1.0); MONOCYTES % (AUTO) 4.4 % (1.7-9.3); NEUTROPHILS # (AUTO) 5.5 K/uL (1.8-7.7); PLATELET COUNT (AUTO) 236 K/uL (140-450); RED CELL DISTRIBUTION WIDTH 16.9 % (11.6-13.7); WHITE BLOOD COUNT (AUTO) 7.1 K/uL (4.8-10.8)
[2019-12-14 07:52] LABS: CREATININE 0.7 mg/dL (0.6-1.3); POTASSIUM 3.5 mmol/L (3.5-5.1)
[2019-12-14 08:00] VITALS: BP 151/71
[2019-12-14 08:05] LABS: ANION GAP 6.3 (8-16); CARBON DIOXIDE 41.2 mmol/L (21-32)
[2019-12-14] MEDS: ZINC SULF 220 MG CAP PO SCH (08:34)
[2019-12-14] MEDS: MULTIVITAMIN 1 TAB PO SCH (08:34)
[2019-12-14] MEDS: FAMOTIDINE 20 MG TAB PO SCH ×2 (08:34→20:36)
[2019-12-14] MEDS: CHOLECALCIFEROL 1,000 IU TAB PO SCH (08:34)
[2019-12-14] MEDS: FUROSEMIDE 40 MG/4 ML VIAL IVP SCH ×2 (08:34→13:32)
[2019-12-14] MEDS: ASCORBIC ACID 500 MG TAB PO SCH (08:35)
[2019-12-14] MEDS: METOPROLOL 25 MG TAB PO SCH (08:35)
[2019-12-14] MEDS: amLODIPine 5 MG TAB PO SCH (08:35)
[2019-12-14] MEDS: cloNIDine 0.1 MG TAB PO SCH ×2 (08:36→20:39)
[2019-12-14] MEDS: POLYVINYL ALCOHOL 1.4% OP 15 ML SOL BOTH EYES SCH ×2 (08:37→20:36)
[2019-12-14] MEDS: APIXABAN 2.5 MG TAB PO SCH ×2 (08:37→20:44)
[2019-12-14] MEDS: NYSTATIN POW 100 MU/GM 15 GM BTL TP SCH ×2 (08:41→21:00)
[2019-12-14] MEDS: ACETAMINOPHEN 325 MG TAB PO PRN ×2 (08:49→21:45)
[2019-12-14] MEDS: Z-GUARD PASTE TP SCH (09:05)
--- NOTE | 2019-12-14 09:05 | NUR ---
GIVEN MORNING MEDICATIONS PO. LASIX IVP. EXPLAINED MEDICATIONS. PATIENT VERBALIZED UNDERSTANDING. BED IN LOW POSITION. WILL CONTINUE TO MONITOR.
[2019-12-14] MEDS: CHLORHEXADINE GLUC 2% CLOTH TP SCH (10:18)
[2019-12-14] MEDS: MUPIROCIN CA NASAL 2% 1GM TUBE NS SCH (10:49)
--- NOTE | 2019-12-14 10:49 | NUR ---
HANG ROCEPHIN VIA IVPB. GIVEN BACTROBAN IN BOTH NARES. EXPLAINED MEDICATIONS. PATIENT VERBALIZED UNDERSTANDING. BED IN LOW POSITION. CALL LIGHT IS WITHIN REACH. WILL CONTINUE TO MONITOR.
[2019-12-14] MEDS ORDERED: ALBUTEROL SULFATE/IPRATROPIU 3 ML SOL IH ONE ×2 (11:23→19:48)
--- NOTE | 2019-12-14 11:24 | NUR ---
DC PLANNING: SEEN BY PULMO DR SNOW RECOMMENDED NO NEED FOR STEROID SUSPICION FOR COVID IS VERY LOW , DAY TIME O2 VIA NC AND AT NIGHT BIPAP , BRONCHODILATOR AND PT. ID DR MONTES CONTINUE IV ABX ROCEPHIN , NEPHRO DR PATEL RECOMMENDED ,FLUID RESTRICTION ROCHA CATH IN PLACE FOR STRICT I&O AND INTERNATIONAL LOGISTICS MANAGER DR BONNY Yates CONTINUE LASIX IV AND CARDIAC MEDS FOR CHF. DC PLAN TO GO BACK TO [facility] WHEN STABLE. Addendum: 12/15/19 at 1150 by Lisa Soto CM RECEIVED A DC ORDER BACK TO [facility] FOR IV ANTIBIOTICS FOR 5 DAYS. [facility]. CONTACTED [facility] AT [phone], REQUESTED TO BE TRANSFERRED TO [facility]. SHE STATED THEY WILL REVIEW AND WILL GIVE ME A CALL BACK. CONTACTED PATIENT'S SON IRINA RAMIREZ AT [phone], ABLE TO SPEAK TO HIS DOMI. REQUESTED TO SPEAK TO IRINA HUMPHREY, SHE STATED HE IS IN A CLASS RIGHT NOW AND SHE STATED SHE WILL CHECK IF HE IS AVAILABLE. SPOKE TO IRINA HUMPHREY. DISCUSSED DC PLAN AND IS IN AGREEMENT. HE REQUESTED THAT HIS DOMI WILL BE ADDED TO THE PATIENT'S CONTACT INFO. REEMA HIGH SCHOOL BUSINESS TEACHER MADE AWARE, UPDATED CONTACT INFO. Addendum: 12/15/19 at 1208 by Lisa Soto LEANNA LIZARRAGA [facility] CONFIRMED THAT SHE RECEIVED THE CLINICALS AND WILL CALL ME FOR THE ROOM NUMBER. Addendum: 12/15/19 at 1216 by Lisa Soto CM RECEIVED A CALL FROM [facility], PATIENT WILL GO TO ROOM 1B UNDER DR. MCLEAN. AND SHE ALSO STATED THAT THEY WILL PAY FOR TRANSPORT. PRIMARY RN MADE AWARE. Addendum: 12/15/19 at 1323 by Lisa Soto CM CONTACTED ANANT OF [employer] AT [phone], PHONE SCREENER WILL BE AT 1400. MADE HIM AWARE THAT LIZAIR DURANNATALIE IS PAYING FOR THE TRANSPORT. HE QUOTED ME FOR $260, MARLIN [facility] MADE AWARE AND IS OK WITH IT. PRIMARY RN AND DR. BERRIOS MADE AWARE OF PHONE SCREENER TIME. CONTACTED PATIENT'S SON IRINA RAMIREZ REGARDING PHONE SCREENER TIME. IMM LETTER DISCUSSED WITH HIM WELL. HE STATED HE THAT IT HAS BEEN DISCUSSED WITH HIM SO MANY TIMES AND HE IS AWARE AND NO QUESTIONS AT THIS TIME. Addendum: 12/15/19 at 1334 by Lisa Soto CM RECEIVED A CALL FROM ALEJANDRO OF [facility] REGARDING TRANSPORT AUTH. INFORMED HER THAT [facility] IS PAYING FOR THE TRANSPORT.
--- NOTE | 2019-12-14 11:34 | NUR ---
WOUND CARE NURSE AT BEDSIDE. CHANGED WOUND DRESSING. APPLIED Z-GUARD TO GROIN AND BUTTOCK AREA. PATIENT TOLERATED WELL. BED IN LOW POSITION. CALL LIGHT IS WITHIN REACH. WILL CONTINUE TO MONITOR.
--- NOTE | 2019-12-14 11:57 | NUR ---
WOUND CARE EVALUATION NOTES: REASON FOR EVALUATION: RIGHT BUTTOCK OPEN WOUND SKIN ASSESSMENT DONE WITH PRIMARY RN ON THIS 68 Y/O FEMALE PATIENT FROM SNF TO [facility], WITH INITIAL DIAGNOSIS OF SOB. PAST MEDICAL HISTORY INCLUDE HX OF PRESSURE ULCER, COPD, ASTHMA, HTN, HLD, GERD, POST-POLIO SYNDROME AND MORBID OBESITY. ALL ABOVE INFORMATION WAS OBTAINED FROM THE ADMISSION H&P. PATIENT IS AAX4 WITH [place] TO RIGHT EAR, SKIN WARM MOIST TO TOUCH, THICKENED TOENAILS, BLE TRACE EDEMA, NO HAIR GROWTH AND BILATERAL PEDAL PULSES PRESENT. INCONTINENT OF BOWEL , F/C PATENT WITH MODERATE AMOUNT OF EDWARD COLOR URINE OUTPUT. PLAN OF CARE AND PRESSURE PREVENTIVE MEASURES DISCUSSED WITH PT AND PRIMARY NURSE. PT. VERBALIZES UNDERSTANDING. CLARIFICATION: RIGHT BUTTOCK PRESSURE ULCER INJURY STAGE 2 FROM FRICTION AND MOISTURE. COMORBIDITIES RELATED TO SKIN BREAKS: -MORBID OBESITY, LIMITED OF MOBILITY, CHRONIC INCONTINENCY, HOB ELEVATED THE MAJORITY OF DAY FOR MEDICAL CONDITION. INTEGUMENTARY: -RIGHT BUTTOCK PRESSURE ULCER INJURY STAGE 2, PARTIAL THICKNESS SKIN LOSS 1X1X0.1 CM, WOUND BED IS 100% GRANULATING TISSUE, MOIST, SERGIO-WOUND SKIN 4X3CM DRY AND FLAKY/PEELING -R/L HEELS THIN CALLUSES RECOMMENDATIONS: -NO TAPE TO SKIN PER PT. -CLEANSE RIGHT BUTTOCK WITH NS, PAT DRY, APPLY Z-GUARD BID WC AND COVER WITH FORM DRESSING -TURN AND REPOSITION PATIENT Q2H -ASSESS AND MONITOR SKIN CONDITION DURING POSITION CHANGE, PLEASE PAY ATTENTION TO RIGHT BUTTOCKS, OFF LOADING WITH PILLOWS -OFFLOAD BILATERAL HEELS BY PLACING PILLOWS UNDER CALVES AT ALL TIMES, UNLESS OTHERWISE CONTRAINDICATED -PRESSURE REDISTRIBUTION SURFACE THERAPY -PLEASE FOLLOW RD RECOMMENDATIONS RECOMMENDATIONS DISCUSSED WITH PRIMARY RN WILL FOLLOW UP PATIENT Q 7 -10 DAYS AND PRN. PLEASE CONTACT WOUND CARE NURSE FOR ANY QUESTION OR CHANGES IN WOUND CONDITION
[2019-12-14 12:00] VITALS: BP 125/67
--- NOTE | 2019-12-14 12:56 | NUR ---
PATIENT IS EATING LUNCH AT THIS TIME. NO SIGNS OF DISTRESS NOTED. BED IN LOW POSITION. CALL LIGHT IS WITHIN REACH. WILL CONTINUE TO MONITOR
--- NOTE | 2019-12-14 13:32 | NUR ---
GIVEN LASIX VIA IVP. EXPLAINED MEDICATION. PATIENT VERBALIZED UNDERSTANDING. BED IN LOW POSITION. CALL LIGHT IS WITHIN REACH. WILL CONTINUE TO MONITOR.
--- NOTE | 2019-12-14 15:02 | NUR ---
PATIENT IS SLEEPING WHILE SITTING UP. ON 3L O2 VIA NC. NO SIGNS OF DISTRESS NOTED. BED IN LOW POSITION. CALL LIGHT IS WITHIN REACH. WILL CONTINUE TO MONITOR.
[2019-12-14 16:00] VITALS: BP 136/73
--- NOTE | 2019-12-14 16:16 | NUR ---
12/14/19 RD INITIAL ASSESSMENT COMPLETED PLEASE REFER TO NUTRITION ASSESSMENT UNDER CARE ACTIVITY FOR ESTIMATED NUTRITIONAL NEEDS. 1. RD RECOMMENDED MECHANICAL SOFT CCHO 60GM AND CARDIAC DIET TOLERATED 2. RECOMMEND ENSURE MAX ONCE/DAY 3. CONTINUE FLUID RESTRICTION OF 1.5 L/DAY 4. PROVIDE NUTRITION EDUCATION ON CARDIAC DIET DURING FOLLOW UP VISIT. 5. CONTINUE VITAMIN C, ZINC AND MULTIVITAMIN FOR WOUND HEALING 6. RD TO FOLLOW-UP 3-5 DAYS, MODERATE RISK DON UHERTA RD
--- NOTE | 2019-12-14 17:05 | NUR ---
TRANSFERRED TO A WOUND BED PER RECOMMENDATION OF [facility] WOUND CARE NURSE. PATIENT TOLERATED WELL.
--- NOTE | 2019-12-14 17:44 | NUR ---
PATIENT IS EATING DINNER AT THIS TIME. NO SIGNS OF DISTRESS NOTED. BED IN LOW POSITION. CALL LIGHT IS WITHIN REACH. WILL CONTINUE TO MONITOR.
--- NOTE | 2019-12-14 19:09 | NUR ---
ENDORSED PATIENT TO THE MIX TECHNICIAN NURSE FOR CONTINUITY OF CARE. PATIENT IS IN STABLE CONDITION.
--- NOTE | 2019-12-14 19:10 | NUR ---
RECEIVED PATIENT FROM DAY SHIFT NURSEPRINCESS FOR CONTINUITY OF CARE. PATIENT IS AAOX4. AMERICAN SPEAKING. NO SIGNS OF DISTRESS NOTED. RESPIRATIONS EVEN AND UNLABORED, 3L O2 VIA NC. VISIBLE CHEST RISE NOTED. ON TELE MONITORING. SKIN WARM AND DRY. RIGHT BUTTOCK WOUND WITH DRESSING THAT IS INTACT AND NO DRAINAGE. PT ON ROCHA CATHETER DRAINING YELLOW CLEAN URINE. IV SITE RFA, 20G, PATENT, INTACT, AND ASYMPTOMATIC. PATIENT IS BEDBOUND. FALL PRECAUTION IN PLACE. ON A STRICT I&O WITH 1.5L FLUID RESTRICTION. CONTACT ISOLATION FOR MRSA NARES HX. BED IN LOW POSITION. CALL LIGHT IS WITHIN REACH. WILL CONTINUE TO MONITOR.
[2019-12-14] MEDS ORDERED: ALBUTEROL SULFATE/IPRATROPIU 3 ML SOL IH PRN (19:50)
--- NOTE | 2019-12-14 19:57 | NUR ---
received patient having shortness of breath. patients stomach retracting. got order from dr tipton for hhntx. patient improved post hhntx
[2019-12-14 20:00] VITALS: BP 133/50
[2019-12-14] MEDS: acetaZOLAMIDE 250 MG TAB PO SCH (20:35)
[2019-12-14] MEDS: ATORVASTATIN 20 MG TAB PO SCH (20:35)
[2019-12-14] MEDS: SENNA 8.6 MG TAB PO SCH (20:36)
--- NOTE | 2019-12-14 20:45 | NUR ---
GIVEN ARTIFICIAL TEAR, CLONIDINE, DIAMOX, ELIQUIS, LIPITOR, PEPCID, AND SENNA. PT TOLERATED WELL. NOT ABLE TO APPLY MYCOSTATIN D/T MED NOT AVAILABLE.
--- NOTE | 2019-12-14 21:45 | NUR ---
PT C/O HEADACHE, GIVEN TYLENOL MD ORDERED. PT TOLERATED WELL.
--- NOTE | 2019-12-14 21:49 | NUR ---
GIVEN ARTIFICIAL TEAR, CLONIDINE, DIAMOX, ELIQUIS, LIPITOR, PEPCID, AND SENNA. PT TOLERATED WELL. NOT ABLE TO APPLY MYCOSTATIN D/T MED NOT AVAILABLE. Addendum: 12/14/19 at 2151 by Anneliese Anderson RN WRONG TIME
--- NOTE | 2019-12-14 22:09 | NUR ---
REASSESSED BP, 139/50, HR, 74. WILL CONTINUE TO MONITOR.
[2019-12-15] VITALS: BP 143/63
--- NOTE | 2019-12-15 | NUR ---
VS WITHIN PT'S BASELINE. CALLED RT FOR BIPAP.
--- NOTE | 2019-12-15 02:15 | NUR ---
PT ON BIPAP, BREATHING EVEN AND UNLABORED. SLEEPING COMFORTABLY IN BED.
[2019-12-15 04:00] VITALS: BP 148/64
--- NOTE | 2019-12-15 04:01 | NUR ---
0400 pt wants off bipap. pt transfered to room 108a. patient wanted hhntx due to sob
--- NOTE | 2019-12-15 04:15 | NUR ---
VS CHECKED, WITHIN PT'S BASELINE. WILL CONTINUE TO MONITOR.
--- NOTE | 2019-12-15 05:35 | NUR ---
PT SLEEPING IN BED COMFORTABLY. NO ACUTE DISTRESS NOTED.
--- NOTE | 2019-12-15 06:55 | NUR ---
PT IN STABLE CONDITION. WILL ENDORSE PT TO DAY SHIFT NURSEOWEN FOR CONTINUOUS CARE.
[2019-12-15] MEDS ORDERED: ALBUTEROL SULFATE/IPRATROPIU 3 ML SOL IH SCH (07:00)
--- NOTE | 2019-12-15 07:10 | NUR ---
RECEIVED BEDSIDE REPORT FROM SHEARER HELPER NURSE RARON FOR CONTINUITY OF CARE. PT IS AWAKE AND WATCHING TV ON BED.PT IS AAOX4 AND ABLE TO FOLLOW SIMPLE COMMAND, HARD OF HEARING. RESPIRATION EVEN AND UNLABORED ON 3 LPM VIA NC. DENIED PAIN, SOB AND DIZZINESS. NO SIGNS OF DISTRESS NOTED. IV ON RFA 20G, CLEAN AND INTACT, SALINE LOCK. R BUTTOCK PRESSURE NOTED, COVERED WITH DRESSING, CLEAN AND DRY . ROCHA CATHETER IN PLACE AND DRAINING YELLOW URINE WITH GRAVITY. 1,500 ML RESTRICTION NOTED AND SIGN POSTED ON DOOR. SAFETY MEASURES IN PLACE. TELE MONITOR ATTACHED. BED IN LOW POSITION AND CALL LIGHT WITHIN REACH. INSTRUCTED PT TO USE THE CALL LIGHT FOR ANY ASSISTANCE AND PT AWARE.
[2019-12-15 08:00] VITALS: BP 151/63
[2019-12-15] MEDS ORDERED: methylPREDNISolone SS 40 MG/ML VIAL IVP SCH (09:00)
[2019-12-15 09:49] LABS: HEMATOCRIT 29.3 % (36-48); HEMOGLOBIN 9.4 g/dL (12.0-16.0); MEAN CORPUSCULAR HEMOGLOBIN 28 pg (27-31); MEAN CORPUSCULAR HGB CONC 32 g/dL (33-37); MEAN CORPUSCULAR VOLUME 87.4 fL (80-94); PLATELET COUNT (AUTO) 218 K/uL (140-450); RED BLOOD CELL COUNT(AUTO) 3.35 MIL/uL (4.20-5.40); RED CELL DISTRIBUTION WIDTH 17.1 % (11.6-13.7); WHITE BLOOD COUNT (AUTO) 7.2 K/uL (4.8-10.8)
[2019-12-15] MEDS: ASCORBIC ACID 500 MG TAB PO SCH (09:56)
[2019-12-15] MEDS: ZINC SULF 220 MG CAP PO SCH (09:56)
[2019-12-15] MEDS: acetaZOLAMIDE 250 MG TAB PO SCH (09:57)
[2019-12-15] MEDS: amLODIPine 5 MG TAB PO SCH (09:58)
[2019-12-15] MEDS: METOPROLOL 25 MG TAB PO SCH (09:58)
[2019-12-15] MEDS: FAMOTIDINE 20 MG TAB PO SCH (09:58)
[2019-12-15] MEDS: cloNIDine 0.1 MG TAB PO SCH (09:59)
[2019-12-15] MEDS: CHOLECALCIFEROL 1,000 IU TAB PO SCH (09:59)
[2019-12-15] MEDS: MULTIVITAMIN 1 TAB PO SCH (10:00)
[2019-12-15] MEDS: APIXABAN 2.5 MG TAB PO SCH (10:01)
[2019-12-15] MEDS: MUPIROCIN CA NASAL 2% 1GM TUBE NS SCH (10:02)
[2019-12-15] MEDS: Z-GUARD PASTE TP SCH (10:02)
[2019-12-15] MEDS: POLYVINYL ALCOHOL 1.4% OP 15 ML SOL BOTH EYES SCH (10:03)
[2019-12-15] MEDS: NYSTATIN POW 100 MU/GM 15 GM BTL TP SCH (10:04)
[2019-12-15] MEDS: CHLORHEXADINE GLUC 2% CLOTH TP SCH (10:04)
--- NOTE | 2019-12-15 10:04 | NUR ---
CHECKED BP PRIOR TO MEDS ADMINISTER, BP 151/63 PULSE 69. ADMINISTERED ALL SCHEDULED MEDS PER MD ORDER, MEDS EDUCATION PROVIDED AND PT TOLERATED WELL. PT AWAKE AND WATCHING TV ON BED. NO SIGNS OF DISTRESS NOTED. SAFETY MEASURES IN PLACE. BED IN LOW POSITION AND CALL LIGHT WITHIN REACH. BED ALARM ACTIVATED.
[2019-12-15 10:56] LABS: BASOPHILS % (MANUAL) 0 % (0-2); EOSINOPHILS % (MANUAL) 11 % (0-4); LYMPHOCYTES % (MANUAL) 10 % (20-46); MONOCYTES % (MANUAL) 4 % (5-12)
[2019-12-15 10:59] LABS: ANION GAP 2.4 (8-16); CREATININE 0.7 mg/dL (0.6-1.3)
[2019-12-15 11:02] LABS: MAGNESIUM 1.5 mg/dL (1.8-2.4); PHOSPHORUS 3.7 mg/dL (2.5-4.9)
[2019-12-15 11:16] LABS: CARBON DIOXIDE 41.6 mmol/L (21-32)
--- NOTE | 2019-12-15 11:20 | NUR ---
RECEIVED A CRITICAL VALUE FOR CO2 41.6. DR AGRAWAL MADE AWARE AND NO ORDER RECEIVED AT THIS TIME.
[2019-12-15] MEDS: ACETAMINOPHEN 325 MG TAB PO PRN (12:32)
[2019-12-15 12:33] VITALS: BP 141/56
--- NOTE | 2019-12-15 12:33 | NUR ---
PT COMPLAINED SHE HAS MILD HEADACHE 2/10, ADMINISTERED PRN TYLENOL, MED EDUCATION PROVIDED AND PT SAID OK. DR SNOW BY BEDSIDE. PT AWAKE AND SITTING UP ON BED TO EAT DINNER. NO SIGNS OF DISTRESS NOTED. SAFETY MEASURES IN PLACE.
--- NOTE | 2019-12-15 12:38 | NUR ---
PT'S SON IRINA CALLED AND UPDATED IRINA WITH PT'S CURRENT CONDITION. INFORMED IRINA THAT PT WILL BE TRANSFER BACK TO [facility] AT 2 PM. IRINA WAS AWARE.
[2019-12-15] MEDS ORDERED: LEVO750T2 PO (12:46)
[2019-12-15] MEDS ORDERED: LACT10CA1 PO (12:46)
[2019-12-15] MEDS ORDERED: FURO-570 PO (12:47)
[2019-12-15] MEDS ORDERED: POTA10TE30 PO (12:48)
[2019-12-15] MEDS ORDERED: MAG SULF 2000 MG/WATER PREMIX 50 ML IV SCH (13:00)
--- NOTE | 2019-12-15 13:41 | NUR ---
ADMINISTERED MAG SULFATE FOR LOW MAG 1.5 FROM AM LAB, MED EDUCATION PROVIDED AND PT SAID OK. WITH ASSIST FROM APPLICATION DEVELOPER,WOUND CARE PROVIDED AND PICTURE TAKEN. PT TOLERATED WELL. NO SIGNS OF DISTRESS NOTED. TELE MONITOR ATTACHED. SAFETY MEASURES IN PLACE.
--- NOTE | 2019-12-15 13:51 | NUR ---
ADMINISTERED K-DUR FOR LOW POTASSIUM 3L, MED EDUCATION PROVIDED AND PT TOLERATED WELL. NO SIGNS OF DISTRESS NOTED. TELE MONITOR ATTACHED.
[2019-12-15] MEDS ORDERED: POTASSIUM CHLORIDE 10 MEQ TABER PO SCH (14:00)
--- NOTE | 2019-12-15 14:04 | NUR ---
CALLED MELISSA REGALADO AND REPORT GIVEN TO LEANNA. ANSWERED ALL LEANNA'S QUESTIONS AND PROVIDED A CALL BACK NUMBER FOR FURTHER QUESTION.
--- NOTE | 2019-12-15 14:05 | NUR ---
DC ROCHA PER MD ORDER, PT TOLERATED WELL. NO SIGNS OF DISTRESS NOTED.
--- NOTE | 2019-12-15 14:40 | NUR ---
DISCHARGE INSTRUCTION PROVIDED TO PATIENT AT BEDSIDE. EDUCATED PT ON DISEASE MANAGEMENT, MEDICATION REGIMENS, SIDE EFFECTS, WOUND CARE, AND DIET, PT VERBALIZED UNDERSTANDING. REMOVED IV AND CANNULA INTACT AND COMPLETED. NO BLEEDING ON IV SITE. REMOVED ALL ARM BANDS. PT TOOK ALL HER BELONGINGS AND PROVIDED A HARD COPY OF DISCHARGE INSTRUCTION PACKAGE. PT CHANGED INTO PINK BY [facility]. PT IS GOING TO TRANSFER TO [facility] WITH [facility]. PT IS IN STABLE CONDITION.
== END 2019-12-15 14:40 | DRG 291 ==
LOC: MED 21:11 → EEVIPCON 21:11 → MTU 12-12 01:07
PROVIDERS: ADMIT Family Medicine; ATTEND Family Medicine
DX: I11.0 Hypertensive heart disease with heart failure (principal); J96.20 Acute and chronic respiratory failure, unspecified whether with hypoxia or hypercapnia; N39.0 Urinary tract infection, site not specified; J44.1 Chronic obstructive pulmonary disease with (acute) exacerbation; E87.1 Hypo-osmolality and hyponatremia; E44.0 Moderate protein-calorie malnutrition; Z68.43 Body mass index [BMI] 50.0-59.9, adult; E87.2 Acidosis; E87.3 Alkalosis; I50.43 Acute on chronic combined systolic (congestive) and diastolic (congestive) heart failure; I42.9 Cardiomyopathy, unspecified; E66.01 Morbid (severe) obesity due to excess calories; B96.20 Unspecified Escherichia coli [E. coli] as the cause of diseases classified elsewhere; E78.5 Hyperlipidemia, unspecified; G47.33 Obstructive sleep apnea (adult) (pediatric); K21.9 Gastro-esophageal reflux disease without esophagitis; M06.9 Rheumatoid arthritis, unspecified; Z85.528 Personal history of other malignant neoplasm of kidney; Z86.14 Personal history of Methicillin resistant Staphylococcus aureus infection; Z86.711 Personal history of pulmonary embolism; Z88.0 Allergy status to penicillin; Z88.2 Allergy status to sulfonamides; Z90.710 Acquired absence of both cervix and uterus; L98.429 Non-pressure chronic ulcer of back with unspecified severity; I27.21 Secondary pulmonary arterial hypertension; E02 Subclinical iodine-deficiency hypothyroidism; D63.8 Anemia in other chronic diseases classified elsewhere; D64.9 Anemia, unspecified; I25.10 Atherosclerotic heart disease of native coronary artery without angina pectoris; E86.1 Hypovolemia; Z03.818 Encounter for observation for suspected exposure to other biological agents ruled out
CPT/HCPCS: 36415; 36600; 71045; 80048; 80053; 81001; 82550; 82728; 82803; 83036; 83605; 83615; 83690; 83735; 83880; 84100; 84443; 84484; 85025; 85379; 85610; 85651; 85730; 86140; 87040; 87081; 87086; 87186; 94640; 94644; 94660; 96374; 96375; 99291; J0456; J0692; J0696; J1940; J2930; J3475; J3535; J7030; J7060; J7613; J7644; Q0092

== ENCOUNTER 2021-07-05 18:05 | Inpatient (IN) | payer OTHER, SELFPAY ==
[~2021-07-05] VITALS: Ht 175.3 cm; Wt 148.3 kg
[~2021-07-05 18:05] MED LIST changes: -ASCO1CAP75 PO; +CLON0.1T16 PO; -CLON0.1T42 PO; +FURO-570 PO; +HYDR-5122 PO; -LEVO750T2 PO; +POTA10TA70 PO; +ZGUARD TP
[2021-07-05] MEDS ORDERED: AZITHROMYCIN 500 MG in DEXTROSE 5% 250 ML IV ONE (18:15)
[2021-07-05] MEDS ORDERED: methylPREDNISolone SS 125 MG/2 ML VIAL IVP ONE (18:15)
[2021-07-05 18:21] VITALS: BP 132/62
[2021-07-05 18:55] VITALS: BP 132/62
[2021-07-05] MEDS: ALBUTEROL SULFATE/IPRATROPIU 3 ML SOL IH SCH ×3 (18:55→19:08)
[2021-07-05 20:11] LABS: RSV NEGATIVE (NEGATIVE)
[2021-07-05] MEDS ORDERED: FUROSEMIDE 40 MG/4 ML VIAL IVP ONE ×5 (20:15→22:02)
[2021-07-05 20:33] LABS: BASOPHILS % (AUTO) 0.4 % (0.0-2.0); EOSINOPHILS # (AUTO) 0.3 K/uL (0-0.4); EOSINOPHILS % (AUTO) 3.4 % (0.0-4.0); HEMATOCRIT 31.5 % (36-48); HEMOGLOBIN 9.9 g/dL (12.0-16.0); LYMPHOCYTES # (AUTO) 0.9 K/uL (2.5-16.5); LYMPHOCYTES % (AUTO) 11.2 % (20.5-51.1); MEAN CORPUSCULAR HEMOGLOBIN 26 pg (27-31); MEAN CORPUSCULAR HGB CONC 32 g/dL (33-37); MEAN CORPUSCULAR VOLUME 83.1 fL (80-94); MONOCYTES # (AUTO) 0.3 K/uL (0.8-1.0); MONOCYTES % (AUTO) 3.8 % (1.7-9.3); NEUTROPHILS # (AUTO) 6.4 K/uL (1.8-7.7); NEUTROPHILS % (AUTO) 81.2 % (42.2-75.2); PLATELET COUNT (AUTO) 216 K/uL (140-450); RED BLOOD CELL COUNT(AUTO) 3.79 MIL/uL (4.20-5.40); RED CELL DISTRIBUTION WIDTH 17.8 % (11.6-13.7); WHITE BLOOD COUNT (AUTO) 7.9 K/uL (4.8-10.8)
[2021-07-05 20:47] LABS: PROTHROMBIN TIME 11.3 secs (10.8-13.4)
[2021-07-05 20:49] LABS: ALBUMIN 2.9 g/dL (3.4-5.0); ASPARTATE AMINOTRANSFERASE 19 U/L (15-37); CARBON DIOXIDE 39.5 mmol/L (21-32); CHLORIDE 100 mmol/L (98-107); CREATININE 0.7 mg/dL (0.6-1.3); GLUCOSE 123 mg/dL (74-106); POTASSIUM 4.5 mmol/L (3.5-5.1); SODIUM SERUM 140 mmol/L (136-145); TOTAL BILIRUBIN 0.5 mg/dL (0.0-1.0); UREA NITROGEN, BLOOD 20 mg/dL (7-18)
[2021-07-05 21:04] LABS: APPEARANCE,URINE SL CLOUDY (CLEAR); BILIRUBIN,URINE NEGATIVE (NEGATIVE); BLOOD, URINE 1+ (NEGATIVE); COLOR,URINE YELLOW (YELLOW); LEUKOCYTE ESTERASE ,URINE 1+ (NEGATIVE); NITRITE, URINE NEGATIVE (NEGATIVE); PH,URINE 5.5 (5.0-9.0); UGLUCOSE NEGATIVE (NEGATIVE)
[2021-07-05] MEDS ORDERED: INTUBATION KIT MC ONE (21:38)
[2021-07-05 21:54] VITALS: BP_DIAS 76
[2021-07-05] MEDS ORDERED: cefTRIAXone 1,000 MG VIAL ONE (21:55)
[2021-07-05] MEDS ORDERED: methylPREDNISolone SS 125 MG/2 ML VIAL ONE (21:55)
[2021-07-05 22:00] LABS: WBC,URINE TOO MANY TO COUNT /HPF (0-5)
[2021-07-05] MEDS ORDERED: AZITHROMYCIN 500 MG INJ VIAL IV ONE (22:44)
[2021-07-05] MEDS ORDERED: ZOLPIDEM 5 MG TAB PO PRN (23:25)
[2021-07-05] MEDS ORDERED: guaiFENesin DM 200/20 MG-10 ML 10 ML UDC PO PRN (23:25)
[2021-07-05] MEDS ORDERED: DOCUSATE SODIUM 100 MG GELCAP PO PRN (23:25)
[2021-07-05] MEDS ORDERED: POTASSIUM CHLORIDE 40 MEQ, LIDOCAINE MPF 1% 25 MG in NACL 0.9% 250 ML IV PRN (23:25)
[2021-07-05] MEDS ORDERED: HYDROcodone/APAP 7.5/325 MG 1 TAB PO PRN (23:25)
[2021-07-06] VITALS (28 sets, daily range): BP systolic 97–184; BP diastolic 45–128
[2021-07-06 00:02] LABS: CHOL/HDL RATIO 2.1 (1-4.5); FREE T4 (FREE THYROXINE) 1.06 ng/dL (0.76-1.46); MAGNESIUM 2.3 mg/dL (1.8-2.4); PHOSPHORUS 4.5 mg/dL (2.5-4.9); THYROID STIMULATING HORMONE 2.5 uIU/mL (0.34-3.74)
[2021-07-06] MEDS: DEXT 5% /NACL 0.9% 1,000 ML IV SCH ×2 (04:04→15:33)
[2021-07-06] MEDS: LEVOFLOXACIN 750 MG/D5W PREMIX 150 ML IV SCH ×2 (04:11→23:58)
[2021-07-06] MEDS: CLINDAMYCIN 600 MG in DEXTROSE 5% 50 ML IV SCH ×3 (05:00→21:00)
[2021-07-06] MEDS ORDERED: CLINDAMYCIN 600 MG/4 ML VIAL ONE (05:07)
[2021-07-06 05:38] LABS: BASOPHILS % (AUTO) 0.1 % (0.0-2.0); EOSINOPHILS % (AUTO) 0.1 % (0.0-4.0); HEMATOCRIT 32.6 % (36-48); HEMOGLOBIN 10.1 g/dL (12.0-16.0); LYMPHOCYTES # (AUTO) 0.2 K/uL (2.5-16.5); LYMPHOCYTES % (AUTO) 1.8 % (20.5-51.1); MEAN CORPUSCULAR HEMOGLOBIN 26 pg (27-31); MEAN CORPUSCULAR HGB CONC 31 g/dL (33-37); MEAN CORPUSCULAR VOLUME 83.6 fL (80-94); MONOCYTES # (AUTO) 0.1 K/uL (0.8-1.0); MONOCYTES % (AUTO) 0.6 % (1.7-9.3); NEUTROPHILS # (AUTO) 10.9 K/uL (1.8-7.7); NEUTROPHILS % (AUTO) 97.4 % (42.2-75.2); PLATELET COUNT (AUTO) 219 K/uL (140-450); RED CELL DISTRIBUTION WIDTH 17.5 % (11.6-13.7); WHITE BLOOD COUNT (AUTO) 11.2 K/uL (4.8-10.8)
[2021-07-06 05:52] LABS: ANION GAP 7.5 (8-16); CARBON DIOXIDE 38.6 mmol/L (21-32); CHLORIDE 99 mmol/L (98-107); CREATININE 0.8 mg/dL (0.6-1.3); GLUCOSE 161 mg/dL (74-106); POTASSIUM 5.1 mmol/L (3.5-5.1); SODIUM SERUM 140 mmol/L (136-145); UREA NITROGEN, BLOOD 22 mg/dL (7-18)
[2021-07-06] MEDS: ALBUTEROL SULFATE/IPRATROPIU 3 ML SOL IH SCH ×3 (07:40→19:48)
[2021-07-06] MEDS: amLODIPine 5 MG TAB PO SCH (09:05)
[2021-07-06] MEDS: FUROSEMIDE 40 MG TAB PO SCH ×2 (09:05→21:00)
[2021-07-06] MEDS: METOPROLOL 25 MG TAB PO SCH (09:06)
[2021-07-06] MEDS: PANTOPRAZOLE 40 MG TABEC PO SCH (09:08)
[2021-07-06] MEDS: APIXABAN 2.5 MG TAB PO SCH ×2 (09:08→21:00)
[2021-07-06] MEDS: CLONIDINE HYDROCHLORIDE 0.1 MG TAB PO SCH ×2 (09:10→21:00)
[2021-07-06] MEDS ORDERED: LORazepam 2 MG/ML VIAL IM/IVP PRN (09:45)
[2021-07-06] MEDS: methylPREDNISolone SS 40 MG/ML VIAL IVP SCH ×3 (10:16→21:00)
[2021-07-06] MEDS: Z-GUARD PASTE TP SCH (13:00)
[2021-07-06] MEDS ORDERED: hydrALAZINE 20 MG/ML VIAL IVP PRN (17:05)
[2021-07-06] MEDS ORDERED: PROPOFOL 1000 MG/100 ML PREMIX 100 ML IV PRN (19:10)
[2021-07-06] MEDS ORDERED: MIDAZOLAM MDV 50 MG in NACL 0.9% 40 ML IV PRN (19:10)
[2021-07-06] MEDS ORDERED: MIDAZOLAM MDV 50 MG/10 ML VIAL IV ONE ×2 (19:26→22:11)
[2021-07-06] MEDS: PROPOFOL 1000 MG/100 ML PREMIX 100 ML IV PRN ×2 (19:35→21:45)
[2021-07-06] MEDS ORDERED: NACL 0.9% 500 ML IV SCH (19:50)
[2021-07-06] MEDS ORDERED: NOREPINEPHRINE 4 MG in DEXTROSE 5% 250 ML IV PRN (19:50)
[2021-07-06] MEDS ORDERED: NOREPINEPHRINE 4 MG/4 ML VIAL IV ONE (19:52)
[2021-07-06] MEDS: ATORVASTATIN 20 MG TAB PO SCH (21:00)
[2021-07-07] VITALS (25 sets, daily range): BP systolic 110–203; BP diastolic 53–149
[2021-07-07] MEDS: Z-GUARD PASTE TP SCH ×3 (01:00→13:30)
[2021-07-07] MEDS: PROPOFOL 1000 MG/100 ML PREMIX 100 ML IV PRN ×6 (01:57→21:43)
[2021-07-07] MEDS: CLINDAMYCIN 600 MG in DEXTROSE 5% 50 ML IV SCH ×3 (04:42→20:47)
[2021-07-07] MEDS: methylPREDNISolone SS 40 MG/ML VIAL IVP SCH ×2 (04:42→14:00)
[2021-07-07] MEDS: DEXT 5% /NACL 0.9% 1,000 ML IV SCH ×2 (04:44→18:30)
[2021-07-07 06:07] LABS: T4 (THYROXINE) 7.1 ug/dL (4.5-12.0)
[2021-07-07 06:18] LABS: ANION GAP 7.5 (8-16); CARBON DIOXIDE 35.5 mmol/L (21-32); CHLORIDE 102 mmol/L (98-107); CREATININE 1.2 mg/dL (0.6-1.3); GLUCOSE 192 mg/dL (74-106); SODIUM SERUM 141 mmol/L (136-145); UREA NITROGEN, BLOOD 31 mg/dL (7-18)
[2021-07-07 06:21] LABS: BASOPHILS % (AUTO) 0.1 % (0.0-2.0); HEMATOCRIT 28.3 % (36-48); HEMOGLOBIN 8.9 g/dL (12.0-16.0); LYMPHOCYTES # (AUTO) 0.4 K/uL (2.5-16.5); LYMPHOCYTES % (AUTO) 3.4 % (20.5-51.1); MEAN CORPUSCULAR HEMOGLOBIN 26 pg (27-31); MEAN CORPUSCULAR HGB CONC 32 g/dL (33-37); MEAN CORPUSCULAR VOLUME 82.8 fL (80-94); MONOCYTES # (AUTO) 0.4 K/uL (0.8-1.0); MONOCYTES % (AUTO) 3.9 % (1.7-9.3); NEUTROPHILS # (AUTO) 10.2 K/uL (1.8-7.7); NEUTROPHILS % (AUTO) 92.6 % (42.2-75.2); PLATELET COUNT (AUTO) 186 K/uL (140-450); RED BLOOD CELL COUNT(AUTO) 3.41 MIL/uL (4.20-5.40); RED CELL DISTRIBUTION WIDTH 17.4 % (11.6-13.7)
[2021-07-07] MEDS: ALBUTEROL SULFATE/IPRATROPIU 3 ML SOL IH SCH ×3 (07:08→19:21)
[2021-07-07] MEDS: CLONIDINE HYDROCHLORIDE 0.1 MG TAB PO SCH ×2 (09:00→21:15)
[2021-07-07] MEDS: APIXABAN 2.5 MG TAB PO SCH ×2 (09:00→21:14)
[2021-07-07] MEDS: amLODIPine 5 MG TAB PO SCH (09:00)
[2021-07-07] MEDS: METOPROLOL 25 MG TAB PO SCH (09:00)
[2021-07-07] MEDS: FUROSEMIDE 40 MG TAB PO SCH ×2 (09:35→21:14)
[2021-07-07] MEDS: PANTOPRAZOLE 40 MG TABEC PO SCH (09:36)
[2021-07-07] MEDS: MIDAZOLAM MDV 100 MG in NACL 0.9% 80 ML IV PRN (11:00)
[2021-07-07] MEDS: INTERDRY CLOTH TP SCH (11:44)
[2021-07-07] MEDS: THERAHONEY GEL 42.5 GM TP SCH (13:30)
[2021-07-07] MEDS: MUPIROCIN CA NASAL 2% 1GM TUBE NS SCH (17:55)
[2021-07-07] MEDS: CHLORHEXADINE GLUC 2% CLOTH TP SCH (17:55)
[2021-07-07] MEDS ORDERED: CRUSHER, PILL MC ONE (20:55)
[2021-07-07] MEDS ORDERED: MUPIROCIN CA NASAL 2% 1GM TUBE NS SCH (21:00)
[2021-07-07] MEDS: ATORVASTATIN 20 MG TAB PO SCH (21:13)
[2021-07-08] VITALS (31 sets, daily range): BP systolic 87–217; BP diastolic 48–141
[2021-07-08] MEDS: MIDAZOLAM MDV 100 MG in NACL 0.9% 80 ML IV PRN (00:40)
[2021-07-08] MEDS: LEVOFLOXACIN 750 MG/D5W PREMIX 150 ML IV SCH ×2 (01:44→23:32)
[2021-07-08] MEDS: PROPOFOL 1000 MG/100 ML PREMIX 100 ML IV PRN ×4 (03:28→18:28)
[2021-07-08] MEDS: Z-GUARD PASTE TP SCH ×4 (03:31→13:13)
[2021-07-08] MEDS: CLINDAMYCIN 600 MG in DEXTROSE 5% 50 ML IV SCH ×3 (05:36→20:27)
[2021-07-08 06:12] LABS: ANION GAP 16.2 (8-16); CARBON DIOXIDE 29.6 mmol/L (21-32); CHLORIDE 103 mmol/L (98-107); CREATININE 1.4 mg/dL (0.6-1.3); GLUCOSE 162 mg/dL (74-106); POTASSIUM 3.8 mmol/L (3.5-5.1); SODIUM SERUM 145 mmol/L (136-145); UREA NITROGEN, BLOOD 35 mg/dL (7-18)
[2021-07-08 06:20] LABS: HEMATOCRIT 32.5 % (36-48); HEMOGLOBIN 10.4 g/dL (12.0-16.0); LYMPHOCYTES # (AUTO) 0.4 K/uL (2.5-16.5); LYMPHOCYTES % (AUTO) 5.1 % (20.5-51.1); MEAN CORPUSCULAR HEMOGLOBIN 26 pg (27-31); MEAN CORPUSCULAR HGB CONC 32 g/dL (33-37); MEAN CORPUSCULAR VOLUME 81.4 fL (80-94); MONOCYTES # (AUTO) 0.4 K/uL (0.8-1.0); MONOCYTES % (AUTO) 5.8 % (1.7-9.3); NEUTROPHILS # (AUTO) 6.8 K/uL (1.8-7.7); NEUTROPHILS % (AUTO) 89.1 % (42.2-75.2); PLATELET COUNT (AUTO) 188 K/uL (140-450); RED BLOOD CELL COUNT(AUTO) 3.99 MIL/uL (4.20-5.40); RED CELL DISTRIBUTION WIDTH 18.3 % (11.6-13.7); WHITE BLOOD COUNT (AUTO) 7.6 K/uL (4.8-10.8)
[2021-07-08] MEDS: ALBUTEROL SULFATE/IPRATROPIU 3 ML SOL IH SCH ×3 (07:56→20:28)
[2021-07-08] MEDS: DEXT 5% /NACL 0.9% 1,000 ML IV SCH (08:20)
[2021-07-08] MEDS ORDERED: PANTOPRAZOLE 40 MG INJ VIAL ONE (08:41)
[2021-07-08] MEDS: PANTOPRAZOLE 40 MG INJ VIAL IVP SCH (09:00)
[2021-07-08] MEDS: CLONIDINE HYDROCHLORIDE 0.1 MG TAB PO SCH ×2 (09:00→20:27)
[2021-07-08] MEDS: METOPROLOL 25 MG TAB PO SCH (09:00)
[2021-07-08] MEDS: APIXABAN 2.5 MG TAB PO SCH ×2 (09:00→20:28)
[2021-07-08] MEDS: amLODIPine 5 MG TAB PO SCH (09:00)
[2021-07-08] MEDS: THERAHONEY GEL 42.5 GM TP SCH (13:13)
[2021-07-08] MEDS: MUPIROCIN CA NASAL 2% 1GM TUBE NS SCH (16:57)
[2021-07-08] MEDS: CHLORHEXADINE GLUC 2% CLOTH TP SCH (16:57)
[2021-07-08] MEDS ORDERED: NOREPINEPHRINE 4 MG/4 ML VIAL IV ONE (17:50)
[2021-07-08] MEDS: ATORVASTATIN 20 MG TAB PO SCH (20:29)
[2021-07-08] MEDS ORDERED: CRUSHER, PILL MC ONE (20:46)
[2021-07-09] VITALS (29 sets, daily range): BP systolic 96–157; BP diastolic 47–88
[2021-07-09] MEDS: Z-GUARD PASTE TP SCH ×4 (00:32→13:09)
[2021-07-09] MEDS: PROPOFOL 1000 MG/100 ML PREMIX 100 ML IV PRN ×4 (01:25→19:40)
[2021-07-09] MEDS: DEXT 5% /NACL 0.9% 1,000 ML IV SCH (02:31)
[2021-07-09] MEDS: CLINDAMYCIN 600 MG in DEXTROSE 5% 50 ML IV SCH ×3 (04:39→21:20)
[2021-07-09 06:13] LABS: BASOPHILS % (AUTO) 0.3 % (0.0-2.0); EOSINOPHILS % (AUTO) 0.3 % (0.0-4.0); HEMATOCRIT 29.2 % (36-48); HEMOGLOBIN 9.3 g/dL (12.0-16.0); LYMPHOCYTES # (AUTO) 0.8 K/uL (2.5-16.5); MEAN CORPUSCULAR HEMOGLOBIN 26 pg (27-31); MEAN CORPUSCULAR HGB CONC 32 g/dL (33-37); MEAN CORPUSCULAR VOLUME 80.5 fL (80-94); MONOCYTES # (AUTO) 0.5 K/uL (0.8-1.0); MONOCYTES % (AUTO) 4.8 % (1.7-9.3); NEUTROPHILS # (AUTO) 8.6 K/uL (1.8-7.7); NEUTROPHILS % (AUTO) 86.6 % (42.2-75.2); PLATELET COUNT (AUTO) 206 K/uL (140-450); RED BLOOD CELL COUNT(AUTO) 3.63 MIL/uL (4.20-5.40); RED CELL DISTRIBUTION WIDTH 18.4 % (11.6-13.7); WHITE BLOOD COUNT (AUTO) 9.9 K/uL (4.8-10.8)
[2021-07-09 06:18] LABS: ANION GAP 10.6 (8-16); CARBON DIOXIDE 32.2 mmol/L (21-32); CHLORIDE 103 mmol/L (98-107); CREATININE 1.6 mg/dL (0.6-1.3); GLUCOSE 114 mg/dL (74-106); POTASSIUM 3.8 mmol/L (3.5-5.1); SODIUM SERUM 142 mmol/L (136-145); UREA NITROGEN, BLOOD 43 mg/dL (7-18)
[2021-07-09] MEDS: ALBUTEROL SULFATE/IPRATROPIU 3 ML SOL IH SCH ×3 (07:41→19:00)
[2021-07-09] MEDS: PANTOPRAZOLE 40 MG INJ VIAL IVP SCH (08:42)
[2021-07-09] MEDS: amLODIPine 5 MG TAB PO SCH (08:43)
[2021-07-09] MEDS: APIXABAN 2.5 MG TAB PO SCH ×2 (08:43→21:20)
[2021-07-09] MEDS: CLONIDINE HYDROCHLORIDE 0.1 MG TAB PO SCH ×2 (08:43→21:00)
[2021-07-09] MEDS: METOPROLOL 25 MG TAB PO SCH (08:43)
[2021-07-09] MEDS ORDERED: NACL 0.9% 1,000 ML IV ONE (10:50)
[2021-07-09] MEDS ORDERED: TPN PER PHARMACY MC PRN (10:50)
[2021-07-09] MEDS ORDERED: NACL 0.9% 1,000 ML IV SCH (10:50)
[2021-07-09] MEDS: DEXT 5% / NACL 0.9% 500 ML IV SCH (11:55)
[2021-07-09] MEDS: THERAHONEY GEL 42.5 GM TP SCH (13:09)
[2021-07-09] MEDS: MIDAZOLAM MDV 100 MG in NACL 0.9% 80 ML IV PRN (18:08)
[2021-07-09] MEDS: CHLORHEXADINE GLUC 2% CLOTH TP SCH (18:12)
[2021-07-09] MEDS: MUPIROCIN CA NASAL 2% 1GM TUBE NS SCH (18:22)
[2021-07-09] MEDS: ATORVASTATIN 20 MG TAB PO SCH (21:20)
[2021-07-10] VITALS (24 sets, daily range): BP systolic 84–125; BP diastolic 37–66
[2021-07-10] MEDS: Z-GUARD PASTE TP SCH ×4 (00:32→13:39)
[2021-07-10] MEDS: PROPOFOL 1000 MG/100 ML PREMIX 100 ML IV PRN ×3 (02:58→20:25)
[2021-07-10] MEDS: ALBUTEROL SULFATE/IPRATROPIU 3 ML SOL IH PRN (04:18)
[2021-07-10] MEDS: CLINDAMYCIN 600 MG in DEXTROSE 5% 50 ML IV SCH ×3 (04:48→20:41)
[2021-07-10 06:04] LABS: BASOPHILS % (AUTO) 0.1 % (0.0-2.0); EOSINOPHILS # (AUTO) 0.1 K/uL (0-0.4); EOSINOPHILS % (AUTO) 1.6 % (0.0-4.0); HEMATOCRIT 27.4 % (36-48); HEMOGLOBIN 8.8 g/dL (12.0-16.0); LYMPHOCYTES # (AUTO) 0.7 K/uL (2.5-16.5); LYMPHOCYTES % (AUTO) 8.8 % (20.5-51.1); MEAN CORPUSCULAR HEMOGLOBIN 26 pg (27-31); MEAN CORPUSCULAR HGB CONC 32 g/dL (33-37); MEAN CORPUSCULAR VOLUME 80.4 fL (80-94); MONOCYTES # (AUTO) 0.3 K/uL (0.8-1.0); MONOCYTES % (AUTO) 3.9 % (1.7-9.3); NEUTROPHILS # (AUTO) 7.2 K/uL (1.8-7.7); NEUTROPHILS % (AUTO) 85.6 % (42.2-75.2); PLATELET COUNT (AUTO) 169 K/uL (140-450); RED BLOOD CELL COUNT(AUTO) 3.41 MIL/uL (4.20-5.40); RED CELL DISTRIBUTION WIDTH 18.1 % (11.6-13.7); WHITE BLOOD COUNT (AUTO) 8.4 K/uL (4.8-10.8)
[2021-07-10 06:31] LABS: MAGNESIUM 1.8 mg/dL (1.8-2.4); PHOSPHORUS 4.5 mg/dL (2.5-4.9)
[2021-07-10 06:36] LABS: ANION GAP 13.7 (8-16); CARBON DIOXIDE 29.5 mmol/L (21-32); CHLORIDE 101 mmol/L (98-107); CREATININE 1.5 mg/dL (0.6-1.3); GLUCOSE 110 mg/dL (74-106); POTASSIUM 4.2 mmol/L (3.5-5.1); SODIUM SERUM 140 mmol/L (136-145); UREA NITROGEN, BLOOD 57 mg/dL (7-18)
[2021-07-10] MEDS: ALBUTEROL SULFATE/IPRATROPIU 3 ML SOL IH SCH ×3 (07:51→19:50)
[2021-07-10] MEDS: amLODIPine 5 MG TAB PO SCH (09:00)
[2021-07-10] MEDS: CLONIDINE HYDROCHLORIDE 0.1 MG TAB PO SCH ×2 (09:00→20:41)
[2021-07-10] MEDS: METOPROLOL 25 MG TAB PO SCH (09:00)
[2021-07-10] MEDS: PANTOPRAZOLE 40 MG INJ VIAL IVP SCH (09:14)
[2021-07-10] MEDS: APIXABAN 2.5 MG TAB PO SCH ×2 (09:16→21:07)
[2021-07-10] MEDS: DEXT 5% / NACL 0.9% 500 ML IV SCH (11:09)
[2021-07-10] MEDS: THERAHONEY GEL 42.5 GM TP SCH (13:39)
[2021-07-10] MEDS: DEXMEDETOMIDINE HCL 400 MCG in NACL 0.9% 96 ML IV PRN (13:40)
[2021-07-10] MEDS: MUPIROCIN CA NASAL 2% 1GM TUBE NS SCH (18:22)
[2021-07-10] MEDS: CHLORHEXADINE GLUC 2% CLOTH TP SCH (18:22)
[2021-07-10] MEDS: ATORVASTATIN 20 MG TAB PO SCH (20:42)
[2021-07-11] VITALS (29 sets, daily range): BP systolic 89–134; BP diastolic 45–74
[2021-07-11] MEDS ORDERED: DEXMEDETOMIDINE HCL 100 MCG/ML 2 ML VIAL IV ONE ×2 (02:21→20:11)
[2021-07-11] MEDS: DEXMEDETOMIDINE HCL 400 MCG in NACL 0.9% 96 ML IV PRN ×2 (02:29→20:30)
[2021-07-11] MEDS: PROPOFOL 1000 MG/100 ML PREMIX 100 ML IV PRN ×3 (03:45→17:23)
[2021-07-11] MEDS: Z-GUARD PASTE TP SCH ×4 (04:00→13:07)
[2021-07-11] MEDS: CLINDAMYCIN 600 MG in DEXTROSE 5% 50 ML IV SCH ×3 (05:25→21:00)
[2021-07-11 06:06] LABS: BASOPHILS % (AUTO) 0.1 % (0.0-2.0); EOSINOPHILS # (AUTO) 0.4 K/uL (0-0.4); EOSINOPHILS % (AUTO) 4.7 % (0.0-4.0); HEMATOCRIT 27.5 % (36-48); LYMPHOCYTES # (AUTO) 0.8 K/uL (2.5-16.5); LYMPHOCYTES % (AUTO) 8.9 % (20.5-51.1); MEAN CORPUSCULAR HEMOGLOBIN 26 pg (27-31); MEAN CORPUSCULAR HGB CONC 33 g/dL (33-37); MEAN CORPUSCULAR VOLUME 79.9 fL (80-94); MONOCYTES # (AUTO) 0.2 K/uL (0.8-1.0); MONOCYTES % (AUTO) 2.8 % (1.7-9.3); NEUTROPHILS # (AUTO) 7.2 K/uL (1.8-7.7); NEUTROPHILS % (AUTO) 83.5 % (42.2-75.2); PLATELET COUNT (AUTO) 171 K/uL (140-450); RED BLOOD CELL COUNT(AUTO) 3.45 MIL/uL (4.20-5.40); RED CELL DISTRIBUTION WIDTH 18.1 % (11.6-13.7); WHITE BLOOD COUNT (AUTO) 8.6 K/uL (4.8-10.8)
[2021-07-11 06:30] LABS: ANION GAP 14.1 (8-16); CHLORIDE 101 mmol/L (98-107); CREATININE 1.6 mg/dL (0.6-1.3); GLUCOSE 117 mg/dL (74-106); POTASSIUM 4.1 mmol/L (3.5-5.1); SODIUM SERUM 140 mmol/L (136-145); UREA NITROGEN, BLOOD 58 mg/dL (7-18)
[2021-07-11 06:38] LABS: MAGNESIUM 1.8 mg/dL (1.8-2.4); PHOSPHORUS 5.9 mg/dL (2.5-4.9)
[2021-07-11] MEDS: ALBUTEROL SULFATE/IPRATROPIU 3 ML SOL IH SCH ×3 (07:58→19:48)
[2021-07-11] MEDS: PANTOPRAZOLE 40 MG INJ VIAL IVP SCH (08:31)
[2021-07-11] MEDS: CLONIDINE HYDROCHLORIDE 0.1 MG TAB PO SCH (08:35)
[2021-07-11] MEDS: METOPROLOL 25 MG TAB PO SCH (08:35)
[2021-07-11] MEDS: amLODIPine 5 MG TAB PO SCH (08:36)
[2021-07-11] MEDS: APIXABAN 2.5 MG TAB PO SCH ×2 (08:37→21:52)
[2021-07-11] MEDS: DEXT 5% / NACL 0.9% 500 ML IV SCH (10:55)
[2021-07-11] MEDS: ALBUTEROL SULFATE/IPRATROPIU 3 ML SOL IH PRN (11:09)
[2021-07-11] MEDS: THERAHONEY GEL 42.5 GM TP SCH (13:07)
[2021-07-11] MEDS: INTERDRY CLOTH TP SCH (13:07)
[2021-07-11] MEDS: MUPIROCIN CA NASAL 2% 1GM TUBE NS SCH (18:20)
[2021-07-11] MEDS: CHLORHEXADINE GLUC 2% CLOTH TP SCH (18:20)
[2021-07-11] MEDS: FUROSEMIDE 20 MG/2 ML VIAL IVP SCH (20:59)
[2021-07-11] MEDS: ATORVASTATIN 20 MG TAB PO SCH (21:00)
[2021-07-12] VITALS (36 sets, daily range): BP systolic 11–146; BP diastolic 43–91
[2021-07-12] MEDS: DEXMEDETOMIDINE HCL 400 MCG in NACL 0.9% 96 ML IV PRN ×2 (02:01→14:33)
[2021-07-12] MEDS: Z-GUARD PASTE TP SCH ×4 (03:30→13:14)
[2021-07-12] MEDS: CLINDAMYCIN 600 MG in DEXTROSE 5% 50 ML IV SCH ×3 (05:00→20:31)
[2021-07-12 06:01] LABS: BASOPHILS % (AUTO) 0.2 % (0.0-2.0); EOSINOPHILS # (AUTO) 0.3 K/uL (0-0.4); EOSINOPHILS % (AUTO) 2.8 % (0.0-4.0); HEMATOCRIT 27.5 % (36-48); LYMPHOCYTES # (AUTO) 0.7 K/uL (2.5-16.5); LYMPHOCYTES % (AUTO) 6.8 % (20.5-51.1); MEAN CORPUSCULAR HEMOGLOBIN 26 pg (27-31); MEAN CORPUSCULAR HGB CONC 33 g/dL (33-37); MONOCYTES # (AUTO) 0.5 K/uL (0.8-1.0); MONOCYTES % (AUTO) 4.3 % (1.7-9.3); NEUTROPHILS # (AUTO) 9.3 K/uL (1.8-7.7); NEUTROPHILS % (AUTO) 85.9 % (42.2-75.2); PLATELET COUNT (AUTO) 164 K/uL (140-450); RED BLOOD CELL COUNT(AUTO) 3.48 MIL/uL (4.20-5.40); RED CELL DISTRIBUTION WIDTH 18.4 % (11.6-13.7); WHITE BLOOD COUNT (AUTO) 10.9 K/uL (4.8-10.8)
[2021-07-12 06:11] LABS: MAGNESIUM 1.9 mg/dL (1.8-2.4); PHOSPHORUS 6.2 mg/dL (2.5-4.9)
[2021-07-12 06:12] LABS: ANION GAP 15.1 (8-16); CARBON DIOXIDE 27.5 mmol/L (21-32); CHLORIDE 101 mmol/L (98-107); CREATININE 1.5 mg/dL (0.6-1.3); GLUCOSE 111 mg/dL (74-106); POTASSIUM 3.6 mmol/L (3.5-5.1); SODIUM SERUM 140 mmol/L (136-145); UREA NITROGEN, BLOOD 60 mg/dL (7-18)
[2021-07-12] MEDS: ALBUTEROL SULFATE/IPRATROPIU 3 ML SOL IH SCH ×3 (07:58→19:46)
[2021-07-12] MEDS: METOPROLOL 25 MG TAB PO SCH (09:00)
[2021-07-12] MEDS: PANTOPRAZOLE 40 MG INJ VIAL IVP SCH (09:20)
[2021-07-12] MEDS: FUROSEMIDE 20 MG/2 ML VIAL IVP SCH ×2 (09:21→20:32)
[2021-07-12] MEDS: amLODIPine 5 MG TAB PO SCH (09:22)
[2021-07-12] MEDS: APIXABAN 2.5 MG TAB PO SCH ×2 (09:22→20:35)
[2021-07-12] MEDS: PROPOFOL 1000 MG/100 ML PREMIX 100 ML IV PRN (09:26)
[2021-07-12] MEDS: DEXT 5% / NACL 0.9% 500 ML IV SCH (10:55)
[2021-07-12] MEDS: ALBUTEROL SULFATE/IPRATROPIU 3 ML SOL IH PRN (11:13)
[2021-07-12] MEDS: THERAHONEY GEL 42.5 GM TP SCH (13:14)
[2021-07-12] MEDS ORDERED: METOCLOPRAMIDE 10 MG/2 ML INJ VIAL IVP SCH ×2 (15:35→21:00)
[2021-07-12] MEDS: METOCLOPRAMIDE 10 MG/2 ML INJ VIAL IVP SCH (20:31)
[2021-07-12] MEDS: ATORVASTATIN 20 MG TAB PO SCH (20:35)
[2021-07-13] VITALS (32 sets, daily range): BP systolic 92–143; BP diastolic 46–82
[2021-07-13] MEDS: Z-GUARD PASTE TP SCH ×4 (01:50→13:48)
[2021-07-13] MEDS ORDERED: DEXMEDETOMIDINE HCL 100 MCG/ML 2 ML VIAL IV ONE (03:53)
[2021-07-13] MEDS: DEXMEDETOMIDINE HCL 400 MCG in NACL 0.9% 96 ML IV PRN (04:05)
[2021-07-13] MEDS: CLINDAMYCIN 600 MG in DEXTROSE 5% 50 ML IV SCH (04:55)
[2021-07-13] MEDS: METOCLOPRAMIDE 10 MG/2 ML INJ VIAL IVP SCH ×3 (04:55→21:00)
[2021-07-13 05:20] LABS: BASOPHILS % (AUTO) 0.2 % (0.0-2.0); EOSINOPHILS # (AUTO) 0.2 K/uL (0-0.4); EOSINOPHILS % (AUTO) 1.8 % (0.0-4.0); HEMATOCRIT 26.7 % (36-48); HEMOGLOBIN 8.5 g/dL (12.0-16.0); LYMPHOCYTES # (AUTO) 0.6 K/uL (2.5-16.5); LYMPHOCYTES % (AUTO) 4.5 % (20.5-51.1); MEAN CORPUSCULAR HEMOGLOBIN 26 pg (27-31); MEAN CORPUSCULAR HGB CONC 32 g/dL (33-37); MEAN CORPUSCULAR VOLUME 80.3 fL (80-94); MONOCYTES # (AUTO) 0.6 K/uL (0.8-1.0); MONOCYTES % (AUTO) 4.4 % (1.7-9.3); NEUTROPHILS # (AUTO) 11.8 K/uL (1.8-7.7); NEUTROPHILS % (AUTO) 89.1 % (42.2-75.2); PLATELET COUNT (AUTO) 158 K/uL (140-450); RED BLOOD CELL COUNT(AUTO) 3.33 MIL/uL (4.20-5.40); RED CELL DISTRIBUTION WIDTH 19.2 % (11.6-13.7); WHITE BLOOD COUNT (AUTO) 13.2 K/uL (4.8-10.8)
[2021-07-13 05:26] LABS: ANION GAP 13.2 (8-16); CARBON DIOXIDE 29.1 mmol/L (21-32); CHLORIDE 102 mmol/L (98-107); CREATININE 1.4 mg/dL (0.6-1.3); GLUCOSE 110 mg/dL (74-106); POTASSIUM 3.3 mmol/L (3.5-5.1); SODIUM SERUM 141 mmol/L (136-145); UREA NITROGEN, BLOOD 58 mg/dL (7-18)
[2021-07-13 05:35] LABS: PHOSPHORUS 5.9 mg/dL (2.5-4.9)
[2021-07-13] MEDS: ALBUTEROL SULFATE/IPRATROPIU 3 ML SOL IH SCH ×3 (07:52→19:25)
[2021-07-13] MEDS ORDERED: bisacodyL 10 MG SUPP RC PRN (09:55)
[2021-07-13] MEDS: FUROSEMIDE 20 MG/2 ML VIAL IVP SCH ×2 (10:08→21:00)
[2021-07-13] MEDS: METOPROLOL 25 MG TAB PO SCH (10:09)
[2021-07-13] MEDS: PANTOPRAZOLE 40 MG INJ VIAL IVP SCH (10:09)
[2021-07-13] MEDS: APIXABAN 2.5 MG TAB PO SCH ×2 (10:09→21:00)
[2021-07-13] MEDS: POLYETHYLENE GLYCOL 17 GM/PKT PO SCH (10:10)
[2021-07-13] MEDS: KCL 20 MEQ/WATER INJ PREMIX 200 ML IV PRN (10:29)
[2021-07-13] MEDS: ACETAMINOPHEN 325 MG TAB PO PRN (10:37)
[2021-07-13] MEDS: DEXT 5% / NACL 0.9% 500 ML IV SCH (11:11)
[2021-07-13] MEDS: THERAHONEY GEL 42.5 GM TP SCH (13:48)
[2021-07-13] MEDS ORDERED: VANCOMYCIN PER PHARMACY MC PRN (14:10)
[2021-07-13] MEDS: VANCOMYCIN 2,000 MG in DEXTROSE 5% 500 ML IV SCH (16:55)
[2021-07-13] MEDS ORDERED: LACTULOSE 20 GM/30 ML UDC PO ONE (17:00)
[2021-07-13] MEDS: MEROPENEM 1,000 MG in NACL 0.9% 100 ML IV SCH (21:00)
[2021-07-13] MEDS: ATORVASTATIN 20 MG TAB PO SCH (21:00)
[2021-07-13] MEDS ORDERED: MEROPENEM 1,000 MG in NACL 0.9% 100 ML IV SCH (21:00)
[2021-07-14] VITALS (29 sets, daily range): BP systolic 99–159; BP diastolic 24–118
[2021-07-14] MEDS: Z-GUARD PASTE TP SCH ×4 (01:00→13:14)
[2021-07-14 05:06] LABS: PHOSPHORUS 5.4 mg/dL (2.5-4.9)
[2021-07-14] MEDS: MEROPENEM 1,000 MG in NACL 0.9% 100 ML IV SCH ×3 (05:08→21:00)
[2021-07-14] MEDS: METOCLOPRAMIDE 10 MG/2 ML INJ VIAL IVP SCH ×3 (05:09→21:00)
[2021-07-14] MEDS: ALBUTEROL SULFATE/IPRATROPIU 3 ML SOL IH SCH ×3 (07:46→19:26)
[2021-07-14 08:26] LABS: BASOPHILS % (AUTO) 0.1 % (0.0-2.0); EOSINOPHILS # (AUTO) 0.3 K/uL (0-0.4); EOSINOPHILS % (AUTO) 2.2 % (0.0-4.0); HEMATOCRIT 27.2 % (36-48); HEMOGLOBIN 8.7 g/dL (12.0-16.0); LYMPHOCYTES # (AUTO) 0.7 K/uL (2.5-16.5); LYMPHOCYTES % (AUTO) 4.6 % (20.5-51.1); MEAN CORPUSCULAR HEMOGLOBIN 26 pg (27-31); MEAN CORPUSCULAR HGB CONC 32 g/dL (33-37); MEAN CORPUSCULAR VOLUME 80.4 fL (80-94); MONOCYTES # (AUTO) 0.7 K/uL (0.8-1.0); MONOCYTES % (AUTO) 4.5 % (1.7-9.3); NEUTROPHILS # (AUTO) 12.8 K/uL (1.8-7.7); NEUTROPHILS % (AUTO) 88.6 % (42.2-75.2); PLATELET COUNT (AUTO) 181 K/uL (140-450); RED BLOOD CELL COUNT(AUTO) 3.39 MIL/uL (4.20-5.40); RED CELL DISTRIBUTION WIDTH 18.5 % (11.6-13.7); WHITE BLOOD COUNT (AUTO) 14.5 K/uL (4.8-10.8)
[2021-07-14 08:32] LABS: ANION GAP 14.1 (8-16); ASPARTATE AMINOTRANSFERASE 56 U/L (15-37); CARBON DIOXIDE 27.3 mmol/L (21-32); CHLORIDE 103 mmol/L (98-107); CREATININE 1.4 mg/dL (0.6-1.3); GLUCOSE 109 mg/dL (74-106); POTASSIUM 3.4 mmol/L (3.5-5.1); SODIUM SERUM 141 mmol/L (136-145); TOTAL BILIRUBIN 0.6 mg/dL (0.0-1.0); UREA NITROGEN, BLOOD 53 mg/dL (7-18)
[2021-07-14] MEDS ORDERED: LACTULOSE 20 GM/30 ML UDC PO SCH (09:00)
[2021-07-14] MEDS: METOPROLOL 25 MG TAB PO SCH (09:00)
[2021-07-14] MEDS: POLYETHYLENE GLYCOL 17 GM/PKT PO SCH (09:00)
[2021-07-14] MEDS: PANTOPRAZOLE 40 MG INJ VIAL IVP SCH (09:09)
[2021-07-14] MEDS: FUROSEMIDE 20 MG/2 ML VIAL IVP SCH (09:09)
[2021-07-14] MEDS: APIXABAN 2.5 MG TAB PO SCH ×2 (09:10→21:00)
[2021-07-14] MEDS: KCL 20 MEQ/WATER INJ PREMIX 200 ML IV PRN (10:12)
[2021-07-14] MEDS: DEXMEDETOMIDINE HCL 400 MCG in NACL 0.9% 96 ML IV PRN (10:30)
[2021-07-14] MEDS: INTERDRY CLOTH TP SCH (11:32)
[2021-07-14] MEDS: DEXT 5% / NACL 0.9% 500 ML IV SCH (11:45)
[2021-07-14] MEDS ORDERED: NYSTATIN CRE 100 MU/GM 15 GM TUBE TP SCH ×2 (13:00)
[2021-07-14] MEDS: THERAHONEY GEL 42.5 GM TP SCH (13:13)
[2021-07-14] MEDS: NYSTATIN POW 100 MU/GM 15 GM BTL TP SCH (14:30)
[2021-07-14] MEDS: ACETAMINOPHEN 325 MG TAB PO PRN (15:55)
[2021-07-14] MEDS: VANCOMYCIN 2,000 MG in DEXTROSE 5% 500 ML IV SCH (16:41)
[2021-07-14] MEDS: ATORVASTATIN 20 MG TAB PO SCH (21:00)
[2021-07-14] MEDS: FUROSEMIDE 40 MG/4 ML VIAL IVP SCH (21:00)
[2021-07-14] MEDS: LORazepam 2 MG/ML VIAL IVP PRN (23:53)
[2021-07-15] VITALS (21 sets, daily range): BP systolic 97–157; BP diastolic 42–90
[2021-07-15] MEDS: NYSTATIN POW 100 MU/GM 15 GM BTL TP SCH ×2 (01:20→13:00)
[2021-07-15] MEDS: Z-GUARD PASTE TP SCH ×5 (01:21→22:00)
[2021-07-15 04:41] LABS: ANION GAP 12.4 (8-16); CARBON DIOXIDE 28.6 mmol/L (21-32); CHLORIDE 104 mmol/L (98-107); CREATININE 1.3 mg/dL (0.6-1.3); GLUCOSE 121 mg/dL (74-106); SODIUM SERUM 142 mmol/L (136-145); UREA NITROGEN, BLOOD 52 mg/dL (7-18)
[2021-07-15 04:57] LABS: MAGNESIUM 1.9 mg/dL (1.8-2.4); PHOSPHORUS 4.2 mg/dL (2.5-4.9)
[2021-07-15] MEDS: METOCLOPRAMIDE 10 MG/2 ML INJ VIAL IVP SCH ×3 (05:00→21:00)
[2021-07-15] MEDS: MEROPENEM 1,000 MG in NACL 0.9% 100 ML IV SCH ×3 (05:00→21:00)
[2021-07-15] MEDS ORDERED: DEXMEDETOMIDINE HCL 100 MCG/ML 2 ML VIAL IV ONE ×2 (05:02→18:26)
[2021-07-15 05:19] LABS: BASOPHILS % (AUTO) 0.4 % (0.0-2.0); EOSINOPHILS # (AUTO) 0.3 K/uL (0-0.4); EOSINOPHILS % (AUTO) 3.2 % (0.0-4.0); HEMATOCRIT 24.9 % (36-48); HEMOGLOBIN 8.2 g/dL (12.0-16.0); LYMPHOCYTES # (AUTO) 0.7 K/uL (2.5-16.5); MEAN CORPUSCULAR HEMOGLOBIN 26 pg (27-31); MEAN CORPUSCULAR HGB CONC 33 g/dL (33-37); MEAN CORPUSCULAR VOLUME 80.3 fL (80-94); MONOCYTES # (AUTO) 0.6 K/uL (0.8-1.0); MONOCYTES % (AUTO) 6.1 % (1.7-9.3); NEUTROPHILS # (AUTO) 8.2 K/uL (1.8-7.7); PLATELET COUNT (AUTO) 153 K/uL (140-450); RED CELL DISTRIBUTION WIDTH 18.4 % (11.6-13.7); WHITE BLOOD COUNT (AUTO) 9.8 K/uL (4.8-10.8)
[2021-07-15 05:40] LABS: NEUTROPHILS % (AUTO) 83.3 % (42.2-75.2)
[2021-07-15] MEDS: KCL 20 MEQ/WATER INJ PREMIX 200 ML IV PRN ×2 (06:10→09:11)
[2021-07-15] MEDS: ALBUTEROL SULFATE/IPRATROPIU 3 ML SOL IH SCH ×3 (07:32→19:00)
[2021-07-15] MEDS ORDERED: metOLazone 5 MG TAB PO SCH (09:00)
[2021-07-15] MEDS: METOPROLOL 25 MG TAB PO SCH (09:00)
[2021-07-15] MEDS: POLYETHYLENE GLYCOL 17 GM/PKT PO SCH (09:00)
[2021-07-15] MEDS: PANTOPRAZOLE 40 MG INJ VIAL IVP SCH (09:11)
[2021-07-15] MEDS: metOLazone 5 MG TAB PO SCH ×2 (09:12→21:00)
[2021-07-15] MEDS: FUROSEMIDE 40 MG/4 ML VIAL IVP SCH ×2 (09:12→21:00)
[2021-07-15] MEDS: EPOETIN ALFA-EPBX 10,000 UNITS/ML VIAL SUBQ SCH (09:13)
[2021-07-15] MEDS: APIXABAN 2.5 MG TAB PO SCH ×2 (09:14→21:00)
[2021-07-15] MEDS: DEXT 5% / NACL 0.9% 500 ML IV SCH (10:55)
[2021-07-15] MEDS: DEXMEDETOMIDINE HCL 400 MCG in NACL 0.9% 96 ML IV PRN ×2 (11:48→18:36)
[2021-07-15] MEDS: THERAHONEY GEL 42.5 GM TP SCH (13:00)
[2021-07-15] MEDS: ATORVASTATIN 20 MG TAB PO SCH (21:00)
[2021-07-15] MEDS: LORazepam 2 MG/ML VIAL IVP PRN (22:44)
[2021-07-16] VITALS (25 sets, daily range): BP systolic 87–155; BP diastolic 42–112
[2021-07-16] MEDS: NYSTATIN POW 100 MU/GM 15 GM BTL TP SCH ×2 (01:00→13:00)
[2021-07-16] MEDS: Z-GUARD PASTE TP SCH ×3 (01:00→13:00)
[2021-07-16] MEDS: DEXMEDETOMIDINE HCL 400 MCG in NACL 0.9% 96 ML IV PRN ×2 (01:55→14:28)
[2021-07-16] MEDS: LORazepam 2 MG/ML VIAL IVP PRN (03:30)
[2021-07-16] MEDS: MEROPENEM 1,000 MG in NACL 0.9% 100 ML IV SCH ×3 (04:53→20:53)
[2021-07-16 05:27] LABS: BASOPHILS % (AUTO) 0.3 % (0.0-2.0); EOSINOPHILS # (AUTO) 0.5 K/uL (0-0.4); EOSINOPHILS % (AUTO) 4.7 % (0.0-4.0); HEMATOCRIT 28.5 % (36-48); MEAN CORPUSCULAR HEMOGLOBIN 26 pg (27-31); MEAN CORPUSCULAR HGB CONC 32 g/dL (33-37); MEAN CORPUSCULAR VOLUME 81.2 fL (80-94); MONOCYTES # (AUTO) 0.5 K/uL (0.8-1.0); MONOCYTES % (AUTO) 4.5 % (1.7-9.3); NEUTROPHILS # (AUTO) 9.4 K/uL (1.8-7.7); PLATELET COUNT (AUTO) 189 K/uL (140-450); RED BLOOD CELL COUNT(AUTO) 3.51 MIL/uL (4.20-5.40); RED CELL DISTRIBUTION WIDTH 18.9 % (11.6-13.7); WHITE BLOOD COUNT (AUTO) 11.5 K/uL (4.8-10.8)
[2021-07-16] MEDS: METOCLOPRAMIDE 10 MG/2 ML INJ VIAL IVP SCH ×3 (06:15→20:52)
[2021-07-16 06:18] LABS: ANION GAP 15.3 (8-16); CHLORIDE 105 mmol/L (98-107); CREATININE 1.3 mg/dL (0.6-1.3); GLUCOSE 89 mg/dL (74-106); POTASSIUM 3.3 mmol/L (3.5-5.1); SODIUM SERUM 144 mmol/L (136-145); UREA NITROGEN, BLOOD 55 mg/dL (7-18)
[2021-07-16 07:00] LABS: LYMPHOCYTES % (AUTO) 8.7 % (20.5-51.1); NEUTROPHILS % (AUTO) 81.8 % (42.2-75.2)
[2021-07-16] MEDS: ALBUTEROL SULFATE/IPRATROPIU 3 ML SOL IH SCH ×3 (07:30→19:36)
[2021-07-16] MEDS: METOPROLOL 25 MG TAB PO SCH (09:00)
[2021-07-16] MEDS: POLYETHYLENE GLYCOL 17 GM/PKT PO SCH (09:30)
[2021-07-16] MEDS: PANTOPRAZOLE 40 MG INJ VIAL IVP SCH (09:30)
[2021-07-16] MEDS: KCL 20 MEQ/WATER INJ PREMIX 200 ML IV PRN (09:35)
[2021-07-16] MEDS: FUROSEMIDE 40 MG/4 ML VIAL IVP SCH ×2 (09:36→20:52)
[2021-07-16] MEDS: metOLazone 5 MG TAB PO SCH ×2 (09:37→20:52)
[2021-07-16] MEDS: APIXABAN 2.5 MG TAB PO SCH ×2 (09:41→20:56)
[2021-07-16] MEDS: DEXT 5% / NACL 0.9% 500 ML IV SCH (10:55)
[2021-07-16] MEDS: THERAHONEY GEL 42.5 GM TP SCH (13:00)
[2021-07-16] MEDS: ATORVASTATIN 20 MG TAB PO SCH (20:51)
[2021-07-17] VITALS (30 sets, daily range): BP systolic 88–139; BP diastolic 31–73
[2021-07-17] MEDS: LORazepam 2 MG/ML VIAL IVP PRN (00:07)
[2021-07-17] MEDS: NYSTATIN POW 100 MU/GM 15 GM BTL TP SCH ×2 (04:34→13:15)
[2021-07-17] MEDS: Z-GUARD PASTE TP SCH ×4 (04:35→13:12)
[2021-07-17] MEDS ORDERED: DEXMEDETOMIDINE HCL 100 MCG/ML 2 ML VIAL IV ONE ×2 (04:42→20:38)
[2021-07-17] MEDS: MEROPENEM 1,000 MG in NACL 0.9% 100 ML IV SCH ×3 (05:06→21:52)
[2021-07-17] MEDS: METOCLOPRAMIDE 10 MG/2 ML INJ VIAL IVP SCH ×3 (05:06→21:50)
[2021-07-17 05:33] LABS: BASOPHILS % (AUTO) 0.3 % (0.0-2.0); EOSINOPHILS # (AUTO) 0.3 K/uL (0-0.4); HEMATOCRIT 28.6 % (36-48); HEMOGLOBIN 9.1 g/dL (12.0-16.0); LYMPHOCYTES # (AUTO) 1.2 K/uL (2.5-16.5); LYMPHOCYTES % (AUTO) 9.1 % (20.5-51.1); MEAN CORPUSCULAR HEMOGLOBIN 26 pg (27-31); MEAN CORPUSCULAR HGB CONC 32 g/dL (33-37); MEAN CORPUSCULAR VOLUME 81.3 fL (80-94); MONOCYTES # (AUTO) 0.7 K/uL (0.8-1.0); MONOCYTES % (AUTO) 5.8 % (1.7-9.3); NEUTROPHILS # (AUTO) 10.5 K/uL (1.8-7.7); NEUTROPHILS % (AUTO) 82.8 % (42.2-75.2); PLATELET COUNT (AUTO) 235 K/uL (140-450); RED BLOOD CELL COUNT(AUTO) 3.52 MIL/uL (4.20-5.40); RED CELL DISTRIBUTION WIDTH 18.8 % (11.6-13.7); WHITE BLOOD COUNT (AUTO) 12.7 K/uL (4.8-10.8)
[2021-07-17 06:07] LABS: ALBUMIN 2.1 g/dL (3.4-5.0); ANION GAP 13.1 (8-16); ASPARTATE AMINOTRANSFERASE 90 U/L (15-37); CARBON DIOXIDE 30.4 mmol/L (21-32); CHLORIDE 105 mmol/L (98-107); CREATININE 1.2 mg/dL (0.6-1.3); GLUCOSE 123 mg/dL (74-106); MAGNESIUM 1.9 mg/dL (1.8-2.4); PHOSPHORUS 3.6 mg/dL (2.5-4.9); POTASSIUM 3.5 mmol/L (3.5-5.1); SODIUM SERUM 145 mmol/L (136-145); TOTAL BILIRUBIN 0.4 mg/dL (0.0-1.0); UREA NITROGEN, BLOOD 56 mg/dL (7-18)
[2021-07-17] MEDS: ALBUTEROL SULFATE/IPRATROPIU 3 ML SOL IH SCH ×3 (07:00→18:59)
[2021-07-17] MEDS ORDERED: VANCOMYCIN HCL 1.25 GM in DEXTROSE 5% 500 ML IV SCH (08:00)
[2021-07-17] MEDS: VANCOMYCIN HCL 1.25 GM in DEXTROSE 5% 250 ML IV SCH (08:30)
[2021-07-17] MEDS: FUROSEMIDE 40 MG/4 ML VIAL IVP SCH ×2 (09:38→21:50)
[2021-07-17] MEDS: PANTOPRAZOLE 40 MG INJ VIAL IVP SCH (09:39)
[2021-07-17] MEDS: APIXABAN 2.5 MG TAB PO SCH (09:39)
[2021-07-17] MEDS: METOPROLOL 25 MG TAB PO SCH (09:40)
[2021-07-17] MEDS: POLYETHYLENE GLYCOL 17 GM/PKT PO SCH (09:40)
[2021-07-17] MEDS: metOLazone 5 MG TAB PO SCH ×2 (09:41→21:50)
[2021-07-17] MEDS: DEXT 5% / NACL 0.9% 500 ML IV SCH (10:55)
[2021-07-17] MEDS ORDERED: DEXMEDETOMIDINE HCL 400 MCG in NACL 0.9% 96 ML IV PRN (13:10)
[2021-07-17] MEDS: THERAHONEY GEL 42.5 GM TP SCH (13:13)
[2021-07-17] MEDS: FOAM DRESSING TP SCH (13:14)
[2021-07-17] MEDS: DEXMEDETOMIDINE HCL 400 MCG in NACL 0.9% 96 ML IV PRN (20:47)
[2021-07-17] MEDS: ATORVASTATIN 20 MG TAB PO SCH (21:51)
[2021-07-18] VITALS (31 sets, daily range): BP systolic 92–152; BP diastolic 37–98
[2021-07-18] MEDS: NYSTATIN POW 100 MU/GM 15 GM BTL TP SCH ×2 (00:25→13:03)
[2021-07-18] MEDS: Z-GUARD PASTE TP SCH ×4 (00:25→13:03)
[2021-07-18] MEDS: VANCOMYCIN HCL 1.25 GM in DEXTROSE 5% 250 ML IV SCH ×2 (02:10→20:14)
[2021-07-18] MEDS: MEROPENEM 1,000 MG in NACL 0.9% 100 ML IV SCH ×3 (05:16→21:00)
[2021-07-18] MEDS: METOCLOPRAMIDE 10 MG/2 ML INJ VIAL IVP SCH ×3 (05:17→21:00)
[2021-07-18 05:53] LABS: BASOPHILS # (AUTO) 0.1 K/uL (0.00-0.22); BASOPHILS % (AUTO) 0.5 % (0.0-2.0); EOSINOPHILS # (AUTO) 0.3 K/uL (0-0.4); EOSINOPHILS % (AUTO) 2.5 % (0.0-4.0); HEMATOCRIT 27.4 % (36-48); HEMOGLOBIN 8.7 g/dL (12.0-16.0); LYMPHOCYTES # (AUTO) 1.1 K/uL (2.5-16.5); LYMPHOCYTES % (AUTO) 8.7 % (20.5-51.1); MEAN CORPUSCULAR HEMOGLOBIN 26 pg (27-31); MEAN CORPUSCULAR HGB CONC 32 g/dL (33-37); MEAN CORPUSCULAR VOLUME 81.1 fL (80-94); MONOCYTES # (AUTO) 0.4 K/uL (0.8-1.0); MONOCYTES % (AUTO) 3.2 % (1.7-9.3); NEUTROPHILS # (AUTO) 10.9 K/uL (1.8-7.7); NEUTROPHILS % (AUTO) 85.1 % (42.2-75.2); PLATELET COUNT (AUTO) 209 K/uL (140-450); RED BLOOD CELL COUNT(AUTO) 3.37 MIL/uL (4.20-5.40); WHITE BLOOD COUNT (AUTO) 12.8 K/uL (4.8-10.8)
[2021-07-18 06:28] LABS: ANION GAP 12.5 (8-16); ASPARTATE AMINOTRANSFERASE 83 U/L (15-37); CARBON DIOXIDE 30.4 mmol/L (21-32); CHLORIDE 105 mmol/L (98-107); CREATININE 1.1 mg/dL (0.6-1.3); GLUCOSE 124 mg/dL (74-106); PHOSPHORUS 3.7 mg/dL (2.5-4.9); SODIUM SERUM 145 mmol/L (136-145); TOTAL BILIRUBIN 0.5 mg/dL (0.0-1.0); UREA NITROGEN, BLOOD 56 mg/dL (7-18)
[2021-07-18 06:43] LABS: POTASSIUM 2.9 mmol/L (3.5-5.1)
[2021-07-18] MEDS: KCL 20 MEQ/WATER INJ PREMIX 200 ML IV PRN ×2 (06:50→09:33)
[2021-07-18] MEDS: ALBUTEROL SULFATE/IPRATROPIU 3 ML SOL IH SCH ×3 (07:34→19:48)
[2021-07-18] MEDS: DEXMEDETOMIDINE HCL 400 MCG in NACL 0.9% 96 ML IV PRN ×2 (08:14→22:57)
[2021-07-18] MEDS: metOLazone 5 MG TAB PO SCH ×2 (09:00→21:00)
[2021-07-18] MEDS: POLYETHYLENE GLYCOL 17 GM/PKT PO SCH (09:00)
[2021-07-18] MEDS: EPOETIN ALFA-EPBX 10,000 UNITS/ML VIAL SUBQ SCH (09:29)
[2021-07-18] MEDS: PANTOPRAZOLE 40 MG INJ VIAL IVP SCH (09:29)
[2021-07-18] MEDS: FUROSEMIDE 40 MG/4 ML VIAL IVP SCH ×2 (09:30→21:00)
[2021-07-18] MEDS: DEXT 5% / NACL 0.9% 500 ML IV SCH (10:55)
[2021-07-18 12:43] LABS: CARBON DIOXIDE 31.2 mmol/L (21-32); CHLORIDE 105 mmol/L (98-107); CREATININE 1.1 mg/dL (0.6-1.3); GLUCOSE 108 mg/dL (74-106); POTASSIUM 3.2 mmol/L (3.5-5.1); SODIUM SERUM 144 mmol/L (136-145); UREA NITROGEN, BLOOD 55 mg/dL (7-18)
[2021-07-18] MEDS ORDERED: MEROPENEM 1,000 MG in NACL 0.9% 100 ML IV SCH (13:00)
[2021-07-18] MEDS: FOAM DRESSING TP SCH (13:02)
[2021-07-18] MEDS: THERAHONEY GEL 42.5 GM TP SCH (13:03)
[2021-07-18] MEDS ORDERED: ePHEDrine 50 MG/ML VIAL ONE (16:00)
[2021-07-18] MEDS ORDERED: ROCURONIUM 50 MG/5 ML VIAL IV ONE (16:00)
[2021-07-18] MEDS ORDERED: GLYCOPYRROLATE 0.2 MG/ML VIAL ONE (16:00)
[2021-07-18] MEDS ORDERED: SEVOFLURANE 250 ML BTL INH ONE (16:00)
[2021-07-18] MEDS ORDERED: NEOSTIGMINE 1:1000 10 MG/10 ML VIAL ONE (16:00)
[2021-07-18] MEDS ORDERED: MIDAZOLAM 2 MG/2 ML VIAL ONE (16:16)
[2021-07-18] MEDS ORDERED: fentaNYL citrate 0.05 MG/ML VIAL ONE (16:32)
[2021-07-18] MEDS ORDERED: MORPHINE SULFATE 4 MG/ML SYR IVP PRN (19:05)
[2021-07-18] MEDS ORDERED: MORPHINE SULFATE 4 MG/ML SYR ONE (19:05)
[2021-07-18] MEDS: ATORVASTATIN 20 MG TAB PO SCH (21:00)
[2021-07-18] MEDS ORDERED: DEXMEDETOMIDINE HCL 100 MCG/ML 2 ML VIAL IV ONE (22:35)
[2021-07-19] VITALS (32 sets, daily range): BP systolic 89–138; BP diastolic 27–80
[2021-07-19] MEDS: LORazepam 2 MG/ML VIAL IVP PRN (00:15)
[2021-07-19] MEDS: Z-GUARD PASTE TP SCH ×4 (01:00→12:54)
[2021-07-19] MEDS: NYSTATIN POW 100 MU/GM 15 GM BTL TP SCH ×2 (01:00→12:53)
[2021-07-19] MEDS: MEROPENEM 1,000 MG in NACL 0.9% 100 ML IV SCH ×3 (05:00→20:49)
[2021-07-19] MEDS: METOCLOPRAMIDE 10 MG/2 ML INJ VIAL IVP SCH ×3 (05:00→20:48)
[2021-07-19 05:50] LABS: BASOPHILS % (AUTO) 0.3 % (0.0-2.0); EOSINOPHILS # (AUTO) 0.2 K/uL (0-0.4); HEMATOCRIT 25.5 % (36-48); HEMOGLOBIN 8.3 g/dL (12.0-16.0); LYMPHOCYTES % (AUTO) 9.5 % (20.5-51.1); MEAN CORPUSCULAR HEMOGLOBIN 26 pg (27-31); MEAN CORPUSCULAR HGB CONC 32 g/dL (33-37); MEAN CORPUSCULAR VOLUME 81.1 fL (80-94); MONOCYTES # (AUTO) 0.4 K/uL (0.8-1.0); MONOCYTES % (AUTO) 3.3 % (1.7-9.3); NEUTROPHILS # (AUTO) 9.2 K/uL (1.8-7.7); NEUTROPHILS % (AUTO) 84.9 % (42.2-75.2); PLATELET COUNT (AUTO) 198 K/uL (140-450); RED BLOOD CELL COUNT(AUTO) 3.15 MIL/uL (4.20-5.40); RED CELL DISTRIBUTION WIDTH 18.9 % (11.6-13.7); WHITE BLOOD COUNT (AUTO) 10.8 K/uL (4.8-10.8)
[2021-07-19 06:12] LABS: ALBUMIN 1.9 g/dL (3.4-5.0); ASPARTATE AMINOTRANSFERASE 47 U/L (15-37); CARBON DIOXIDE 30.7 mmol/L (21-32); CHLORIDE 104 mmol/L (98-107); GLUCOSE 98 mg/dL (74-106); MAGNESIUM 1.9 mg/dL (1.8-2.4); PHOSPHORUS 3.8 mg/dL (2.5-4.9); SODIUM SERUM 145 mmol/L (136-145); TOTAL BILIRUBIN 0.7 mg/dL (0.0-1.0); UREA NITROGEN, BLOOD 53 mg/dL (7-18)
[2021-07-19 06:33] LABS: POTASSIUM 2.7 mmol/L (3.5-5.1)
[2021-07-19] MEDS: KCL 20 MEQ/WATER INJ PREMIX 200 ML IV PRN (06:39)
[2021-07-19] MEDS: ALBUTEROL SULFATE/IPRATROPIU 3 ML SOL IH SCH ×3 (07:50→19:15)
[2021-07-19] MEDS: FUROSEMIDE 40 MG/4 ML VIAL IVP SCH ×2 (08:44→20:49)
[2021-07-19] MEDS: PANTOPRAZOLE 40 MG INJ VIAL IVP SCH (08:44)
[2021-07-19] MEDS: POLYETHYLENE GLYCOL 17 GM/PKT PO SCH (08:44)
[2021-07-19] MEDS: DEXMEDETOMIDINE HCL 400 MCG in NACL 0.9% 96 ML IV PRN (10:23)
[2021-07-19] MEDS: DEXT 5% / NACL 0.9% 500 ML IV SCH (10:55)
[2021-07-19] MEDS ORDERED: POTASSIUM CHLORIDE 10 MEQ TABER PO SCH (12:25)
[2021-07-19] MEDS: FOAM DRESSING TP SCH (12:52)
[2021-07-19] MEDS: THERAHONEY GEL 42.5 GM TP SCH (12:54)
[2021-07-19] MEDS: metOLazone 5 MG TAB PO SCH (21:47)
[2021-07-20] VITALS (16 sets, daily range): BP systolic 98–149; BP diastolic 40–79
[2021-07-20] MEDS: Z-GUARD PASTE TP SCH ×4 (05:00→12:45)
[2021-07-20] MEDS: NYSTATIN POW 100 MU/GM 15 GM BTL TP SCH ×2 (05:00→13:29)
[2021-07-20] MEDS: MEROPENEM 1,000 MG in NACL 0.9% 100 ML IV SCH ×3 (05:39→20:50)
[2021-07-20] MEDS: METOCLOPRAMIDE 10 MG/2 ML INJ VIAL IVP SCH ×3 (05:39→20:49)
[2021-07-20] MEDS: ALBUTEROL SULFATE/IPRATROPIU 3 ML SOL IH SCH ×3 (07:21→18:50)
[2021-07-20 07:22] LABS: CARBON DIOXIDE 31.3 mmol/L (21-32); CHLORIDE 104 mmol/L (98-107); CREATININE 1.1 mg/dL (0.6-1.3); GLUCOSE 97 mg/dL (74-106); POTASSIUM 3.3 mmol/L (3.5-5.1); SODIUM SERUM 146 mmol/L (136-145); UREA NITROGEN, BLOOD 46 mg/dL (7-18)
[2021-07-20 07:28] LABS: ALBUMIN 2.1 g/dL (3.4-5.0); ASPARTATE AMINOTRANSFERASE 46 U/L (15-37); MAGNESIUM 1.9 mg/dL (1.8-2.4); PHOSPHORUS 4.2 mg/dL (2.5-4.9); TOTAL BILIRUBIN 0.8 mg/dL (0.0-1.0)
[2021-07-20 08:04] LABS: BASOPHILS % (AUTO) 0.4 % (0.0-2.0); EOSINOPHILS # (AUTO) 0.2 K/uL (0-0.4); EOSINOPHILS % (AUTO) 1.4 % (0.0-4.0); HEMATOCRIT 28.9 % (36-48); LYMPHOCYTES % (AUTO) 9.1 % (20.5-51.1); MEAN CORPUSCULAR HEMOGLOBIN 25 pg (27-31); MEAN CORPUSCULAR HGB CONC 31 g/dL (33-37); MEAN CORPUSCULAR VOLUME 81.7 fL (80-94); MONOCYTES # (AUTO) 0.5 K/uL (0.8-1.0); MONOCYTES % (AUTO) 4.2 % (1.7-9.3); NEUTROPHILS # (AUTO) 9.7 K/uL (1.8-7.7); NEUTROPHILS % (AUTO) 84.9 % (42.2-75.2); PLATELET COUNT (AUTO) 263 K/uL (140-450); RED BLOOD CELL COUNT(AUTO) 3.54 MIL/uL (4.20-5.40); WHITE BLOOD COUNT (AUTO) 11.5 K/uL (4.8-10.8)
[2021-07-20] MEDS: FUROSEMIDE 40 MG/4 ML VIAL IVP SCH ×2 (09:54→20:50)
[2021-07-20] MEDS: metOLazone 5 MG TAB PO SCH ×2 (09:55→20:49)
[2021-07-20] MEDS: PANTOPRAZOLE 40 MG INJ VIAL IVP SCH (09:55)
[2021-07-20] MEDS: POLYETHYLENE GLYCOL 17 GM/PKT PO SCH (09:55)
[2021-07-20] MEDS: KCL 20 MEQ/WATER INJ PREMIX 200 ML IV PRN (09:56)
[2021-07-20] MEDS: EPOETIN ALFA-EPBX 10,000 UNITS/ML VIAL SUBQ SCH (09:56)
[2021-07-20] MEDS: NACL 0.9% 1,000 ML IV SCH (10:10)
[2021-07-20] MEDS ORDERED: POTASSIUM CHLORIDE 10 MEQ TABER PO ONE (10:10)
[2021-07-20] MEDS ORDERED: POTASSIUM CHLORIDE 20% 40 MEQ/15 ML UDC GT ONE (10:20)
[2021-07-20] MEDS: FOAM DRESSING TP SCH (12:45)
[2021-07-20] MEDS: THERAHONEY GEL 42.5 GM TP SCH (12:45)
[2021-07-20] MEDS: ATORVASTATIN 20 MG TAB PO SCH (20:48)
[2021-07-21] VITALS: BP 119/56
[2021-07-21] MEDS: Z-GUARD PASTE TP SCH ×4 (01:00→12:09)
[2021-07-21] MEDS: NYSTATIN POW 100 MU/GM 15 GM BTL TP SCH ×2 (01:16→12:08)
[2021-07-21] MEDS: ONDANSETRON 4 MG/2 ML VIAL IM/IVP PRN (02:45)
[2021-07-21 04:00] VITALS: BP 106/64
[2021-07-21] MEDS: MEROPENEM 1,000 MG in NACL 0.9% 100 ML IV SCH ×3 (05:21→21:29)
[2021-07-21] MEDS: METOCLOPRAMIDE 10 MG/2 ML INJ VIAL IVP SCH ×3 (05:23→21:13)
[2021-07-21] MEDS: NACL 0.9% 1,000 ML IV SCH (06:10)
[2021-07-21 06:43] LABS: BASOPHILS % (AUTO) 0.5 % (0.0-2.0); EOSINOPHILS # (AUTO) 0.1 K/uL (0-0.4); EOSINOPHILS % (AUTO) 1.1 % (0.0-4.0); HEMATOCRIT 27.4 % (36-48); LYMPHOCYTES # (AUTO) 0.9 K/uL (2.5-16.5); MEAN CORPUSCULAR HEMOGLOBIN 27 pg (27-31); MEAN CORPUSCULAR HGB CONC 33 g/dL (33-37); MEAN CORPUSCULAR VOLUME 80.9 fL (80-94); MONOCYTES # (AUTO) 0.4 K/uL (0.8-1.0); MONOCYTES % (AUTO) 4.3 % (1.7-9.3); NEUTROPHILS # (AUTO) 8.1 K/uL (1.8-7.7); NEUTROPHILS % (AUTO) 85.1 % (42.2-75.2); PLATELET COUNT (AUTO) 257 K/uL (140-450); RED BLOOD CELL COUNT(AUTO) 3.38 MIL/uL (4.20-5.40); RED CELL DISTRIBUTION WIDTH 19.2 % (11.6-13.7); WHITE BLOOD COUNT (AUTO) 9.5 K/uL (4.8-10.8)
[2021-07-21 07:14] LABS: ALBUMIN 2.1 g/dL (3.4-5.0); ANION GAP 12.7 (8-16); ASPARTATE AMINOTRANSFERASE 41 U/L (15-37); CARBON DIOXIDE 34.4 mmol/L (21-32); CHLORIDE 104 mmol/L (98-107); GLUCOSE 112 mg/dL (74-106); MAGNESIUM 1.8 mg/dL (1.8-2.4); PHOSPHORUS 3.2 mg/dL (2.5-4.9); POTASSIUM 3.1 mmol/L (3.5-5.1); SODIUM SERUM 148 mmol/L (136-145); TOTAL BILIRUBIN 0.9 mg/dL (0.0-1.0); UREA NITROGEN, BLOOD 40 mg/dL (7-18)
[2021-07-21] MEDS: ALBUTEROL SULFATE/IPRATROPIU 3 ML SOL IH SCH ×3 (07:33→20:17)
[2021-07-21 08:00] VITALS: BP 151/74
[2021-07-21] MEDS: metOLazone 5 MG TAB PO SCH ×2 (08:34→21:16)
[2021-07-21] MEDS: POLYETHYLENE GLYCOL 17 GM/PKT PO SCH (08:35)
[2021-07-21] MEDS: PANTOPRAZOLE 40 MG INJ VIAL IVP SCH (08:35)
[2021-07-21] MEDS: FUROSEMIDE 40 MG/4 ML VIAL IVP SCH ×2 (08:35→21:10)
[2021-07-21] MEDS: KCL 20 MEQ/WATER INJ PREMIX 200 ML IV PRN (08:40)
[2021-07-21] MEDS: POTASSIUM CHLORIDE 20% 40 MEQ/15 ML UDC PO SCH (08:57)
[2021-07-21 12:00] VITALS: BP 128/71
[2021-07-21] MEDS: FOAM DRESSING TP SCH (12:08)
[2021-07-21] MEDS: THERAHONEY GEL 42.5 GM TP SCH (12:09)
[2021-07-21 16:00] VITALS: BP 126/60
[2021-07-21 20:00] VITALS: BP 152/70
[2021-07-21] MEDS: ATORVASTATIN 20 MG TAB PO SCH (21:14)
[2021-07-22] VITALS: BP 139/73
[2021-07-22] MEDS: NYSTATIN POW 100 MU/GM 15 GM BTL TP SCH ×2 (01:00→13:10)
[2021-07-22] MEDS: Z-GUARD PASTE TP SCH ×4 (01:00→13:10)
[2021-07-22] MEDS: ONDANSETRON 4 MG/2 ML VIAL IM/IVP PRN (01:05)
[2021-07-22] MEDS: ALBUTEROL SULFATE/IPRATROPIU 3 ML SOL IH SCH ×3 (01:20→19:09)
[2021-07-22 04:00] VITALS: BP 110/54
[2021-07-22] MEDS: NACL 0.9% 1,000 ML IV SCH (05:35)
[2021-07-22] MEDS: MEROPENEM 1,000 MG in NACL 0.9% 100 ML IV SCH ×3 (05:55→21:27)
[2021-07-22] MEDS: METOCLOPRAMIDE 10 MG/2 ML INJ VIAL IVP SCH ×3 (05:55→21:28)
[2021-07-22 06:23] LABS: BASOPHILS % (AUTO) 0.2 % (0.0-2.0); EOSINOPHILS # (AUTO) 0.1 K/uL (0-0.4); EOSINOPHILS % (AUTO) 1.1 % (0.0-4.0); HEMATOCRIT 28.3 % (36-48); HEMOGLOBIN 8.9 g/dL (12.0-16.0); LYMPHOCYTES # (AUTO) 0.6 K/uL (2.5-16.5); LYMPHOCYTES % (AUTO) 8.2 % (20.5-51.1); MEAN CORPUSCULAR HEMOGLOBIN 26 pg (27-31); MEAN CORPUSCULAR HGB CONC 32 g/dL (33-37); MONOCYTES # (AUTO) 0.3 K/uL (0.8-1.0); MONOCYTES % (AUTO) 3.8 % (1.7-9.3); NEUTROPHILS # (AUTO) 6.8 K/uL (1.8-7.7); NEUTROPHILS % (AUTO) 86.7 % (42.2-75.2); PLATELET COUNT (AUTO) 244 K/uL (140-450); RED BLOOD CELL COUNT(AUTO) 3.46 MIL/uL (4.20-5.40); WHITE BLOOD COUNT (AUTO) 7.9 K/uL (4.8-10.8)
[2021-07-22 06:27] LABS: ANION GAP 10.6 (8-16); CARBON DIOXIDE 36.1 mmol/L (21-32); CHLORIDE 106 mmol/L (98-107); GLUCOSE 121 mg/dL (74-106); SODIUM SERUM 150 mmol/L (136-145); UREA NITROGEN, BLOOD 33 mg/dL (7-18)
[2021-07-22 06:31] LABS: POTASSIUM 2.7 mmol/L (3.5-5.1)
[2021-07-22] MEDS: KCL 20 MEQ/WATER INJ PREMIX 200 ML IV PRN (07:08)
[2021-07-22] MEDS: ALBUTEROL SULFATE/IPRATROPIU 3 ML SOL IH PRN (07:23)
[2021-07-22 08:00] VITALS: BP 132/60
[2021-07-22] MEDS: POLYETHYLENE GLYCOL 17 GM/PKT PO SCH (08:23)
[2021-07-22] MEDS: FUROSEMIDE 40 MG/4 ML VIAL IVP SCH (08:24)
[2021-07-22] MEDS: PANTOPRAZOLE 40 MG INJ VIAL IVP SCH (08:24)
[2021-07-22] MEDS: EPOETIN ALFA-EPBX 10,000 UNITS/ML VIAL SUBQ SCH (08:24)
[2021-07-22] MEDS: metOLazone 5 MG TAB PO SCH (08:25)
[2021-07-22] MEDS: POTASSIUM CHLORIDE 20% 40 MEQ/15 ML UDC PO SCH (08:42)
[2021-07-22] MEDS ORDERED: FUROSEMIDE 40 MG TAB GT SCH (09:00)
[2021-07-22] MEDS ORDERED: VANCOMYCIN HCL 1.25 GM in DEXTROSE 5% 250 ML IV SCH (10:00)
[2021-07-22] MEDS ORDERED: POTASSIUM CHLORIDE 10 MEQ TABER PO ONE ×2 (11:55→18:00)
[2021-07-22] MEDS ORDERED: MAG SULF 2000 MG/WATER PREMIX 50 ML IV ONE (11:55)
[2021-07-22 12:00] VITALS: BP 114/61
[2021-07-22] MEDS: FOAM DRESSING TP SCH (13:08)
[2021-07-22] MEDS: THERAHONEY GEL 42.5 GM TP SCH (13:10)
[2021-07-22 16:00] VITALS: BP 130/63
[2021-07-22 20:00] VITALS: BP 127/66
[2021-07-22] MEDS: ATORVASTATIN 20 MG TAB PO SCH (21:29)
[2021-07-23] VITALS: BP 129/68
[2021-07-23] MEDS: Z-GUARD PASTE TP SCH ×4 (01:12→13:05)
[2021-07-23 04:00] VITALS: BP 132/57
[2021-07-23] MEDS: METOCLOPRAMIDE 10 MG/2 ML INJ VIAL IVP SCH ×3 (06:18→20:46)
[2021-07-23 06:55] LABS: BASOPHILS % (AUTO) 0.6 % (0.0-2.0); EOSINOPHILS # (AUTO) 0.4 K/uL (0-0.4); EOSINOPHILS % (AUTO) 5.6 % (0.0-4.0); HEMATOCRIT 27.7 % (36-48); HEMOGLOBIN 8.8 g/dL (12.0-16.0); LYMPHOCYTES # (AUTO) 0.8 K/uL (2.5-16.5); LYMPHOCYTES % (AUTO) 11.2 % (20.5-51.1); MEAN CORPUSCULAR HEMOGLOBIN 26 pg (27-31); MEAN CORPUSCULAR HGB CONC 32 g/dL (33-37); MEAN CORPUSCULAR VOLUME 81.9 fL (80-94); MONOCYTES # (AUTO) 0.3 K/uL (0.8-1.0); NEUTROPHILS # (AUTO) 5.8 K/uL (1.8-7.7); NEUTROPHILS % (AUTO) 78.6 % (42.2-75.2); PLATELET COUNT (AUTO) 237 K/uL (140-450); RED BLOOD CELL COUNT(AUTO) 3.38 MIL/uL (4.20-5.40); RED CELL DISTRIBUTION WIDTH 19.2 % (11.6-13.7); WHITE BLOOD COUNT (AUTO) 7.3 K/uL (4.8-10.8)
[2021-07-23 07:06] LABS: ANION GAP 8.9 (8-16); CARBON DIOXIDE 36.1 mmol/L (21-32); CHLORIDE 108 mmol/L (98-107); CREATININE 0.9 mg/dL (0.6-1.3); GLUCOSE 120 mg/dL (74-106); SODIUM SERUM 150 mmol/L (136-145); UREA NITROGEN, BLOOD 32 mg/dL (7-18)
[2021-07-23] MEDS: ALBUTEROL SULFATE/IPRATROPIU 3 ML SOL IH SCH ×2 (07:35→12:58)
[2021-07-23 08:00] VITALS: BP 110/49
[2021-07-23] MEDS: POLYETHYLENE GLYCOL 17 GM/PKT PO SCH (08:40)
[2021-07-23] MEDS: FUROSEMIDE 40 MG/5 ML ORAL SOL UDC GT SCH (08:40)
[2021-07-23] MEDS: PANTOPRAZOLE 40 MG INJ VIAL IVP SCH (08:40)
[2021-07-23] MEDS: DEXTROSE 5% 1,000 ML IV SCH (08:42)
[2021-07-23] MEDS: POTASSIUM CHLORIDE 20% 40 MEQ/15 ML UDC PO SCH (08:44)
[2021-07-23] MEDS ORDERED: VANCOMYCIN HCL 1.25 GM in DEXTROSE 5% 250 ML IV SCH (11:00)
[2021-07-23 12:00] VITALS: BP 101/47
[2021-07-23] MEDS: THERAHONEY GEL 42.5 GM TP SCH (13:04)
[2021-07-23] MEDS: FOAM DRESSING TP SCH (13:04)
[2021-07-23 16:00] VITALS: BP 117/68
[2021-07-23 20:00] VITALS: BP 132/47
[2021-07-23] MEDS: ATORVASTATIN 20 MG TAB PO SCH (20:47)
[2021-07-24] VITALS: BP 119/40
[2021-07-24] MEDS: Z-GUARD PASTE TP SCH ×3 (02:02→13:21)
[2021-07-24] MEDS: DEXTROSE 5% 1,000 ML IV SCH ×2 (03:55→21:11)
[2021-07-24 04:00] VITALS: BP 144/44
[2021-07-24] MEDS: METOCLOPRAMIDE 10 MG/2 ML INJ VIAL IVP SCH ×3 (05:33→20:49)
[2021-07-24] MEDS: ALBUTEROL SULFATE/IPRATROPIU 3 ML SOL IH SCH ×3 (07:17→19:11)
[2021-07-24 08:00] VITALS: BP 144/73
[2021-07-24] MEDS: PANTOPRAZOLE 40 MG INJ VIAL IVP SCH (09:23)
[2021-07-24] MEDS: FUROSEMIDE 40 MG/5 ML ORAL SOL UDC GT SCH (09:23)
[2021-07-24] MEDS: POLYETHYLENE GLYCOL 17 GM/PKT PO SCH (09:23)
[2021-07-24] MEDS: POTASSIUM CHLORIDE 20% 40 MEQ/15 ML UDC PO SCH (09:25)
[2021-07-24] MEDS: KCL 20 MEQ/WATER INJ PREMIX 200 ML IV PRN (09:25)
[2021-07-24 09:49] LABS: BASOPHILS % (AUTO) 0.2 % (0.0-2.0); EOSINOPHILS # (AUTO) 0.6 K/uL (0-0.4); EOSINOPHILS % (AUTO) 7.5 % (0.0-4.0); HEMATOCRIT 28.7 % (36-48); LYMPHOCYTES % (AUTO) 12.7 % (20.5-51.1); MEAN CORPUSCULAR HEMOGLOBIN 26 pg (27-31); MEAN CORPUSCULAR HGB CONC 31 g/dL (33-37); MONOCYTES # (AUTO) 0.3 K/uL (0.8-1.0); MONOCYTES % (AUTO) 4.5 % (1.7-9.3); NEUTROPHILS # (AUTO) 5.8 K/uL (1.8-7.7); NEUTROPHILS % (AUTO) 75.1 % (42.2-75.2); PLATELET COUNT (AUTO) 234 K/uL (140-450); RED BLOOD CELL COUNT(AUTO) 3.46 MIL/uL (4.20-5.40); RED CELL DISTRIBUTION WIDTH 19.5 % (11.6-13.7); WHITE BLOOD COUNT (AUTO) 7.7 K/uL (4.8-10.8)
[2021-07-24 10:04] LABS: ANION GAP 8.5 (8-16); CARBON DIOXIDE 35.6 mmol/L (21-32); CHLORIDE 108 mmol/L (98-107); GLUCOSE 128 mg/dL (74-106); POTASSIUM 4.1 mmol/L (3.5-5.1); SODIUM SERUM 148 mmol/L (136-145); UREA NITROGEN, BLOOD 33 mg/dL (7-18)
[2021-07-24 10:15] LABS: MAGNESIUM 2.1 mg/dL (1.8-2.4); PHOSPHORUS 3.2 mg/dL (2.5-4.9)
[2021-07-24 12:00] VITALS: BP 138/81
[2021-07-24] MEDS: FOAM DRESSING TP SCH (13:20)
[2021-07-24] MEDS: THERAHONEY GEL 42.5 GM TP SCH (13:20)
[2021-07-24] MEDS: ALBUTEROL SULFATE/IPRATROPIU 3 ML SOL IH PRN (15:30)
[2021-07-24 16:00] VITALS: BP 129/56
[2021-07-24 20:00] VITALS: BP 110/43
[2021-07-24] MEDS: ATORVASTATIN 20 MG TAB PO SCH (20:51)
[2021-07-25] VITALS: BP 116/49
[2021-07-25] MEDS: Z-GUARD PASTE TP SCH ×2 (00:42→13:04)
[2021-07-25] MEDS: ALBUTEROL SULFATE/IPRATROPIU 3 ML SOL IH SCH ×3 (01:16→13:18)
[2021-07-25 04:00] VITALS: BP 120/57
[2021-07-25] MEDS: METOCLOPRAMIDE 10 MG/2 ML INJ VIAL IVP SCH ×2 (05:37→14:25)
[2021-07-25 06:12] LABS: BASOPHILS % (AUTO) 0.3 % (0.0-2.0); EOSINOPHILS # (AUTO) 0.6 K/uL (0-0.4); HEMATOCRIT 27.3 % (36-48); HEMOGLOBIN 8.5 g/dL (12.0-16.0); LYMPHOCYTES # (AUTO) 0.7 K/uL (2.5-16.5); LYMPHOCYTES % (AUTO) 9.9 % (20.5-51.1); MEAN CORPUSCULAR HEMOGLOBIN 26 pg (27-31); MEAN CORPUSCULAR HGB CONC 31 g/dL (33-37); MEAN CORPUSCULAR VOLUME 82.3 fL (80-94); MONOCYTES # (AUTO) 0.3 K/uL (0.8-1.0); MONOCYTES % (AUTO) 3.6 % (1.7-9.3); NEUTROPHILS # (AUTO) 5.6 K/uL (1.8-7.7); NEUTROPHILS % (AUTO) 78.2 % (42.2-75.2); PLATELET COUNT (AUTO) 209 K/uL (140-450); RED BLOOD CELL COUNT(AUTO) 3.31 MIL/uL (4.20-5.40); RED CELL DISTRIBUTION WIDTH 19.1 % (11.6-13.7); WHITE BLOOD COUNT (AUTO) 7.2 K/uL (4.8-10.8)
[2021-07-25 06:32] LABS: CARBON DIOXIDE 33.9 mmol/L (21-32); CHLORIDE 106 mmol/L (98-107); GLUCOSE 131 mg/dL (74-106); POTASSIUM 3.9 mmol/L (3.5-5.1); SODIUM SERUM 147 mmol/L (136-145); UREA NITROGEN, BLOOD 36 mg/dL (7-18)
[2021-07-25 07:21] LABS: PHOSPHORUS 3.4 mg/dL (2.5-4.9)
[2021-07-25 08:00] VITALS: BP 109/70
[2021-07-25] MEDS: EPOETIN ALFA-EPBX 10,000 UNITS/ML VIAL SUBQ SCH (09:01)
[2021-07-25] MEDS: POTASSIUM CHLORIDE 20% 40 MEQ/15 ML UDC PO SCH (09:01)
[2021-07-25] MEDS: PANTOPRAZOLE 40 MG INJ VIAL IVP SCH (09:01)
[2021-07-25] MEDS ORDERED: ATOR20TA PO (09:28)
[2021-07-25 10:08] VITALS: BP_SYST 82
[2021-07-25] MEDS ORDERED: VANCOMYCIN 1,000 MG in DEXTROSE 5% 250 ML IV SCH (11:00)
[2021-07-25 12:00] VITALS: BP 117/55
[2021-07-25] MEDS: THERAHONEY GEL 42.5 GM TP SCH (13:04)
[2021-07-25] MEDS: FOAM DRESSING TP SCH (13:08)
== END 2021-07-25 16:30 | DRG 4 ==
LOC: MED 18:05 → MIC 22:12 → MTU 07-20 11:10
PROVIDERS: ADMIT Family Medicine; ATTEND Family Medicine
PROC: 3E0A3GC Introduction of Other Therapeutic Substance into Bone Marrow, Percutaneous Approach (ICD-10-PCS; 2021-07-05)
PROC: 5A09457 Assistance with Respiratory Ventilation, 24-96 Consecutive Hours, Continuous Positive Airway Pressure (ICD-10-PCS; 2021-07-05)
PROC: 5A1955Z Respiratory Ventilation, Greater than 96 Consecutive Hours (ICD-10-PCS; 2021-07-06)
PROC: 0BH17EZ Insertion of Endotracheal Airway into Trachea, Via Natural or Artificial Opening (ICD-10-PCS; 2021-07-06)
PROC: 5A12012 Performance of Cardiac Output, Single, Manual (ICD-10-PCS; 2021-07-06)
PROC: 02H633Z Insertion of Infusion Device into Right Atrium, Percutaneous Approach (ICD-10-PCS; 2021-07-08)
PROC: B548ZZA Ultrasonography of Superior Vena Cava, Guidance (ICD-10-PCS; 2021-07-08)
PROC: 0DH63UZ Insertion of Feeding Device into Stomach, Percutaneous Approach (ICD-10-PCS; 2021-07-18)
PROC: 0B110F4 Bypass Trachea to Cutaneous with Tracheostomy Device, Open Approach (ICD-10-PCS; principal; 2021-07-18 13:00)
DX: A41.9 Sepsis, unspecified organism (principal); J69.0 Pneumonitis due to inhalation of food and vomit; I50.43 Acute on chronic combined systolic (congestive) and diastolic (congestive) heart failure; E43 Unspecified severe protein-calorie malnutrition; I46.9 Cardiac arrest, cause unspecified; J96.21 Acute and chronic respiratory failure with hypoxia; J96.22 Acute and chronic respiratory failure with hypercapnia; N17.0 Acute kidney failure with tubular necrosis; E87.0 Hyperosmolality and hypernatremia; I13.0 Hypertensive heart and chronic kidney disease with heart failure and stage 1 through stage 4 chronic kidney disease, or unspecified chronic kidney disease; J44.0 Chronic obstructive pulmonary disease with (acute) lower respiratory infection; J44.1 Chronic obstructive pulmonary disease with (acute) exacerbation; N39.0 Urinary tract infection, site not specified; Z16.12 Extended spectrum beta lactamase (ESBL) resistance; Z68.42 Body mass index [BMI] 45.0-49.9, adult; Z99.11 Dependence on respirator [ventilator] status; E66.2 Morbid (severe) obesity with alveolar hypoventilation; B96.20 Unspecified Escherichia coli [E. coli] as the cause of diseases classified elsewhere; D64.9 Anemia, unspecified; E03.9 Hypothyroidism, unspecified; E78.5 Hyperlipidemia, unspecified; E83.51 Hypocalcemia; E86.0 Dehydration; E87.6 Hypokalemia; K21.9 Gastro-esophageal reflux disease without esophagitis; S30.810A Abrasion of lower back and pelvis, initial encounter; X58.XXXA Exposure to other specified factors, initial encounter; N18.9 Chronic kidney disease, unspecified; R13.11 Dysphagia, oral phase; Z20.822 Contact with and (suspected) exposure to COVID-19; T50.2X5A Adverse effect of carbonic-anhydrase inhibitors, benzothiadiazides and other diuretics, initial encounter; Y92.89 Other specified places as the place of occurrence of the external cause; Z79.899 Other long term (current) drug therapy; Z86.711 Personal history of pulmonary embolism; Z88.0 Allergy status to penicillin; Z88.2 Allergy status to sulfonamides; Z90.49 Acquired absence of other specified parts of digestive tract; Z90.710 Acquired absence of both cervix and uterus; Z91.013 Allergy to seafood; Z83.3 Family history of diabetes mellitus; Z84.1 Family history of disorders of kidney and ureter; Z82.49 Family history of ischemic heart disease and other diseases of the circulatory system; Z82.61 Family history of arthritis; Z79.01 Long term (current) use of anticoagulants; Y93.89 Activity, other specified; Y99.8 Other external cause status
CPT/HCPCS: 36415; 36600; 70450; 71045; 74018; 76700; 80048; 80053; 80202; 81001; 82150; 82803; 83036; 83605; 83690; 83735; 83880; 84100; 84436; 84439; 84443; 84479; 84484; 84550; 85025; 85610; 85730; 87040; 87070; 87081; 87086; 87205; 87420; 87804; 93005; 93308; 94003; 94640; 94660; 96365; 96367; 96375; 99285; 99291; C9113; J0360; J0456; J0696; J1940; J1956; J2060; J2185; J2250; J2270; J2405; J2704; J2710; J2765; J2920; J2930; J3010; J3370; J3475; J3480; J3490; J7060; J7120; Q0092; Q5106; U0003